=== PATIENT | female | born 1945 | race Caucasian/White ===

== ENCOUNTER 2018-06-18 21:32 | Inpatient (IN) | payer MEDICARE, BC ==
[2018-06-18] MEDS ORDERED: PIPERACILLIN/TAZOBACTAM 4.5 GM VIAL IV ONE (21:51)
[2018-06-18] MEDS ORDERED: ONDANSETRON HCL INJ/PF 4 MG/2 ML SDV IV ONE (21:52)
--- NOTE | 2018-06-18 22:01 | ER Document Report ---
ED General - General Chief Complaint: Fever Stated Complaint: NAUSEA Time Seen by Provider: 06/18/18 21:50 TRAVEL OUTSIDE OF THE [place] IN LAST 30 DAYS: No - HPI Notes: 73-year-old female with a history of atrial fibrillation on Coumadin, stroke, hypertension, congestive heart failure, diabetes, COPD on CPAP presents from home with 1 week of chills and sweats, and multiple episodes of nausea and vomiting with diarrhea. She reports about 3-4 episodes of vomiting today. She has had 2-3 episodes of diarrhea. Denies blood in vomit or stools. She has had wet cough productive of yellow sputum with increasing shortness of breath. She denies any ill contacts or travel. No abdominal pain or rash. - Related Data Allergies/Adverse Reactions: No Known Allergies Allergy (Verified 12/07/14 23:31) Past Medical History - Social History Smoking Status: Unknown if Ever Smoked Family History: Reviewed & Not Pertinent - Past Medical History Cardiac Medical History: Reports: Hx Atrial Fibrillation - pace maker, Hx Hypertension Pulmonary Medical History: Reports: Hx Sleep Apnea Neurological Medical History: Denies: Hx Seizures Endocrine Medical History: Reports: Hx Diabetes Mellitus Type 2 Past Surgical History: Reports: Hx Cardiac Surgery - pace maker. Denies: Hx Hysterectomy - Immunizations Hx Diphtheria, Pertussis, Tetanus Vaccination: Yes Hx Pneumococcal Vaccination: 09/26/14 Review of Systems - Review of Systems Notes: Constitutional: Positive for fever. HENT: Negative for sore throat. Eyes: Negative for visual changes. Cardiovascular: Positive for chest pain and shortness of breath Respiratory: Positive for cough and shortness of breath Gastrointestinal: Positive for vomiting and diarrhea. Negative for abdominal pain Genitourinary: Negative for dysuria. Musculoskeletal: Negative for back pain. Skin: Negative for rash. Neurological: Negative for headaches, weakness or numbness. 10 point ROS negative except as marked above and in HPI. Physical Exam - Notes Notes: PHYSICAL EXAMINATION: GENERAL: Ill-appearing, well-nourished. Morbid obesity HEAD: Atraumatic, normocephalic. EYES: Pupils equal round and reactive to light, extraocular movements intact, conjunctiva are normal. ENT: nares patent, oropharynx clear without exudates. Dry mucous membranes. NECK: Normal range of motion, supple without lymphadenopathy LUNGS: Breath sounds diffusely rhonchorous with rales. No wheezing HEART: Regular rate and rhythm, no chest wall tenderness ABDOMEN: Soft, nontender, normoactive bowel sounds. No guarding, no rebound. No masses appreciated. EXTREMITIES: Normal range of motion, no pitting or edema. No cyanosis. NEUROLOGICAL: Cranial nerves grossly intact. Normal speech, normal gait. Normal sensory and motor exams. PSYCH: Normal mood, normal affect. SKIN: Warm, Dry, normal turgor, no rashes or lesions noted. Course - Re-evaluation Re-evalutation: 06/18/18 21:57 Temp 99.9. Sats 89% upon EMS arrival which increased to 92% on 3 L. She is not on home oxygen. She is tachycardic. Sepsis protocol initiated. Fluids not initiated due to significant rhonchi appreciated on exam and concern for pulmonary edema. 06/18/18 23:28 Large right upper lobe infiltrate with leukocytosis. Lactic is 2. Given gentle fluids with history of congestive heart failure and no sign of severe sepsis or septic shock. Will discuss with hospitalist for admission. - Laboratory Result Diagrams: 06/18/18 22:23 06/18/18 22:23 Laboratory results interpreted by me: 06/18/18 06/18/18 06/18/18 22:23 22:23 22:23 WBC 25.7 H RBC 3.53 L Hgb 10.1 L Hct 30.4 L RDW 15.2 H Seg Neuts % (Manual) 89 H Lymphocytes % (Manual) 8 L Abs Neuts (Manual) 22.9 H PT 18.8 H Sodium 133.2 L Chloride 97 L BUN 55 H Creatinine 1.47 H Est GFR ( Amer) 42 L Est GFR (Non-Af Amer) 35 L Glucose 316 H POC Glucose Direct Bilirubin 0.6 H AST 52 H ALT 68 H NT-Pro-B Natriuret Pep Total Protein 5.9 L Albumin 3.1 L 06/18/18 06/18/18 22:23 22:53 WBC RBC Hgb Hct RDW Seg Neuts % (Manual) Lymphocytes % (Manual) Abs Neuts (Manual) PT Sodium Chloride BUN Creatinine Est GFR ( Amer) Est GFR (Non-Af Amer) Glucose POC Glucose 330 H Direct Bilirubin AST ALT NT-Pro-B Natriuret Pep 32205 H Total Protein Albumin Discharge - Discharge Clinical Impression: Sepsis Qualifiers: Sepsis type: sepsis due to unspecified organism Qualified Code(s): A41.9 - Sepsis, unspecified organism Pneumonia Qualifiers: Pneumonia type: due to unspecified organism Laterality: right Lung location: upper lobe of lung Qualified Code(s): J18.1 - Lobar pneumonia, unspecified organism Condition: Fair Disposition: ADMITTED INPATIENT Admitting Provider: Hospitalist Unit Admitted: IMCU Referrals: BRIDGETT CLARK MD [ACTIVE STAFF] - Follow up as needed
[2018-06-18 22:52] LABS: HEMATOCRIT 30.4 % (36.0-47.0); HEMOGLOBIN 10.1 g/dL (12.0-15.5); MEAN CORPUSCULAR HEMOGLOBIN 28.6 pg (27.0-33.4); MEAN CORPUSCULAR HGB CONC 33.2 g/dL (32.0-36.0); MEAN CORPUSCULAR VOLUME 86 fl (80-97); PLATELET COUNT 303 10^3/uL (150-450); RED BLOOD COUNT 3.53 10^6/uL (3.72-5.28); RED CELL DISTRIBUTION WIDTH 15.2 % (11.5-14.0); WHITE BLOOD COUNT 25.7 10^3/uL (4.0-10.5)
[2018-06-18 22:53] LABS: VENOUS BLOOD BASE EXCESS -1.2 mmol/L; VENOUS BLOOD HCO3 24.4 mmol/L (20-32); VENOUS BLOOD PCO2 43.5 mmHg (35-63); VENOUS BLOOD PH 7.37 (7.30-7.42)
[2018-06-18 22:57] LABS: INTERNATIONAL RATION (INR) 1.49; PROTHROMBIN TIME 18.8 SEC (11.4-15.4)
[2018-06-18 23:04] LABS: ALBUMIN 3.1 g/dL (3.5-5.0); ANION GAP 14 (5-19); CARBON DIOXIDE 22 mmol/L (22-30); CHLORIDE 97 mmol/L (98-107); GLUCOSE 316 mg/dL (75-110); POTASSIUM 4.5 mmol/L (3.6-5.0); SODIUM 133.2 mmol/L (137-145); TOTAL PROTEIN 5.9 g/dL (6.3-8.2)
[2018-06-18 23:05] LABS: ALANINE AMINOTRANSFERASE 68 U/L (9-52); ALKALINE PHOSPHATASE 92 U/L (38-126); ASPARTATE AMINO TRANSFERASE 52 U/L (14-36); BILIRUBIN,DIRECT 0.6 mg/dL (0.0-0.4); BLOOD UREA NITROGEN 55 mg/dL (7-20); CALCIUM 8.8 mg/dL (8.4-10.2); LIPASE 66.8 U/L (23-300)
[2018-06-18 23:12] LABS: ABSOLUTE LYMPHOCYTES# (MANUAL) 2.1 10^3/uL (0.5-4.7); ABSOLUTE MONOCYTES # (MANUAL) 0.8 10^3/uL (0.1-1.4); ABSOLUTE NEUTROPHILS# (MANUAL) 22.9 10^3/uL (1.7-8.2); BASOPHILS % (MANUAL) 0 % (0-2); EOSINOPHILS % (MANUAL) 0 % (0-6); LYMPHOCYTES % (MANUAL) 8 % (13-45); MONOCYTES % (MANUAL) 3 % (3-13); SEGMENTED NEUTROPHILS % (MAN) 89 % (42-78); TOTAL CELLS COUNTED 100
[2018-06-18 23:14] LABS: ANISOCYTOSIS SLIGHT
[2018-06-18 23:15] LABS: OVALOCYTES SLIGHT; PLATELET COMMENT ADEQUATE; PLATELET LARGE PRESENT; POIKILOCYTOSIS SLIGHT
[2018-06-18 23:23] LABS: TROPONIN I 0.157 ng/mL
[2018-06-18] MEDS ORDERED: AZITHROMYCIN INJ 500 MG VIAL IV ONE (23:25)
[2018-06-18] MEDS ORDERED: NORMAL SALINE 1000 ML 1,000 ML IV ONE (23:27)
--- NOTE | 2018-06-18 23:27 | RADIOLOGY REPORT (SQ) ---
EXAM DESCRIPTION: XR CHEST 2 VIEWS COMPLETED DATE/TME: 06/18/2018 21:51 CLINICAL HISTORY: 73 years, Female, cough, sob COMPARISON: 12.8.16 NUMBER OF VIEWS: 2 LIMITATIONS: None. FINDINGS: Large consolidative opacity of the right upper lobe prominent cardiac silhouette, atherosclerosis, and intact bony thorax. IMPRESSION: Large right upper lobar pneumonia. Recommend CR/CT surveillance including at 7-12 weeks following initiation of clinically warranted therapy.
[2018-06-18] MEDS ORDERED: ACETAMINOPHEN 325 MG TABLET PO PRN (23:57)
[2018-06-18] MEDS ORDERED: IPRATROPIUM/ALBUTEROL 0.5-2.5 MG/3 ML AMPUL NEB PRN (23:57)
[2018-06-18] MEDS ORDERED: GUAIFENESIN SYRP 200 MG/10 ML UDC PO PRN (23:57)
[2018-06-19] MEDS ORDERED: DEXTROSE 40% GEL 15 GM TUBE PO PRN ×2 (00:01)
[2018-06-19] MEDS ORDERED: GLUCAGON,HUMAN RECOMB 1 MG INJ IM PRN (00:01)
[2018-06-19] MEDS ORDERED: DEXTROSE 50%-WATER 25 GM/50 ML DISP.SYRIN IV PRN ×2 (00:01)
[2018-06-19] MEDS ORDERED: HYDRALAZINE HCL INJ/PF 20 MG/1 ML SDV IV PRN (00:02)
[2018-06-19] MEDS ORDERED: WARFARIN SODIUM 5 MG TABLET PO SCH (00:15)
[2018-06-19] MEDS ORDERED: IPRATROPIUM/ALBUTEROL 0.5-2.5 MG/3 ML AMPUL NEB ONE (00:15)
[2018-06-19] MEDS ORDERED: WARFARIN SODIUM 2 MG TABLET PO SCH (00:15)
[2018-06-19] MEDS ORDERED: DILTIAZEM HCL 60 MG TABLET PO ONE (00:15)
[2018-06-19] MEDS ORDERED: LEVOFLOXACIN 750 MG/D5W RTU 750 MG/150 ML RTUPB IV SCH (01:00)
[2018-06-19] MEDS ORDERED: CEFEPIME 2 GM/D5W RTU 2 GM/50 ML RTUPB IV SCH (01:00)
[2018-06-19] MEDS ORDERED: WARFARIN SODIUM 5 MG TABLET PO ONE (03:15)
[2018-06-19 04:43] LABS: ALANINE AMINOTRANSFERASE 78 U/L (9-52); ALBUMIN 2.9 g/dL (3.5-5.0); ALKALINE PHOSPHATASE 81 U/L (38-126); ANION GAP 11 (5-19); ASPARTATE AMINO TRANSFERASE 90 U/L (14-36); BILIRUBIN,DIRECT 0.6 mg/dL (0.0-0.4); BILIRUBIN,TOTAL 0.8 mg/dL (0.2-1.3); BLOOD UREA NITROGEN 59 mg/dL (7-20); CALCIUM 8.2 mg/dL (8.4-10.2); CARBON DIOXIDE 23 mmol/L (22-30); CHLORIDE 99 mmol/L (98-107); CREATINE KINASE 84 U/L (30-135); GLUCOSE 316 mg/dL (75-110); POTASSIUM 4.2 mmol/L (3.6-5.0); SODIUM 133.1 mmol/L (137-145)
[2018-06-19 04:46] LABS: HEMATOCRIT 27.5 % (36.0-47.0); HEMOGLOBIN 9.3 g/dL (12.0-15.5); MEAN CORPUSCULAR HEMOGLOBIN 29.1 pg (27.0-33.4); MEAN CORPUSCULAR HGB CONC 33.7 g/dL (32.0-36.0); MEAN CORPUSCULAR VOLUME 86 fl (80-97); PLATELET COUNT 282 10^3/uL (150-450); RED BLOOD COUNT 3.19 10^6/uL (3.72-5.28); RED CELL DISTRIBUTION WIDTH 15.1 % (11.5-14.0); WHITE BLOOD COUNT 21.9 10^3/uL (4.0-10.5)
[2018-06-19 04:55] LABS: CREATINE KINASE MB 0.91 ng/mL (<4.55); TROPONIN I 0.187 ng/mL
[2018-06-19 05:19] LABS: ABSOLUTE LYMPHOCYTES# (MANUAL) 1.5 10^3/uL (0.5-4.7); ABSOLUTE MONOCYTES # (MANUAL) 0.2 10^3/uL (0.1-1.4); ABSOLUTE NEUTROPHILS# (MANUAL) 20.1 10^3/uL (1.7-8.2); BASOPHILS % (MANUAL) 0 % (0-2); EOSINOPHILS % (MANUAL) 0 % (0-6); LYMPHOCYTES % (MANUAL) 7 % (13-45); MONOCYTES % (MANUAL) 1 % (3-13); SEGMENTED NEUTROPHILS % (MAN) 92 % (42-78); TOTAL CELLS COUNTED 100
[2018-06-19 05:20] LABS: TOXIC GRANULATION 1+
[2018-06-19 05:21] LABS: ANISOCYTOSIS SLIGHT; HYPOCHROMASIA 1+; PLATELET COMMENT ADEQUATE; TOXIC VACUOLATION PRESENT
[2018-06-19] MEDS: CEFEPIME 2 GM/D5W RTU 2 GM/50 ML RTUPB IV SCH ×2 (06:00→19:12)
[2018-06-19] MEDS ORDERED: HEPARIN SOD (PORCINE) 5,000 UNIT/ML 1 ML SYRINGE SUBCUT SCH (06:00)
--- NOTE | 2018-06-19 06:23 | PDOC H&P ---
History of Present Illness Admission Date/PCP: 06/18/18 23:54 YANNICK CLARK MD Patient complains of: Shortness of breath and fever History of Present Illness: MIKAEL ARELLANO is a 73 year old female with a history of atrial fibrillation on Coumadin, CVA, hypertension, congestive heart failure, diabetes and oxygen dependent COPD. She presents with 1 week of fever and chills, shortness of breath and a nonproductive cough. Denies chest pain or palpitations, in the emergency room she is found to have right-sided infiltrate, leukocytosis of 25, 000, tachycardia and fever. She started on empiric antibiotics and referred to the hospitalist for admission. Patient denies infectious contacts, rhinorrhea, sore throat or GERD. She denies recent antibiotic use. Past Medical History Cardiac Medical History: Reports: Atrial Fibrillation - pace maker, Congestive Heart Failure, Hypertension Pulmonary Medical History: Reports: Bronchitis, Sleep Apnea Neurological Medical History: Denies: Seizures Endocrine Medical History: Reports: Diabetes Mellitus Type 2 Past Surgical History Past Surgical History: Denies: Hysterectomy Social History Information Source: Patient Smoking Status: Former Smoker Frequency of Alcohol Use: None Hx Recreational Drug Use: No Drugs: None Hx Prescription Drug Abuse: No - Advance Directive Resuscitation Status: Full Code Family History Family History: CAD, Other Parental Family History Reviewed: Yes Children Family History Reviewed: Yes Sibling(s) Family History Reviewed.: Yes Medication/Allergy Home Medications: Atorvastatin Calcium [Lipitor] 40 mg PO DAILY 12/08/14 Cyanocobalamin (Vitamin B-12) [Vitamin B-12] 1,000 mcg PO DAILY 12/08/14 Diltiazem HCl [Cardizem Cd 240 mg Capsule.cr] 1 cap.sr PO DAILY 12/08/14 Ferrous Sulfate [Iron] 325 mg PO DAILY 12/08/14 Glipizide [Glucotrol Xl] 5 mg PO BID 12/08/14 Lansoprazole [Prevacid] 30 mg PO DAILY 12/08/14 Metformin HCl [Glucophage] 1,000 mg PO BID 12/08/14 Metoprolol Tartrate [Lopressor 100 mg Tablet] 100 mg PO Q12 12/08/14 Fluconazole [Diflucan 100 mg Tablet] 100 mg PO DAILY #4 tablet 12/14/14 Furosemide [Lasix 40 mg Tablet] 40 mg PO DAILY #30 tablet 12/14/14 Levofloxacin [Levaquin 750 mg Tablet] 750 mg PO DAILY #4 tablet 12/14/14 Lisinopril [Prinivil 10 mg Tablet] 20 mg PO DAILY #30 tablet 12/14/14 Warfarin Sodium [Coumadin 7.5 mg Tablet] 6.5 mg PO QHS #0 12/14/14 Allergies/Adverse Reactions: No Known Allergies Allergy (Verified 12/07/14 23:31) Review of Systems Constitutional: PRESENT: as per HPI, chills, fatigue, fever(s), night sweats, weakness. ABSENT: headache(s) Eyes: ABSENT: visual disturbances Ears: ABSENT: hearing changes Cardiovascular: ABSENT: chest pain, dyspnea on exertion, edema, orthropnea, palpitations Respiratory: PRESENT: as per HPI, cough, dyspnea. ABSENT: hemoptysis, sputum Gastrointestinal: PRESENT: constipation, diarrhea, nausea. ABSENT: abdominal pain, hematemesis, hematochezia, vomiting Genitourinary: ABSENT: dysuria, hematuria Musculoskeletal: ABSENT: joint swelling Integumentary: ABSENT: rash, wounds Neurological: ABSENT: abnormal gait, abnormal speech, confusion, dizziness, focal weakness, syncope Psychiatric: ABSENT: anxiety, depression, homidical ideation, suicidal ideation Endocrine: ABSENT: cold intolerance, heat intolerance, polydipsia, polyuria Hematologic/Lymphatic: ABSENT: easy bleeding, easy bruising Physical Exam Vital Signs: Temp Pulse Resp BP Pulse Ox 98.6 F 61 22 H 125/80 100 06/18/18 21:51 06/19/18 00:32 06/19/18 04:48 06/18/18 21:51 06/19/18 04:48 Intake & Output 06/17/18 06/18/18 06/19/18 11:59 11:59 11:59 Intake Total 1150 Balance 1150 General appearance: PRESENT: no acute distress, well-developed, well-nourished Head exam: PRESENT: atraumatic, normocephalic Eye exam: PRESENT: conjunctiva pink, EOMI, PERRLA. ABSENT: scleral icterus Ear exam: PRESENT: normal external ear exam Mouth exam: PRESENT: moist, tongue midline Neck exam: ABSENT: carotid bruit, JVD, lymphadenopathy, thyromegaly Respiratory exam: PRESENT: accessory muscle use, clear to auscultation archie, crackles, prolonged expiratory phas, rhonchi, tachypnea. ABSENT: rales, wheezes Cardiovascular exam: PRESENT: RRR. ABSENT: diastolic murmur, rubs, systolic murmur Pulses: PRESENT: normal dorsalis pedis pul Vascular exam: PRESENT: normal capillary refill GI/Abdominal exam: PRESENT: normal bowel sounds, soft. ABSENT: distended, guarding, mass, organolmegaly, rebound, tenderness Rectal exam: PRESENT: deferred Extremities exam: PRESENT: full ROM. ABSENT: calf tenderness, clubbing, pedal edema Neurological exam: PRESENT: alert, awake, oriented to person, oriented to place , oriented to time, oriented to situation, CN II-XII grossly intact. ABSENT: motor sensory deficit Psychiatric exam: PRESENT: appropriate affect, normal mood. ABSENT: homicidal ideation, suicidal ideation Skin exam: PRESENT: dry, intact, warm. ABSENT: cyanosis, rash Results Laboratory Results: 06/19/18 04:28 06/19/18 04:10 06/19/18 06/19/18 04:10 04:28 WBC 21.9 H RBC 3.19 L Hgb 9.3 L Hct 27.5 L MCV 86 MCH 29.1 MCHC 33.7 RDW 15.1 H Plt Count 282 Seg Neutrophils % Not Reportable Lymphocytes % Not Reportable Monocytes % Not Reportable Eosinophils % Not Reportable Basophils % Not Reportable Absolute Neutrophils Not Reportable Absolute Lymphocytes Not Reportable Absolute Monocytes Not Reportable Absolute Eosinophils Not Reportable Absolute Basophils Not Reportable Sodium 133.1 L Potassium 4.2 Chloride 99 Carbon Dioxide 23 Anion Gap 11 BUN 59 H Creatinine 1.94 H Est GFR ( Amer) 31 L Est GFR (Non-Af Amer) 25 L Glucose 316 H Calcium 8.2 L Total Bilirubin 0.8 AST 90 H ALT 78 H Alkaline Phosphatase 81 Total Protein 6.0 L Albumin 2.9 L 06/19/18 06/19/18 04:10 04:10 Creatine Kinase 84 CK-MB (CK-2) 0.91 Troponin I 0.187 Impressions: Chest X-Ray 06/18/18 21:51 IMPRESSION: Large right upper lobar pneumonia. Recommend CR/CT surveillance including at 7-12 weeks following initiation of clinically warranted therapy. Assessment & Plan - Diagnosis (1) ACS (acute coronary syndrome) Is this a current diagnosis for this admission?: Yes Plan: Complicated by pneumonia, IMCU admission, aspirin, heparin, cardiology consult follow-up serial cardiac enzymes optimize respiratory status (2) Pneumonia Qualifiers: Pneumonia type: due to unspecified organism Laterality: right Lung location: upper lobe of lung Qualified Code(s): J18.1 - Lobar pneumonia, unspecified organism Is this a current diagnosis for this admission?: Yes Plan: Pneumonia care set, follow-up blood culture (3) Sepsis Qualifiers: Sepsis type: sepsis due to unspecified organism Qualified Code(s): A41.9 - Sepsis, unspecified organism Is this a current diagnosis for this admission?: Yes Plan: Secondary to pneumonia, follow-up blood culture (4) Afib Qualifiers: Atrial fibrillation type: unspecified Qualified Code(s): I48.91 - Unspecified atrial fibrillation Is this a current diagnosis for this admission?: Yes Plan: Complicated by sepsis and acute coronary syndrome, cardiology consulted, Coumadin held heparin initiated - Time Time Spent: 50 to 70 Minutes - Inpatient Certification Medical Necessity: Need Close Monitoring Due to Risk of Patient Decompensation
[2018-06-19] MEDS ORDERED: HEPARIN SOD (PORCINE) 1,000 UNIT/ML 10 ML VIAL IV ONE (06:30)
[2018-06-19 06:59] LABS: INTERNATIONAL RATION (INR) 1.62; PROTHROMBIN TIME 20.1 SEC (11.4-15.4)
[2018-06-19 07:00] LABS: PARTIAL THROMBOPLASTIN TIME 44.8 SEC (23.5-35.8)
[2018-06-19 07:01] LABS: HEMOGLOBIN 8.9 g/dL (12.0-15.5); MEAN CORPUSCULAR HEMOGLOBIN 28.5 pg (27.0-33.4); MEAN CORPUSCULAR HGB CONC 33.1 g/dL (32.0-36.0); MEAN CORPUSCULAR VOLUME 86 fl (80-97); PLATELET COUNT 260 10^3/uL (150-450); RED BLOOD COUNT 3.13 10^6/uL (3.72-5.28); RED CELL DISTRIBUTION WIDTH 15.3 % (11.5-14.0); WHITE BLOOD COUNT 21.7 10^3/uL (4.0-10.5)
[2018-06-19 07:29] LABS: ABSOLUTE LYMPHOCYTES# (MANUAL) 2.4 10^3/uL (0.5-4.7); ABSOLUTE MONOCYTES # (MANUAL) 0.2 10^3/uL (0.1-1.4); ABSOLUTE NEUTROPHILS# (MANUAL) 19.1 10^3/uL (1.7-8.2); ANISOCYTOSIS SLIGHT; BAND NEUTROPHILS % (MANUAL) 1 % (3-5); BASOPHILS % (MANUAL) 0 % (0-2); EOSINOPHILS % (MANUAL) 0 % (0-6); LYMPHOCYTES % (MANUAL) 11 % (13-45); MONOCYTES % (MANUAL) 1 % (3-13); OVALOCYTES 1+; PLATELET COMMENT ADEQUATE; POIKILOCYTOSIS 1+; POLYCHROMASIA 1+; SEGMENTED NEUTROPHILS % (MAN) 87 % (42-78); TOTAL CELLS COUNTED 100; TOXIC GRANULATION SLIGHT
--- NOTE | 2018-06-19 07:41 | EKG REPORT ---
SEVERITY:- ABNORMAL ECG - AFIB/FLUT AND V-PACED COMPLEXES QRS NON DIAGNOSTIC : Confirmed by: Huan Waddell MD 19-Jun-2018 07:40:25
[2018-06-19] MEDS: IPRATROPIUM/ALBUTEROL 0.5-2.5 MG/3 ML AMPUL NEB SCH ×2 (08:07→15:48)
[2018-06-19] MEDS: HEPARIN SODIUM,PORCINE/D5W 25,000 UNIT/250 ML RTUINJ IV PRN (08:32)
[2018-06-19] MEDS ORDERED: HEPARIN SOD (PORCINE) 1,000 UNIT/ML 10 ML VIAL IV PRN (09:19)
[2018-06-19] MEDS ORDERED: FUROSEMIDE INJ/PF 40 MG/4 ML SDV IV SCH (10:00)
[2018-06-19] MEDS: GUAIFENESIN 600 MG TABLET.SA PO SCH ×2 (11:28→21:50)
[2018-06-19] MEDS: ASPIRIN 325 MG TABLET PO SCH (11:28)
[2018-06-19] MEDS: METOPROLOL TARTRATE 100 MG TABLET PO SCH ×2 (11:29→21:50)
[2018-06-19] MEDS: DILTIAZEM HCL 240 MG CAPSULE.CR PO SCH (11:30)
[2018-06-19 12:02] LABS: CREATINE KINASE MB 1.05 ng/mL (<4.55); TROPONIN I 0.132 ng/mL
[2018-06-19 16:16] LABS: APPEARANCE,URINE CLOUDY; BILIRUBIN,URINE NEGATIVE (NEGATIVE); GLUCOSE, URINE >=500 mg/dL (NEGATIVE); KETONES,URINE NEGATIVE (NEGATIVE); LEUKOCYTE ESTERASE,URINE NEGATIVE (NEGATIVE); NITRITE,URINE NEGATIVE (NEGATIVE); PROTEIN,URINE >=500 mg/dL (NEGATIVE); URINE SPECIFIC GRAVITY 1.018; UROBILINOGEN,URINE NEGATIVE mg/dL (<2.0)
[2018-06-19 16:18] LABS: COLOR,URINE YELLOW
[2018-06-19 16:33] LABS: CREATINE KINASE MB 1.72 ng/mL (<4.55); TROPONIN I 0.12 ng/mL
[2018-06-19] MEDS: VANCOMYCIN HCL 500 MG in NORMAL SALINE 100 ML IV SCH (21:49)
--- NOTE | 2018-06-19 22:33 | PDOC PROGRESS REPORT ---
Subjective Progress Note for:: 06/19/18 Subjective:: 73-year-old female with a history of atrial fibrillation Coumadin, hypertension , congestive heart failure, diabetes mellitus, COPD with chronic hypoxic respiratory failure. Presented with a one-week complaint of shortness of breath , cough and fever and chills. Chest x-ray did show a large right-sided lower lobe pneumonia, patient did have an elevated leukocytosis, tachycardic with fever. She did qualify for sepsis. She was started on empiric antibiotics that include cefepime and Levaquin. She supplied the history and was behaving appropriately during the exam. Reason For Visit: CHF EXACERBATION AFIB PNEUMONIA Physical Exam Vital Signs: Temp Pulse Resp BP Pulse Ox 98.7 F 90 21 H 128/71 H 98 06/19/18 06:00 06/19/18 17:30 06/19/18 17:30 06/19/18 17:30 06/19/18 17:30 Intake & Output 06/18/18 06/19/18 06/20/18 06:59 06:59 06:59 Intake Total 1200 Balance 1200 General appearance: PRESENT: mild distress, morbidly obese Head exam: PRESENT: atraumatic, normocephalic Eye exam: PRESENT: EOMI, PERRLA. ABSENT: conjunctival injection, nystagmus Ear exam: PRESENT: normal external ear exam. ABSENT: bleeding Mouth exam: PRESENT: moist. ABSENT: dry mucosa Throat exam: ABSENT: post pharyngeal erythema, tonsillar exudate Neck exam: ABSENT: carotid bruit, tenderness Respiratory exam: PRESENT: accessory muscle use, decreased breath sounds - decreased breath sounds in lower right base., rales. ABSENT: rhonchi, stridor Cardiovascular exam: PRESENT: RRR, +S1, +S2. ABSENT: bradycardia Pulses: PRESENT: normal radial pulses, normal dorsalis pedis pul Vascular exam: PRESENT: normal capillary refill. ABSENT: pallor GI/Abdominal exam: PRESENT: soft. ABSENT: ascites, hyperactive bowel sounds, hypoactive bowel sounds, Ryder's sign, rigid Extremities exam: PRESENT: pedal edema. ABSENT: calf tenderness, joint swelling Musculoskeletal exam: PRESENT: full ROM. ABSENT: ambulatory Neurological exam: PRESENT: alert, oriented to person, oriented to place, oriented to time, oriented to situation Psychiatric exam: ABSENT: agitated, anxious Focused psych exam: ABSENT: catatonic, paranoid Skin exam: ABSENT: abrasion, erythema, mottled, petechiae Additional comments: normal skin color Results Laboratory Results: 06/19/18 06:46 06/19/18 04:10 06/19/18 06/19/18 06/19/18 04:10 04:28 06:46 WBC 21.9 H 21.7 H RBC 3.19 L 3.13 L Hgb 9.3 L 8.9 L Hct 27.5 L 27.0 L MCV 86 86 MCH 29.1 28.5 MCHC 33.7 33.1 RDW 15.1 H 15.3 H Plt Count 282 260 Seg Neutrophils % Not Reportable Not Reportable Lymphocytes % Not Reportable Not Reportable Monocytes % Not Reportable Not Reportable Eosinophils % Not Reportable Not Reportable Basophils % Not Reportable Not Reportable Absolute Neutrophils Not Reportable Not Reportable Absolute Lymphocytes Not Reportable Not Reportable Absolute Monocytes Not Reportable Not Reportable Absolute Eosinophils Not Reportable Not Reportable Absolute Basophils Not Reportable Not Reportable Sodium 133.1 L Potassium 4.2 Chloride 99 Carbon Dioxide 23 Anion Gap 11 BUN 59 H Creatinine 1.94 H Est GFR ( Amer) 31 L Est GFR (Non-Af Amer) 25 L Glucose 316 H Calcium 8.2 L Total Bilirubin 0.8 AST 90 H ALT 78 H Alkaline Phosphatase 81 Total Protein 6.0 L Albumin 2.9 L Urine Color Urine Appearance Urine pH Ur Specific Olivia Urine Protein Urine Glucose (UA) Urine Ketones Urine Blood Urine Nitrite Ur Leukocyte Esterase Urine WBC (Auto) Urine RBC (Auto) 06/19/18 15:57 WBC RBC Hgb Hct MCV MCH MCHC RDW Plt Count Seg Neutrophils % Lymphocytes % Monocytes % Eosinophils % Basophils % Absolute Neutrophils Absolute Lymphocytes Absolute Monocytes Absolute Eosinophils Absolute Basophils Sodium Potassium Chloride Carbon Dioxide Anion Gap BUN Creatinine Est GFR ( Amer) Est GFR (Non-Af Amer) Glucose Calcium Total Bilirubin AST ALT Alkaline Phosphatase Total Protein Albumin Urine Color YELLOW Urine Appearance CLOUDY Urine pH 5.0 Ur Specific Olivia 1.018 Urine Protein >=500 H Urine Glucose (UA) >=500 H Urine Ketones NEGATIVE Urine Blood SMALL H Urine Nitrite NEGATIVE Ur Leukocyte Esterase NEGATIVE Urine WBC (Auto) 1 Urine RBC (Auto) 1 06/19/18 06/19/18 06/19/18 04:10 04:10 11:11 Creatine Kinase 84 75 CK-MB (CK-2) 0.91 Troponin I 0.187 06/19/18 06/19/18 06/19/18 11:11 15:56 15:56 Creatine Kinase 87 CK-MB (CK-2) 1.05 1.72 Troponin I 0.132 0.120 Impressions: Chest X-Ray 06/18/18 21:51 IMPRESSION: Large right upper lobar pneumonia. Recommend CR/CT surveillance including at 7-12 weeks following initiation of clinically warranted therapy. Assessment & Plan - Diagnosis (1) Sepsis Qualifiers: Sepsis type: sepsis due to unspecified organism Qualified Code(s): A41.9 - Sepsis, unspecified organism Is this a current diagnosis for this admission?: Yes Plan: elevated leukocytosis, with tachypnea and acute respiratory failure with right sided PNA on CXR. check lactic acid STAT. continue empiric Cefepime, Levaquin, Vancomycin. Maintaining BP and non-tachycardic vitals. Agree with IMCU admission and close monitoring. (2) Pneumonia Qualifiers: Pneumonia type: due to unspecified organism Laterality: right Lung location: upper lobe of lung Qualified Code(s): J18.1 - Lobar pneumonia, unspecified organism Is this a current diagnosis for this admission?: Yes Plan: right sided PNA on CXR. continue Cefepime and Levaquin and Vancomycin (3) Afib Qualifiers: Atrial fibrillation type: unspecified Qualified Code(s): I48.91 - Unspecified atrial fibrillation Is this a current diagnosis for this admission?: Yes Plan: holding Coumadin, was started on Heparin, continue at present. has a controled rate, paced rhythm during exam on telemetry. continue Metoprolol and Diltiazem. (4) Diabetes mellitus type 2 in nonobese Is this a current diagnosis for this admission?: Yes Plan: cardiac/diabetic diet continue sliding scale insulin (5) HTN (hypertension) Qualifiers: Hypertension type: essential hypertension Qualified Code(s): I10 - Essential (primary) hypertension Is this a current diagnosis for this admission?: Yes Plan: BP currently controlled continue metoprolol and diltiazem. - Time Time Spent with patient: 15-24 minutes - Inpatient Certification Based on my medical assessment, after consideration of the patient's comorbidities, presenting symptoms, or acuity I expect that the services needed warrant INPATIENT care.: Yes I certify that my determination is in accordance with my understanding of Medicare's requirements for reasonable and necessary INPATIENT services [42 CFR 412.3e].: Yes Medical Necessity: Need Close Monitoring Due to Risk of Patient Decompensation
[2018-06-19] MEDS ORDERED: BUTALB/ACETAMINOPHEN/CAFFEINE 1 TAB EACH PO ONE (23:00)
[2018-06-20] MEDS: IPRATROPIUM/ALBUTEROL 0.5-2.5 MG/3 ML AMPUL NEB SCH ×3 (00:22→16:08)
[2018-06-20 05:20] LABS: HEMATOCRIT 27.1 % (36.0-47.0); HEMOGLOBIN 9.2 g/dL (12.0-15.5); MEAN CORPUSCULAR HEMOGLOBIN 28.9 pg (27.0-33.4); MEAN CORPUSCULAR HGB CONC 33.9 g/dL (32.0-36.0); MEAN CORPUSCULAR VOLUME 85 fl (80-97); PLATELET COUNT 288 10^3/uL (150-450); RED BLOOD COUNT 3.17 10^6/uL (3.72-5.28); RED CELL DISTRIBUTION WIDTH 15.5 % (11.5-14.0)
[2018-06-20 05:48] LABS: ALANINE AMINOTRANSFERASE 144 U/L (9-52); ALBUMIN 3.2 g/dL (3.5-5.0); ALKALINE PHOSPHATASE 97 U/L (38-126); ANION GAP 15 (5-19); ASPARTATE AMINO TRANSFERASE 169 U/L (14-36); BILIRUBIN,DIRECT 0.8 mg/dL (0.0-0.4); BILIRUBIN,TOTAL 0.9 mg/dL (0.2-1.3); BLOOD UREA NITROGEN 79 mg/dL (7-20); CALCIUM 8.6 mg/dL (8.4-10.2); CARBON DIOXIDE 21 mmol/L (22-30); CHLORIDE 98 mmol/L (98-107); GLUCOSE 233 mg/dL (75-110); POTASSIUM 4.4 mmol/L (3.6-5.0); SODIUM 133.6 mmol/L (137-145); TOTAL PROTEIN 6.5 g/dL (6.3-8.2)
[2018-06-20 05:53] LABS: ABSOLUTE LYMPHOCYTES# (MANUAL) 1.2 10^3/uL (0.5-4.7); ABSOLUTE MONOCYTES # (MANUAL) 0.5 10^3/uL (0.1-1.4); ABSOLUTE NEUTROPHILS# (MANUAL) 21.4 10^3/uL (1.7-8.2); BAND NEUTROPHILS % (MANUAL) 3 % (3-5); BASOPHILS % (MANUAL) 0 % (0-2); EOSINOPHILS % (MANUAL) 0 % (0-6); LYMPHOCYTES % (MANUAL) 5 % (13-45); MONOCYTES % (MANUAL) 2 % (3-13); SEGMENTED NEUTROPHILS % (MAN) 90 % (42-78); TOTAL CELLS COUNTED 100
[2018-06-20 05:55] LABS: ANISOCYTOSIS 1+; HYPOCHROMASIA 1+; PLATELET COMMENT ADEQUATE; POLYCHROMASIA 1+; TOXIC GRANULATION 1+; TOXIC VACUOLATION PRESENT
--- NOTE | 2018-06-20 08:30 | CONSULTATION REPORT E ---
Consultation Report NAME: MIKAEL ARELLANO : 1945 AGE: 73Y DATE: 06/19/2018 TIME: 3 p.m. ROOM: 324 A TO: CASTRO ST M.D. FROM: GUILLERMINA BARBA M.D. Requesting Physician REASON FOR CONSULTATION: Patient with a history of atrial fibrillation, permanent pacemaker, hypertension, and past history of congestive heart failure with shortness of breath. HISTORY OF PRESENT ILLNESS: The patient is a 73-year-old female with a history of atrial fibrillation, chronic, on Coumadin; history of permanent pacemaker for bradycardia; history of hypertension; past history of congestive heart failure and history of permanent pacemaker placement; history of COPD, oxygen dependent; and history of sleep apnea who states since the last 4 days she has been having increasing shortness of breath with cough which was initially dry and subsequently brought up scanty yellow sputum. There is no hemoptysis. She has some chest pain on the right side of the chest which increases with deep breathing and is pleuritic in nature. She denies any anginal symptoms. Although there is no documented history of coronary artery disease, she states she also had a stent placed but there is no history of IL, and there are no anginal symptoms. The patient has orthopnea but no PND. There is trace leg edema only. There is no palpitations or rapid atrial fibrillation. The patient initially was hypoxic with an O2 sat of 89% and she was placed on nasal cannula. Subsequently her sats went down to 60% and the patient was placed on BiPAP. PAST MEDICAL HISTORY: Positive for history of hypertension, history of diabetes mellitus type 2, history of COPD/chronic bronchitis O2 dependent, and a history of sleep apnea. She has a prior history of congestive heart failure, atrial fibrillation (on Coumadin), past history of CVA (completely recovered). She also has hyperlipidemia. There is no history of thyroid disease. The patient also has chronic kidney disease stage 3. PAST SURGICAL HISTORY: Positive for permanent pacemaker placement. FAMILY HISTORY: Positive for coronary artery disease and hypertension. ALLERGIES: The patient has no known allergies. SOCIAL HISTORY: The patient is a former smoker. There is no history of ETOH abuse. CODE STATUS: THE PATIENT IS A FULL CODE. Her daughter is her surrogate healthcare decision maker. MEDICATIONS: 1. Heparin continuous with PTT to titrate the patient's heparin drip. 2. She is on Tylenol 650 mg p.o. every 4 hours p.r.n. 3. Aspirin 325 mg p.o. daily. 4. She is on Zithromax 500 mg IV piggyback daily. 5. She is on cefepime 1 gram IV piggyback every night. 6. She is on hypoglycemic precautions with glucose gel 15 grams p.o. and 30 grams p.o. respectively hypoglycemia. 7. She is on dextrose 50% 12.5 grams and 25 grams IV push p.r.n. hypoglycemia. 8. She is on Cardizem 240 mg sustained release p.o. daily. 9. She is on Lasix 40 mg p.o. daily. 10. She is on Glucagon 1 mg IM p.r.n. hypoglycemia. 11. She is on Robitussin 200 mg p.o. every 4 hours p.r.n. 12. Mucinex 600 mg p.o. every 12 hours. 13. She is on Accu-Cheks before meals, t.i.d., and at bedtime with sliding-scale insulin coverage. 14. She is on hydralazine 10 mg IV every 6 hours p.r.n. 15. She is on ipratropium/albuterol via nebulizer treatment every 12 hours and also every 8 hours. 16. She got a normal saline bolus of 1000 mL. 17. She is on Levaquin 500 mg IV every 2 days. 18. She is on metoprolol tartrate 100 mg p.o. every 12 hours. 19. She is on Zofran 4 mg IV x1. 20. She is on piperacillin 4.5 grams IV bag x1. 21. She is on vancomycin 500 mg IV at bedtime. 22. She is on Coumadin (warfarin) 10 mg p.o. x1. PHYSICAL EXAMINATION: GENERAL: The patient is moderately obese, in distress due to respiratory problem. She is well groomed. VITAL SIGNS: She is afebrile with a temperature of 98.4 degrees Fahrenheit. Pulse is 61 beats per minute. There is atrial fibrillation with ventricular-paced rhythm. Blood pressure is 124/51. Respirations are 22 per minute. O2 sats are 98% on BiPAP with FIO2 of 30%. HEENT: Head - Atraumatic and normocephalic. Eyes - Pupils are equal, round, regular, reactive to light and accommodation. Extraocular movements are normal. There is no conjunctival pallor. There is no scleral icterus. Ears - Tympanic membranes are intact. External auditory canals are clear. Nose - There is no deviated nasal septum. There is no inflammation of the nasal mucous membranes. Mouth - Mucous membranes of the mouth are moist. Tongue is moist. There are no ulcers. There is no bleeding from the gums. Throat - There is no redness of the oropharynx. There are no exudates. SKIN: There are no skin rashes. No petechia, ecchymosis, or skin lesions. NECK: Supple. There is no JVD present. Carotids are equal. There is transmitted aortic stenosis murmur over both carotids. There is carotid delay present. There is no lymphadenopathy. There is no goiter. LUNGS: Show bronchial breath sounds in the right upper lobe with a few dry crackles. There is diminished air entry and prolonged expiration. No rales of CHF. On percussion, there is hyperresonance elsewhere except the right upper lobe. There is no chest wall tenderness. HEART: S1, S2 is heard; S1 is of variable intensity. There is no S3 gallop. There is no S4 gallop. There is a systolic murmur at the left sternal border and the apex. There is no rub. There is aortic stenosis murmur with muffled A2 sound. There is mild mitral regurgitation murmur present. There is no rub. ABDOMEN: Soft, nontender. There is no hepatosplenomegaly. Bowel sounds are well heard. There are no tender areas or masses. EXTREMITIES: Femorals are deep. Femorals are diminished. There are no femoral bruits. Leg pulses are diminished. There is trace pedal edema. There is no DVT or cellulitis. There is no calf tenderness. There is no cyanosis or clubbing. CENTRAL NERVOUS SYSTEM: The patient is conscious, awake, alert, and oriented x3 with no focal deficits. PSYCHIATRIC: The patient's judgement and insight are intact and her affect is normal. REVIEW OF SYSTEMS: CONSTITUTIONAL: Complains of fever but does not know how much the temperature went up to. Also complains of chills and rigors and generalized fatigue and weakness. HEAD: Denies headaches or head injury. EYES: No history of amblyopia or diplopia. No history of amaurosis fugax. EARS: No history of hearing loss. No history of tinnitus. No history of recurrent ear infections. NOSE: No history of hay fever. No history of nosebleeds. No history of nasal polyps. MOUTH: No history of altered taste sensation or ulcers in the mouth. THROAT: No odynophagia or dysphagia. No recurrent sore throats. SKIN: No pruritus. No yellowish discoloration of the skin. No psoriasis. LUNGS: History of cough, nonproductive initially of sputum and subsequently with scanty yellowish sputum. Chest x-ray shows right upper lobe consolidation/pneumonia. She also has history of COPD. She also has history of sleep apnea. No history of pulmonary embolism. The patient does have orthopnea. There is no hemoptysis. There is no pleuritic chest pain. CARDIAC: History of hypertension. At present examination is consistent with aortic stenosis, probably severe, but await echo findings. Although there is no documented history of CAD in the records, the patient claims she had a stent put in. There is no history of IL and the patient does not have any anginal symptoms. She has a past history of congestive heart failure. She has a history of permanent pacemaker for bradycardia. She has chronic atrial fibrillation, on Coumadin. There is trace leg edema. There is no PND. There is orthopnea present. There is no syncope. GASTROINTESTINAL: History of GERD at present. No history of peptic ulcer disease. No history of GI bleed. No history of fatty food intolerance or history of jaundice. No history of altered bowel movements. No history of abdominal pain. Appetite is decreased. MUSCULOSKELETAL: Denies arthritis or collagen-vascular disease. RENAL: History of chronic kidney disease stage 3. No symptoms of hematuria, pyuria, or dysuria. No symptoms of UTI. METABOLIC: History of hyperlipidemia. History of obesity present. No history of gout. CENTRAL NERVOUS SYSTEM: No history of TIA. No history of headaches, migraines, or seizures. There is no recurrence of CVA. She has a past history of CVA from which she fully recovered. PSYCHIATRIC: The patient denies any history of anxiety or depression. There is no suicidal ideation. There is no homicidal ideation. VASCULAR: No history of calf or buttock claudication. No history of DVT. HEMATOLOGICAL: No history of bleeding diathesis. No history of clotting disorders. DIAGNOSTICS: The patient's chest x-ray shows no evidence of CHF. There is right upper lobe consolidation consistent with right upper lobe pneumonia. The patient's EKG shows underlying atrial fibrillation with ventricular-paced rhythm. The patient's sodium is 133.1, potassium 4.2, chloride is 99, CO2 is 23, patient's BUN is 59, creatinine is 1.94, GFR is reduced at 25 mL. The patient's glucose is 316. The patient's calcium is 8.2. The patient's liver function tests are abnormal with an elevated direct bilirubin of 0.6, an elevated AST of 90, elevated ALT of 78. The patient's CPK-MB is negative at 0.91. The patient's troponin I is elevated at 0.157 and 0.187. The patient's lactic acid was elevated at 3.0. The patient's glucose was 316. The patient's lipase was 66.8, the patient's albumin was 2.9, total protein was 6. The patient's pro time this morning was 20.1, INR was 1.62 (she is on heparin), and her PTT was 66.5. The patient's white count was 21,700, hemoglobin was 8.9, hematocrit was 27, and platelet count was 260,000. IMPRESSION: 1. Acute respiratory failure with hypoxemia. Continue BiPAP. Continue respiratory treatments. 2. Elevated troponin I, most likely secondary to hypoxemia, atrial fibrillation, and acute pneumonia. No definite evidence of [id number] IL. 3. Right upper lobe pneumonia. 4. Atrial fibrillation, chronic. 5. COPD. 6. Hypertension. 7. Hyperlipidemia. 8. Diabetes mellitus. 9. History of obstructive sleep apnea. 10. Aortic stenosis, ? severity. 11. Permanent pacemaker. 12. History of congestive heart failure. 13. Chronic kidney disease stage 3. RECOMMENDATIONS: Would check the patient's echocardiogram, continue the patient's antibiotics, and continue heparin from now. We will try to get the patient's records from [facility] and from [facility] from [place]. Medications have been reviewed. Medical decision making is of high complexity. I discussed with the other caregiving providers on the case and will follow with you. Note, 60 minutes was spent on this patient with more than 50% of the time spent in direct patient care. DICTATING PHYSICIAN: CASTRO ST M.D. [id number] PHY#: [id number] ID: [id number] JOB#: [id number] ACCT: [id number] cc:CASTRO ST M.D. >
[2018-06-20] MEDS: INSULIN LISPRO 100 UNIT/ML 3 ML VIAL SUBCUT PRN ×2 (09:31→17:54)
[2018-06-20] MEDS: DILTIAZEM HCL 240 MG CAPSULE.CR PO SCH (09:32)
[2018-06-20] MEDS: ASPIRIN 325 MG TABLET PO SCH (09:32)
[2018-06-20] MEDS: GUAIFENESIN 600 MG TABLET.SA PO SCH ×2 (09:32→21:53)
[2018-06-20] MEDS: METOPROLOL TARTRATE 100 MG TABLET PO SCH ×2 (09:32→21:54)
[2018-06-20] MEDS: HEPARIN SODIUM,PORCINE/D5W 25,000 UNIT/250 ML RTUINJ IV PRN (14:48)
[2018-06-20] MEDS: CEFEPIME 1 GM/D5W RTU 1 GM/50 ML RTUPB IV SCH (17:57)
--- NOTE | 2018-06-20 19:33 | PDOC PROGRESS REPORT ---
Subjective Progress Note for:: 06/20/18 - seen on rounds this morning Subjective:: states she has no acute complaints this morning - state she feels the same- states she still has some SOB Reason For Visit: CHF EXACERBATION AFIB PNEUMONIA Physical Exam Vital Signs: Temp Pulse Resp BP Pulse Ox 97.8 F 59 L 19 105/41 L 100 06/20/18 15:01 06/20/18 16:08 06/20/18 16:08 06/20/18 15:01 06/20/18 15:01 Intake & Output 06/19/18 06/20/18 06/21/18 06:59 06:59 06:59 Intake Total 1200 282 918 Output Total 0 200 Balance 1200 282 718 Weight 192 lb 0.362 oz General appearance: PRESENT: no acute distress, obese Head exam: PRESENT: atraumatic, normocephalic Eye exam: PRESENT: EOMI, PERRLA. ABSENT: scleral icterus Ear exam: PRESENT: normal external ear exam Mouth exam: PRESENT: neck supple, tongue midline Neck exam: ABSENT: tracheal deviation Respiratory exam: PRESENT: decreased breath sounds - bilateral bases with fine crackles and decreased sound in the upper lobes, symmetrical Pulses: PRESENT: +2 pedal pulses bilateral GI/Abdominal exam: PRESENT: normal bowel sounds, soft. ABSENT: tenderness Extremities exam: PRESENT: +1 edema - lower extremity Neurological exam: PRESENT: alert, awake, oriented to person, oriented to place , oriented to time, oriented to situation, CN II-XII grossly intact Skin exam: PRESENT: dry, warm Results Laboratory Results: 06/20/18 04:50 06/20/18 04:50 06/19/18 06/20/18 06/20/18 22:50 04:50 04:50 WBC 23.0 H RBC 3.17 L Hgb 9.2 L Hct 27.1 L MCV 85 MCH 28.9 MCHC 33.9 RDW 15.5 H Plt Count 288 Seg Neutrophils % Not Reportable Lymphocytes % Not Reportable Monocytes % Not Reportable Eosinophils % Not Reportable Basophils % Not Reportable Absolute Neutrophils Not Reportable Absolute Lymphocytes Not Reportable Absolute Monocytes Not Reportable Absolute Eosinophils Not Reportable Absolute Basophils Not Reportable Sodium 133.6 L Potassium 4.4 Chloride 98 Carbon Dioxide 21 L Anion Gap 15 BUN 79 H Creatinine 3.29 H Est GFR ( Amer) 17 L Est GFR (Non-Af Amer) 14 L Glucose 233 H Lactic Acid 1.3 Calcium 8.6 Total Bilirubin 0.9 AST 169 H ALT 144 H Alkaline Phosphatase 97 Total Protein 6.5 Albumin 3.2 L 06/19/18 06/19/18 06/19/18 04:10 04:10 11:11 Creatine Kinase 84 75 CK-MB (CK-2) 0.91 Troponin I 0.187 06/19/18 06/19/18 06/19/18 11:11 15:56 15:56 Creatine Kinase 87 CK-MB (CK-2) 1.05 1.72 Troponin I 0.132 0.120 06/20/18 04:50 Creatine Kinase CK-MB (CK-2) Troponin I 0.079 Impressions: Chest X-Ray 06/18/18 21:51 IMPRESSION: Large right upper lobar pneumonia. Recommend CR/CT surveillance including at 7-12 weeks following initiation of clinically warranted therapy. Assessment & Plan - Diagnosis (1) Elevated troponin Is this a current diagnosis for this admission?: Yes (2) Pneumonia Qualifiers: Pneumonia type: due to unspecified organism Laterality: right Lung location: upper lobe of lung Qualified Code(s): J18.1 - Lobar pneumonia, unspecified organism Is this a current diagnosis for this admission?: Yes Plan: currently on cefepime, levaquin and vanco. might have to de-escalate in a few days. so far all cultures are negative (3) Diabetes mellitus type 2 in nonobese Is this a current diagnosis for this admission?: Yes Plan: she was SSI - at home she's on levemir- we will start her on lantus 20u from tonight- her glucose has been >200 all the time (4) Afib Qualifiers: Atrial fibrillation type: unspecified Qualified Code(s): I48.91 - Unspecified atrial fibrillation Is this a current diagnosis for this admission?: Yes Plan: her coumadin was held and started on heparin drip- i think it was due to the elevating Troponin - it is trending down now. i think it might be due to her CKD - might be just demand mismatch. if she does well- d/c heparin gtt and restart coumadin (5) Sepsis Qualifiers: Sepsis type: sepsis due to unspecified organism Qualified Code(s): A41.9 - Sepsis, unspecified organism Is this a current diagnosis for this admission?: Yes Plan: see plan for pneumonia
[2018-06-20] MEDS ORDERED: NORMAL SALINE 1000 ML 1,000 ML IV PRN (19:48)
[2018-06-20] MEDS ORDERED: NORMAL SALINE 1000 ML 500 ML IV ONE (19:49)
[2018-06-20 21:51] LABS: APPEARANCE,URINE CLOUDY; BILIRUBIN,URINE NEGATIVE (NEGATIVE); COLOR,URINE YELLOW; GLUCOSE, URINE 50 mg/dL (NEGATIVE); KETONES,URINE TRACE mg/dL (NEGATIVE); LEUKOCYTE ESTERASE,URINE SMALL (NEGATIVE); NITRITE,URINE NEGATIVE (NEGATIVE); PROTEIN,URINE 30 mg/dL (NEGATIVE); URINE SPECIFIC GRAVITY 1.019; UROBILINOGEN,URINE NEGATIVE mg/dL (<2.0)
[2018-06-20] MEDS: INSULIN GLARGINE,HUM.REC.ANLOG 300 UNIT/3 ML INSULN.PEN SUBCUT SCH (21:54)
[2018-06-20] MEDS: VANCOMYCIN HCL 500 MG in NORMAL SALINE 100 ML IV SCH (21:54)
[2018-06-20] MEDS ORDERED: INSULIN GLARGINE,HUM.REC.ANLOG 1,000 UNIT/10 ML UNIT SUBCUT SCH (22:00)
--- NOTE | 2018-06-21 00:01 | PROGRESS NOTE E ---
Progress Note NAME: MIKAEL ARELLANO : 1945 AGE: 73Y DATE: 06/20/2018 ROOM: 324 SUBJECTIVE: Note that the patient states her shortness of breath has improved, but she still has orthopnea and still some shortness of breath. She is now having good saturation of 98% on 3 liters nasal cannula. The patient denies any leg edema, PND, palpitations, chest pain or discomfort. There is no TIA or CVA symptoms. There is no bleeding on heparin. OBJECTIVE: GENERAL: The patient is moderately obese. At present, sitting up in the chair and seems to be in no acute distress. When she talks, she becomes easily short of breath. VITAL SIGNS: She is afebrile with a temperature of 98.2 degrees Fahrenheit, pulse 60 beats per minute, blood pressure 113/52, respirations are 18 per minute, O2 sats are 98% on 3 liters nasal cannula. HEENT: Head is normocephalic/atraumatic. Eyes: Pupils are equal, round, and regular, reactive to light and accommodation. Extraocular movements normal. There is no conjunctival pallor. There is no scleral icterus. ENT is negative. NECK: Supple. There is no JVD. Carotids are equal. There is transmitted murmur over both carotids. There is carotid delay present. There is no lymphadenopathy. There is no goiter. Trachea is central. LUNGS: Bronchial breath sounds and egophony in the right upper lobe. There is diminished air entry *------*. There are no rales. There are a few scattered rhonchi. There is no wheezing. HEART: S1, S2 heard. There is no S3 gallop. There is no S4 gallop. S1 is of variable intensity. There is a systolic murmur in the left sternal border in the apex. There is no rub. There is murmur of aortic stenosis present with A2 being muffled (2nd heart sound aortic component). There is carotid delay, as mentioned earlier. There is no rub. ABDOMEN: Soft, obese, nontender. There is no hepatosplenomegaly. Bowel sounds are well heard. There are no tender areas or masses. EXTREMITIES: Femorals are diminished. Leg pulses are diminished. There is no pedal edema. There is no DVT or cellulitis. There is no calf tenderness. STRIP CUTTER: The patient is conscious, awake, alert, oriented x3 with no focal deficits. PSYCHIATRIC: The patient's judgment and insight are intact. Affect is normal. The patient's 24-hour intake and output is not accurate. The patient's sodium is 133.6, potassium is 4.4. CO2 is 21. The patient's BUN is 79, creatinine 3.29. GFR is reduced to 14 mL, which is stage IV/V. The patient's glucose is 233. Liver function tests are abnormal with AST of 169, ALT of 144, and direct bilirubin being increased at 0.8. Troponin-I has trended down to 0.07. Hemoglobin is 9.2, hematocrit is 27.1, white count 23,000. Platelet count is 288,000. ASSESSMENT: 1. ACUTE RESPIRATORY FAILURE WITH HYPOXEMIA. Improving. At present, the patient is off BiPAP. O2 saturations are good on 3 liters nasal cannula. 2. ELEVATED TROPONIN-I, WHICH HAS TRENDED DOWN. Secondary to supply/demand mismatch, secondary to hypoxemia, atrial fibrillation, acute pneumonia, and ventricular pacing. There is no definite evidence of non-ST elevation myocardial infarction. 3. RIGHT UPPER LOBE PNEUMONIA. Continue antibiotics. Continue respiratory treatment. 4. ATRIAL FIBRILLATION. Chronic. 5. CHRONIC OBSTRUCTIVE PULMONARY DISEASE. 6. HYPERTENSION. 7. HYPERLIPIDEMIA. 8. DIABETES MELLITUS. 9. HISTORY OF OBSTRUCTIVE SLEEP APNEA. On further questioning, she sometimes wears CPAP. She is not wearing is regularly. 10. AORTIC STENOSIS. The peak gradient is only 32, but there is LV dysfunction and hence, this may be more significant than what the numbers tell us. 11. PERMANENT PACEMAKER. This is a leadless pacemaker. 12. PRIOR HISTORY OF CONGESTIVE HEART FAILURE. 13. CHRONIC KIDNEY DISEASE, STAGE IV/V. This is most likely secondary to pneumonia and sepsis. PLAN: Note that records from *------* [facility] were reviewed. On further questioning, the patient denies any history of coronary artery disease or stent placement, and also the records prove that she is right. She had a leadless pacemaker generator placed secondary to symptomatic bradycardia. It is a single chamber leadless pacemaker. Also, I have discussed again with the patient which local access services representative she wants to follow up with, and in the presence of the nurse she wanted to follow up with me since she knew me from before. She stated that she trusted me. Hence, will follow the patient here in the hospital and also as an outpatient. Medications have been reviewed. Will recheck the patient's chest x-ray in the a.m. Note 40 minutes spent on this patient with more than 50% of time spent in direct patient care. Medical decision making is of high complexity. Will follow with you. DICTATING PHYSICIAN: CASTRO ST M.D. [id number] ANGEL#: [id number] ID: [id number] JOB#: [id number] ACCT: [id number] cc: >
[2018-06-21] MEDS: IPRATROPIUM/ALBUTEROL 0.5-2.5 MG/3 ML AMPUL NEB SCH ×3 (00:13→15:52)
[2018-06-21 06:10] LABS: ABSOLUTE EOSINOPHILS # (AUTO) 0.2 10^3/uL (0.0-0.6); ABSOLUTE LYMPHOCYTES (AUTO) 1.3 10^3/uL (0.5-4.7); ABSOLUTE MONOCYTES (AUTO) 1.1 10^3/uL (0.1-1.4); ABSOLUTE NEUT (AUTO) 16.5 10^3/uL (1.7-8.2); BASOPHILS % (AUTO) 0.1 % (0-2); EOSINOPHILS % (AUTO) 1.2 % (0-6); HEMATOCRIT 25.2 % (36.0-47.0); HEMOGLOBIN 8.5 g/dL (12.0-15.5); MEAN CORPUSCULAR HEMOGLOBIN 28.8 pg (27.0-33.4); MEAN CORPUSCULAR HGB CONC 33.9 g/dL (32.0-36.0); MEAN CORPUSCULAR VOLUME 85 fl (80-97); MONOCYTES % (AUTO) 5.6 % (3-13); PLATELET COUNT 296 10^3/uL (150-450); RED BLOOD COUNT 2.96 10^6/uL (3.72-5.28); RED CELL DISTRIBUTION WIDTH 15.4 % (11.5-14.0); SEGMENTED NEUTROPHILS % (AUTO) 86.1 % (42-78); TOTAL CELLS COUNTED % (AUTO) 100 %; WHITE BLOOD COUNT 19.2 10^3/uL (4.0-10.5)
[2018-06-21 06:22] LABS: ALANINE AMINOTRANSFERASE 209 U/L (9-52); ALKALINE PHOSPHATASE 145 U/L (38-126); ANION GAP 17 (5-19); ASPARTATE AMINO TRANSFERASE 176 U/L (14-36); BILIRUBIN,DIRECT 0.7 mg/dL (0.0-0.4); BILIRUBIN,TOTAL 0.7 mg/dL (0.2-1.3); BLOOD UREA NITROGEN 92 mg/dL (7-20); CALCIUM 8.6 mg/dL (8.4-10.2); CARBON DIOXIDE 19 mmol/L (22-30); CHLORIDE 99 mmol/L (98-107); GLUCOSE 216 mg/dL (75-110); POTASSIUM 4.2 mmol/L (3.6-5.0); SODIUM 135.2 mmol/L (137-145); TOTAL PROTEIN 6.2 g/dL (6.3-8.2)
[2018-06-21] MEDS ORDERED: NORMAL SALINE 1000 ML 1,000 ML IV PRN (08:09)
--- NOTE | 2018-06-21 08:27 | RADIOLOGY REPORT (SQ) ---
EXAM DESCRIPTION: CHEST SINGLE VIEW COMPLETED DATE/TIME: 06/21/2018 7:57 am REASON FOR STUDY: Pneumonia COMPARISON: Multiples, most recent 06/18/2018 EXAM PARAMETERS: NUMBER OF VIEWS: One view. TECHNIQUE: Single frontal radiographic view of the chest acquired. RADIATION DOSE: NA LIMITATIONS: None. FINDINGS: LUNGS AND PLEURA: Minimal interval worsening of the right upper lobe opacity. No new airs pace opacities. No pleural effusion or pneumothorax. MEDIASTINUM AND HILAR STRUCTURES: No masses. Contour normal. HEART AND VASCULAR STRUCTURES: Heart normal in size. Calcifications of the aortic knob. BONES: No acute findings. HARDWARE: None in the chest. OTHER: No other significant finding. IMPRESSION: Minimal interval worsening of the right upper lobe opacity. TECHNICAL DOCUMENTATION: JOB ID: [id number] [employer]- All Rights Reserved Reading location - IP/workstation name: [email or web address]
[2018-06-21] MEDS: INSULIN LISPRO 100 UNIT/ML 3 ML VIAL SUBCUT PRN ×3 (09:09→22:42)
[2018-06-21] MEDS: METOPROLOL TARTRATE 100 MG TABLET PO SCH ×2 (09:12→22:38)
[2018-06-21] MEDS: GUAIFENESIN 600 MG TABLET.SA PO SCH ×2 (09:12→22:39)
[2018-06-21] MEDS: ASPIRIN 325 MG TABLET PO SCH (09:13)
[2018-06-21] MEDS: LEVOFLOXACIN 500 MG/D5W RTU 500 MG/100 ML RTUPB IV SCH (09:13)
[2018-06-21] MEDS: DILTIAZEM HCL 240 MG CAPSULE.CR PO SCH (09:13)
[2018-06-21] MEDS: HEPARIN SODIUM,PORCINE/D5W 25,000 UNIT/250 ML RTUINJ IV PRN (10:22)
--- NOTE | 2018-06-21 12:14 | PDOC PROGRESS REPORT ---
Subjective Progress Note for:: 06/21/18 Subjective:: states she feels a little funny this morning. doesn't feet great for some reason Reason For Visit: CHF EXACERBATION AFIB PNEUMONIA Physical Exam Vital Signs: Temp Pulse Resp BP Pulse Ox 97.6 F 58 L 22 H 101/64 95 06/21/18 11:47 06/21/18 11:47 06/21/18 11:47 06/21/18 11:47 06/21/18 11:47 Intake & Output 06/20/18 06/21/18 06/22/18 06:59 06:59 06:59 Intake Total 282 1868 318 Output Total 0 200 Balance 282 1668 318 Weight 192 lb 0.362 oz 194 lb 0.108 oz Results Laboratory Results: 06/21/18 05:50 06/21/18 05:50 06/20/18 06/21/18 06/21/18 21:20 05:50 05:50 WBC 19.2 H RBC 2.96 L Hgb 8.5 L Hct 25.2 L MCV 85 MCH 28.8 MCHC 33.9 RDW 15.4 H Plt Count 296 Seg Neutrophils % 86.1 H Lymphocytes % 7.0 L Monocytes % 5.6 Eosinophils % 1.2 Basophils % 0.1 Absolute Neutrophils 16.5 H Absolute Lymphocytes 1.3 Absolute Monocytes 1.1 Absolute Eosinophils 0.2 Absolute Basophils 0.0 Sodium 135.2 L Potassium 4.2 Chloride 99 Carbon Dioxide 19 L Anion Gap 17 BUN 92 H Creatinine 3.92 H Est GFR ( Amer) 14 L Est GFR (Non-Af Amer) 11 L Glucose 216 H Calcium 8.6 Total Bilirubin 0.7 AST 176 H ALT 209 H Alkaline Phosphatase 145 H Total Protein 6.2 L Albumin 3.0 L Urine Color YELLOW Urine Appearance CLOUDY Urine pH 5.0 Ur Specific [place] 1.019 Urine Protein 30 H Urine Glucose (UA) 50 H Urine Ketones TRACE H Urine Blood SMALL H Urine Nitrite NEGATIVE Ur Leukocyte Esterase SMALL H Urine WBC (Auto) 8 Urine RBC (Auto) 1 06/19/18 06/19/18 06/19/18 04:10 04:10 11:11 Creatine Kinase 84 75 CK-MB (CK-2) 0.91 Troponin I 0.187 06/19/18 06/19/18 06/19/18 11:11 15:56 15:56 Creatine Kinase 87 CK-MB (CK-2) 1.05 1.72 Troponin I 0.132 0.120 06/20/18 06/21/18 04:50 05:50 Creatine Kinase CK-MB (CK-2) Troponin I 0.079 0.031 Impressions: Chest X-Ray 06/20/18 00:00 IMPRESSION: Minimal interval worsening of the right upper lobe opacity. Assessment & Plan - Diagnosis (1) Sepsis Qualifiers: Sepsis type: Pneumococcus Qualified Code(s): A40.3 - Sepsis due to Streptococcus pneumoniae Is this a current diagnosis for this admission?: Yes Plan: see plan for pneumonia (2) Pneumonia Qualifiers: Pneumonia type: due to unspecified organism Laterality: right Lung location: upper lobe of lung Qualified Code(s): J18.1 - Lobar pneumonia, unspecified organism Is this a current diagnosis for this admission?: Yes Plan: currently on cefepime, levaquin and vanco. unfortunately today her Bcx was POSITIVE 1/2 bottles. I had stopped the Vanco last night since everything was negative and her Renal function is worse now. her culture positive might be from her pneumonia. she was improving clinical and her WBC was trending down but today she was not feeling well- was pulling off her IVs and being a little more restless. ?getting encephalophatic from Uremia. will monitor for now. I have started her on IV fluids to flush her kidneys a little. i will keep her on Cefepime and Levaquin for now. Hold vanco given her renal status. (3) Diabetes mellitus type 2 in nonobese Is this a current diagnosis for this admission?: Yes (4) Afib Qualifiers: Atrial fibrillation type: unspecified Qualified Code(s): I48.91 - Unspecified atrial fibrillation Is this a current diagnosis for this admission?: Yes Plan: her coumadin was held and started on heparin drip- i think it was due to the elevating Troponin - it is trending down now. i think it might be due to her CKD - might be just demand mismatch. cardiology has been consulted - i appreciated Dr Daley's help- i will await his recommendation. (5) Elevated troponin Is this a current diagnosis for this admission?: Yes Plan: see plan above for A. Fib
[2018-06-21] MEDS ORDERED: NORMAL SALINE 1000 ML 1,000 ML IV ONE (12:17)
--- NOTE | 2018-06-21 12:17 | Progress Note ---
Provider Note Provider Note: addendum to progress note PE General- AAOx3 but feels "funny" Heart- S1/S2 Lungs- CTAB ABdo- soft, NT, ND, BS+ ext- no edema, good ROM skin- dry and warm Neuro- alert and oriented for now. CN 2-12 grossly intact
--- NOTE | 2018-06-21 15:07 | RADIOLOGY REPORT (SQ) ---
EXAM DESCRIPTION: U/S ABDOMEN LIMITED W/O DOP COMPLETED DATE/TIME: 06/21/2018 2:07 pm REASON FOR STUDY: elevated LFTs COMPARISON: None. TECHNIQUE: Dynamic and static grayscale images acquired of the abdomen and recorded on PACS. Additio nal selected color Doppler and spectral images recorded. LIMITATIONS: None. FINDINGS: PANCREAS: No masses. Visualized pancreatic duct normal caliber. LIVER: Fatty infiltration. No focal masses. LIVER VASCULATURE: Normal directional flow of the main portal vein and hepatic veins. GALLBLADDER: Gallstones. Gallbladder wall is thickened at 4 mm. ULTRASOUND-DETECTED CAMPBELL'S SIGN: Negative. INTRAHEPATIC DUCTS AND COMMON DUCT: Borderline the dilatation of the common bile duct. INFERIOR VENA CAVA: Normal flow. AORTA: No aneurysm. RIGHT KIDNEY: No hydronephrosis. 2.9 cm cyst. PERITONEAL AND RIGHT PLEURAL SPACE: No ascites or effusions. OTHER: No other significant findings. IMPRESSION: Cholecystitis and cholelithiasis. Fatty liver. Borderline dilatation of the common bile duct. TECHNICAL DOCUMENTATION: JOB ID: [id number] [employer]- All Rights Reserved Reading location - IP/workstation name: [email or web address]
[2018-06-21] MEDS: CEFEPIME 1 GM/D5W RTU 1 GM/50 ML RTUPB IV SCH (17:08)
--- NOTE | 2018-06-21 20:41 | PROGRESS NOTE E ---
Progress Note NAME: MIKAEL ARELLANO : 1945 AGE: 73Y DATE: 06/21/2018 ROOM: 324 SUBJECTIVE: The patient states that she is slowly improving and her shortness of breath is slightly better. She denies any chest pain or discomfort. She does have orthopnea and she is coughing up scanty yellowish sputum. There is no chest pain. There is no hemoptysis. There is no bleeding on IV heparin. There is no leg edema. There is no PND. The patient has no recurrence of palpitations. There is no recurrence of atrial fibrillation. There is no TIA or CVA symptoms. There is no syncope. There is no ventricular arrhythmia seen. PHYSICAL EXAMINATION: GENERAL: The patient is moderately obese, in no acute distress. VITAL SIGNS: She is afebrile with a temperature of 97.6 degrees Fahrenheit. Pulse is 61 beats per minute. Blood pressure is 101/64. Respirations are 20 per minute. O2 sats are 95% on 3 L nasal cannula. HEENT: Head is atraumatic and normocephalic. Eyes - Pupils are equal, round, regular, reactive to light and accommodation. Extraocular movements are normal. There is no conjunctival pallor. There is no scleral icterus. ENT is negative. NECK: Supple. There is no JVD. Carotids are equal. There is no bruit. There is transmitted aortic stenosis murmur heard over the carotids. There is no carotid delay of significance. There is no lymphadenopathy. There is no goiter. Trachea is central. LUNGS: Show bronchial breath sounds in the right upper lobe. There is egophony in the right upper lobe. There is diminished air entry and prolonged expiration throughout. There are no rales of CHF. There are diffuse scattered rhonchi. There is no wheezing. HEART: S1, S2 is heard. There is no S3 gallop. There is no S4 gallop. S1 is of variable intensity. There is a systolic murmur of aortic stenosis, A2 being muffled (second heart sound aortic component). There is no significant carotid delay although there is some delay. There is no rub. ABDOMEN: Soft, obese, nontender. There is no hepatosplenomegaly. Bowel sounds are well heard. There are no tender areas or masses. EXTREMITIES: Femorals are diminished. Leg pulses are diminished. There is no pedal edema. There is no DVT or cellulitis. There is no calf tenderness. CENTRAL NERVOUS SYSTEM: The patient is conscious, awake, alert, oriented x3 with no focal deficits. PSYCHIATRIC: The patient's judgement and insight are intact. Her affect is normal. DIAGNOSTICS: The patient's 24-hour intake is 1868 mL, output is not accurate and *------*. The patient's white count is 19,200, hemoglobin is 8.5, hematocrit is 25.2, and platelet count is 296,000. The patient's sodium is 135.2, potassium 4.2, chloride is 99, CO2 is 19. The patient's BUN is 92, creatinine is 3.92, GFR has worsened to 11; the patient has chronic kidney disease stage 5. Glucose is 216. Her liver function tests are abnormal with an AST of 176, ALT of 209, and an alk phos of 145. Her troponin I is 0.031. Her albumin was 3.0, total protein was 6.2. The patient's PTT is 93.3. Chest x-ray shows worsening of the right upper lobe pneumonia. IMPRESSION: 1. ACUTE RESPIRATORY FAILURE WITH HYPOXEMIA, IMPROVING. At present the patient's O2 saturation is normal on nasal O2. At present there is no hypoxia on oxygen. 2. ELEVATED TROPONIN I WHICH HAS TRENDED DOWN. This is secondary to supply-demand mismatch secondary to hypoxemia, atrial fibrillation with ventricular paced rhythm, and acute pneumonia. There is no definite evidence of [id number] [place]. 3. RIGHT UPPER LOBE PNEUMONIA. Continue antibiotics. Note that this is worsening. Would recommend getting a CT of the chest without contrast. 4. ATRIAL FIBRILLATION, CHRONIC. 5. CHRONIC OBSTRUCTIVE PULMONARY DISEASE. 6. HYPERTENSION. 7. HYPERLIPIDEMIA. 8. DIABETES MELLITUS. 9. HISTORY OF OBSTRUCTIVE SLEEP APNEA, SOMETIMES WEARS CPAP BUT DOES NOT WEAR IT REGULARLY. 10. AORTIC STENOSIS. 11. PERMANENT PACEMAKER. This is a leadless single-chamber VVI pacemaker. 12. PRIOR HISTORY OF CONGESTIVE HEART FAILURE. 13. CHRONIC KIDNEY DISEASE STAGE 5. This is most likely secondary to pneumonia/sepsis. 14. CARDIOMYOPATHY. 15. ABNORMAL LIVER FUNCTION TESTS. RECOMMENDATIONS: 1. Continue the patient on full-dose heparin. 2. Continue the patient on IV antibiotics. 3. Continue other medications. Note, the patient is not on any drugs that are hepatotoxic. 4. I will follow with you. Note, 40 minutes were spent on this patient with more than 50% of the time spent in direct patient care. Her medications have been reviewed. Medical decision making is of high complexity. DICTATING PHYSICIAN: CASTRO ST M.D. [id number] PHY#: [id number] ID: [id number] JOB#: [id number] ACCT: [id number] cc: >
[2018-06-21] MEDS: INSULIN GLARGINE,HUM.REC.ANLOG 300 UNIT/3 ML INSULN.PEN SUBCUT SCH (22:43)
[2018-06-22] MEDS: IPRATROPIUM/ALBUTEROL 0.5-2.5 MG/3 ML AMPUL NEB SCH ×3 (01:02→15:56)
[2018-06-22 08:12] LABS: ANION GAP 17 (5-19); BLOOD UREA NITROGEN 92 mg/dL (7-20); CALCIUM 8.5 mg/dL (8.4-10.2); CARBON DIOXIDE 16 mmol/L (22-30); CHLORIDE 103 mmol/L (98-107); GLUCOSE 207 mg/dL (75-110); POTASSIUM 4.4 mmol/L (3.6-5.0); SODIUM 136.3 mmol/L (137-145)
[2018-06-22 08:15] LABS: ABSOLUTE BASOPHILS # (AUTO) 0.1 10^3/uL (0.0-0.2); ABSOLUTE EOSINOPHILS # (AUTO) 0.2 10^3/uL (0.0-0.6); ABSOLUTE LYMPHOCYTES (AUTO) 0.9 10^3/uL (0.5-4.7); ABSOLUTE MONOCYTES (AUTO) 0.8 10^3/uL (0.1-1.4); ABSOLUTE NEUT (AUTO) 12.9 10^3/uL (1.7-8.2); BASOPHILS % (AUTO) 0.6 % (0-2); EOSINOPHILS % (AUTO) 1.1 % (0-6); HEMATOCRIT 25.8 % (36.0-47.0); HEMOGLOBIN 8.5 g/dL (12.0-15.5); LYMPHOCYTES % (AUTO) 6.2 % (13-45); MEAN CORPUSCULAR VOLUME 85 fl (80-97); MONOCYTES % (AUTO) 5.6 % (3-13); PLATELET COUNT 331 10^3/uL (150-450); RED BLOOD COUNT 3.04 10^6/uL (3.72-5.28); RED CELL DISTRIBUTION WIDTH 15.4 % (11.5-14.0); SEGMENTED NEUTROPHILS % (AUTO) 86.5 % (42-78); TOTAL CELLS COUNTED % (AUTO) 100 %; WHITE BLOOD COUNT 14.9 10^3/uL (4.0-10.5)
[2018-06-22] MEDS: INSULIN LISPRO 100 UNIT/ML 3 ML VIAL SUBCUT PRN ×4 (08:23→22:58)
[2018-06-22] MEDS: METOPROLOL TARTRATE 100 MG TABLET PO SCH ×2 (10:41→23:00)
[2018-06-22] MEDS: ASPIRIN 325 MG TABLET PO SCH (10:41)
[2018-06-22] MEDS: DILTIAZEM HCL 240 MG CAPSULE.CR PO SCH (10:41)
[2018-06-22] MEDS: GUAIFENESIN 600 MG TABLET.SA PO SCH ×2 (10:47→23:00)
[2018-06-22] MEDS: NORMAL SALINE 1000 ML 1,000 ML IV PRN (12:36)
--- NOTE | 2018-06-22 13:17 | XCELERA REPORT ---
[address] [address] Transthoracic Echocardiogram Report Name: MIKAEL ARELLANO Age: 73 yrs Gender: Female : 1945 Patient Status: Inpatient Patient Location: [address] Study Date: 06/19/2018 01:57 PM Procedure: A two-dimensional transthoracic echocardiogram with color flow Doppler was performed. The study was technically difficult with many images being suboptimal in quality. Reason For Study: systiolic murmur History: systiolic murmur. Ordering Physician: GUILLERMINA BARBA Performed By: Aracelis Guerrero Interpretation Summary The left ventricle is normal in size. There is mild concentric left ventricular hypertrophy. Left ventricular systolic function is low normal. LV EF is 55% The left ventricular wall motion is normal. Apical wall motion abnormality may reflect pacemaker activation There is no thrombus. The right ventricle is not well visualized secondary to technical limitations The right atrium is normal. The left atrium is borderline dilated. There is no evidence of mitral valve prolapse. There is no mitral valve stenosis. There is a trace amount of mitral regurgitation There is no aortic valvular vegetation. There is mild to moderate aortic stenosis There is a peak gradient of 33 mm of Hg , and mean gradient of 19 mm of Hg. No aortic regurgitation is present. There is no tricuspid stenosis. There is a mild to moderate amount of tricuspid regurgitation There is mild pulmonary hypertension by echo RSVP is equal to is 44 mm of Hg , with RA mean of 10. There is no pericardial effusion. MMode/2D Measurements & Calculations RVDd: 3.7 cm LVIDd: 4.1 cm FS: 9.3 % Ao root diam: 3.0 cm IVSd: 1.2 cm LVIDs: 3.7 cm EDV(Teich): 75.5 ml Ao root area: 6.9 cm2 LVPWd: 1.2 cm ESV(Teich): 59.8 ml EF(Teich): 20.8 % LVOT diam: 1.4 cm LVOT area: 1.6 cm2 Doppler Measurements & Calculations MV E max juan: MV dec slope: Ao V2 max: LV V1 max P.0 cm/sec 246.7 cm/sec 3.5 mmHg MV A max juan: 665.7 cm/sec2 Ao max PG: LV V1 mean P.72 cm/sec MV dec time: 0.20 sec24.3 mmHg 2.3 mmHg MV E/A: 186.3 Ao V2 mean: LV V1 max: 172.4 cm/sec 93.2 cm/sec Ao mean PG: LV V1 mean: 13.5 mmHg 73.7 cm/sec Ao V2 VTI: 53.5 cm LV V1 VTI: 20.0 cm FRANCHESCA(I,D): 0.61 cm2 FRANCHESCA(V,D): 0.62 cm2 SV(LVOT): 32.5 ml PA V2 max: TR max juan: 95.4 cm/sec 292.9 cm/sec PA max P.6 mmHg TR max P.3 mmHg Left Ventricle The left ventricle is normal in size. There is mild concentric left ventricular hypertrophy. Left ventricular systolic function is low normal. LV EF is 55%. LV diastolic function could not be adequately assessed due to atrial fibrilation. The left ventricular wall motion is normal. Apical wall motion abnormality may reflect pacemaker activation. There is no thrombus. Right Ventricle The right ventricle is not well visualized secondary to technical limitations. Atria The right atrium is normal. The left atrium is borderline dilated. Mitral Valve There is no evidence of mitral valve prolapse. There is no vegetation seen on the mitral valve. There is no mitral valve stenosis. There is a trace amount of mitral regurgitation. Aortic Valve There is no aortic valvular vegetation. There is mild to moderate aortic stenosis. There is a peak gradient of 33 mm of Hg , and mean gradient of 19 mm of Hg. No aortic regurgitation is present. Tricuspid Valve There is no tricuspid stenosis. There is a mild to moderate amount of tricuspid regurgitation. There is mild pulmonary hypertension by echo. RSVP is equal to is 44 mm of Hg , with RA mean of 10. Pulmonic Valve There is no pulmonic valvular stenosis. There is no pulmonic valvular regurgitation. Great Vessels The aortic root is not well visualized but is probably normal size. Effusions There is no pericardial effusion. : GUILLERMINA BARBA > Francesca Ford
--- NOTE | 2018-06-22 13:51 | RADIOLOGY REPORT (SQ) ---
EXAM DESCRIPTION: CT CHEST WITHOUT COMPLETED DATE/TIME: 06/22/2018 1:31 pm REASON FOR STUDY: shortness of breath COMPARISON: Chest x-ray dated 06/21/[address] of the chest dated November 2014 TECHNIQUE: CT scan performed of the chest without intravenous contrast. Images reviewed with lung, soft tissue and bone windows. Reconstructed coronal and sagittal MPR images reviewed. All images st ored on PACS. All CT scanners at this facility use dose modulation, iterative reconstruction, and/or weight based d osing when appropriate to reduce radiation dose to as low as reasonably achievable (ALARA). [facility]: Dose Right [facility]: CareDose [facility]: Dose Right [facility]: Teradose 4D [facility]: Smart Tripwolf RADIATION DOSE: CT Rad equipment meets quality standard of care and radiation dose reduction techniq ues were employed. CTDIvol: 14.2 mGy. DLP: 555 mGy-cm. mGy. LIMITATIONS: No technical limitations. FINDINGS: LUNGS AND PLEURA: Fairly extensive airspace consolidation is identified in the right upper lobe consistent with a pneumonic infiltrate. I would recommend followup films to complete clearing to exclude an underlying process. Small right pleural effusion is identified. There is some ill-def ined right basilar densities which could represent a developing infiltrate or atelectatic changes. T he left lung is clear. HILAR AND MEDIASTINAL STRUCTURES: Evaluation is limited due to the lack of IV contrast. There is med iastinal adenopathy and I cannot exclude right hilar adenopathy. HEART AND VASCULAR STRUCTURES: No aneurysm. No pericardial effusion. Coronary artery calcifications are identified. UPPER ABDOMEN: Multiple rim calcified gallstones are identified. THYROID AND OTHER SOFT TISSUES: No masses. No adenopathy. BONES: No significant finding. HARDWARE: None in the chest. OTHER: No other significant findings. IMPRESSION: Fairly extensive airspace consolidation in the right upper lobe consistent with pneumoni c infiltrate. Small right pleural effusion is identified. There is some ill-defined right basilar d ensities which could represent a developing infiltrate or atelectatic changes. Mediastinal and possi ble right hilar adenopathy as noted above. Follow-up is recommended. Other findings as noted above TECHNICAL DOCUMENTATION: JOB ID: [id number] Quality ID # [id number]: Final reports with documentation of one or more dose reduction techniques (e.g., Au tomated exposure control, adjustment of the mA and/or kV according to patient size, use of iterative reconstruction technique) 2010 [employer] [employer]- All Rights Reserved Reading location - IP/workstation name: [email or web address]
[2018-06-22] MEDS: HEPARIN SODIUM,PORCINE/D5W 25,000 UNIT/250 ML RTUINJ IV PRN (15:40)
[2018-06-22] MEDS ORDERED: NORMAL SALINE 1000 ML 500 ML IV ONE (15:52)
--- NOTE | 2018-06-22 17:19 | PDOC PROGRESS REPORT ---
Subjective Progress Note for:: 06/22/18 - Seen on rounds this afternoon Subjective:: Overnight patient was very agitated and took off her CPAP and did not have it on hence which made her breathing worse. It led to more change in mental status morning. 73-year-old female who was admitted for fevers chills and shortness of breath and found to be septic with pneumonia and started on IV cefepime, Levaquin and vancomycin. Unfortunately her kidney functions worsened with the next few days and hence I have DC'd her vancomycin. She was also found to have elevated troponin and hence her Coumadin was stopped and started on heparin drip for acute coronary syndrome suspected. Cardiology was consulted and is on the case still. She currently remains on heparin drip and cardiology is considering switching her to oral anticoagulation such as Eliquis. I started her on fluids 1-2 days ago for her worsening renal function and DC'd her vancomycin for that reason. Unfortunately 1 of 2 sets of her blood culture is now positive and it is unclear of the source although pneumonia is the most likely. I did get a CT of the chest which did show some abnormal findings that are concerning. Unfortunately her daughter is not there at this time so we will need to discuss these findings in the morning. Reason For Visit: CHF EXACERBATION AFIB PNEUMONIA Physical Exam Vital Signs: Temp Pulse Resp BP Pulse Ox 97.9 F 60 24 H 106/46 L 98 06/22/18 15:49 06/22/18 15:49 06/22/18 15:49 06/22/18 15:49 06/22/18 15:49 Intake & Output 06/21/18 06/22/18 06/23/18 06:59 06:59 06:59 Intake Total 1868 605 350 Output Total 200 200 100 Balance 1668 405 250 Weight 194 lb 0.108 oz 197 lb 8.547 oz General appearance: PRESENT: no acute distress, other - On CPAP Head exam: PRESENT: atraumatic, normocephalic Eye exam: PRESENT: EOMI, PERRLA. ABSENT: scleral icterus Ear exam: PRESENT: normal external ear exam Mouth exam: PRESENT: neck supple Neck exam: ABSENT: tracheal deviation Respiratory exam: PRESENT: decreased breath sounds - Bilaterally mostly at the bases and the right upper lung., symmetrical Cardiovascular exam: PRESENT: +S1, +S2 Pulses: PRESENT: +2 pedal pulses bilateral GI/Abdominal exam: PRESENT: normal bowel sounds, soft. ABSENT: tenderness Extremities exam: ABSENT: pedal edema, +2 edema Neurological exam: PRESENT: alert, oriented to person, oriented to place, oriented to time, oriented to situation, CN II-XII grossly intact Skin exam: PRESENT: dry, warm Results Laboratory Results: 06/22/18 04:35 06/22/18 04:35 06/22/18 06/22/18 04:35 04:35 WBC 14.9 H RBC 3.04 L Hgb 8.5 L Hct 25.8 L MCV 85 MCH 28.0 MCHC 33.0 RDW 15.4 H Plt Count 331 Seg Neutrophils % 86.5 H Lymphocytes % 6.2 L Monocytes % 5.6 Eosinophils % 1.1 Basophils % 0.6 Absolute Neutrophils 12.9 H Absolute Lymphocytes 0.9 Absolute Monocytes 0.8 Absolute Eosinophils 0.2 Absolute Basophils 0.1 Sodium 136.3 L Potassium 4.4 Chloride 103 Carbon Dioxide 16 L Anion Gap 17 BUN 92 H Creatinine 3.82 H Est GFR ( Amer) 14 L Est GFR (Non-Af Amer) 12 L Glucose 207 H Calcium 8.5 Magnesium 2.1 06/19/18 15:57 Catheterized Urine Urine Culture - Final NO GROWTH 2 DAYS 06/19/18 06/19/18 06/19/18 04:10 04:10 11:11 Creatine Kinase 84 75 CK-MB (CK-2) 0.91 Troponin I 0.187 06/19/18 06/19/18 06/19/18 11:11 15:56 15:56 Creatine Kinase 87 CK-MB (CK-2) 1.05 1.72 Troponin I 0.132 0.120 06/20/18 06/21/18 04:50 05:50 Creatine Kinase CK-MB (CK-2) Troponin I 0.079 0.031 Impressions: Chest X-Ray 06/20/18 00:00 IMPRESSION: Minimal interval worsening of the right upper lobe opacity. Abdomen Ultrasound 06/21/18 00:00 IMPRESSION: Cholecystitis and cholelithiasis. Fatty liver. Borderline dilatation of the common bile duct. Chest CT 06/22/18 00:00 IMPRESSION: Fairly extensive airspace consolidation in the right upper lobe consistent with pneumonic infiltrate. Small right pleural effusion is identified. There is some ill-defined right basilar densities which could represent a developing infiltrate or atelectatic changes. Mediastinal and possible right hilar adenopathy as noted above. Follow-up is recommended. Other findings as noted above Assessment & Plan - Diagnosis (1) Sepsis Qualifiers: Sepsis type: Pneumococcus Qualified Code(s): A40.3 - Sepsis due to Streptococcus pneumoniae Is this a current diagnosis for this admission?: Yes Plan: see plan for pneumonia (2) Pneumonia Qualifiers: Pneumonia type: due to unspecified organism Laterality: right Lung location: upper lobe of lung Qualified Code(s): J18.1 - Lobar pneumonia, unspecified organism Is this a current diagnosis for this admission?: Yes Plan: She was on cefepime, levaquin and vanco. her Bcx is POSITIVE 1/2 bottles- sensitivities are pending. I had stopped the Vanco since everything was negative and her Renal function is worsening. her culture positive might be from her pneumonia. She was improving but then overnight she was restless and did not want to put her CPAP on. This morning she was restless but much better this afternoon. ?getting encephalophatic from Uremia. will monitor for now. I have started her on IV fluids to flush her kidneys a little. i will keep her on Cefepime and Levaquin for now. Hold vanco given her renal status. We did get an echocardiogram during this admission which did not show any vegetation or thrombus. I went ahead and did a CT of the chest this afternoon which showed some abnormal findings-please see CT chest report for full details. (3) Diabetes mellitus type 2 in nonobese Is this a current diagnosis for this admission?: Yes Plan: she was SSI - at home she's on levemir- starte her on lantus 20u yesterday and today her glucose was still high so hence increased to 27 units at nighttime (4) Afib Qualifiers: Atrial fibrillation type: unspecified Qualified Code(s): I48.91 - Unspecified atrial fibrillation Is this a current diagnosis for this admission?: Yes Plan: her coumadin was held and started on heparin drip- i think it was due to the elevating Troponin - it is trending down now. i think it might be due to her CKD - might be just demand mismatch. cardiology has been consulted - i appreciated Dr Daley's help- i will await his recommendation. He had mentioned about switching her from heparin to Eliquis 2.5 mg twice daily but I have not discussed this with the patient as I am not sure if he can financially afford this. We may have to consider p.o. alternatives prior to discharge. Worse case scenario she may have to go back on Coumadin. For now Dr. Ford wants her to be continued on heparin drip (5) Elevated troponin Is this a current diagnosis for this admission?: Yes Plan: See plan for A. fib - Plan Summary Plan Summary: Need to discuss with patient and daughter in the morning about her CT chest finding results from today and discussed about starting on Eliquis and whether she is able to financially afford it are not. She does have bacteremia due to positive blood cultures and currently she is on cefepime and Levaquin. Consider ID consult if needed but her echo done during this admission did not show any vegetation of the valves. She will most likely need follow-up imaging of her chest for resolution of her infiltrates. CT did show right upper lobe infiltrate consistent with pneumonia and some developing lower lobe infiltrates.
[2018-06-22] MEDS: CEFEPIME 1 GM/D5W RTU 1 GM/50 ML RTUPB IV SCH (18:51)
[2018-06-22] MEDS: INSULIN GLARGINE,HUM.REC.ANLOG 300 UNIT/3 ML INSULN.PEN SUBCUT SCH (22:53)
[2018-06-23] MEDS: IPRATROPIUM/ALBUTEROL 0.5-2.5 MG/3 ML AMPUL NEB SCH ×3 (00:25→16:36)
--- NOTE | 2018-06-23 04:16 | PROGRESS NOTE E ---
Progress Note NAME: MIKAEL ARELLANO : 1945 AGE: 73Y DATE: 06/22/2018 ROOM: 324 SUBJECTIVE: The patient appears to be more short of breath today and she is on the BiPAP. She is also more lethargic, but she denies any chest pain. She has orthopnea, but no PND. There is no leg edema. She complains of cough, which is productive of very scanty yellow sputum. She has no pleuritic chest pain. There is no anginal chest pain. There are no arrhythmias seen on the monitor. There is no recurrence of atrial fibrillation. The patient has a ventricular-paced rhythm. OBJECTIVE: VITAL SIGNS: The patient is afebrile with a temperature of 97.7 degrees Fahrenheit. Her pulse is 75 beats per minute. Blood pressure of 141/58. Her respirations are 24 per minute. O2 sats are 100% on BiPAP. HEAD: Atraumatic, normocephalic. EYES: Pupils are equal, round, regular, reactive to light and accommodation. Extraocular movements are normal. There is no conjunctival pallor. There is no scleral icterus. EARS, NOSE, AND THROAT: Negative. NECK: Supple. There is no JVD. Carotids are equal. There is no bruit. There is a transmitted aortic stenosis murmur heard over the carotids. There is no carotid delay of significance. There is no lymphadenopathy. There is no goiter. Trachea is central. LUNGS: Show bronchial breath sounds in the right upper lobe with egophony in the right upper lobe. There is diminished air entry and prolonged expiration throughout as well. There are no rales of CHF. There are diffuse scattered rhonchi. There is no wheezing. HEART: S1, S2 are heard. There is no S3 gallop. There is no S4 gallop. There is a systolic murmur of aortic stenosis present. A2 is preserved, but slightly muffled. There is mild carotid delay. S1 is of variable intensity. There is no rub. ABDOMEN: Soft, nontender. There is no hepatosplenomegaly. Bowel sounds are well heard. There are no tender areas or masses. EXTREMITIES: Femorals are diminished. Leg pulses diminished. There is no pedal edema. There is no DVT or cellulitis. There is no calf tenderness. CENTRAL NERVOUS SYSTEM: The patient is conscious, awake, alert, oriented x3 with no focal deficit. PSYCHIATRIC: The patient's judgment and insight are intact. Her affect is normal. DIAGNOSTIC STUDIES: The patient's CT scan of the chest without contrast shows fairly extensive air space consolidation in the right upper lobe consistent with pneumonia, acute infiltrate. A small right pleural effusion on right-hand side. There are some ill-defined right basilar densities which could represent a developing infiltrate or atelectatic changes. There is no heart failure. The patient's 24-hour intake and output is not accurate. The intake is 655 mL. Output is 200 mL. LABORATORY DATA: The patient's white count is 14,900. Hemoglobin is 8.5. Hematocrit is 25.8. Platelet count is 331,000. The patient's sodium is 136.3, potassium 4.4, chloride 102, CO2 is 16. The patient's BUN is 92, creatinine is 3.82. GFR is further reduced, which is chronic kidney disease stage 5. The patient's glucose is 267. The patient's calcium is 8.5. Magnesium is *------*. IMPRESSION: 1. ACUTE RESPIRATORY FAILURE WITH HYPOXEMIA. The patient has taken a turn for the worse and is on BiPAP, although maintaining her O2 sats. 2. ELEVATED TROPONIN I, WHICH HAS TRENDED DOWN. This is secondary to supply-demand mismatch secondary to hypoxemia and atrial fibrillation with a ventricular-paced rhythm and acute pneumonia. There is no definite evidence of non-ST elevation VA. 3. RIGHT UPPER LOBE PNEUMONIA. Continue antibiotics. The CT scan shows that it is very extensive. Also developing right lower lobe infiltrate. 4. CHRONIC ATRIAL FIBRILLATION. 5. CHRONIC OBSTRUCTIVE PULMONARY DISEASE. 6. QUCVI-PA-GAYCXEK RENAL FAILURE. Would recommend a nephrology consult. 7. HYPERTENSION. 8. HYPERLIPIDEMIA. 9. DIABETES MELLITUS. 10. HISTORY OF OBSTRUCTIVE SLEEP APNEA. Sometimes wears CPAP, but does not wear it regularly. 11. AORTIC STENOSIS, MOST LIKELY MILD TO MODERATE. Note that the ventricular function is normal. 12. PERMANENT PACEMAKER. It is a leadless single-chamber VVI pacemaker. 13. PRIOR HISTORY OF CONGESTIVE HEART FAILURE. At present, no heart failure. 14. CARDIOMYOPATHY. 15. ABNORMAL LIVER FUNCTION TESTS. RECOMMENDATIONS: 1. Continue the patient on full-dose heparin. 2. Start the patient on Coumadin. 3. We will get a nephrology consult. 4. Continue antibiotics. 5. Continue antidiabetic medication. 6. Continue insulin. 7. Continue nebulizer treatment. 8. Continue IV fluids. Note: Her medications have been reviewed. I discussed the case with the hospitalist taking care of the patient. Discussed the case with the patient and the patient's daughter. We will get nephrology consult. Medical decision making is of high complexity. Will continue to follow the patient. Note: I have discussed with the patient and the patient's daughter. The patient continues to be a full code. The daughter is the surrogate healthcare power of energy attorney decision-maker. Note: Forty minutes were spent on the patient, with more than 50% of the time spent in direct patient care. Will follow with you. Thanking you. DICTATING PHYSICIAN: CASTRO ST M.D. [id number] ANGEL#: [id number] ID: [id number] JOB#: [id number] ACCT: [id number] cc: >
[2018-06-23 05:17] LABS: HEMATOCRIT 26.4 % (36.0-47.0); HEMOGLOBIN 8.7 g/dL (12.0-15.5); MEAN CORPUSCULAR HEMOGLOBIN 28.2 pg (27.0-33.4); MEAN CORPUSCULAR HGB CONC 32.9 g/dL (32.0-36.0); MEAN CORPUSCULAR VOLUME 86 fl (80-97); PLATELET COUNT 384 10^3/uL (150-450); RED BLOOD COUNT 3.08 10^6/uL (3.72-5.28); RED CELL DISTRIBUTION WIDTH 15.4 % (11.5-14.0); WHITE BLOOD COUNT 15.4 10^3/uL (4.0-10.5)
[2018-06-23 05:35] LABS: ANION GAP 17 (5-19); BLOOD UREA NITROGEN 83 mg/dL (7-20); CALCIUM 8.4 mg/dL (8.4-10.2); CARBON DIOXIDE 12 mmol/L (22-30); CHLORIDE 110 mmol/L (98-107); GLUCOSE 180 mg/dL (75-110); SODIUM 139.4 mmol/L (137-145)
[2018-06-23] MEDS: LEVOFLOXACIN 500 MG/D5W RTU 500 MG/100 ML RTUPB IV SCH (08:57)
[2018-06-23] MEDS: HEPARIN SODIUM,PORCINE/D5W 25,000 UNIT/250 ML RTUINJ IV PRN (08:57)
[2018-06-23] MEDS: DILTIAZEM HCL 240 MG CAPSULE.CR PO SCH (08:59)
[2018-06-23] MEDS: ASPIRIN 325 MG TABLET PO SCH (08:59)
[2018-06-23] MEDS: METOPROLOL TARTRATE 100 MG TABLET PO SCH ×2 (08:59→22:03)
[2018-06-23] MEDS: GUAIFENESIN 600 MG TABLET.SA PO SCH ×2 (08:59→22:03)
[2018-06-23] MEDS: NORMAL SALINE 1000 ML 1,000 ML IV PRN ×3 (09:02→22:12)
--- NOTE | 2018-06-23 16:43 | PDOC PROGRESS REPORT ---
Subjective Progress Note for:: 06/23/18 Subjective:: Patient is seen in appears to be pretty comfortable her room. She had a BiPAP on and was unable to provide much history however she indicated she was feeling better. She denied any chest pain. She is still on heparin drip. CT scan of the chest done on June 22 had revealed fairly extensive airspace consolidation in the right upper lobe consistent with a pneumonic infiltrate. There is some ill-defined right basilar densities which could represent a developing infiltrate or atelectatic changes. Mediastinum and a possible right hilar adenopathy was also noted. Patient will need to follow-up imaging study after completion of hospital stay and treatment Reason For Visit: CHF EXACERBATION AFIB PNEUMONIA Physical Exam Vital Signs: Temp Pulse Resp BP Pulse Ox 97.7 F 60 20 140/44 H 99 06/23/18 11:16 06/23/18 11:16 06/23/18 12:20 06/23/18 11:16 06/23/18 12:20 Intake & Output 06/22/18 06/23/18 06/24/18 06:59 06:59 06:59 Intake Total 655 2267 342 Output Total 200 350 Balance 455 1917 342 Weight 89.6 kg 91.2 kg General appearance: PRESENT: no acute distress, well-developed, well-nourished Head exam: PRESENT: atraumatic, normocephalic Eye exam: PRESENT: conjunctiva pink, PERRLA. ABSENT: scleral icterus Ear exam: PRESENT: normal external ear exam Mouth exam: PRESENT: tongue midline Neck exam: ABSENT: carotid bruit, JVD, lymphadenopathy, thyromegaly Respiratory exam: PRESENT: clear to auscultation archie. ABSENT: rales, rhonchi, wheezes Cardiovascular exam: PRESENT: irregular rhythm, +S1, +S2. ABSENT: diastolic murmur, rubs, systolic murmur Vascular exam: PRESENT: normal capillary refill GI/Abdominal exam: PRESENT: normal bowel sounds, soft. ABSENT: distended, guarding, mass, organolmegaly, rebound, tenderness Rectal exam: PRESENT: deferred Extremities exam: PRESENT: full ROM. ABSENT: calf tenderness, clubbing, pedal edema Neurological exam: PRESENT: alert, awake, oriented to person, oriented to place , oriented to time, oriented to situation Psychiatric exam: PRESENT: appropriate affect, normal mood. ABSENT: homicidal ideation, suicidal ideation Skin exam: PRESENT: dry, intact, warm. ABSENT: cyanosis, rash Results Laboratory Results: 06/23/18 05:06 06/23/18 05:06 06/23/18 06/23/18 05:06 05:06 WBC 15.4 H RBC 3.08 L Hgb 8.7 L Hct 26.4 L MCV 86 MCH 28.2 MCHC 32.9 RDW 15.4 H Plt Count 384 Sodium 139.4 Potassium 4.0 Chloride 110 H Carbon Dioxide 12 L Anion Gap 17 BUN 83 H Creatinine 3.23 H Est GFR ( Amer) 17 L Est GFR (Non-Af Amer) 14 L Glucose 180 H Calcium 8.4 Magnesium 2.1 06/19/18 06/19/18 06/19/18 04:10 04:10 11:11 Creatine Kinase 84 75 CK-MB (CK-2) 0.91 Troponin I 0.187 06/19/18 06/19/18 06/19/18 11:11 15:56 15:56 Creatine Kinase 87 CK-MB (CK-2) 1.05 1.72 Troponin I 0.132 0.120 06/20/18 06/21/18 04:50 05:50 Creatine Kinase CK-MB (CK-2) Troponin I 0.079 0.031 Impressions: Chest X-Ray 06/20/18 00:00 IMPRESSION: Minimal interval worsening of the right upper lobe opacity. Abdomen Ultrasound 06/21/18 00:00 IMPRESSION: Cholecystitis and cholelithiasis. Fatty liver. Borderline dilatation of the common bile duct. Chest CT 06/22/18 00:00 IMPRESSION: Fairly extensive airspace consolidation in the right upper lobe consistent with pneumonic infiltrate. Small right pleural effusion is identified. There is some ill-defined right basilar densities which could represent a developing infiltrate or atelectatic changes. Mediastinal and possible right hilar adenopathy as noted above. Follow-up is recommended. Other findings as noted above Assessment & Plan - Time Time Spent with patient: 15-24 minutes Medications reviewed and adjusted accordingly: Yes Anticipated discharge: Home Within: within 48 hours - Inpatient Certification Based on my medical assessment, after consideration of the patient's comorbidities, presenting symptoms, or acuity I expect that the services needed warrant INPATIENT care.: Yes Medical Necessity: Need For Continuous Telemetry Monitoring, Need for IV Antibiotics - Plan Summary Plan Summary: Sepsis secondary to Streptococcus pneumoniae. Patient is currently on the intravenous antibiotics. Repeat blood cultures are negative. 2. Pneumonia right upper lobe. She had been on cefepime and Levaquin although it is unclear to me why she needs both antibiotics. Levaquin does cover atypical organisms we reevaluate and de-escalate as necessary. Blood culture results noted. Patient had been on vancomycin and this was discontinued. 3. Type 2 diabetes mellitus currently on Lantus as well as sliding scale insulin 4. Atrial fibrillation by history. She had been on Coumadin but currently she is on heparin drip. Will follow up with cardiology regarding home anticoagulant 5. Elevated troponin thought to be secondary to demand ischemia 6. Acute renal failure possibly vancomycin induced. Patient is currently on vancomycin
[2018-06-23] MEDS: INSULIN LISPRO 100 UNIT/ML 3 ML VIAL SUBCUT PRN (17:22)
[2018-06-23] MEDS: CEFEPIME 1 GM/D5W RTU 1 GM/50 ML RTUPB IV SCH (17:22)
--- NOTE | 2018-06-23 19:07 | PDOC CONSULTATION ---
Consultation Consult Date: 06/23/18 Consult reason:: Acute on chronic renal failure. History of Present Illness Admission Date/PCP: 06/18/18 23:54 YANNICK CLARK MD History of Present Illness: MIKAEL ARELLANO is a 73 year old female with a history of atrial fibrillation on Coumadin, CVA, hypertension, congestive heart failure, diabetes and oxygen dependent COPD. She came to the ER with 1 week of fever and chills, shortness of breath and a nonproductive cough. In the emergency room she is found to have right-sided infiltrate, leukocytosis of 25,000, tachycardia and fever. She was admitted, started on vanc and zosyn. Later she was adjusted to cefepime and levofloxacin. Creatinine on initial labs was 1.47 and has elevated up as high as 3.9. At the time urine production had also decreased to a oliguric level until today. UA showed some signs of significant proteinuria. According to the patient the only underling kidney disease she has is an MONALISA a couple of times. She states that every time her creatinine has returned to normal. At the time of examination she denied chest pain, SOB, n/v/d/c, dysuria, but does admit to urinary incontinence. Past Medical History Cardiac Medical History: Reports: Atrial Fibrillation - pace maker Pulmonary Medical History: Reports: Bronchitis, Sleep Apnea Neurological Medical History: Denies: Seizures Endocrine Medical History: Reports: Diabetes Mellitus Type 2 Past Surgical History Past Surgical History: Denies: Hysterectomy Social History Smoking Status: Never Smoker Frequency of Alcohol Use: None Hx Recreational Drug Use: No Drugs: None Hx Prescription Drug Abuse: No - Advance Directive Resuscitation Status: Full Code Family History Parental Family History Reviewed: No Children Family History Reviewed: NA Sibling(s) Family History Reviewed.: NA Medication/Allergy Home Medications: Atorvastatin Calcium [Lipitor 40 mg Tablet] 40 mg PO QHS 06/19/18 Bisacodyl [Dulcolax 5 mg Tablet] 5 mg PO DAILYP PRN 06/19/18 Cholecalciferol (Vitamin D3) [Vitamin D3 400 Unit Tablet] 400 unit PO DAILY Clonidine HCl [Catapres 0.1 mg Tablet] 0.2 mg PO QHS 06/19/18 Cyanocobalamin (Vitamin B-12) [Vitamin B-12 1000 mcg Tablet] 1,000 mcg PO DAILY 06/19/18 Ferrous Sulfate [Iron] 325 mg PO TID 06/19/18 Furosemide [Lasix 20 mg Tablet] 40 mg PO Q48H 06/19/18 Glipizide [Glucotrol 5 mg Tablet] 5 mg PO BID 06/19/18 Insulin Detemir [Levemir Flextouch] 27 units SQ QAM 06/19/18 Lisinopril [Zestril] 10 mg PO DAILY 06/19/18 Omeprazole 40 mg PO DAILYP PRN 06/19/18 Warfarin Sodium [Coumadin 5 mg Tablet] 7.5 mg PO SUTUTHSA 06/19/18 Warfarin Sodium [Coumadin 5 mg Tablet] 10 mg PO MOWEFR 06/19/18 Allergies/Adverse Reactions: No Known Allergies Allergy (Verified 12/07/14 23:31) Review of Systems Constitutional: PRESENT: chills, fever(s). ABSENT: anorexia, weakness Eyes: ABSENT: visual disturbances Nose, Mouth, and Throat: ABSENT: headache(s) Cardiovascular: ABSENT: chest pain, dyspnea on exertion, edema, orthropnea, palpitations Respiratory: PRESENT: cough, dyspnea - -occassional, sputum Gastrointestinal: ABSENT: abdominal pain, constipation, diarrhea, nausea, vomiting Genitourinary: PRESENT: other - -uncontrolled voids. ABSENT: difficulty urinating, dysuria Neurological: ABSENT: dizziness, focal weakness, weakness Physical Exam Vital Signs: Temp Pulse Resp BP Pulse Ox 97.6 F 58 L 18 110/94 H 100 06/23/18 15:50 06/23/18 15:50 06/23/18 15:50 06/23/18 15:50 06/23/18 15:50 Intake & Output 06/22/18 06/23/18 06/24/18 06:59 06:59 06:59 Intake Total 655 2267 1592 Output Total 200 350 Balance 455 1917 1592 Weight 89.6 kg 91.2 kg General appearance: PRESENT: no acute distress, other - -on oxyen via nc Mouth exam: PRESENT: moist, neck supple Neck exam: PRESENT: full ROM. ABSENT: JVD, tracheal deviation Respiratory exam: PRESENT: clear to auscultation archie, rales, rhonchi. ABSENT: accessory muscle use, crackles, wheezes Cardiovascular exam: PRESENT: RRR, +S1, +S2 GI/Abdominal exam: ABSENT: diminished bowel sounds, distended, rebound, soft, tenderness Extremities exam: PRESENT: pedal edema - -trace+. ABSENT: tenderness, +1 edema , +2 edema Musculoskeletal exam: PRESENT: normal inspection. ABSENT: tenderness Neurological exam: PRESENT: alert, awake, oriented to person, oriented to place , oriented to time, oriented to situation Psychiatric exam: PRESENT: appropriate affect, normal mood Skin exam: PRESENT: dry, intact, warm Results Laboratory Results: 06/23/18 05:06 06/23/18 05:06 06/23/18 06/23/18 05:06 05:06 WBC 15.4 H RBC 3.08 L Hgb 8.7 L Hct 26.4 L MCV 86 MCH 28.2 MCHC 32.9 RDW 15.4 H Plt Count 384 Sodium 139.4 Potassium 4.0 Chloride 110 H Carbon Dioxide 12 L Anion Gap 17 BUN 83 H Creatinine 3.23 H Est GFR ( Amer) 17 L Est GFR (Non-Af Amer) 14 L Glucose 180 H Calcium 8.4 Magnesium 2.1 06/19/18 06/19/18 06/19/18 04:10 04:10 11:11 Creatine Kinase 84 75 CK-MB (CK-2) 0.91 Troponin I 0.187 06/19/18 06/19/18 06/19/18 11:11 15:56 15:56 Creatine Kinase 87 CK-MB (CK-2) 1.05 1.72 Troponin I 0.132 0.120 06/20/18 06/21/18 04:50 05:50 Creatine Kinase CK-MB (CK-2) Troponin I 0.079 0.031 Impressions: Chest X-Ray 06/20/18 00:00 IMPRESSION: Minimal interval worsening of the right upper lobe opacity. Abdomen Ultrasound 06/21/18 00:00 IMPRESSION: Cholecystitis and cholelithiasis. Fatty liver. Borderline dilatation of the common bile duct. Chest CT 06/22/18 00:00 IMPRESSION: Fairly extensive airspace consolidation in the right upper lobe consistent with pneumonic infiltrate. Small right pleural effusion is identified. There is some ill-defined right basilar densities which could represent a developing infiltrate or atelectatic changes. Mediastinal and possible right hilar adenopathy as noted above. Follow-up is recommended. Other findings as noted above Assessment & Plan - Diagnosis (1) MONALISA (acute kidney injury) Plan: Previous oliguric, now becoming nonoliguric, looks to be due to ATN from the infection, other factors that could be affecting are possible nephrotoxic drungs like vanc and AIN from the zosyin. Stopping nephrotoxic drugs, getting a renal ultrasound to see the left kidney. Abdominal ultrasound only showed the right kidney. Continuing on normal saline at 75mL/h. Decreased to prevent fluid overload, while urination is down. All drugs should be properly dosed to a GFR of 25 or less. Likely underlining CKD with history of poor diabetic control for a prolonged period of time. (2) Pneumonia Qualifiers: Pneumonia type: due to unspecified organism Laterality: right Lung location: upper lobe of lung Qualified Code(s): J18.1 - Lobar pneumonia, unspecified organism Is this a current diagnosis for this admission?: Yes Plan: per hospitalist (3) Sepsis Qualifiers: Sepsis type: Pneumococcus Qualified Code(s): A40.3 - Sepsis due to Streptococcus pneumoniae Is this a current diagnosis for this admission?: Yes Plan: per hospitalist (4) Anemia Plan: beginning work up (5) Diabetes mellitus type 2 in nonobese Is this a current diagnosis for this admission?: Yes Plan: advised better control to her. (6) HTN (hypertension) Qualifiers: Hypertension type: essential hypertension Qualified Code(s): I10 - Essential (primary) hypertension Is this a current diagnosis for this admission?: Yes
--- NOTE | 2018-06-23 21:45 | RADIOLOGY REPORT (SQ) ---
EXAM DESCRIPTION: U/S RETROPERITON LTD COMPLETED DATE/TIME: 06/23/2018 9:32 pm REASON FOR STUDY: MONALISA COMPARISON: None. TECHNIQUE: Dynamic and static grayscale images acquired of the kidneys and bladder and recorded on P ACS. Additional selected color Doppler and spectral images recorded. LIMITATIONS: None. FINDINGS: RIGHT KIDNEY: Normal size. Normal echogenicity. 3 cm cyst. No hydronephrosis. No calcifications. LEFT KIDNEY: Normal size. Normal echogenicity. 3 cm cyst. No hydronephrosis. No calcificatio ns. BLADDER: No masses. OTHER FINDINGS: No other significant finding. IMPRESSION: No hydronephrosis. TECHNICAL DOCUMENTATION: JOB ID: [id number] [employer]- All Rights Reserved Reading location - IP/workstation name: [email or web address]
[2018-06-23] MEDS: INSULIN GLARGINE,HUM.REC.ANLOG 300 UNIT/3 ML INSULN.PEN SUBCUT SCH (22:03)
[2018-06-24] MEDS: IPRATROPIUM/ALBUTEROL 0.5-2.5 MG/3 ML AMPUL NEB SCH ×3 (00:25→16:18)
[2018-06-24 05:37] LABS: ABSOLUTE RETICS # 0.038 10^6/uL (0.028-0.122); RETICULOCYTE COUNT (AUTO) 1.24 % (0.66-2.85)
[2018-06-24 05:41] LABS: ANION GAP 12 (5-19); BLOOD UREA NITROGEN 78 mg/dL (7-20); CALCIUM 8.4 mg/dL (8.4-10.2); CARBON DIOXIDE 18 mmol/L (22-30); CHLORIDE 112 mmol/L (98-107); GLUCOSE 184 mg/dL (75-110); IRON(TIBC) 38.3 ug/dL (37-170); POTASSIUM 4.3 mmol/L (3.6-5.0); SODIUM 142.4 mmol/L (137-145)
[2018-06-24 06:51] LABS: FOLATE > 20.00 ng/mL (>2.76)
[2018-06-24] MEDS: HEPARIN SODIUM,PORCINE/D5W 25,000 UNIT/250 ML RTUINJ IV PRN (07:33)
--- NOTE | 2018-06-24 08:41 | PROGRESS NOTE E ---
Progress Note NAME: MIKAEL ARELLANO : 1945 AGE: 73Y DATE: 06/23/2018 ROOM: 324 SUBJECTIVE: The patient feels much better now. She is off the BiPAP. She is less short of breath. She still has cough, but is not able to produce any sputum. Today, she states she has no orthopnea and is lying down flat. She has no PND or chest pain or discomfort. There is no recurrence of atrial fibrillation with rapid ventricular response. The underlying rhythm is atrial fibrillation with ventricular-paced rhythm. She denies leg edema. There is no wheezing. There is no bleeding on IV heparin. There are no TIA or CVA symptoms. OBJECTIVE: VITAL SIGNS: On examination, the patient is afebrile with a temperature of 97.6 degrees Fahrenheit, pulse is 60 beats per minute, blood pressure 110/94, respirations are 18 per minute, O2 saturations 100% on 4 L nasal cannula. HEAD: Atraumatic, normocephalic. EYES: Pupils are equal, round, regular, reactive to light and accommodation. Extraocular movements are normal. There is no conjunctival pallor. There is no scleral icterus. ENT: Negative. NECK: Supple. There is no JVD. Carotids are equal. There is no bruit. There is a transmitted aortic stenosis murmur heard over the carotids. There is mild carotid delay. There is no lymphadenopathy. There is no goiter. Trachea is central. LUNGS: Show bronchial breath sounds and egophony in the right upper lobe. There is diminished air entry with prolonged expiration throughout as well. There are a few dry crackles in the right base. There are a few scattered rhonchi. No wheezing. There is no chest wall tenderness. CARDIOVASCULAR: S1 and S2 are heard. S1 is of variable intensity. There is no S3 gallop. There is no S4 gallop. There is a murmur of aortic stenosis present. A2 is preserved, but slightly muffled. There is mild carotid delay. There is no rub. There is no S3 or S4 gallops. ABDOMEN: Soft, nontender. There is no hepatosplenomegaly. Bowel sounds are well heard. There are no tender areas or masses. EXTREMITIES: Femorals are diminished. Leg pulses are diminished. There is no pedal edema. There is no DVT or cellulitis. There is no calf tenderness. CENTRAL NERVOUS SYSTEM: The patient is conscious, awake, alert, oriented x3 with no focal deficits. Note that the commissary officer has seen the patient and they think it is secondary to ATN and they would like to provide nephrotoxic drugs, such as Zosyn and vancomycin. INTAKE/OUTPUT: The patient's 24-hour intake is 2267 mL. Output is slightly better at 350 mL. DIAGNOSTIC STUDIES: The patient's white count is 15,400, hemoglobin is 8.7, hematocrit is 26.4, and platelet count is 384,000. The patient's sodium is 39.4, potassium is 4.0, chloride is 110, CO2 is 12. The patient's BUN is 83, creatinine is 3.123, GFR is 14. Blood sugar is 180. The calcium is 8.4, magnesium is 2.1. The patient's PTT is 97.8. ASSESSMENT: 1. ACUTE RESPIRATORY FAILURE WITH HYPOXIA, WHICH IS SLIGHTLY IMPROVED. Patient off the BiPAP, at present on nasal cannula. 2. ELEVATED TROPONIN I, WHICH HAS TRENDED DOWN. THIS IS SECONDARY TO TYPE 2 PA DUE TO SUPPLY-DEMAND MISMATCH. NO DEFINITE EVIDENCE OF NON-ST ELEVATION PA. 3. RIGHT UPPER LOBE PNEUMONIA. Continue antibiotics. ALSO, THERE IS A DEVELOPING RIGHT LOWER LOBE INFILTRATE. 4. CHRONIC ATRIAL FIBRILLATION. 5. CHRONIC OBSTRUCTIVE PULMONARY DISEASE. 6. ACUTE ON CHRONIC RENAL FAILURE, AT PRESENT STAGE 4. THIS IS DUE TO ATN DUE TO INFECTION/PNEUMONIA AND SEPSIS AND SECONDARY TO NEPHROTOXIC DRUGS. Nephrology on board. Will follow Nephrology's recommendations. 7. HYPERTENSION. Blood pressure well controlled. 8. HYPERLIPIDEMIA. 9. DIABETES MELLITUS. 10. HISTORY OF SLEEP APNEA. Will make sure that the patient wears BiPAP at night. 11. AORTIC STENOSIS, MOST LIKELY MILD TO MODERATE. NOTE: Ventricular function is low normal *------* present. 12. PERMANENT PACEMAKER. IT IS A LEADLESS SINGLE-CHAMBER VVI PACEMAKER. 13. PRIOR HISTORY OF CONGESTIVE HEART FAILURE, AT PRESENT NO HEART FAILURE. 14. CARDIOMYOPATHY, RESOLVED. At present, LV ejection fraction is low normal. RECOMMENDATIONS: Continue the patient's full-dose heparin. Will start the patient on Coumadin and continue recommendations as per Nephrology. Continue antibiotics. Continue antidiabetic medication. Continue insulin. Continue nebulizer treatment. Continue IV fluids. NOTE: Medical decision making is of high complexity. Medications have been reviewed. Forty minutes spent on patient with more 50% of the time spent in direct patient care. Will follow with you. Discussed with the other attending providers on the case. DICTATING PHYSICIAN: CASTRO ST M.D. [id number] CHANTELY#: [id number] ID: [id number] JOB#: [id number] ACCT: [id number] cc: >
[2018-06-24] MEDS: METOPROLOL TARTRATE 100 MG TABLET PO SCH ×2 (09:54→22:31)
[2018-06-24] MEDS: ASPIRIN 325 MG TABLET PO SCH (09:55)
[2018-06-24] MEDS: DILTIAZEM HCL 240 MG CAPSULE.CR PO SCH (09:55)
[2018-06-24] MEDS: GUAIFENESIN 600 MG TABLET.SA PO SCH ×2 (09:56→22:30)
[2018-06-24] MEDS: INSULIN LISPRO 100 UNIT/ML 3 ML VIAL SUBCUT PRN ×3 (10:01→17:58)
--- NOTE | 2018-06-24 12:42 | PDOC PROGRESS REPORT ---
Subjective Progress Note for:: 06/24/18 Reason For Visit: Patient seen today. She is on continuous oxygen. She feels better in the last couple of days. She is on BiPAP at night. Shortness of breath is improving. No history of any fever or chills. Labs and medications were reviewed with the patient and her daughter at the bedside.Good amounts of urine output. Physical Exam Vital Signs: Temp Pulse Resp BP Pulse Ox 97.6 F 60 22 H 141/53 H 100 06/24/18 11:27 06/24/18 11:27 06/24/18 11:27 06/24/18 11:27 06/24/18 11:27 Intake & Output 06/23/18 06/24/18 06/25/18 06:59 06:59 06:59 Intake Total 2267 2043 251 Output Total 350 450 Balance 1917 1593 251 Weight 91.2 kg 94.2 kg General appearance: PRESENT: mild distress Respiratory exam: PRESENT: clear to auscultation archie, crackles - Scattered, wheezes - Scattered Cardiovascular exam: PRESENT: RRR, +S1, +S2 GI/Abdominal exam: ABSENT: diminished bowel sounds, distended, rebound, soft, tenderness Extremities exam: PRESENT: pedal edema - -Trace plus Neurological exam: PRESENT: alert, awake, oriented to person, oriented to place Skin exam: ABSENT: mottled, rash Results Laboratory Results: 06/23/18 05:06 06/24/18 05:06 06/24/18 06/24/18 05:06 05:06 Retic Count (auto) 1.24 Absolute Retic 0.038 Sodium 142.4 Potassium 4.3 Chloride 112 H Carbon Dioxide 18 L Anion Gap 12 BUN 78 H Creatinine 2.96 H Est GFR ( Amer) 19 L Est GFR (Non-Af Amer) 15 L Glucose 184 H Calcium 8.4 Iron 38.3 TIBC 227 L % Saturation 17 Ferritin 782.00 H Vitamin B12 > 1000.0 H Folate > 20.00 06/19/18 06/19/18 06/19/18 04:10 04:10 11:11 Creatine Kinase 84 75 CK-MB (CK-2) 0.91 Troponin I 0.187 06/19/18 06/19/18 06/19/18 11:11 15:56 15:56 Creatine Kinase 87 CK-MB (CK-2) 1.05 1.72 Troponin I 0.132 0.120 06/20/18 06/21/18 04:50 05:50 Creatine Kinase CK-MB (CK-2) Troponin I 0.079 0.031 Impressions: Chest X-Ray 06/20/18 00:00 IMPRESSION: Minimal interval worsening of the right upper lobe opacity. Abdomen Ultrasound 06/21/18 00:00 IMPRESSION: Cholecystitis and cholelithiasis. Fatty liver. Borderline dilatation of the common bile duct. Chest CT 06/22/18 00:00 IMPRESSION: Fairly extensive airspace consolidation in the right upper lobe consistent with pneumonic infiltrate. Small right pleural effusion is identified. There is some ill-defined right basilar densities which could represent a developing infiltrate or atelectatic changes. Mediastinal and possible right hilar adenopathy as noted above. Follow-up is recommended. Other findings as noted above Renal Ultrasound 06/23/18 00:00 IMPRESSION: No hydronephrosis. Assessment & Plan - Diagnosis (1) MONALISA (acute kidney injury) Plan: Likely combination of ATN/bank toxicity.Nonoliguric. Improving renal numbers. Continue present lines of management. (2) Pneumonia Qualifiers: Pneumonia type: due to unspecified organism Laterality: right Lung location: upper lobe of lung Qualified Code(s): J18.1 - Lobar pneumonia, unspecified organism Is this a current diagnosis for this admission?: Yes Plan: On antibiotics appropriately dosed for AK I. Monitor. (3) Sepsis Qualifiers: Sepsis type: Pneumococcus Qualified Code(s): A40.3 - Sepsis due to Streptococcus pneumoniae Is this a current diagnosis for this admission?: Yes Plan: Improving. (4) Afib Qualifiers: Atrial fibrillation type: unspecified Qualified Code(s): I48.91 - Unspecified atrial fibrillation Is this a current diagnosis for this admission?: Yes Plan: Rate controlled. (5) Diabetes mellitus type 2 in nonobese Is this a current diagnosis for this admission?: Yes (6) HTN (hypertension) Qualifiers: Hypertension type: essential hypertension Qualified Code(s): I10 - Essential (primary) hypertension Is this a current diagnosis for this admission?: Yes Plan: Relatively well controlled. (7) COPD (chronic obstructive pulmonary disease) Plan: Apparently she is not known to have COPD as per daughter. She is not on any inhalers. She might need to be monitored as an outpatient.
--- NOTE | 2018-06-24 15:54 | PDOC PROGRESS REPORT ---
Subjective Reason For Visit: CHF EXACERBATION AFIB PNEUMONIA Physical Exam Vital Signs: Temp Pulse Resp BP Pulse Ox 97.6 F 60 22 H 141/53 H 100 06/24/18 11:27 06/24/18 11:27 06/24/18 11:27 06/24/18 11:27 06/24/18 11:27 Intake & Output 06/23/18 06/24/18 06/25/18 06:59 06:59 06:59 Intake Total 2267 2043 251 Output Total 350 450 Balance 1917 1593 251 Weight 91.2 kg 94.2 kg 94.2 kg Results Laboratory Results: 06/23/18 05:06 06/24/18 05:06 06/24/18 06/24/18 05:06 05:06 Retic Count (auto) 1.24 Absolute Retic 0.038 Sodium 142.4 Potassium 4.3 Chloride 112 H Carbon Dioxide 18 L Anion Gap 12 BUN 78 H Creatinine 2.96 H Est GFR ( Amer) 19 L Est GFR (Non-Af Amer) 15 L Glucose 184 H Calcium 8.4 Iron 38.3 TIBC 227 L % Saturation 17 Ferritin 782.00 H Vitamin B12 > 1000.0 H Folate > 20.00 06/19/18 06/19/18 06/19/18 04:10 04:10 11:11 Creatine Kinase 84 75 CK-MB (CK-2) 0.91 Troponin I 0.187 06/19/18 06/19/18 06/19/18 11:11 15:56 15:56 Creatine Kinase 87 CK-MB (CK-2) 1.05 1.72 Troponin I 0.132 0.120 06/20/18 06/21/18 04:50 05:50 Creatine Kinase CK-MB (CK-2) Troponin I 0.079 0.031 Impressions: Chest X-Ray 06/20/18 00:00 IMPRESSION: Minimal interval worsening of the right upper lobe opacity. Abdomen Ultrasound 06/21/18 00:00 IMPRESSION: Cholecystitis and cholelithiasis. Fatty liver. Borderline dilatation of the common bile duct. Chest CT 06/22/18 00:00 IMPRESSION: Fairly extensive airspace consolidation in the right upper lobe consistent with pneumonic infiltrate. Small right pleural effusion is identified. There is some ill-defined right basilar densities which could represent a developing infiltrate or atelectatic changes. Mediastinal and possible right hilar adenopathy as noted above. Follow-up is recommended. Other findings as noted above Renal Ultrasound 06/23/18 00:00 IMPRESSION: No hydronephrosis. Assessment & Plan - Plan Summary Plan Summary: 1.Sepsis secondary to Streptococcus pneumoniae. Patient is currently on intravenous antibiotics. Repeat blood cultures are negative. 2. Pneumonia right upper lobe. She had been on cefepime and Levaquin although it is unclear to me why she needs both antibiotics. Levaquin does cover atypical organisms we reevaluate and de-escalate as necessary. Chest x-ray done in June 22 is noted. Patient still has extensive consolidation and infiltrate. Will continue with both antibiotics for now and de-escalate as well as repeat chest x-ray as appropriate 3. Type 2 diabetes mellitus currently on Lantus as well as sliding scale insulin 4. Atrial fibrillation by history. She had been on Coumadin but currently she is still on heparin drip. 5. Elevated troponin thought to be secondary to demand ischemia 6. Acute renal failure possibly vancomycin induced. Patient is currently off vancomycin. Nephrology consult noted 7. Blood culture results noted. Patient had been on vancomycin and this was discontinued. Sphingomonas is a contaminant
[2018-06-24] MEDS: CEFEPIME 1 GM/D5W RTU 1 GM/50 ML RTUPB IV SCH (17:54)
[2018-06-24] MEDS: TEMAZEPAM 7.5 MG CAPSULE PO PRN (22:31)
[2018-06-24] MEDS: INSULIN GLARGINE,HUM.REC.ANLOG 300 UNIT/3 ML INSULN.PEN SUBCUT SCH (22:35)
[2018-06-25] MEDS: IPRATROPIUM/ALBUTEROL 0.5-2.5 MG/3 ML AMPUL NEB SCH ×3 (00:36→16:40)
[2018-06-25 05:06] LABS: APPEARANCE,URINE CLEAR; BILIRUBIN,URINE NEGATIVE (NEGATIVE); COLOR,URINE YELLOW; GLUCOSE, URINE 50 mg/dL (NEGATIVE); KETONES,URINE NEGATIVE (NEGATIVE); LEUKOCYTE ESTERASE,URINE SMALL (NEGATIVE); NITRITE,URINE NEGATIVE (NEGATIVE); PROTEIN,URINE 30 mg/dL (NEGATIVE); URINE SPECIFIC GRAVITY 1.016; UROBILINOGEN,URINE NEGATIVE mg/dL (<2.0)
--- NOTE | 2018-06-25 07:21 | PROGRESS NOTE E ---
Progress Note NAME: MIKAEL ARELLANO : 1945 AGE: 73Y DATE: 06/24/2018 ROOM: 324 SUBJECTIVE: The patient early this morning was on BiPAP. Presently she is off of BiPAP and using nasal cannula. She states that the shortness of breath has improved. She still has some orthopnea but no PND. There is no chest pain or discomfort. She has atrial fibrillation with a ventricle pacer. There is no atrial ablation or rapid ventricular response. There is no TIA or CVA symptoms. There is no bleeding on IV Heparin. OBJECTIVE: GENERAL: The patient is moderately obese in no acute distress. She is well-groomed. VITAL SIGNS: The patient is afebrile with a temperature of 97.6 degrees Fahrenheit. Her pulse is 60 beats per minute. Blood pressure of 141/53. Her respirations are 22 per minute. O2 sats are 100% at present on 3 liters nasal cannula. HEAD: Atraumatic, normocephalic. EYES: Pupils are equal, round, regular, reactive to light and accommodation. Extraocular movements are normal. There is no conjunctival pallor. There is no scleral icterus. EARS, NOSE, AND THROAT: Negative. NECK: Supple. There is no JVD. Carotids are equal. There is no bruit. There is no lymphadenopathy. There is no goiter. Trachea is central. LUNGS: Shows bronchial breath sounds in the right upper lobe with egophony in the right upper lobe. There are a few right crackles in the right lower lobe. There are no rales or CHF. There is diminished air entry and prolonged expiration. On palpation there is *------*. There is no chest wall tenderness. HEART: S1, S2 are heard. There is no S3 gallop. There is no S4 gallop. S1 is of very low intensity. There is noted aortic stenosis present. It too is muffled but heard. There is mild carotid delay. There is transmission of the *------* carotids. There is no S3 gallop. There is no rub. ABDOMEN: Soft, nontender. There is no hepatosplenomegaly. Bowel sounds are well heard. There are no tender areas or masses. EXTREMITIES: Femorals are diminished. Leg pulses diminished. There is no pedal edema. There is no DVT or cellulitis. There is no calf tenderness. CENTRAL NERVOUS SYSTEM: The patient is conscious, awake, alert, oriented x3 with no focal deficit. PSYCHIATRIC: The patient's judgment and insight are intact. His affect is normal. LABORATORY DATA: The patient's sodium is 142.4, potassium 4.3, chloride is 112, CO2 is 18. The patient's BUN is 78, creatinine is 2.96. GFR is reduced at 15 mL. The patient's *------* was 782, positive saturation of 17, TIBC is 227. Calcium is 8.4, INR is 38.3, glucose is 184. Her 24-hour intake is 2043 mL, output is 450 mL. IMPRESSION: 1. ACUTE RESPIRATORY FAILURE WITH HYPOXIA. Patient is to eventually wean BiPAP but maintaining saturations. So this is improving. present the patient's O2 saturation is normal on nasal O2. At present there is no hypoxia on oxygen. 2. ELEVATED TROPONIN-I WHICH HAS TRENDED DOWN. This is secondary to diet due to supply-demand mismatch. There is no definite evidence of [id number] LA. 3. RIGHT UPPER LOBE PNEUMONIA. Continue antibiotics. There is also a developing right lower lobe infiltrate. 4. CHRONIC ATRIAL FIBRILLATION. Patient on IV Heparin. The patient's heart rate is controlled. This makes me wonder whether the patient had an ablation prior to placement of a leadless [employer] Pacemaker. 5. CHRONIC OBSTRUCTIVE PULMONARY DISEASE. 6. ACUTE ON CHRONIC RENAL FAILURE AT PRESENT STAGE-IV TO -V. This is due to acute tubular necrosis, nephrotoxic drugs, and also the patient's infection. Nephrology is following the patient. 7. HYPERTENSION. Blood pressure well-controlled. 8. HYPERLIPIDEMIA. 9. Diabetes mellitus. 10. History of sleep apnea. 11. Aortic stenosis, most likely mild to moderate. 12. PERMANENT PACEMAKER. It is a leadless single-chamber VVI pacemaker. 13. PRIOR HISTORY OF CONGESTIVE HEART FAILURE. At present, no heart failure. 14. CARDIOMYOPATHY. Resolved and present ejection fraction is all normal. RECOMMENDATIONS: 1. Continue the antibiotics. 2. Continue respiratory treatments. 3. Continue to maintain BiPAP. 4. We will follow nephrology recommendations when the patient is actively being treated. Note: Medical decision making is of high complexity. Note: Forty minutes were spent on the patient, with more than 50% of the time spent on direct patient care. Will follow with you. DICTATING PHYSICIAN: CASTRO ST M.D. [id number] PHY#: [id number] ID: [id number] JOB#: [id number] ACCT: [id number] cc: >
[2018-06-25] MEDS: INSULIN LISPRO 100 UNIT/ML 3 ML VIAL SUBCUT PRN ×2 (08:29→18:05)
[2018-06-25] MEDS: LEVOFLOXACIN 500 MG/D5W RTU 500 MG/100 ML RTUPB IV SCH (08:29)
[2018-06-25 08:49] LABS: HEMOGLOBIN 9.7 g/dL (12.0-15.5); MEAN CORPUSCULAR HEMOGLOBIN 28.2 pg (27.0-33.4); MEAN CORPUSCULAR HGB CONC 32.5 g/dL (32.0-36.0); MEAN CORPUSCULAR VOLUME 87 fl (80-97); PLATELET COUNT 441 10^3/uL (150-450); RED BLOOD COUNT 3.45 10^6/uL (3.72-5.28); WHITE BLOOD COUNT 14.4 10^3/uL (4.0-10.5)
[2018-06-25 09:03] LABS: ANION GAP 14 (5-19); BLOOD UREA NITROGEN 76 mg/dL (7-20); CALCIUM 9.1 mg/dL (8.4-10.2); CARBON DIOXIDE 16 mmol/L (22-30); CHLORIDE 115 mmol/L (98-107); GLUCOSE 182 mg/dL (75-110); POTASSIUM 4.4 mmol/L (3.6-5.0); SODIUM 144.5 mmol/L (137-145)
[2018-06-25] MEDS: GUAIFENESIN 600 MG TABLET.SA PO SCH ×2 (09:58→21:58)
[2018-06-25] MEDS: ASPIRIN 325 MG TABLET PO SCH (09:58)
[2018-06-25] MEDS: METOPROLOL TARTRATE 100 MG TABLET PO SCH ×2 (09:58→21:58)
[2018-06-25] MEDS: DILTIAZEM HCL 240 MG CAPSULE.CR PO SCH (09:58)
[2018-06-25] MEDS ORDERED: 1/2 NORMAL SALINE 1,000 ML IV PRN (13:48)
--- NOTE | 2018-06-25 15:23 | PDOC PROGRESS REPORT ---
Subjective Progress Note for:: 06/25/18 Subjective:: Patient is seen in appears to be pretty comfortable her room. She had a BiPAP on and was unable to provide much history however she indicated she was feeling better. She denied any chest pain. She is still on heparin drip. CT scan of the chest done on June 22 had revealed fairly extensive airspace consolidation in the right upper lobe consistent with a pneumonic infiltrate. There is some ill-defined right basilar densities which could represent a developing infiltrate or atelectatic changes. Mediastinum and a possible right hilar adenopathy was also noted. Patient will need to follow-up imaging study after completion of hospital stay and treatment Reason For Visit: CHF EXACERBATION AFIB PNEUMONIA Physical Exam Vital Signs: Temp Pulse Resp BP Pulse Ox 97.8 F 67 14 136/58 H 100 06/25/18 12:15 06/25/18 12:15 06/25/18 12:15 06/25/18 12:15 06/25/18 12:15 Intake & Output 06/24/18 06/25/18 06/26/18 06:59 06:59 06:59 Intake Total 2043 501 418 Output Total 450 Balance 1593 501 418 Weight 94.2 kg 95.3 kg General appearance: PRESENT: no acute distress, well-developed, well-nourished Head exam: PRESENT: atraumatic, normocephalic Eye exam: PRESENT: conjunctiva pink, EOMI, PERRLA. ABSENT: scleral icterus Ear exam: PRESENT: normal external ear exam Mouth exam: PRESENT: moist, tongue midline Teeth exam: PRESENT: poor dentation Neck exam: ABSENT: carotid bruit, JVD, lymphadenopathy, thyromegaly Respiratory exam: PRESENT: clear to auscultation archie. ABSENT: rales, rhonchi, wheezes Cardiovascular exam: PRESENT: RRR, +S1, +S2. ABSENT: diastolic murmur, rubs, systolic murmur Pulses: PRESENT: normal dorsalis pedis pul Vascular exam: PRESENT: normal capillary refill GI/Abdominal exam: PRESENT: normal bowel sounds, soft. ABSENT: distended, guarding, mass, organolmegaly, rebound, tenderness Rectal exam: PRESENT: deferred Extremities exam: PRESENT: full ROM. ABSENT: calf tenderness, clubbing, pedal edema Neurological exam: PRESENT: alert, awake, oriented to person, oriented to place , oriented to time, oriented to situation, CN II-XII grossly intact. ABSENT: motor sensory deficit Psychiatric exam: PRESENT: appropriate affect, normal mood. ABSENT: homicidal ideation, suicidal ideation Skin exam: PRESENT: dry, intact, warm. ABSENT: cyanosis, rash Results Laboratory Results: 06/25/18 08:22 06/25/18 08:22 06/25/18 06/25/18 06/25/18 04:35 08:22 08:22 WBC 14.4 H RBC 3.45 L Hgb 9.7 L Hct 30.0 L MCV 87 MCH 28.2 MCHC 32.5 RDW 16.0 H Plt Count 441 Sodium 144.5 Potassium 4.4 Chloride 115 H Carbon Dioxide 16 L Anion Gap 14 BUN 76 H Creatinine 3.09 H Est GFR ( Amer) 18 L Est GFR (Non-Af Amer) 15 L Glucose 182 H Calcium 9.1 Urine Color YELLOW Urine Appearance CLEAR Urine pH 5.0 Ur Specific [place] 1.016 Urine Protein 30 H Urine Glucose (UA) 50 H Urine Ketones NEGATIVE Urine Blood MODERATE H Urine Nitrite NEGATIVE Ur Leukocyte Esterase SMALL H Urine WBC (Auto) 10 Urine RBC (Auto) 2 06/19/18 06/19/18 06/19/18 04:10 04:10 11:11 Creatine Kinase 84 75 CK-MB (CK-2) 0.91 Troponin I 0.187 06/19/18 06/19/18 06/19/18 11:11 15:56 15:56 Creatine Kinase 87 CK-MB (CK-2) 1.05 1.72 Troponin I 0.132 0.120 06/20/18 06/21/18 04:50 05:50 Creatine Kinase CK-MB (CK-2) Troponin I 0.079 0.031 Impressions: Chest X-Ray 06/20/18 00:00 IMPRESSION: Minimal interval worsening of the right upper lobe opacity. Abdomen Ultrasound 06/21/18 00:00 IMPRESSION: Cholecystitis and cholelithiasis. Fatty liver. Borderline dilatation of the common bile duct. Chest CT 06/22/18 00:00 IMPRESSION: Fairly extensive airspace consolidation in the right upper lobe consistent with pneumonic infiltrate. Small right pleural effusion is identified. There is some ill-defined right basilar densities which could represent a developing infiltrate or atelectatic changes. Mediastinal and possible right hilar adenopathy as noted above. Follow-up is recommended. Other findings as noted above Renal Ultrasound 06/23/18 00:00 IMPRESSION: No hydronephrosis. Assessment & Plan - Time Time Spent with patient: 15-24 minutes Medications reviewed and adjusted accordingly: Yes Anticipated discharge: Home with Homehealth Within: within 72 hours - Inpatient Certification Based on my medical assessment, after consideration of the patient's comorbidities, presenting symptoms, or acuity I expect that the services needed warrant INPATIENT care.: Yes Medical Necessity: Need for IV Antibiotics, Risk of Complication if Not Cared For in Hospital - Plan Summary Plan Summary: 1.Sepsis secondary to Streptococcus pneumoniae. Continue intravenous antibiotics. Repeat blood cultures are negative. 2. Pneumonia right upper lobe. She had been on cefepime and Levaquin Day 6 Chest x-ray done in June 22 is noted. Patient still has extensive consolidation and infiltrate. Will continue with both antibiotics for now and de-escalate as well as repeat chest x-ray as appropriate 3. Type 2 diabetes mellitus currently on Lantus as well as sliding scale insulin 4. Atrial fibrillation by history. She had been on Coumadin but currently she is still on heparin drip. Unfortunately with her kidney function continued to worsen and with a GFR less than 30 the direct oral anticoagulants contraindicated and so she will have to go back to Coumadin until hopefully her kidney function recovers. Restarted her Coumadin and will continue on heparin until she is therapeutic 5. Elevated troponin thought to be secondary to demand ischemia. No evidence of acute coronary syndrome 6. Acute renal failure possibly vancomycin induced. Patient is currently off vancomycin. Function continues to worsen and hopefully we will plan to start to improve. Meanwhile will adjust her medications and avoid nephrotoxic agents Nephrology consult noted 7. Blood culture results noted. Patient had been on vancomycin and this was discontinued. Sphingomonas is a contaminant and no further treatment needed
[2018-06-25] MEDS: FUROSEMIDE INJ/PF 20 MG/2 ML SDV IV SCH (16:27)
[2018-06-25] MEDS: CEFEPIME 1 GM/D5W RTU 1 GM/50 ML RTUPB IV SCH (17:54)
[2018-06-25] MEDS: WARFARIN SODIUM 7.5 MG TABLET PO SCH (17:54)
[2018-06-25] MEDS ORDERED: (PENDING PHARMACY ID) (Warfarin Sodium 7.5 MG) PO SCH (18:00)
[2018-06-25] MEDS: MAG HYDROX/AL HYDROX/SIMETH SUSP 30 ML UDCUP PO PRN (21:58)
[2018-06-25] MEDS: TEMAZEPAM 7.5 MG CAPSULE PO PRN (21:58)
[2018-06-25] MEDS: INSULIN GLARGINE,HUM.REC.ANLOG 300 UNIT/3 ML INSULN.PEN SUBCUT SCH (22:02)
[2018-06-25] MEDS: HEPARIN SODIUM,PORCINE/D5W 25,000 UNIT/250 ML RTUINJ IV PRN (22:08)
[2018-06-26] MEDS: IPRATROPIUM/ALBUTEROL 0.5-2.5 MG/3 ML AMPUL NEB SCH ×3 (00:45→16:47)
[2018-06-26 05:54] LABS: INTERNATIONAL RATION (INR) 1.45; PROTHROMBIN TIME 18.4 SEC (11.4-15.4)
[2018-06-26 06:34] LABS: ANION GAP 13 (5-19); BLOOD UREA NITROGEN 75 mg/dL (7-20); CALCIUM 8.7 mg/dL (8.4-10.2); CARBON DIOXIDE 15 mmol/L (22-30); CHLORIDE 114 mmol/L (98-107); GLUCOSE 226 mg/dL (75-110); POTASSIUM 4.8 mmol/L (3.6-5.0); SODIUM 142.3 mmol/L (137-145)
--- NOTE | 2018-06-26 09:59 | PDOC PROGRESS REPORT ---
Subjective Progress Note for:: 06/25/18 Subjective:: Patient was seen sitting up in her bed. She remains on oxygen via nc. According to her she feels great. Currently right now she denies chest pain, SOB, n/v/d/c. Reason For Visit: CHF EXACERBATION AFIB PNEUMONIA Physical Exam Vital Signs: Temp Pulse Resp BP Pulse Ox 97.8 F 67 14 136/58 H 100 06/25/18 12:15 06/25/18 12:15 06/25/18 12:15 06/25/18 12:15 06/25/18 12:15 Intake & Output 06/24/18 06/25/18 06/26/18 06:59 06:59 06:59 Intake Total 2043 501 210 Output Total 450 Balance 1593 501 210 Weight 94.2 kg 95.3 kg General appearance: PRESENT: no acute distress, well-developed, well-nourished Mouth exam: PRESENT: moist, neck supple Neck exam: PRESENT: full ROM. ABSENT: JVD Respiratory exam: PRESENT: crackles. ABSENT: accessory muscle use, clear to auscultation archie, rales, rhonchi, wheezes Cardiovascular exam: PRESENT: RRR, +S1, +S2 GI/Abdominal exam: ABSENT: diminished bowel sounds, distended, rebound, soft, tenderness Extremities exam: PRESENT: pedal edema, +1 edema. ABSENT: tenderness, +2 edema Neurological exam: PRESENT: alert, awake, oriented to person, oriented to place , oriented to time, oriented to situation Skin exam: PRESENT: dry, intact, warm. ABSENT: cyanosis Results Laboratory Results: 06/25/18 08:22 06/25/18 08:22 06/25/18 06/25/18 06/25/18 04:35 08:22 08:22 WBC 14.4 H RBC 3.45 L Hgb 9.7 L Hct 30.0 L MCV 87 MCH 28.2 MCHC 32.5 RDW 16.0 H Plt Count 441 Sodium 144.5 Potassium 4.4 Chloride 115 H Carbon Dioxide 16 L Anion Gap 14 BUN 76 H Creatinine 3.09 H Est GFR ( Amer) 18 L Est GFR (Non-Af Amer) 15 L Glucose 182 H Calcium 9.1 Urine Color YELLOW Urine Appearance CLEAR Urine pH 5.0 Ur Specific [place] 1.016 Urine Protein 30 H Urine Glucose (UA) 50 H Urine Ketones NEGATIVE Urine Blood MODERATE H Urine Nitrite NEGATIVE Ur Leukocyte Esterase SMALL H Urine WBC (Auto) 10 Urine RBC (Auto) 2 06/19/18 06/19/18 06/19/18 04:10 04:10 11:11 Creatine Kinase 84 75 CK-MB (CK-2) 0.91 Troponin I 0.187 06/19/18 06/19/18 06/19/18 11:11 15:56 15:56 Creatine Kinase 87 CK-MB (CK-2) 1.05 1.72 Troponin I 0.132 0.120 06/20/18 06/21/18 04:50 05:50 Creatine Kinase CK-MB (CK-2) Troponin I 0.079 0.031 Impressions: Chest X-Ray 06/20/18 00:00 IMPRESSION: Minimal interval worsening of the right upper lobe opacity. Abdomen Ultrasound 06/21/18 00:00 IMPRESSION: Cholecystitis and cholelithiasis. Fatty liver. Borderline dilatation of the common bile duct. Chest CT 06/22/18 00:00 IMPRESSION: Fairly extensive airspace consolidation in the right upper lobe consistent with pneumonic infiltrate. Small right pleural effusion is identified. There is some ill-defined right basilar densities which could represent a developing infiltrate or atelectatic changes. Mediastinal and possible right hilar adenopathy as noted above. Follow-up is recommended. Other findings as noted above Renal Ultrasound 06/23/18 00:00 IMPRESSION: No hydronephrosis. Assessment & Plan - Diagnosis (1) MONALISA (acute kidney injury) Plan: will look to switch to 1/2NS at 50mL/hour and look to start IV lasix at 20mg qd. (2) Pneumonia Qualifiers: Pneumonia type: due to unspecified organism Laterality: right Lung location: upper lobe of lung Qualified Code(s): J18.1 - Lobar pneumonia, unspecified organism Is this a current diagnosis for this admission?: Yes Plan: on cefepime and levofloxacin. (3) Sepsis Qualifiers: Sepsis type: Pneumococcus Qualified Code(s): A40.3 - Sepsis due to Streptococcus pneumoniae Is this a current diagnosis for this admission?: Yes Plan: improving (4) Anemia Plan: improving (5) Diabetes mellitus type 2 in nonobese Is this a current diagnosis for this admission?: Yes (6) HTN (hypertension) Qualifiers: Hypertension type: essential hypertension Qualified Code(s): I10 - Essential (primary) hypertension Is this a current diagnosis for this admission?: Yes Plan: controlled
[2018-06-26] MEDS: ASPIRIN 325 MG TABLET PO SCH (10:26)
[2018-06-26] MEDS: DILTIAZEM HCL 240 MG CAPSULE.CR PO SCH (10:26)
[2018-06-26] MEDS: METOPROLOL TARTRATE 100 MG TABLET PO SCH ×2 (10:26→22:18)
[2018-06-26] MEDS: INSULIN LISPRO 100 UNIT/ML 3 ML VIAL SUBCUT PRN ×3 (10:27→17:00)
[2018-06-26] MEDS: GUAIFENESIN 600 MG TABLET.SA PO SCH ×2 (10:30→22:18)
[2018-06-26] MEDS: FUROSEMIDE INJ/PF 20 MG/2 ML SDV IV SCH ×2 (10:36→22:18)
--- NOTE | 2018-06-26 12:21 | PDOC PROGRESS REPORT ---
Subjective Progress Note for:: 06/26/18 Subjective:: Patient was sitting up in bed during examination. According to her she was able to get up and walk with PTs assistance. She keeps feeling better and better everyday. She denies chest pain, increased SOB, s/c/n/v, fevers or chills. Reason For Visit: CHF EXACERBATION AFIB PNEUMONIA Physical Exam Vital Signs: Temp Pulse Resp BP Pulse Ox 98.5 F 97 16 151/83 H 99 06/26/18 08:00 06/26/18 08:00 06/26/18 08:00 06/26/18 08:00 06/26/18 08:00 Intake & Output 06/25/18 06/26/18 06/27/18 06:59 06:59 06:59 Intake Total 501 1111 Output Total 550 Balance 501 561 Weight 95.3 kg 99 kg General appearance: PRESENT: no acute distress, other - -on oxygen Mouth exam: PRESENT: moist, neck supple Neck exam: PRESENT: full ROM. ABSENT: JVD Respiratory exam: PRESENT: clear to auscultation archie. ABSENT: accessory muscle use, crackles, rales, rhonchi, wheezes Cardiovascular exam: PRESENT: RRR, +S1, +S2 Extremities exam: PRESENT: +1 edema. ABSENT: pedal edema, tenderness Musculoskeletal exam: PRESENT: normal inspection. ABSENT: tenderness Neurological exam: PRESENT: alert, awake, oriented to person, oriented to place , oriented to time, oriented to situation Psychiatric exam: PRESENT: appropriate affect, normal mood Skin exam: PRESENT: dry, intact, warm. ABSENT: cyanosis Results Laboratory Results: 06/25/18 08:22 06/26/18 04:19 06/26/18 04:19 Sodium 142.3 Potassium 4.8 Chloride 114 H Carbon Dioxide 15 L Anion Gap 13 BUN 75 H Creatinine 2.94 H Est GFR ( Amer) 19 L Est GFR (Non-Af Amer) 16 L Glucose 226 H Calcium 8.7 06/19/18 06/19/18 06/19/18 04:10 04:10 11:11 Creatine Kinase 84 75 CK-MB (CK-2) 0.91 Troponin I 0.187 06/19/18 06/19/18 06/19/18 11:11 15:56 15:56 Creatine Kinase 87 CK-MB (CK-2) 1.05 1.72 Troponin I 0.132 0.120 06/20/18 06/21/18 04:50 05:50 Creatine Kinase CK-MB (CK-2) Troponin I 0.079 0.031 Impressions: Chest X-Ray 06/20/18 00:00 IMPRESSION: Minimal interval worsening of the right upper lobe opacity. Abdomen Ultrasound 06/21/18 00:00 IMPRESSION: Cholecystitis and cholelithiasis. Fatty liver. Borderline dilatation of the common bile duct. Chest CT 06/22/18 00:00 IMPRESSION: Fairly extensive airspace consolidation in the right upper lobe consistent with pneumonic infiltrate. Small right pleural effusion is identified. There is some ill-defined right basilar densities which could represent a developing infiltrate or atelectatic changes. Mediastinal and possible right hilar adenopathy as noted above. Follow-up is recommended. Other findings as noted above Renal Ultrasound 06/23/18 00:00 IMPRESSION: No hydronephrosis. Assessment & Plan - Diagnosis (1) MONALISA (acute kidney injury) Plan: continue on 1/2NS at 65mL an hour, increasing furosemide to 20mg bid (2) Pneumonia Qualifiers: Pneumonia type: due to unspecified organism Laterality: right Lung location: upper lobe of lung Qualified Code(s): J18.1 - Lobar pneumonia, unspecified organism Is this a current diagnosis for this admission?: Yes Plan: on cefepime and levofloxacin. (3) Sepsis Qualifiers: Sepsis type: Pneumococcus Qualified Code(s): A40.3 - Sepsis due to Streptococcus pneumoniae Is this a current diagnosis for this admission?: Yes Plan: improving (4) Anemia Plan: improving (5) Diabetes mellitus type 2 in nonobese Is this a current diagnosis for this admission?: Yes (6) HTN (hypertension) Qualifiers: Hypertension type: essential hypertension Qualified Code(s): I10 - Essential (primary) hypertension Is this a current diagnosis for this admission?: Yes Plan: varying, mostly controlled
[2018-06-26] MEDS: WARFARIN SODIUM 7.5 MG TABLET PO SCH (17:00)
[2018-06-26] MEDS: CEFEPIME 1 GM/D5W RTU 1 GM/50 ML RTUPB IV SCH (17:00)
[2018-06-26] MEDS: HEPARIN SODIUM,PORCINE/D5W 25,000 UNIT/250 ML RTUINJ IV PRN (17:02)
--- NOTE | 2018-06-26 18:09 | PDOC PROGRESS REPORT ---
Subjective Progress Note for:: 06/26/18 Subjective:: Patient is seen in appears to be pretty comfortable her room. She had a BiPAP on and was unable to provide much history however she indicated she was feeling better. She denied any chest pain. She is still on heparin drip. CT scan of the chest done on June 22 had revealed fairly extensive airspace consolidation in the right upper lobe consistent with a pneumonic infiltrate. There is some ill-defined right basilar densities which could represent a developing infiltrate or atelectatic changes. Mediastinum and a possible right hilar adenopathy was also noted. Patient will need to follow-up imaging study after completion of hospital stay and treatment She continues to feel better Reason For Visit: CHF EXACERBATION AFIB PNEUMONIA Physical Exam Vital Signs: Temp Pulse Resp BP Pulse Ox 97.8 F 75 18 142/59 H 100 06/26/18 16:00 06/26/18 16:47 06/26/18 16:47 06/26/18 16:00 06/26/18 16:47 Intake & Output 06/25/18 06/26/18 06/27/18 06:59 06:59 06:59 Intake Total 501 1161 1406 Output Total 550 300 Balance 138 390 2907 Weight 95.3 kg 99 kg General appearance: PRESENT: no acute distress, well-developed, well-nourished Head exam: PRESENT: atraumatic, normocephalic Eye exam: PRESENT: conjunctiva pink, EOMI, PERRLA. ABSENT: scleral icterus Ear exam: PRESENT: normal external ear exam Mouth exam: PRESENT: moist, tongue midline Neck exam: ABSENT: carotid bruit, JVD, lymphadenopathy, thyromegaly Respiratory exam: PRESENT: decreased breath sounds, rhonchi. ABSENT: rales, wheezes Cardiovascular exam: PRESENT: RRR, +S1, +S2, systolic murmur. ABSENT: diastolic murmur, rubs Pulses: PRESENT: normal dorsalis pedis pul Vascular exam: PRESENT: normal capillary refill GI/Abdominal exam: PRESENT: normal bowel sounds, soft. ABSENT: distended, guarding, mass, organolmegaly, rebound, tenderness Rectal exam: PRESENT: deferred Extremities exam: PRESENT: full ROM. ABSENT: calf tenderness, clubbing, pedal edema Neurological exam: PRESENT: alert, awake, oriented to person, oriented to place , oriented to time, oriented to situation, CN II-XII grossly intact. ABSENT: motor sensory deficit Psychiatric exam: PRESENT: appropriate affect, normal mood. ABSENT: homicidal ideation, suicidal ideation Skin exam: PRESENT: dry, intact, warm. ABSENT: cyanosis, rash Results Laboratory Results: 06/25/18 08:22 06/26/18 04:19 06/26/18 04:19 Sodium 142.3 Potassium 4.8 Chloride 114 H Carbon Dioxide 15 L Anion Gap 13 BUN 75 H Creatinine 2.94 H Est GFR ( Amer) 19 L Est GFR (Non-Af Amer) 16 L Glucose 226 H Calcium 8.7 06/21/18 17:06 Blood Blood Culture - Final NO GROWTH IN 5 DAYS 06/21/18 12:42 Blood Blood Culture - Final NO GROWTH IN 5 DAYS 06/19/18 06/19/18 06/19/18 04:10 04:10 11:11 Creatine Kinase 84 75 CK-MB (CK-2) 0.91 Troponin I 0.187 06/19/18 06/19/18 06/19/18 11:11 15:56 15:56 Creatine Kinase 87 CK-MB (CK-2) 1.05 1.72 Troponin I 0.132 0.120 06/20/18 06/21/18 04:50 05:50 Creatine Kinase CK-MB (CK-2) Troponin I 0.079 0.031 Impressions: Chest X-Ray 06/20/18 00:00 IMPRESSION: Minimal interval worsening of the right upper lobe opacity. Abdomen Ultrasound 06/21/18 00:00 IMPRESSION: Cholecystitis and cholelithiasis. Fatty liver. Borderline dilatation of the common bile duct. Chest CT 06/22/18 00:00 IMPRESSION: Fairly extensive airspace consolidation in the right upper lobe consistent with pneumonic infiltrate. Small right pleural effusion is identified. There is some ill-defined right basilar densities which could represent a developing infiltrate or atelectatic changes. Mediastinal and possible right hilar adenopathy as noted above. Follow-up is recommended. Other findings as noted above Renal Ultrasound 06/23/18 00:00 IMPRESSION: No hydronephrosis. Assessment & Plan - Time Time Spent with patient: 15-24 minutes Medications reviewed and adjusted accordingly: Yes Anticipated discharge: Home Within: within 72 hours - Inpatient Certification Based on my medical assessment, after consideration of the patient's comorbidities, presenting symptoms, or acuity I expect that the services needed warrant INPATIENT care.: Yes Medical Necessity: Need for IV Antibiotics, Risk of Complication if Not Cared For in Hospital - Plan Summary Plan Summary: 1.Sepsis secondary to Streptococcus pneumoniae. Continue intravenous antibiotics through 06/27 Repeat blood cultures are negative. 2. Pneumonia right upper lobe. She had been on cefepime and Levaquin Chest x-ray done in June 22 is noted. Patient still has extensive consolidation and infiltrate. 3. Type 2 diabetes mellitus currently on Lantus as well as sliding scale insulin 4. Atrial fibrillation by history. Continue heparin bridge and Coumadin, monitor INR 5. Elevated troponin thought to be secondary to demand ischemia. No evidence of acute coronary syndrome 6. Acute renal failure possibly vancomycin induced. Patient is currently off vancomycin. Improving 7. Blood culture results noted. Patient had been on vancomycin and this was discontinued. Sphingomonas is a contaminant and no further treatment needed 8. Anemia- no evidence of acute blood loss. Will continue
[2018-06-26] MEDS: SODIUM BICARBONATE 650 MG TABLET PO SCH (22:17)
[2018-06-26] MEDS: INSULIN GLARGINE,HUM.REC.ANLOG 300 UNIT/3 ML INSULN.PEN SUBCUT SCH (22:19)
[2018-06-26] MEDS: MAG HYDROX/AL HYDROX/SIMETH SUSP 30 ML UDCUP PO PRN (22:25)
[2018-06-26] MEDS: TEMAZEPAM 7.5 MG CAPSULE PO PRN (22:25)
[2018-06-27] MEDS: IPRATROPIUM/ALBUTEROL 0.5-2.5 MG/3 ML AMPUL NEB SCH ×3 (00:18→16:16)
[2018-06-27 06:17] LABS: HEMOGLOBIN 8.6 g/dL (12.0-15.5); MEAN CORPUSCULAR HEMOGLOBIN 28.7 pg (27.0-33.4); MEAN CORPUSCULAR HGB CONC 33.2 g/dL (32.0-36.0); MEAN CORPUSCULAR VOLUME 86 fl (80-97); PLATELET COUNT 424 10^3/uL (150-450); RED BLOOD COUNT 3.02 10^6/uL (3.72-5.28); RED CELL DISTRIBUTION WIDTH 15.6 % (11.5-14.0); WHITE BLOOD COUNT 16.9 10^3/uL (4.0-10.5)
[2018-06-27 06:27] LABS: INTERNATIONAL RATION (INR) 1.51
[2018-06-27 06:29] LABS: PARTIAL THROMBOPLASTIN TIME 117.9 SEC (23.5-35.8)
[2018-06-27 07:06] LABS: ANION GAP 11 (5-19); BLOOD UREA NITROGEN 71 mg/dL (7-20); CALCIUM 9.1 mg/dL (8.4-10.2); CARBON DIOXIDE 16 mmol/L (22-30); CHLORIDE 118 mmol/L (98-107); GLUCOSE 106 mg/dL (75-110); POTASSIUM 4.9 mmol/L (3.6-5.0); SODIUM 145.3 mmol/L (137-145)
[2018-06-27] MEDS: LEVOFLOXACIN 500 MG/D5W RTU 500 MG/100 ML RTUPB IV SCH (08:11)
[2018-06-27] MEDS: ASPIRIN 325 MG TABLET PO SCH (10:43)
[2018-06-27] MEDS: SODIUM BICARBONATE 650 MG TABLET PO SCH ×2 (10:43→22:13)
[2018-06-27] MEDS: METOPROLOL TARTRATE 100 MG TABLET PO SCH ×2 (10:43→22:13)
[2018-06-27] MEDS: GUAIFENESIN 600 MG TABLET.SA PO SCH ×2 (10:43→22:13)
[2018-06-27] MEDS: FUROSEMIDE INJ/PF 20 MG/2 ML SDV IV SCH ×2 (10:44→22:12)
[2018-06-27] MEDS: DILTIAZEM HCL 240 MG CAPSULE.CR PO SCH (10:44)
[2018-06-27] MEDS: MAG HYDROX/AL HYDROX/SIMETH SUSP 30 ML UDCUP PO PRN (11:50)
--- NOTE | 2018-06-27 13:40 | PDOC PROGRESS REPORT ---
Subjective Progress Note for:: 06/27/18 Subjective:: Patient was seen today. She says that she was able to get out of her bed and transfer to the chair. She is eager to get up and do some more walking with physical therapy. Urination has increased. Reason For Visit: CHF EXACERBATION AFIB PNEUMONIA Physical Exam Vital Signs: Temp Pulse Resp BP Pulse Ox 97.8 F 62 14 140/59 H 98 06/27/18 07:11 06/27/18 09:09 06/27/18 09:09 06/27/18 07:11 06/27/18 09:09 Intake & Output 06/26/18 06/27/18 06/28/18 06:59 06:59 06:59 Intake Total 1261 1643 297 Output Total 550 1100 Balance 711 543 297 Weight 99 kg 97.6 kg General appearance: PRESENT: no acute distress, other - -on oxygen Mouth exam: PRESENT: moist, neck supple Neck exam: PRESENT: full ROM. ABSENT: JVD Respiratory exam: PRESENT: rhonchi. ABSENT: accessory muscle use, clear to auscultation archie, crackles, rales, wheezes Cardiovascular exam: PRESENT: RRR, +S1, +S2 Extremities exam: PRESENT: +1 edema. ABSENT: pedal edema, tenderness, +2 edema Musculoskeletal exam: ABSENT: normal inspection, tenderness Neurological exam: PRESENT: alert, awake, oriented to person, oriented to place , oriented to time, oriented to situation Psychiatric exam: PRESENT: appropriate affect, normal mood Skin exam: PRESENT: dry, intact, warm. ABSENT: cyanosis Results Laboratory Results: 06/27/18 05:33 06/27/18 05:33 06/27/18 06/27/18 06/27/18 05:33 05:33 08:49 WBC 16.9 H RBC 3.02 L Hgb 8.6 L Hct 26.0 L MCV 86 MCH 28.7 MCHC 33.2 RDW 15.6 H Plt Count 424 Sodium 145.3 H Potassium 4.9 Chloride 118 H Carbon Dioxide 16 L Anion Gap 11 BUN 71 H Creatinine 2.85 H Est GFR ( Amer) 20 L Est GFR (Non-Af Amer) 16 L Glucose 106 Calcium 9.1 Stool Occult Blood POSITIVE 06/21/18 17:06 Blood Blood Culture - Final NO GROWTH IN 5 DAYS 06/21/18 12:42 Blood Blood Culture - Final NO GROWTH IN 5 DAYS 06/19/18 06/19/18 06/19/18 04:10 04:10 11:11 Creatine Kinase 84 75 CK-MB (CK-2) 0.91 Troponin I 0.187 06/19/18 06/19/18 06/19/18 11:11 15:56 15:56 Creatine Kinase 87 CK-MB (CK-2) 1.05 1.72 Troponin I 0.132 0.120 06/20/18 06/21/18 04:50 05:50 Creatine Kinase CK-MB (CK-2) Troponin I 0.079 0.031 Impressions: Chest X-Ray 06/20/18 00:00 IMPRESSION: Minimal interval worsening of the right upper lobe opacity. Abdomen Ultrasound 06/21/18 00:00 IMPRESSION: Cholecystitis and cholelithiasis. Fatty liver. Borderline dilatation of the common bile duct. Chest CT 06/22/18 00:00 IMPRESSION: Fairly extensive airspace consolidation in the right upper lobe consistent with pneumonic infiltrate. Small right pleural effusion is identified. There is some ill-defined right basilar densities which could represent a developing infiltrate or atelectatic changes. Mediastinal and possible right hilar adenopathy as noted above. Follow-up is recommended. Other findings as noted above Renal Ultrasound 06/23/18 00:00 IMPRESSION: No hydronephrosis. Assessment & Plan - Diagnosis (1) MONALISA (acute kidney injury) Plan: Slightly improved, discontinuing fluids due excess fluid on her legs. Continuing lasix 20mg bid (2) Pneumonia Qualifiers: Pneumonia type: due to unspecified organism Laterality: right Lung location: upper lobe of lung Qualified Code(s): J18.1 - Lobar pneumonia, unspecified organism Is this a current diagnosis for this admission?: Yes Plan: on cefepime and levofloxacin. (3) Sepsis Qualifiers: Sepsis type: Pneumococcus Qualified Code(s): A40.3 - Sepsis due to Streptococcus pneumoniae Is this a current diagnosis for this admission?: Yes Plan: improving (4) Anemia Plan: Patient could benefit from a small dose of IV ferraheme, currently ferritin is most likely elevated due to acute phase reactants. Iron saturation was low. (5) Diabetes mellitus type 2 in nonobese Is this a current diagnosis for this admission?: Yes (6) HTN (hypertension) Qualifiers: Hypertension type: essential hypertension Qualified Code(s): I10 - Essential (primary) hypertension Is this a current diagnosis for this admission?: Yes
--- NOTE | 2018-06-27 15:36 | PDOC PROGRESS REPORT ---
Subjective Progress Note for:: 06/27/18 Subjective:: Patient is seen in appears to be pretty comfortable her room. She had a BiPAP on and was unable to provide much history however she indicated she was feeling better. She denied any chest pain. She is still on heparin drip. CT scan of the chest done on June 22 had revealed fairly extensive airspace consolidation in the right upper lobe consistent with a pneumonic infiltrate. There is some ill-defined right basilar densities which could represent a developing infiltrate or atelectatic changes. Mediastinum and a possible right hilar adenopathy was also noted. Patient will need to follow-up imaging study after completion of hospital stay and treatment She continues to feel better, breathing improved, Reason For Visit: CHF EXACERBATION AFIB PNEUMONIA Physical Exam Vital Signs: Temp Pulse Resp BP Pulse Ox 97.8 F 63 14 140/59 H 98 06/27/18 07:11 06/27/18 14:00 06/27/18 09:09 06/27/18 07:11 06/27/18 09:09 Intake & Output 06/26/18 06/27/18 06/28/18 06:59 06:59 06:59 Intake Total 1261 1643 297 Output Total 550 1100 Balance 711 543 297 Weight 99 kg 97.6 kg General appearance: PRESENT: no acute distress, well-developed, well-nourished Head exam: PRESENT: atraumatic, normocephalic Eye exam: PRESENT: conjunctiva pink, EOMI, PERRLA. ABSENT: scleral icterus Ear exam: PRESENT: normal external ear exam Mouth exam: PRESENT: moist, tongue midline Teeth exam: PRESENT: poor dentation Neck exam: ABSENT: carotid bruit, JVD, lymphadenopathy, thyromegaly Respiratory exam: PRESENT: crackles, decreased breath sounds. ABSENT: rales, rhonchi, wheezes Cardiovascular exam: PRESENT: RRR, +S1, +S2, systolic murmur - 3/6. ABSENT: diastolic murmur, rubs Pulses: PRESENT: normal dorsalis pedis pul Vascular exam: PRESENT: normal capillary refill GI/Abdominal exam: PRESENT: normal bowel sounds, soft. ABSENT: distended, guarding, mass, organolmegaly, rebound, tenderness Rectal exam: PRESENT: deferred Extremities exam: PRESENT: full ROM. ABSENT: calf tenderness, clubbing, pedal edema Musculoskeletal exam: PRESENT: ambulatory Neurological exam: PRESENT: alert, awake, oriented to person, oriented to place , oriented to time, oriented to situation, CN II-XII grossly intact. ABSENT: motor sensory deficit Psychiatric exam: PRESENT: appropriate affect, normal mood. ABSENT: homicidal ideation, suicidal ideation Skin exam: PRESENT: dry, intact, warm. ABSENT: cyanosis, rash Results Laboratory Results: 06/27/18 05:33 06/27/18 05:33 06/27/18 06/27/18 06/27/18 05:33 05:33 08:49 WBC 16.9 H RBC 3.02 L Hgb 8.6 L Hct 26.0 L MCV 86 MCH 28.7 MCHC 33.2 RDW 15.6 H Plt Count 424 Sodium 145.3 H Potassium 4.9 Chloride 118 H Carbon Dioxide 16 L Anion Gap 11 BUN 71 H Creatinine 2.85 H Est GFR ( Amer) 20 L Est GFR (Non-Af Amer) 16 L Glucose 106 Calcium 9.1 Stool Occult Blood POSITIVE 06/21/18 17:06 Blood Blood Culture - Final NO GROWTH IN 5 DAYS 06/21/18 12:42 Blood Blood Culture - Final NO GROWTH IN 5 DAYS 06/19/18 06/19/18 06/19/18 04:10 04:10 11:11 Creatine Kinase 84 75 CK-MB (CK-2) 0.91 Troponin I 0.187 06/19/18 06/19/18 06/19/18 11:11 15:56 15:56 Creatine Kinase 87 CK-MB (CK-2) 1.05 1.72 Troponin I 0.132 0.120 06/20/18 06/21/18 04:50 05:50 Creatine Kinase CK-MB (CK-2) Troponin I 0.079 0.031 Impressions: Chest X-Ray 06/20/18 00:00 IMPRESSION: Minimal interval worsening of the right upper lobe opacity. Abdomen Ultrasound 06/21/18 00:00 IMPRESSION: Cholecystitis and cholelithiasis. Fatty liver. Borderline dilatation of the common bile duct. Chest CT 06/22/18 00:00 IMPRESSION: Fairly extensive airspace consolidation in the right upper lobe consistent with pneumonic infiltrate. Small right pleural effusion is identified. There is some ill-defined right basilar densities which could represent a developing infiltrate or atelectatic changes. Mediastinal and possible right hilar adenopathy as noted above. Follow-up is recommended. Other findings as noted above Renal Ultrasound 06/23/18 00:00 IMPRESSION: No hydronephrosis. Assessment & Plan - Time Time Spent with patient: 15-24 minutes Medications reviewed and adjusted accordingly: Yes Anticipated discharge: Home Within: within 48 hours - Inpatient Certification Based on my medical assessment, after consideration of the patient's comorbidities, presenting symptoms, or acuity I expect that the services needed warrant INPATIENT care.: Yes Medical Necessity: Need For Continuous Telemetry Monitoring, Other - On IV heparin - Plan Summary Plan Summary: 1.Sepsis secondary to Streptococcus pneumoniae. Continue intravenous antibiotics through today Repeat blood cultures are negative. 2. Pneumonia right upper lobe. She had been on cefepime and Levaquin Chest x-ray done in June 22 is noted. Patient still has extensive consolidation and infiltrate. Repeat CXR pending today 3. Type 2 diabetes mellitus currently on Lantus as well as sliding scale insulin 4. Atrial fibrillation by history. Continue heparin bridge and Coumadin, monitor INR which is still subtherapeutic however patient can be dc home with a slight subtherapeutic INR to be followed as outpatient 5. Elevated troponin thought to be secondary to demand ischemia. No evidence of acute coronary syndrome. Cardiology has signed off 6. Acute renal failure possibly vancomycin induced. Patient is currently off vancomycin. Slowly Improving 7. Blood culture results noted. Patient had been on vancomycin and this was discontinued. Sphingomonas is a contaminant and no further treatment needed 8. Anemia- no evidence of acute blood loss. Will continue to monitor 9. Patient will be staying at her daughter's Over the next few weeks while she recuperates. The family will be helping to move her belongings to her daughter' s this and hopefully patient will be stable enough to go home by Saturday.
--- NOTE | 2018-06-27 16:26 | RADIOLOGY REPORT (SQ) ---
EXAM DESCRIPTION: CHEST SINGLE VIEW COMPLETED DATE/TIME: 06/27/2018 1:53 pm REASON FOR STUDY: f/u pna COMPARISON: 06/21/2018. EXAM PARAMETERS: NUMBER OF VIEWS: One view. TECHNIQUE: Single frontal radiographic view of the chest acquired. RADIATION DOSE: NA LIMITATIONS: None. FINDINGS: LUNGS AND PLEURA: Extensive infiltrate in the right upper lobe which has improved since th e prior study. Faint density in the right lung base. Left lung clear. MEDIASTINUM AND HILAR STRUCTURES: No masses. Contour normal. HEART AND VASCULAR STRUCTURES: Heart normal in size. Normal vasculature. BONES: No acute findings. HARDWARE: Cardiac recorder. OTHER: No other significant finding. IMPRESSION: IMPROVED APPEARANCE OF THE EXTENSIVE RIGHT UPPER LOBE INFILTRATE. TECHNICAL DOCUMENTATION: JOB ID: [id number] [employer]- All Rights Reserved Reading location - IP/workstation name: [email or web address]
[2018-06-27] MEDS: INSULIN LISPRO 100 UNIT/ML 3 ML VIAL SUBCUT PRN ×2 (17:01→22:18)
[2018-06-27] MEDS: HEPARIN SODIUM,PORCINE/D5W 25,000 UNIT/250 ML RTUINJ IV PRN (17:39)
[2018-06-27] MEDS: WARFARIN SODIUM 7.5 MG TABLET PO SCH (17:39)
[2018-06-27 17:43] LABS: INTERNATIONAL RATION (INR) 1.62
[2018-06-27 17:44] LABS: PARTIAL THROMBOPLASTIN TIME 64.4 SEC (23.5-35.8)
[2018-06-27] MEDS: INSULIN GLARGINE,HUM.REC.ANLOG 300 UNIT/3 ML INSULN.PEN SUBCUT SCH (22:12)
[2018-06-27] MEDS: TEMAZEPAM 7.5 MG CAPSULE PO PRN (22:17)
[2018-06-28] MEDS: IPRATROPIUM/ALBUTEROL 0.5-2.5 MG/3 ML AMPUL NEB SCH ×3 (00:05→15:48)
[2018-06-28 07:42] LABS: INTERNATIONAL RATION (INR) 1.71; PROTHROMBIN TIME 20.9 SEC (11.4-15.4)
[2018-06-28 07:57] LABS: HEMATOCRIT 26.3 % (36.0-47.0); HEMOGLOBIN 8.9 g/dL (12.0-15.5); MEAN CORPUSCULAR HEMOGLOBIN 29.3 pg (27.0-33.4); MEAN CORPUSCULAR HGB CONC 33.8 g/dL (32.0-36.0); MEAN CORPUSCULAR VOLUME 86 fl (80-97); PLATELET COUNT 417 10^3/uL (150-450); RED BLOOD COUNT 3.04 10^6/uL (3.72-5.28); RED CELL DISTRIBUTION WIDTH 16.4 % (11.5-14.0); WHITE BLOOD COUNT 18.7 10^3/uL (4.0-10.5)
[2018-06-28 08:07] LABS: ANION GAP 11 (5-19); BLOOD UREA NITROGEN 68 mg/dL (7-20); CALCIUM 8.8 mg/dL (8.4-10.2); CARBON DIOXIDE 18 mmol/L (22-30); CHLORIDE 114 mmol/L (98-107); GLUCOSE 153 mg/dL (75-110); POTASSIUM 5.3 mmol/L (3.6-5.0); SODIUM 143.1 mmol/L (137-145)
[2018-06-28] MEDS: MAG HYDROX/AL HYDROX/SIMETH SUSP 30 ML UDCUP PO PRN ×2 (08:11→22:10)
[2018-06-28 08:47] LABS: ABSOLUTE LYMPHOCYTES# (MANUAL) 3.2 10^3/uL (0.5-4.7); ABSOLUTE MONOCYTES # (MANUAL) 0.6 10^3/uL (0.1-1.4); ABSOLUTE NEUTROPHILS# (MANUAL) 14.4 10^3/uL (1.7-8.2); BASOPHILS % (MANUAL) 1 % (0-2); EOSINOPHILS % (MANUAL) 2 % (0-6); LYMPHOCYTES % (MANUAL) 17 % (13-45); MONOCYTES % (MANUAL) 3 % (3-13); SEGMENTED NEUTROPHILS % (MAN) 77 % (42-78); TOTAL CELLS COUNTED 100
[2018-06-28 08:49] LABS: ANISOCYTOSIS 1+; OVALOCYTES SLIGHT; PLATELET COMMENT ADEQUATE; POIKILOCYTOSIS SLIGHT; POLYCHROMASIA SLIGHT
[2018-06-28] MEDS: ASPIRIN 325 MG TABLET PO SCH (09:24)
[2018-06-28] MEDS: SODIUM BICARBONATE 650 MG TABLET PO SCH ×2 (09:24→21:12)
[2018-06-28] MEDS: GUAIFENESIN 600 MG TABLET.SA PO SCH ×2 (09:24→21:12)
[2018-06-28] MEDS: METOPROLOL TARTRATE 100 MG TABLET PO SCH ×2 (09:24→21:11)
[2018-06-28] MEDS: DILTIAZEM HCL 240 MG CAPSULE.CR PO SCH (09:24)
[2018-06-28] MEDS: FUROSEMIDE INJ/PF 20 MG/2 ML SDV IV SCH ×2 (09:24→21:12)
[2018-06-28] MEDS: INSULIN LISPRO 100 UNIT/ML 3 ML VIAL SUBCUT PRN ×2 (09:36→11:44)
--- NOTE | 2018-06-28 15:21 | PROGRESS NOTE E ---
Progress Note NAME: MIKAEL ARELLANO : 1945 AGE: 73Y DATE: 06/28/2018 ROOM: 324 SUBJECTIVE: The patient is out of bed in the bedside chair. She states that she feels better today in comparison to yesterday. The patient denies any nausea, vomiting, diarrhea. Still has shortness of breath, but overall feels it has improved. No dizziness, chest pain, fevers, or chills. The patient does not voice any other concerns at this time. REVIEW OF SYSTEMS: The rest of the review of systems is negative. MEDICATIONS: Reviewed. OBJECTIVE: GENERAL: The patient is a 73-year-old female who is awake, alert, and oriented to person, place, time and situation. She is verbal and conversational. Does not appear to be distressed. VITAL SIGNS: Temperature 98.2, pulse 69, respirations 18, blood pressure 132/47, oxygen saturation 97% on 2 liters nasal cannula. SKIN: Warm and dry, no rashes, not diaphoretic. HEENT: Pupils are reactive. Conjunctivae pink. There is no evidence of JVP. CVS: Heart is regular. There is no rub. CHEST: Diminished, symmetrical, unlabored. ABDOMEN: Soft, nontender, nondistended. BACK: No CVA tenderness or sacral edema. EXTREMITIES: No clubbing, cyanosis, or edema. PSYCHIATRIC: Appropriate affect, pleasant mood. DIAGNOSTICS: Lab values are as follows. Hematology obtained on 06/28/2018: WBC 8.2, hemoglobin 7.4, hematocrit 26.3, platelet count 417,000. Chemistry obtained on 06/28/2018: Sodium 143, potassium 5.3, chloride 114, carbon dioxide 18, BUN 16, creatinine 2.77, glucose 155, calcium 8.8. ASSESSMENT AND PLAN: 1. RIGHT UPPER LOBE PNEUMONIA. Will continue antibiotic coverage with cefepime and Levaquin. The patient appears to have extensive consolidation on repeat chest x-ray as well. The patient is improving symptomatically. Will encourage flutter valve and I will follow. 2. SEPSIS SECONDARY TO STREPTOCOCCUS PNEUMONIA SECONDARY TO #1. The patient's symptoms overall continuing to improve. 3. PAROXYSMAL ATRIAL FIBRILLATION. The patient is currently on heparin bridge to Coumadin. Follow. 4. DIABETES MELLITUS TYPE 2. The patient is currently on Lantus as well as sliding scale coverage. Will follow. 5. ACUTE RENAL FAILURE. Slowly improving. Uncertain of underlying etiology of this. [place] it was possibly vancomycin-induced. 6. ANEMIA. Most likely of underlying chronic disease. Will follow. 7. TROPONIN LEAK. This is secondary to demand ischemia. No evidence of acute coronary syndrome. DISPOSITION: The patient is a full code. Pending the patient's symptomatology and diagnostic findings, will reevaluate in the a.m. Time spent on this followup, including assessment, plan, physical examination, patient, and review of records, is 25 minutes. DICTATING PHYSICIAN: THUY RODRIGUES [id number] PHY#: [id number] ID: [id number] JOB#: [id number] ACCT: [id number] cc: > MTDD
[2018-06-28] MEDS: WARFARIN SODIUM 7.5 MG TABLET PO SCH (17:15)
[2018-06-28] MEDS: TEMAZEPAM 7.5 MG CAPSULE PO PRN (21:12)
[2018-06-28] MEDS: INSULIN GLARGINE,HUM.REC.ANLOG 300 UNIT/3 ML INSULN.PEN SUBCUT SCH (22:10)
[2018-06-28] MEDS: HEPARIN SODIUM,PORCINE/D5W 25,000 UNIT/250 ML RTUINJ IV PRN (22:11)
[2018-06-29] MEDS: IPRATROPIUM/ALBUTEROL 0.5-2.5 MG/3 ML AMPUL NEB SCH ×2 (00:22→08:55)
[2018-06-29 07:17] LABS: INTERNATIONAL RATION (INR) 1.97; PROTHROMBIN TIME 23.4 SEC (11.4-15.4)
[2018-06-29 07:19] LABS: PARTIAL THROMBOPLASTIN TIME 81.7 SEC (23.5-35.8)
[2018-06-29 07:54] LABS: ANION GAP 13 (5-19); BLOOD UREA NITROGEN 69 mg/dL (7-20); CARBON DIOXIDE 20 mmol/L (22-30); CHLORIDE 111 mmol/L (98-107); GLUCOSE 219 mg/dL (75-110); POTASSIUM 5.5 mmol/L (3.6-5.0); SODIUM 143.9 mmol/L (137-145)
[2018-06-29 08:36] LABS: INTERNATIONAL RATION (INR) 1.98; PROTHROMBIN TIME 23.4 SEC (11.4-15.4)
[2018-06-29] MEDS: INSULIN LISPRO 100 UNIT/ML 3 ML VIAL SUBCUT PRN ×3 (08:37→16:45)
[2018-06-29] MEDS: ASPIRIN 325 MG TABLET PO SCH (10:23)
[2018-06-29] MEDS: DILTIAZEM HCL 240 MG CAPSULE.CR PO SCH (10:23)
[2018-06-29] MEDS: FUROSEMIDE INJ/PF 20 MG/2 ML SDV IV SCH ×2 (10:23→22:43)
[2018-06-29] MEDS: GUAIFENESIN 600 MG TABLET.SA PO SCH ×2 (10:27→22:44)
[2018-06-29] MEDS: METOPROLOL TARTRATE 100 MG TABLET PO SCH ×2 (10:32→22:44)
[2018-06-29] MEDS: SODIUM BICARBONATE 650 MG TABLET PO SCH ×2 (10:32→22:44)
[2018-06-29 14:32] LABS: INTERNATIONAL RATION (INR) 2.01; PROTHROMBIN TIME 23.7 SEC (11.4-15.4)
[2018-06-29] MEDS: WARFARIN SODIUM 7.5 MG TABLET PO SCH (18:53)
--- NOTE | 2018-06-29 18:56 | PROGRESS NOTE E ---
Progress Note NAME: MIKAEL ARELLANO : 1945 AGE: 73Y DATE: 06/29/2018 ROOM: 324 SUBJECTIVE: The patient is currently out of bed to the bedside chair. She states that she does feel better today in comparison to previous days. She says her shortness of breath is improved. She has been tolerating room air. The patient feels her edema is improved, although does not appear so on examination. Patient denies any chest pain or heart palpitations, and patient has not voiced any other concerns at this time. BRIEF HISTORY: The patient is a 73-year-old female that is admitted to the hospitalist service due to her atrial fibrillation, right upper lobe infiltrate, as well as CHF exacerbation. The patient is on Coumadin chronically for underlying rhythm of Afib. She does have a pacer. The patient's stay was complicated by pretty significant renal failure. The patient's presenting creatinine was found to be 1.47; however, it peaked at 3.92 and is now down to 2.59, but interestingly, the patient's urine protein was greater than 500. There were no casts reported on the initial UA; however, the repeat UA did reveal 10 casts. The patient's diuresis has been somewhat difficult, due to what has appeared to be an acute kidney injury that was also thought maybe sustained due to vancomycin and simultaneous aggressive diuresis and NATTY inhibitor use. The patient has been seen by Nephrology and is on a conservative dose of IV Lasix. The patient's hemodynamics have improved. Her respiratory status has improved; however, she still has significant lower extremity edema, also significantly hypoalbuminemic at 2.9. The patient's INR has become therapeutic and heparin drip will be discontinued. The patient has been seen and evaluated by both Cardiology service as well as Nephrology. At this time, the patient's discharge is contingent upon her renal function. REVIEW OF SYSTEMS: Negative. MEDICATIONS: Reviewed. OBJECTIVE: GENERAL: The patient is a 73-year-old female, who is awake, alert and oriented to person, place, time and situation. She is verbal and conversational. Does not appear in acute distress. VITAL SIGNS: Temperature is 98.0, pulse 58, respirations 18, blood pressure 151/50, oxygen saturation is 98% on room air. SKIN: Warm and dry. No rash. She is not diaphoretic. HEENT: Pupils are reactive. The patient does have JVP to the right clavicle. Poor dentition. CVS: Paced rhythm. CHEST: The patient does have rhonchorous lung sounds in the right upper lung field, with fine bilateral basal crackles. ABDOMEN: Soft, nontender, nondistended. EXTREMITIES: The patient does have 2+ bilateral lower extremity pitting edema. PSYCHIATRIC: Appropriate affect. Pleasant mood. DIAGNOSTICS: Lab values are as follows: Hematology obtained on 06/28/2018: WBCs are 18.7, hemoglobin is 9.9, hematocrit is 26.3, platelet count is 417,000. Chemistry obtained on 06/29/2018: Sodium is 143, potassium 5.5, chloride is 111, carbon dioxide 20, BUN 69, creatinine is 2.59, glucose 219, calcium is 9.0. IMPRESSION AND PLAN: 1. RIGHT UPPER LOBE PNEUMONIA. The patient has completed antibiotic coverage of 10 days. Will monitor the patient's symptoms. She continues to improve clinically. She has been using her flutter valve and has made some sputum. Follow. 2. SEPSIS, SECONDARY TO #1. Symptoms continue to improve. 3. PAROXYSMAL ATRIAL FIBRILLATION. The patient is paced. Her Coumadin is near-therapeutic. Will repeat INR and discontinue heparin drip. 4. DIABETES MELLITUS TYPE 2. Patient is currently on Lantus as well as sliding scale coverage. Will follow. 5. ACUTE RENAL FAILURE. This is very slowly improving. The patient has profound proteinuria. Uncertain of the underlying etiology of this. It was possibly thought to be vancomycin-induced. Do appreciate Nephrology input on this. 6. ANEMIA OF UNDERLYING CHRONIC DISEASE. Will follow. 7. TROPONIN LEAK, THOUGHT TO BE SECONDARY TO DEMAND ISCHEMIA. No evidence of acute coronary syndrome. 8. HYPERKALEMIA. The patient does not appear to be on any offending agents. This has trended up slightly, as the patient's creatinine has trended down. The patient has had some hyperglycemia. Although it was not that profound, will gain tighter glycemic control with increasing basal dose of insulin. Additionally, the patient did have a positive guaiac, but has not had any overt evidence of GI losses that could be contributing to this hyperkalemia. Will not treat it at this moment. Repeat chemistry in the a.m. and see if this trends down on its own, and follow. 9. ACUTE ON CHRONIC DIASTOLIC CONGESTIVE HEART FAILURE. The patient has pretty significant valvular disease. Does have lower extremity edema. The patient, unfortunately, cannot be diuresed aggressively, due to her kidney function at this moment. I am sure underlying nephrotic kidneys are not helping this. We will continue the dose of Lasix as per Nephrology. I have recommended to patient to keep her legs elevated when not in use and follow. It appears the patient is a half liter positive at this point. DISPOSITION: The patient is a FULL CODE. Due to patient's symptomatology and diagnostic findings, will reevaluate in the a.m. Time spent on this followup, including assessment, plan, physical examination, patient education and review of records is 35 minutes. DICTATING PHYSICIAN: THUY RODRIGUES NP [id number] PHY#: [id number] ID: [id number] JOB#: [id number] ACCT: [id number] cc: >
[2018-06-29] MEDS: TEMAZEPAM 7.5 MG CAPSULE PO PRN (22:44)
[2018-06-29] MEDS: MAG HYDROX/AL HYDROX/SIMETH SUSP 30 ML UDCUP PO PRN (22:44)
[2018-06-29] MEDS: ATORVASTATIN CALCIUM 40 MG TABLET PO SCH (22:44)
[2018-06-29] MEDS: INSULIN GLARGINE,HUM.REC.ANLOG 300 UNIT/3 ML INSULN.PEN SUBCUT SCH (22:45)
[2018-06-30] MEDS: LEVALBUTEROL HCL NEB 1.25 MG/3 ML AMPUL NEB PRN ×2 (00:48→09:35)
[2018-06-30 07:15] LABS: HEMATOCRIT 26.6 % (36.0-47.0); HEMOGLOBIN 8.9 g/dL (12.0-15.5); MEAN CORPUSCULAR HGB CONC 33.4 g/dL (32.0-36.0); MEAN CORPUSCULAR VOLUME 87 fl (80-97); PLATELET COUNT 407 10^3/uL (150-450); RED BLOOD COUNT 3.07 10^6/uL (3.72-5.28); RED CELL DISTRIBUTION WIDTH 16.6 % (11.5-14.0); WHITE BLOOD COUNT 19.5 10^3/uL (4.0-10.5)
[2018-06-30 07:28] LABS: INTERNATIONAL RATION (INR) 2.27; PROTHROMBIN TIME 26.1 SEC (11.4-15.4)
[2018-06-30 07:48] LABS: ANION GAP 13 (5-19); BLOOD UREA NITROGEN 70 mg/dL (7-20); CALCIUM 9.1 mg/dL (8.4-10.2); CARBON DIOXIDE 21 mmol/L (22-30); CHLORIDE 109 mmol/L (98-107); GLUCOSE 167 mg/dL (75-110); POTASSIUM 5.4 mmol/L (3.6-5.0); SODIUM 142.5 mmol/L (137-145)
[2018-06-30] MEDS: INSULIN LISPRO 100 UNIT/ML 3 ML VIAL SUBCUT PRN ×2 (08:50→17:10)
[2018-06-30] MEDS: DILTIAZEM HCL 240 MG CAPSULE.CR PO SCH (10:32)
[2018-06-30] MEDS: ASPIRIN 325 MG TABLET PO SCH (10:32)
[2018-06-30] MEDS: SODIUM BICARBONATE 650 MG TABLET PO SCH ×2 (10:32→22:19)
[2018-06-30] MEDS: METOPROLOL TARTRATE 100 MG TABLET PO SCH ×2 (10:32→22:19)
[2018-06-30] MEDS: FUROSEMIDE INJ/PF 20 MG/2 ML SDV IV SCH ×3 (10:32→22:19)
[2018-06-30] MEDS: GUAIFENESIN 600 MG TABLET.SA PO SCH ×2 (10:32→22:19)
--- NOTE | 2018-06-30 15:14 | PDOC PROGRESS REPORT ---
Subjective Progress Note for:: 06/30/18 Subjective:: Patient is sitting in chair comfortably. He says she is doing better. Her creatinine levels slowly decreasing and renal function slowly improving. She is ambulating using a walker which does not use normally. Her legs are still swollen was significantly pitting edema. Reason For Visit: CHF EXACERBATION AFIB PNEUMONIA Physical Exam Vital Signs: Temp Pulse Resp BP Pulse Ox 97.6 F 75 16 132/46 H 96 06/30/18 11:12 06/30/18 14:00 06/30/18 11:12 06/30/18 11:12 06/30/18 11:12 Intake & Output 06/29/18 06/30/18 07/01/18 06:59 06:59 06:59 Intake Total 1350 1307 237 Output Total 700 875 Balance 650 432 237 Weight 214 lb 15.211 oz 214 lb 4.629 oz General appearance: PRESENT: no acute distress, cooperative Head exam: PRESENT: atraumatic, normocephalic Eye exam: PRESENT: EOMI. ABSENT: conjunctival injection Mouth exam: PRESENT: moist, neck supple Teeth exam: PRESENT: dental caries Throat exam: ABSENT: post pharyngeal erythema Neck exam: ABSENT: meningismus, tenderness, thyromegaly Respiratory exam: PRESENT: rhonchi - Scattered. ABSENT: accessory muscle use Cardiovascular exam: PRESENT: RRR, systolic murmur Pulses: PRESENT: normal radial pulses GI/Abdominal exam: PRESENT: normal bowel sounds, soft. ABSENT: ascites, mass, tenderness Extremities exam: PRESENT: pedal edema, +2 edema Neurological exam: PRESENT: alert, altered, awake, oriented to person, oriented to place, oriented to time, oriented to situation Psychiatric exam: ABSENT: agitated, anxious, depressed Results Laboratory Results: 06/30/18 06:56 06/30/18 06:56 06/30/18 06/30/18 06:56 06:56 WBC 19.5 H RBC 3.07 L Hgb 8.9 L Hct 26.6 L MCV 87 MCH 29.0 MCHC 33.4 RDW 16.6 H Plt Count 407 Sodium 142.5 Potassium 5.4 H Chloride 109 H Carbon Dioxide 21 L Anion Gap 13 BUN 70 H Creatinine 2.45 H Est GFR ( Amer) 23 L Est GFR (Non-Af Amer) 19 L Glucose 167 H Calcium 9.1 Magnesium 1.8 06/19/18 06/19/18 06/19/18 04:10 04:10 11:11 Creatine Kinase 84 75 CK-MB (CK-2) 0.91 Troponin I 0.187 06/19/18 06/19/18 06/19/18 11:11 15:56 15:56 Creatine Kinase 87 CK-MB (CK-2) 1.05 1.72 Troponin I 0.132 0.120 06/20/18 06/21/18 04:50 05:50 Creatine Kinase CK-MB (CK-2) Troponin I 0.079 0.031 Impressions: Abdomen Ultrasound 06/21/18 00:00 IMPRESSION: Cholecystitis and cholelithiasis. Fatty liver. Borderline dilatation of the common bile duct. Chest CT 06/22/18 00:00 IMPRESSION: Fairly extensive airspace consolidation in the right upper lobe consistent with pneumonic infiltrate. Small right pleural effusion is identified. There is some ill-defined right basilar densities which could represent a developing infiltrate or atelectatic changes. Mediastinal and possible right hilar adenopathy as noted above. Follow-up is recommended. Other findings as noted above Renal Ultrasound 06/23/18 00:00 IMPRESSION: No hydronephrosis. Chest X-Ray 06/27/18 13:36 IMPRESSION: IMPROVED APPEARANCE OF THE EXTENSIVE RIGHT UPPER LOBE INFILTRATE. Assessment & Plan - Diagnosis (2) Pneumonia Qualifiers: Pneumonia type: due to unspecified organism Laterality: right Lung location: upper lobe of lung Qualified Code(s): J18.1 - Lobar pneumonia, unspecified organism Is this a current diagnosis for this admission?: Yes (3) Afib Qualifiers: Atrial fibrillation type: unspecified Qualified Code(s): I48.91 - Unspecified atrial fibrillation Is this a current diagnosis for this admission?: Yes (4) Sepsis Qualifiers: Sepsis type: Pneumococcus Qualified Code(s): A40.3 - Sepsis due to Streptococcus pneumoniae Is this a current diagnosis for this admission?: Yes (5) Diabetes mellitus type 2 in nonobese Is this a current diagnosis for this admission?: Yes (6) HTN (hypertension) Qualifiers: Hypertension type: essential hypertension Qualified Code(s): I10 - Essential (primary) hypertension Is this a current diagnosis for this admission?: Yes - Plan Summary Plan Summary: Patient is clinically stable off antibiotics Renal function is slowly improving There are signs of volume overload and she is receiving diuretics Continue to monitor renal function and electrolytes Continue to monitor blood count Continue current management Ambulate
--- NOTE | 2018-06-30 16:08 | PDOC PROGRESS REPORT ---
Subjective Progress Note for:: 06/30/18 Subjective:: Patient is doing well today, she was sitting up in her chair at the time of examination. She denied chest pain, SOB, n/v/d/c. She says that she was able to walk 150 feet with PT. Reason For Visit: CHF EXACERBATION AFIB PNEUMONIA Physical Exam Vital Signs: Temp Pulse Resp BP Pulse Ox 97.7 F 59 L 20 131/50 H 98 06/30/18 15:15 06/30/18 15:15 06/30/18 15:15 06/30/18 15:15 06/30/18 15:15 Intake & Output 06/29/18 06/30/18 07/01/18 06:59 06:59 06:59 Intake Total 1350 1307 474 Output Total 700 875 Balance 650 432 474 Weight 97.5 kg 97.2 kg General appearance: PRESENT: no acute distress, obese, well-developed, well- nourished Mouth exam: PRESENT: moist, neck supple Neck exam: PRESENT: full ROM. ABSENT: JVD Respiratory exam: PRESENT: clear to auscultation archie. ABSENT: accessory muscle use, crackles, rales, rhonchi, wheezes Cardiovascular exam: PRESENT: RRR, +S1, +S2 GI/Abdominal exam: ABSENT: diminished bowel sounds, distended, rebound, soft, tenderness Extremities exam: PRESENT: pedal edema, +2 edema. ABSENT: tenderness, +1 edema Musculoskeletal exam: PRESENT: normal inspection. ABSENT: tenderness Neurological exam: PRESENT: alert, awake, oriented to person, oriented to place , oriented to time, oriented to situation Skin exam: PRESENT: dry, intact, warm. ABSENT: cyanosis Results Laboratory Results: 06/30/18 06:56 06/30/18 06:56 06/30/18 06/30/18 06:56 06:56 WBC 19.5 H RBC 3.07 L Hgb 8.9 L Hct 26.6 L MCV 87 MCH 29.0 MCHC 33.4 RDW 16.6 H Plt Count 407 Sodium 142.5 Potassium 5.4 H Chloride 109 H Carbon Dioxide 21 L Anion Gap 13 BUN 70 H Creatinine 2.45 H Est GFR ( Amer) 23 L Est GFR (Non-Af Amer) 19 L Glucose 167 H Calcium 9.1 Magnesium 1.8 06/19/18 06/19/1806/19/18 04:10 04:10 11:11 Creatine Kinase 84 75 CK-MB (CK-2) 0.91 Troponin I 0.187 06/19/18 06/19/18 06/19/18 11:11 15:56 15:56 Creatine Kinase 87 CK-MB (CK-2) 1.05 1.72 Troponin I 0.132 0.120 06/20/18 06/21/18 04:50 05:50 Creatine Kinase CK-MB (CK-2) Troponin I 0.079 0.031 Impressions: Abdomen Ultrasound 06/21/18 00:00 IMPRESSION: Cholecystitis and cholelithiasis. Fatty liver. Borderline dilatation of the common bile duct. Chest CT 06/22/18 00:00 IMPRESSION: Fairly extensive airspace consolidation in the right upper lobe consistent with pneumonic infiltrate. Small right pleural effusion is identified. There is some ill-defined right basilar densities which could represent a developing infiltrate or atelectatic changes. Mediastinal and possible right hilar adenopathy as noted above. Follow-up is recommended. Other findings as noted above Renal Ultrasound 06/23/18 00:00 IMPRESSION: No hydronephrosis. Chest X-Ray 06/27/18 13:36 IMPRESSION: IMPROVED APPEARANCE OF THE EXTENSIVE RIGHT UPPER LOBE INFILTRATE. Assessment & Plan - Diagnosis (1) MONALISA (acute kidney injury) Plan: improving (2) Edema Plan: increasing furosemide to 20mg IV TID. (3) Anemia Plan: could benefit from one dose of IV injectafer. will discuss with patient (4) Diabetes mellitus type 2 in nonobese Is this a current diagnosis for this admission?: Yes (5) HTN (hypertension) Qualifiers: Hypertension type: essential hypertension Qualified Code(s): I10 - Essential (primary) hypertension Is this a current diagnosis for this admission?: Yes
[2018-06-30] MEDS: WARFARIN SODIUM 7.5 MG TABLET PO SCH (17:11)
[2018-06-30] MEDS: ATORVASTATIN CALCIUM 40 MG TABLET PO SCH (22:19)
[2018-06-30] MEDS: TEMAZEPAM 7.5 MG CAPSULE PO PRN (22:19)
[2018-06-30] MEDS: MAG HYDROX/AL HYDROX/SIMETH SUSP 30 ML UDCUP PO PRN (22:19)
[2018-06-30] MEDS ORDERED: INSULIN GLARGINE,HUM.REC.ANLOG 300 UNIT/3 ML INSULN.PEN SUBCUT ONE (22:45)
[2018-06-30] MEDS: INSULIN GLARGINE,HUM.REC.ANLOG 300 UNIT/3 ML INSULN.PEN SUBCUT SCH (23:06)
[2018-07-01] MEDS: FUROSEMIDE INJ/PF 20 MG/2 ML SDV IV SCH (05:56)
[2018-07-01 06:32] LABS: HEMATOCRIT 26.7 % (36.0-47.0); HEMOGLOBIN 8.9 g/dL (12.0-15.5); MEAN CORPUSCULAR HEMOGLOBIN 29.1 pg (27.0-33.4); MEAN CORPUSCULAR HGB CONC 33.3 g/dL (32.0-36.0); MEAN CORPUSCULAR VOLUME 87 fl (80-97); PLATELET COUNT 407 10^3/uL (150-450); RED BLOOD COUNT 3.07 10^6/uL (3.72-5.28); RED CELL DISTRIBUTION WIDTH 16.8 % (11.5-14.0); WHITE BLOOD COUNT 20.9 10^3/uL (4.0-10.5)
[2018-07-01 07:02] LABS: ANION GAP 13 (5-19); BLOOD UREA NITROGEN 74 mg/dL (7-20); CARBON DIOXIDE 21 mmol/L (22-30); CHLORIDE 109 mmol/L (98-107); GLUCOSE 190 mg/dL (75-110); POTASSIUM 5.7 mmol/L (3.6-5.0); SODIUM 142.6 mmol/L (137-145)
[2018-07-01] MEDS: INSULIN LISPRO 100 UNIT/ML 3 ML VIAL SUBCUT PRN ×2 (08:39→22:20)
[2018-07-01] MEDS: LEVALBUTEROL HCL NEB 1.25 MG/3 ML AMPUL NEB PRN (08:52)
[2018-07-01] MEDS ORDERED: FUROSEMIDE INJ/PF 20 MG/2 ML SDV IV SCH (10:18)
[2018-07-01] MEDS: GUAIFENESIN 600 MG TABLET.SA PO SCH ×2 (10:45→22:22)
[2018-07-01] MEDS: METOPROLOL TARTRATE 100 MG TABLET PO SCH ×2 (10:45→22:21)
[2018-07-01] MEDS: ASPIRIN 325 MG TABLET PO SCH (10:45)
[2018-07-01] MEDS: DILTIAZEM HCL 240 MG CAPSULE.CR PO SCH (10:45)
--- NOTE | 2018-07-01 11:39 | PDOC PROGRESS REPORT ---
Subjective Progress Note for:: 07/01/18 Subjective:: The patient is clinically stable. She is actually off oxygen now. And she has been off antibiotics. Lower extremity swelling slightly better today after increasing Lasix dose yesterday. Her creatinine is stable and has not changed. Her white count is slightly increased but she is afebrile and asymptomatic. She is chronically anemic and she apparently was following with his oncology for her anemia and tells me that they do not have a reason for the anemia. Reason For Visit: CHF EXACERBATION AFIB PNEUMONIA Physical Exam Vital Signs: Temp Pulse Resp BP Pulse Ox 98.9 F 61 16 144/62 H 96 07/01/18 07:55 07/01/18 08:52 07/01/18 08:52 07/01/18 07:55 07/01/18 08:52 Intake & Output 06/30/18 07/01/18 07/02/18 06:59 06:59 06:59 Intake Total 1307 831 Output Total 875 800 Balance 432 31 Weight 214 lb 4.629 oz 211 lb 13.828 oz General appearance: PRESENT: no acute distress Head exam: PRESENT: atraumatic, normocephalic Eye exam: PRESENT: conjunctiva pink, EOMI, PERRLA. ABSENT: scleral icterus Ear exam: PRESENT: normal external ear exam Mouth exam: PRESENT: moist, tongue midline Neck exam: ABSENT: carotid bruit, JVD, lymphadenopathy, thyromegaly Respiratory exam: PRESENT: rhonchi - Scattered. ABSENT: accessory muscle use, rales, wheezes Cardiovascular exam: PRESENT: RRR, systolic murmur Pulses: PRESENT: normal radial pulses GI/Abdominal exam: PRESENT: normal bowel sounds, soft. ABSENT: distended, guarding, mass, organolmegaly, rebound, tenderness Rectal exam: PRESENT: deferred Extremities exam: PRESENT: pedal edema, +2 edema Musculoskeletal exam: ABSENT: deformity, dislocation Neurological exam: PRESENT: alert, awake, oriented to person, oriented to place , oriented to time, oriented to situation, CN II-XII grossly intact. ABSENT: motor sensory deficit Psychiatric exam: PRESENT: appropriate affect, normal mood. ABSENT: homicidal ideation, suicidal ideation Results Laboratory Results: 07/01/18 05:25 07/01/18 05:25 07/01/18 07/01/18 05:25 05:25 WBC 20.9 H RBC 3.07 L Hgb 8.9 L Hct 26.7 L MCV 87 MCH 29.1 MCHC 33.3 RDW 16.8 H Plt Count 407 Sodium 142.6 Potassium 5.7 H Chloride 109 H Carbon Dioxide 21 L Anion Gap 13 BUN 74 H Creatinine 2.46 H Est GFR ( Amer) 23 L Est GFR (Non-Af Amer) 19 L Glucose 190 H Calcium 9.0 06/19/18 06/19/18 06/19/18 04:10 04:10 11:11 Creatine Kinase 84 75 CK-MB (CK-2) 0.91 Troponin I 0.187 06/19/18 06/19/18 06/19/18 11:11 15:56 15:56 Creatine Kinase 87 CK-MB (CK-2) 1.05 1.72 Troponin I 0.132 0.120 06/20/18 06/21/18 04:50 05:50 Creatine Kinase CK-MB (CK-2) Troponin I 0.079 0.031 Impressions: Abdomen Ultrasound 06/21/18 00:00 IMPRESSION: Cholecystitis and cholelithiasis. Fatty liver. Borderline dilatation of the common bile duct. Chest CT 06/22/18 00:00 IMPRESSION: Fairly extensive airspace consolidation in the right upper lobe consistent with pneumonic infiltrate. Small right pleural effusion is identified. There is some ill-defined right basilar densities which could represent a developing infiltrate or atelectatic changes. Mediastinal and possible right hilar adenopathy as noted above. Follow-up is recommended. Other findings as noted above Renal Ultrasound 06/23/18 00:00 IMPRESSION: No hydronephrosis. Chest X-Ray 06/27/18 13:36 IMPRESSION: IMPROVED APPEARANCE OF THE EXTENSIVE RIGHT UPPER LOBE INFILTRATE. Assessment & Plan - Diagnosis (2) Pneumonia Qualifiers: Pneumonia type: due to unspecified organism Laterality: right Lung location: upper lobe of lung Qualified Code(s): J18.1 - Lobar pneumonia, unspecified organism Is this a current diagnosis for this admission?: Yes (3) Afib Qualifiers: Atrial fibrillation type: unspecified Qualified Code(s): I48.91 - Unspecified atrial fibrillation Is this a current diagnosis for this admission?: Yes (4) Sepsis Qualifiers: Sepsis type: Pneumococcus Qualified Code(s): A40.3 - Sepsis due to Streptococcus pneumoniae Is this a current diagnosis for this admission?: Yes (5) Diabetes mellitus type 2 in nonobese Is this a current diagnosis for this admission?: Yes (6) HTN (hypertension) Qualifiers: Hypertension type: essential hypertension Qualified Code(s): I10 - Essential (primary) hypertension Is this a current diagnosis for this admission?: Yes - Plan Summary Plan Summary: Patient is clinically stable off antibiotics Renal function is stable and not worsening Edema is improving with increasing IV Lasix dose Continue to monitor renal function and electrolytes Infection is clearly resolved with improved clinical picture and improved x-ray She is still with significant leukocytosis she has chronic anemia 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
[2018-07-01 12:47] LABS: ABSOLUTE LYMPHOCYTES# (MANUAL) 0.6 10^3/uL (0.5-4.7); ABSOLUTE MONOCYTES # (MANUAL) 0.6 10^3/uL (0.1-1.4); ABSOLUTE NEUTROPHILS# (MANUAL) 19.2 10^3/uL (1.7-8.2); BASOPHILS % (MANUAL) 0 % (0-2); EOSINOPHILS % (MANUAL) 2 % (0-6); LYMPHOCYTES % (MANUAL) 3 % (13-45); METAMYELOCYTES % (MANUAL) 2 % (0); MONOCYTES % (MANUAL) 3 % (3-13); SEGMENTED NEUTROPHILS % (MAN) 90 % (42-78); TOTAL CELLS COUNTED 100
[2018-07-01 12:50] LABS: ANISOCYTOSIS 1+; OVALOCYTES 1+; PLATELET COMMENT ADEQUATE; POIKILOCYTOSIS 1+; POLYCHROMASIA SLIGHT; TEAR DROP CELLS SLIGHT
--- NOTE | 2018-07-01 14:18 | PDOC PROGRESS REPORT ---
Subjective Progress Note for:: 07/01/18 Reason For Visit: Patient seen today. She feels comfortable. She denies any history of chest pain or shortness of breath. She is currently off oxygen and says she has been ambulating some. However her only concern has been persistent large pedal edema of both extremities. She says it looks similar to the times before she has been admitted in the past. No history of any pains. No history of an abdominal pains.She denies any history of fever or chills. She is on low dose of IV Lasix. She denies any history of previous DVT or pulmonary embolism. Labs and medications were reviewed with the patient. Renal numbers are stable but not yet back to her baseline.She has a therapeutic INR from anticoagulation for A. fib. Physical Exam Vital Signs: Temp Pulse Resp BP Pulse Ox 98.0 F 60 16 132/58 H 94 07/01/18 12:39 07/01/18 12:39 07/01/18 12:39 07/01/18 12:39 07/01/18 12:39 Intake & Output 06/30/18 07/01/18 07/02/18 06:59 06:59 06:59 Intake Total 1307 831 237 Output Total 875 800 Balance 432 31 237 Weight 97.2 kg 96.1 kg General appearance: PRESENT: no acute distress Respiratory exam: PRESENT: clear to auscultation archie. ABSENT: crackles Cardiovascular exam: PRESENT: RRR, +S1, +S2 GI/Abdominal exam: ABSENT: diminished bowel sounds, distended, rebound, soft, tenderness Extremities exam: PRESENT: +2 edema - To her mid thighs. Neurological exam: PRESENT: alert, awake, oriented to person, oriented to place Skin exam: ABSENT: erythema, mottled, rash Results Laboratory Results: 07/01/18 05:25 07/01/18 05:25 07/01/18 07/01/18 05:25 05:25 WBC 20.9 H RBC 3.07 L Hgb 8.9 L Hct 26.7 L MCV 87 MCH 29.1 MCHC 33.3 RDW 16.8 H Plt Count 407 Seg Neutrophils % Not Reportable Lymphocytes % Not Reportable Monocytes % Not Reportable Eosinophils % Not Reportable Basophils % Not Reportable Absolute Neutrophils Not Reportable Absolute Lymphocytes Not Reportable Absolute Monocytes Not Reportable Absolute Eosinophils Not Reportable Absolute Basophils Not Reportable Sodium 142.6 Potassium 5.7 H Chloride 109 H Carbon Dioxide 21 L Anion Gap 13 BUN 74 H Creatinine 2.46 H Est GFR ( Amer) 23 L Est GFR (Non-Af Amer) 19 L Glucose 190 H Calcium 9.0 06/19/18 06/19/18 06/19/18 04:10 04:10 11:11 Creatine Kinase 84 75 CK-MB (CK-2) 0.91 Troponin I 0.187 06/19/18 06/19/18 06/19/18 11:11 15:56 15:56 Creatine Kinase 87 CK-MB (CK-2) 1.05 1.72 Troponin I 0.132 0.120 06/20/18 06/21/18 04:50 05:50 Creatine Kinase CK-MB (CK-2) Troponin I 0.079 0.031 Impressions: Abdomen Ultrasound 06/21/18 00:00 IMPRESSION: Cholecystitis and cholelithiasis. Fatty liver. Borderline dilatation of the common bile duct. Chest CT 06/22/18 00:00 IMPRESSION: Fairly extensive airspace consolidation in the right upper lobe consistent with pneumonic infiltrate. Small right pleural effusion is identified. There is some ill-defined right basilar densities which could represent a developing infiltrate or atelectatic changes. Mediastinal and possible right hilar adenopathy as noted above. Follow-up is recommended. Other findings as noted above Renal Ultrasound 06/23/18 00:00 IMPRESSION: No hydronephrosis. Chest X-Ray 06/27/18 13:36 IMPRESSION: IMPROVED APPEARANCE OF THE EXTENSIVE RIGHT UPPER LOBE INFILTRATE. Assessment & Plan - Diagnosis (1) MONALISA (acute kidney injury) Plan: Likely combination of ATN/bank toxicity.Nonoliguric.Stable renal numbers, but not yet back to baseline. She has large amount of pedal edema. Will increase IV Lasix to 40 mg every 8 hours monitor. Low albumin contributing. (2) Pneumonia Qualifiers: Pneumonia type: due to unspecified organism Laterality: right Lung location: upper lobe of lung Qualified Code(s): J18.1 - Lobar pneumonia, unspecified organism Is this a current diagnosis for this admission?: Yes Plan: Has resolved.Currently off all antibiotics. However persistent leukocytosis which is unexplained. Discussed with hospitalist to get input from heme oncologist. (3) Sepsis Qualifiers: Sepsis type: Pneumococcus Qualified Code(s): A40.3 - Sepsis due to Streptococcus pneumoniae Is this a current diagnosis for this admission?: Yes Plan: Currently resolved. Off all antibiotics. However persistent leukocytosis is concerning. (4) Afib Qualifiers: Atrial fibrillation type: unspecified Qualified Code(s): I48.91 - Unspecified atrial fibrillation Is this a current diagnosis for this admission?: Yes Plan: Rate controlled. On anticoagulation with appropriate INR. (5) Diabetes mellitus type 2 in nonobese Is this a current diagnosis for this admission?: Yes Plan: Advised tight control. (6) HTN (hypertension) Qualifiers: Hypertension type: essential hypertension Qualified Code(s): I10 - Essential (primary) hypertension Is this a current diagnosis for this admission?: Yes Plan: Controlled. (8) Anemia Plan: Adequate iron indicis. I would like to get heme solar consultant on this case especially given her leukocytosis before I deem this could be part of CKD.Discussed with hospitalist.
[2018-07-01] MEDS: FUROSEMIDE INJ/PF 40 MG/4 ML SDV IV SCH ×2 (14:47→22:22)
[2018-07-01] MEDS ORDERED: SODIUM POLYSTYRENE SULFONATE 15 GM/60 ML PO ONE (15:00)
[2018-07-01] MEDS: WARFARIN SODIUM 7.5 MG TABLET PO SCH (18:13)
[2018-07-01 19:44] LABS: IRON(TIBC) 21.5 ug/dL (37-170)
--- NOTE | 2018-07-01 20:51 | CONSULTATION REPORT E ---
Consultation Report NAME: MIKAEL ARELLANO : 1945 AGE: 73Y DATE: 07/01/2018 324 A TO: BRIDGETT CLARK M.D. FROM: GUILLERMINA BARBA M.D. Requesting Physician REASON FOR CONSULTATION: Leukocytosis, anemia. CONSULTATION REPORT: The patient is a 73-year-old woman who was admitted 06/18/2018. Since admission, she was noted to have leukocytosis and also anemia. She has been on treatment for possible lung infection, acute pulmonary syndrome, AFIB. She tells me that she feels a lot better today. Her blood work today shows a white count of 20.9, hemoglobin is 8.9, platelet count is 407. Chest x-ray on admission had shown infiltrates in the right upper lobe. PAST MEDICAL HISTORY: Includes: 1. History of anemia, most probably multifactorial. 2. Anemia of chronic disease. 3. Iron deficiency. 4. B12 deficiency which she has had for many years, prior blood transfusion. 5. Sleep apnea. 6. Type 2 diabetes. PAST SURGICAL HISTORY: Hysterectomy. SOCIAL HISTORY: She is a former smoker. MEDICATIONS: Home medications included: 1. B12. 2. Atorvastatin. 3. Diltiazem. 4. Ferrous sulfate. 5. Glipizide. 6. Metformin. 7. Metoprolol. 8. Fluconazole. 9. Lisinopril. 10. Coumadin. PHYSICAL EXAMINATION: GENERAL: On exam, she is an elderly woman. She is not acutely ill looking. She was able to answer all questions appropriately. She was seated in a chair. EXTREMITIES: She has bilateral mild pitting edema. DIAGNOSTIC DATA: White count 20.9, hemoglobin 8.9, platelet count 407. INR 06/30/2018 was 2.2. Sodium 142, potassium 5.7, BUN 74, creatinine 2.46. Chest x-ray done 06/21 showed minimal worsening of right upper lobe infiltrates. IMPRESSION AND PLAN: The patient is a 73-year-old who has had chronic anemia, now presents with leukocytosis, most probably secondary to the ongoing other medical issues since this admission. I will request peripheral blood for flow cytometry. I will request an anemia workup as well. I expect her leukocytosis to be improved as she continues to get better. The right upper lobe infiltrates noted on the chest x-ray could be underlying infection. However, following discharge, if it persists, a CT scan and a PET scan can be obtained. I will be glad to follow up in outpatient following discharge from the hospital. She otherwise remains stable. I thank you for this consultation and allowing me to be part of her care. DICTATING PHYSICIAN: BRIDGETT CLARK M.D. [id number] PHY#: [id number] ID: [id number] JOB#: [id number] ACCT: [id number] cc:BRIDGETT CLARK M.D. >
[2018-07-01] MEDS: INSULIN GLARGINE,HUM.REC.ANLOG 300 UNIT/3 ML INSULN.PEN SUBCUT SCH (22:17)
[2018-07-01] MEDS: ATORVASTATIN CALCIUM 40 MG TABLET PO SCH (22:22)
[2018-07-02] MEDS: SODIUM BICARBONATE 650 MG TABLET PO SCH (02:20)
[2018-07-02 05:02] LABS: HEMATOCRIT 27.4 % (36.0-47.0); MEAN CORPUSCULAR HEMOGLOBIN 28.7 pg (27.0-33.4); MEAN CORPUSCULAR HGB CONC 32.7 g/dL (32.0-36.0); MEAN CORPUSCULAR VOLUME 88 fl (80-97); PLATELET COUNT 381 10^3/uL (150-450); RED BLOOD COUNT 3.13 10^6/uL (3.72-5.28); RED CELL DISTRIBUTION WIDTH 17.3 % (11.5-14.0); WHITE BLOOD COUNT 23.7 10^3/uL (4.0-10.5)
[2018-07-02 05:23] LABS: ABSOLUTE LYMPHOCYTES# (MANUAL) 2.1 10^3/uL (0.5-4.7); ABSOLUTE MONOCYTES # (MANUAL) 0.2 10^3/uL (0.1-1.4); ABSOLUTE NEUTROPHILS# (MANUAL) 21.1 10^3/uL (1.7-8.2); ANION GAP 13 (5-19); BAND NEUTROPHILS % (MANUAL) 3 % (3-5); BASOPHILS % (MANUAL) 0 % (0-2); BLOOD UREA NITROGEN 77 mg/dL (7-20); CALCIUM 8.8 mg/dL (8.4-10.2); CARBON DIOXIDE 25 mmol/L (22-30); CHLORIDE 107 mmol/L (98-107); EOSINOPHILS % (MANUAL) 1 % (0-6); GLUCOSE 102 mg/dL (75-110); LYMPHOCYTES % (MANUAL) 9 % (13-45); MONOCYTES % (MANUAL) 1 % (3-13); SEGMENTED NEUTROPHILS % (MAN) 86 % (42-78); SODIUM 144.5 mmol/L (137-145); TOTAL CELLS COUNTED 100
[2018-07-02 05:24] LABS: ANISOCYTOSIS 1+; PLATELET COMMENT ADEQUATE; TOXIC GRANULATION 1+
[2018-07-02 06:01] LABS: POTASSIUM 4.6 mmol/L (3.6-5.0)
[2018-07-02] MEDS: FUROSEMIDE INJ/PF 40 MG/4 ML SDV IV SCH ×3 (06:16→21:54)
[2018-07-02] MEDS: DILTIAZEM HCL 240 MG CAPSULE.CR PO SCH (10:22)
[2018-07-02] MEDS: METOPROLOL TARTRATE 100 MG TABLET PO SCH ×2 (10:22→21:52)
[2018-07-02] MEDS: GUAIFENESIN 600 MG TABLET.SA PO SCH ×2 (10:22→21:52)
[2018-07-02] MEDS: ASPIRIN 325 MG TABLET PO SCH (10:22)
--- NOTE | 2018-07-02 10:50 | PDOC PROGRESS REPORT ---
Subjective Progress Note for:: 07/02/18 Subjective:: Patient is actually feeling pretty good today. That is despite her increased white count today and also increased creatinine. Her diuretics were increased to 40 mg IV every 8 hours yesterday. He developed macular slightly erythematous slightly pruritic rash in the trunk area. Reason For Visit: CHF EXACERBATION AFIB PNEUMONIA Physical Exam Vital Signs: Temp Pulse Resp BP Pulse Ox 97.7 F 69 16 118/46 L 96 07/02/18 07:10 07/02/18 09:00 07/02/18 09:00 07/02/18 07:10 07/02/18 09:00 Intake & Output 07/01/18 07/02/18 07/03/18 06:59 06:59 06:59 Intake Total 831 287 Output Total 800 Balance 31 287 Weight 211 lb 13.828 oz 212 lb 4.882 oz General appearance: PRESENT: no acute distress, well-developed, well-nourished Head exam: PRESENT: atraumatic, normocephalic Eye exam: PRESENT: conjunctiva pink, EOMI, PERRLA. ABSENT: scleral icterus Ear exam: PRESENT: normal external ear exam Mouth exam: PRESENT: moist, tongue midline Neck exam: ABSENT: carotid bruit, JVD, lymphadenopathy, thyromegaly Respiratory exam: PRESENT: rhonchi - Scattered. ABSENT: accessory muscle use, rales, wheezes Cardiovascular exam: PRESENT: RRR, systolic murmur. ABSENT: rubs Pulses: PRESENT: normal dorsalis pedis pul Vascular exam: PRESENT: normal capillary refill GI/Abdominal exam: PRESENT: normal bowel sounds, soft. ABSENT: distended, guarding, mass, organolmegaly, rebound, tenderness Rectal exam: PRESENT: deferred Extremities exam: PRESENT: full ROM, +2 edema. ABSENT: calf tenderness, clubbing Neurological exam: PRESENT: alert, awake, oriented to person, oriented to place , oriented to time, oriented to situation, CN II-XII grossly intact. ABSENT: motor sensory deficit Psychiatric exam: PRESENT: appropriate affect, normal mood. ABSENT: homicidal ideation, suicidal ideation Skin exam: PRESENT: erythema Results Laboratory Results: 07/02/18 04:47 07/02/18 04:47 07/01/18 07/01/18 07/02/18 05:25 08:25 04:47 WBC 20.9 H 23.7 H RBC 3.07 L 3.13 L Hgb 8.9 L 9.0 L Hct 26.7 L 27.4 L MCV 87 88 MCH 29.1 28.7 MCHC 33.3 32.7 RDW 16.8 H 17.3 H Plt Count 407 381 Seg Neutrophils % Not Reportable Not Reportable Lymphocytes % Not Reportable Not Reportable Monocytes % Not Reportable Not Reportable Eosinophils % Not Reportable Not Reportable Basophils % Not Reportable Not Reportable Absolute Neutrophils Not Reportable Not Reportable Absolute Lymphocytes Not Reportable Not Reportable Absolute Monocytes Not Reportable Not Reportable Absolute Eosinophils Not Reportable Not Reportable Absolute Basophils Not Reportable Not Reportable Sodium Potassium Chloride Carbon Dioxide Anion Gap BUN Creatinine Est GFR ( Amer) Est GFR (Non-Af Amer) Glucose Calcium Iron 21.5 L TIBC 279 % Saturation 8 Ferritin 315.00 H 07/02/18 04:47 WBC RBC Hgb Hct MCV MCH MCHC RDW Plt Count Seg Neutrophils % Lymphocytes % Monocytes % Eosinophils % Basophils % Absolute Neutrophils Absolute Lymphocytes Absolute Monocytes Absolute Eosinophils Absolute Basophils Sodium 144.5 Potassium 4.6 D Chloride 107 Carbon Dioxide 25 Anion Gap 13 BUN 77 H Creatinine 2.83 H Est GFR ( Amer) 20 L Est GFR (Non-Af Amer) 16 L Glucose 102 Calcium 8.8 Iron TIBC % Saturation Ferritin 06/19/18 06/19/18 06/19/18 04:10 04:10 11:11 Creatine Kinase 84 75 CK-MB (CK-2) 0.91 Troponin I 0.187 06/19/18 06/19/18 06/19/18 11:11 15:56 15:56 Creatine Kinase 87 CK-MB (CK-2) 1.05 1.72 Troponin I 0.132 0.120 06/20/18 06/21/18 04:50 05:50 Creatine Kinase CK-MB (CK-2) Troponin I 0.079 0.031 Impressions: Abdomen Ultrasound 06/21/18 00:00 IMPRESSION: Cholecystitis and cholelithiasis. Fatty liver. Borderline dilatation of the common bile duct. Chest CT 06/22/18 00:00 IMPRESSION: Fairly extensive airspace consolidation in the right upper lobe consistent with pneumonic infiltrate. Small right pleural effusion is identified. There is some ill-defined right basilar densities which could represent a developing infiltrate or atelectatic changes. Mediastinal and possible right hilar adenopathy as noted above. Follow-up is recommended. Other findings as noted above Renal Ultrasound 06/23/18 00:00 IMPRESSION: No hydronephrosis. Chest X-Ray 06/27/18 13:36 IMPRESSION: IMPROVED APPEARANCE OF THE EXTENSIVE RIGHT UPPER LOBE INFILTRATE. Assessment & Plan - Diagnosis (2) Pneumonia Qualifiers: Pneumonia type: due to unspecified organism Laterality: right Lung location: upper lobe of lung Qualified Code(s): J18.1 - Lobar pneumonia, unspecified organism Is this a current diagnosis for this admission?: Yes (3) Afib Qualifiers: Atrial fibrillation type: unspecified Qualified Code(s): I48.91 - Unspecified atrial fibrillation Is this a current diagnosis for this admission?: Yes (4) Sepsis Qualifiers: Sepsis type: Pneumococcus Qualified Code(s): A40.3 - Sepsis due to Streptococcus pneumoniae Is this a current diagnosis for this admission?: Yes (5) Diabetes mellitus type 2 in nonobese Is this a current diagnosis for this admission?: Yes (6) HTN (hypertension) Qualifiers: Hypertension type: essential hypertension Qualified Code(s): I10 - Essential (primary) hypertension Is this a current diagnosis for this admission?: Yes - Plan Summary Plan Summary: Patient is clinically stable off antibiotics Renal function is stable. Creatinine slightly increased today and his diuretic dose increased Continue to monitor renal function and electrolytes Infection is clearly resolved with improved clinical picture and improved x-ray She is still with significant leukocytosis she has chronic anemia White count actually decreased further today but she is afebrile and feels better Rash is probably drug reaction will treat with antihistamine topically Nephrology and hematology are following Flow cytometry and peripheral smear were ordered Continue to monitor blood count Continue current management Ambulate
[2018-07-02] MEDS ORDERED: HYDROXYZINE HCL 2 MG/ML SYRUP 60 ML PO PRN (10:52)
[2018-07-02] MEDS ORDERED: HYDROXYZINE HCL 10 MG TABLET PO PRN (10:59)
[2018-07-02] MEDS: DIPHENHYDRAMINE HCL 2% CREAM 30 GM TP PRN (13:11)
[2018-07-02] MEDS: NYSTATIN TOPICAL POWDER 15 GM TP SCH ×3 (13:11→17:56)
--- NOTE | 2018-07-02 14:50 | PDOC PROGRESS REPORT ---
Subjective Progress Note for:: 07/02/18 Reason For Visit: She is doing well. She denies any history of chest pain or shortness of breath or fever or chills. She has noticed some decrease in her bilateral severely swollen legs. No complaints of any pain of her lower extremities. No complaints of an abdominal pains or constitutional symptoms. Labs and medications are reviewed with the patient. Physical Exam Vital Signs: Temp Pulse Resp BP Pulse Ox 97.9 F 59 L 18 115/33 L 93 07/02/18 11:16 07/02/18 11:16 07/02/18 11:16 07/02/18 11:16 07/02/18 11:16 Intake & Output 07/01/18 07/02/18 07/03/18 06:59 06:59 06:59 Intake Total 831 287 237 Output Total 800 700 Balance 31 287 -463 Weight 96.1 kg 96.3 kg General appearance: PRESENT: no acute distress Respiratory exam: PRESENT: clear to auscultation archie. ABSENT: crackles Cardiovascular exam: PRESENT: RRR, +S1, +S2 GI/Abdominal exam: ABSENT: diminished bowel sounds, distended, rebound, soft, tenderness Extremities exam: PRESENT: +2 edema Neurological exam: PRESENT: alert, awake, oriented to person, oriented to place Skin exam: ABSENT: erythema, mottled, rash Results Laboratory Results: 07/02/18 04:47 07/02/18 04:47 07/01/18 07/02/18 07/02/18 08:25 04:47 04:47 WBC 23.7 H RBC 3.13 L Hgb 9.0 L Hct 27.4 L MCV 88 MCH 28.7 MCHC 32.7 RDW 17.3 H Plt Count 381 Seg Neutrophils % Not Reportable Lymphocytes % Not Reportable Monocytes % Not Reportable Eosinophils % Not Reportable Basophils % Not Reportable Absolute Neutrophils Not Reportable Absolute Lymphocytes Not Reportable Absolute Monocytes Not Reportable Absolute Eosinophils Not Reportable Absolute Basophils Not Reportable Sodium 144.5 Potassium 4.6 D Chloride 107 Carbon Dioxide 25 Anion Gap 13 BUN 77 H Creatinine 2.83 H Est GFR ( Amer) 20 L Est GFR (Non-Af Amer) 16 L Glucose 102 Calcium 8.8 Iron 21.5 L TIBC 279 % Saturation 8 Ferritin 315.00 H 06/19/18 06/19/18 06/19/18 04:10 04:10 11:11 Creatine Kinase 84 75 CK-MB (CK-2) 0.91 Troponin I 0.187 06/19/18 06/19/18 06/19/18 11:11 15:56 15:56 Creatine Kinase 87 CK-MB (CK-2) 1.05 1.72 Troponin I 0.132 0.120 06/20/18 06/21/18 04:50 05:50 Creatine Kinase CK-MB (CK-2) Troponin I 0.079 0.031 Impressions: Abdomen Ultrasound 06/21/18 00:00 IMPRESSION: Cholecystitis and cholelithiasis. Fatty liver. Borderline dilatation of the common bile duct. Chest CT 06/22/18 00:00 IMPRESSION: Fairly extensive airspace consolidation in the right upper lobe consistent with pneumonic infiltrate. Small right pleural effusion is identified. There is some ill-defined right basilar densities which could represent a developing infiltrate or atelectatic changes. Mediastinal and possible right hilar adenopathy as noted above. Follow-up is recommended. Other findings as noted above Renal Ultrasound 06/23/18 00:00 IMPRESSION: No hydronephrosis. Chest X-Ray 06/27/18 13:36 IMPRESSION: IMPROVED APPEARANCE OF THE EXTENSIVE RIGHT UPPER LOBE INFILTRATE. Assessment & Plan - Diagnosis (1) MONALISA (acute kidney injury) Plan: Likely combination of ATN/bank toxicity.Nonoliguric.Mild worsening of renal numbers. She has large amount of pedal edema. I am going to order an MRV of her IVC to exclude the possibility of possible extraluminal compression of IVC given her mediastinal lymphadenopathy. Meanwhile continue current medications including IV Lasix.Discussed with the patient about doing the MRV without contrast. She understands the risks/benefits and willing to proceed. (2) Pneumonia Qualifiers: Pneumonia type: due to unspecified organism Laterality: right Lung location: upper lobe of lung Qualified Code(s): J18.1 - Lobar pneumonia, unspecified organism Is this a current diagnosis for this admission?: Yes Plan: Has resolved.Currently off all antibiotics. However persistent leukocytosis which is unexplained. Dr. Choudhary has seen the patient. (3) Sepsis Qualifiers: Sepsis type: Pneumococcus Qualified Code(s): A40.3 - Sepsis due to Streptococcus pneumoniae Is this a current diagnosis for this admission?: Yes Plan: No clinical features and and clinically she looks like she has resolved her pneumonia with sepsis. However unexplained leukocytosis that is being evaluated by the heme oncologist. (4) Afib Qualifiers: Atrial fibrillation type: unspecified Qualified Code(s): I48.91 - Unspecified atrial fibrillation Is this a current diagnosis for this admission?: Yes Plan: Rate controlled. On anticoagulation with appropriate INR. (5) Diabetes mellitus type 2 in nonobese Is this a current diagnosis for this admission?: Yes Plan: Advised tight control. (6) HTN (hypertension) Qualifiers: Hypertension type: essential hypertension Qualified Code(s): I10 - Essential (primary) hypertension Is this a current diagnosis for this admission?: Yes Plan: Controlled. (8) Anemia Plan: Being evaluated by heme oncologist..
[2018-07-02 15:54] LABS: PATH REVIEW PATHOLOGIST REVIEWED
[2018-07-02] MEDS: WARFARIN SODIUM 7.5 MG TABLET PO SCH (17:57)
[2018-07-02] MEDS: ATORVASTATIN CALCIUM 40 MG TABLET PO SCH (21:52)
[2018-07-02] MEDS: INSULIN GLARGINE,HUM.REC.ANLOG 300 UNIT/3 ML INSULN.PEN SUBCUT SCH (21:53)
[2018-07-02] MEDS: TEMAZEPAM 7.5 MG CAPSULE PO PRN (21:56)
[2018-07-03] MEDS: FUROSEMIDE INJ/PF 40 MG/4 ML SDV IV SCH ×3 (06:05→21:38)
[2018-07-03 06:20] LABS: HEMATOCRIT 26.3 % (36.0-47.0); HEMOGLOBIN 8.6 g/dL (12.0-15.5); MEAN CORPUSCULAR HEMOGLOBIN 28.3 pg (27.0-33.4); MEAN CORPUSCULAR HGB CONC 32.6 g/dL (32.0-36.0); MEAN CORPUSCULAR VOLUME 87 fl (80-97); PLATELET COUNT 340 10^3/uL (150-450); RED BLOOD COUNT 3.03 10^6/uL (3.72-5.28); WHITE BLOOD COUNT 22.8 10^3/uL (4.0-10.5)
[2018-07-03 06:43] LABS: ANION GAP 14 (5-19); BLOOD UREA NITROGEN 83 mg/dL (7-20); CALCIUM 8.6 mg/dL (8.4-10.2); CARBON DIOXIDE 24 mmol/L (22-30); CHLORIDE 105 mmol/L (98-107); GLUCOSE 159 mg/dL (75-110); POTASSIUM 4.6 mmol/L (3.6-5.0); SODIUM 142.9 mmol/L (137-145)
[2018-07-03] MEDS: DILTIAZEM HCL 240 MG CAPSULE.CR PO SCH (09:23)
[2018-07-03] MEDS: GUAIFENESIN 600 MG TABLET.SA PO SCH ×2 (09:23→21:38)
[2018-07-03] MEDS: ASPIRIN 325 MG TABLET PO SCH (09:24)
[2018-07-03] MEDS: NYSTATIN TOPICAL POWDER 15 GM TP SCH ×3 (09:24→17:19)
[2018-07-03] MEDS: METOPROLOL TARTRATE 100 MG TABLET PO SCH ×2 (09:24→21:38)
--- NOTE | 2018-07-03 10:58 | PDOC PROGRESS REPORT ---
Subjective Progress Note for:: 07/03/18 Subjective:: Patient was sitting up her chair. She was really happy about the fluid that had come off her legs. Produced 1200mL of urine plus a few unmeasured voids. Currently not short of breath and denies chest pain. Reason For Visit: CHF EXACERBATION AFIB PNEUMONIA Physical Exam Vital Signs: Temp Pulse Resp BP Pulse Ox 98.0 F 62 20 132/63 H 98 07/03/18 07:02 07/03/18 07:02 07/03/18 07:02 07/03/18 07:02 07/03/18 07:02 Intake & Output 07/02/18 07/03/18 07/04/18 06:59 06:59 06:59 Intake Total 287 710 Output Total 1200 Balance 287 -490 Weight 96.3 kg 95.1 kg General appearance: PRESENT: no acute distress, well-developed, well-nourished Mouth exam: PRESENT: moist, neck supple Neck exam: PRESENT: full ROM. ABSENT: JVD Respiratory exam: PRESENT: crackles, rales. ABSENT: accessory muscle use, clear to auscultation archie, rhonchi, wheezes Cardiovascular exam: PRESENT: RRR, +S1, +S2 GI/Abdominal exam: ABSENT: diminished bowel sounds, distended, rebound, soft, tenderness Extremities exam: PRESENT: pedal edema - -2/3+, +2 edema Neurological exam: PRESENT: alert, awake, oriented to person, oriented to place , oriented to time, oriented to situation Psychiatric exam: PRESENT: appropriate affect, normal mood Skin exam: PRESENT: dry, erythema, intact, warm Results Laboratory Results: 07/03/18 05:25 07/03/18 05:25 07/03/18 07/03/18 05:25 05:25 WBC 22.8 H RBC 3.03 L Hgb 8.6 L Hct 26.3 L MCV 87 MCH 28.3 MCHC 32.6 RDW 17.0 H Plt Count 340 Sodium 142.9 Potassium 4.6 Chloride 105 Carbon Dioxide 24 Anion Gap 14 BUN 83 H Creatinine 2.63 H Est GFR ( Amer) 21 L Est GFR (Non-Af Amer) 18 L Glucose 159 H Calcium 8.6 06/19/18 06/19/18 06/19/18 04:10 04:10 11:11 Creatine Kinase 84 75 CK-MB (CK-2) 0.91 Troponin I 0.187 06/19/18 06/19/18 06/19/18 11:11 15:56 15:56 Creatine Kinase 87 CK-MB (CK-2) 1.05 1.72 Troponin I 0.132 0.120 06/20/18 06/21/18 04:50 05:50 Creatine Kinase CK-MB (CK-2) Troponin I 0.079 0.031 Impressions: Abdomen Ultrasound 06/21/18 00:00 IMPRESSION: Cholecystitis and cholelithiasis. Fatty liver. Borderline dilatation of the common bile duct. Chest CT 06/22/18 00:00 IMPRESSION: Fairly extensive airspace consolidation in the right upper lobe consistent with pneumonic infiltrate. Small right pleural effusion is identified. There is some ill-defined right basilar densities which could represent a developing infiltrate or atelectatic changes. Mediastinal and possible right hilar adenopathy as noted above. Follow-up is recommended. Other findings as noted above Renal Ultrasound 06/23/18 00:00 IMPRESSION: No hydronephrosis. Chest X-Ray 06/27/18 13:36 IMPRESSION: IMPROVED APPEARANCE OF THE EXTENSIVE RIGHT UPPER LOBE INFILTRATE. Assessment & Plan - Diagnosis (1) MONALISA (acute kidney injury) Plan: currently improving, at this point he MONALISA is stable will improve as more fluid is removed (2) Edema Plan: improving needs a couple of more days of IV furosemide (3) Anemia Plan: per heme/onc (4) Diabetes mellitus type 2 in nonobese Is this a current diagnosis for this admission?: Yes (5) HTN (hypertension) Qualifiers: Hypertension type: essential hypertension Qualified Code(s): I10 - Essential (primary) hypertension Is this a current diagnosis for this admission?: Yes Plan: controlled (6) Leukocytosis Plan: per heme/onc
[2018-07-03] MEDS: INSULIN LISPRO 100 UNIT/ML 3 ML VIAL SUBCUT PRN ×3 (11:45→21:39)
--- NOTE | 2018-07-03 14:08 | PDOC PROGRESS REPORT ---
Subjective Progress Note for:: 07/03/18 Subjective:: Patient is doing very good. She is on room air with no distress at all. Her edema actually improved but still significant. Her white count slightly decreased but still highly elevated. creatinine is stable. rash is persistent but non pruritic. Reason For Visit: CHF EXACERBATION AFIB PNEUMONIA Physical Exam Vital Signs: Temp Pulse Resp BP Pulse Ox 97.8 F 65 18 123/56 L 99 07/03/18 11:23 07/03/18 11:23 07/03/18 11:23 07/03/18 11:23 07/03/18 11:23 Intake & Output 07/02/18 07/03/18 07/04/18 06:59 06:59 06:59 Intake Total 287 710 474 Output Total 1200 Balance 287 -490 474 Weight 212 lb 4.882 oz 209 lb 10.554 oz General appearance: PRESENT: no acute distress, well-developed, well-nourished Head exam: PRESENT: atraumatic, normocephalic Eye exam: PRESENT: conjunctiva pink, EOMI, PERRLA. ABSENT: scleral icterus Ear exam: PRESENT: normal external ear exam Mouth exam: PRESENT: moist, tongue midline Neck exam: ABSENT: meningismus, tenderness, thyromegaly Respiratory exam: PRESENT: clear to auscultation archie. ABSENT: rales, rhonchi, wheezes Cardiovascular exam: PRESENT: RRR. ABSENT: diastolic murmur, rubs, systolic murmur Pulses: PRESENT: normal dorsalis pedis pul GI/Abdominal exam: PRESENT: normal bowel sounds, soft. ABSENT: distended, guarding, mass, organolmegaly, rebound, tenderness Rectal exam: PRESENT: deferred Extremities exam: PRESENT: +2 edema. ABSENT: joint swelling Neurological exam: PRESENT: alert, awake, oriented to person, oriented to place , oriented to time, oriented to situation, CN II-XII grossly intact. ABSENT: motor sensory deficit Psychiatric exam: PRESENT: appropriate affect, normal mood. ABSENT: homicidal ideation, suicidal ideation Skin exam: PRESENT: rash Results Laboratory Results: 07/03/18 05:25 07/03/18 05:25 07/03/18 07/03/18 05:25 05:25 WBC 22.8 H RBC 3.03 L Hgb 8.6 L Hct 26.3 L MCV 87 MCH 28.3 MCHC 32.6 RDW 17.0 H Plt Count 340 Sodium 142.9 Potassium 4.6 Chloride 105 Carbon Dioxide 24 Anion Gap 14 BUN 83 H Creatinine 2.63 H Est GFR ( Amer) 21 L Est GFR (Non-Af Amer) 18 L Glucose 159 H Calcium 8.6 06/19/18 06/19/18 06/19/18 04:10 04:10 11:11 Creatine Kinase 84 75 CK-MB (CK-2) 0.91 Troponin I 0.187 06/19/18 06/19/18 06/19/18 11:11 15:56 15:56 Creatine Kinase 87 CK-MB (CK-2) 1.05 1.72 Troponin I 0.132 0.120 06/20/18 06/21/18 04:50 05:50 Creatine Kinase CK-MB (CK-2) Troponin I 0.079 0.031 Impressions: Abdomen Ultrasound 06/21/18 00:00 IMPRESSION: Cholecystitis and cholelithiasis. Fatty liver. Borderline dilatation of the common bile duct. Chest CT 06/22/18 00:00 IMPRESSION: Fairly extensive airspace consolidation in the right upper lobe consistent with pneumonic infiltrate. Small right pleural effusion is identified. There is some ill-defined right basilar densities which could represent a developing infiltrate or atelectatic changes. Mediastinal and possible right hilar adenopathy as noted above. Follow-up is recommended. Other findings as noted above Renal Ultrasound 06/23/18 00:00 IMPRESSION: No hydronephrosis. Chest X-Ray 06/27/18 13:36 IMPRESSION: IMPROVED APPEARANCE OF THE EXTENSIVE RIGHT UPPER LOBE INFILTRATE. Assessment & Plan - Diagnosis (2) Pneumonia Qualifiers: Pneumonia type: due to unspecified organism Laterality: right Lung location: upper lobe of lung Qualified Code(s): J18.1 - Lobar pneumonia, unspecified organism Is this a current diagnosis for this admission?: Yes (3) Afib Qualifiers: Atrial fibrillation type: unspecified Qualified Code(s): I48.91 - Unspecified atrial fibrillation Is this a current diagnosis for this admission?: Yes (4) Sepsis Qualifiers: Sepsis type: Pneumococcus Qualified Code(s): A40.3 - Sepsis due to Streptococcus pneumoniae Is this a current diagnosis for this admission?: Yes (5) Diabetes mellitus type 2 in nonobese Is this a current diagnosis for this admission?: Yes (6) HTN (hypertension) Qualifiers: Hypertension type: essential hypertension Qualified Code(s): I10 - Essential (primary) hypertension Is this a current diagnosis for this admission?: Yes - Plan Summary Plan Summary: Patient is clinically stable off antibiotics Renal function is stable. Edema is improved on IV Lasix. Will need a couple more days of IV Lasix. Continue to monitor renal function and electrolytes Infection is clearly resolved with improved clinical picture and improved x-ray She is still with significant leukocytosis she has chronic anemia she is afebrile and feels better Rash is probably drug reaction and she also has Kaley intertrigo. Continue antihistamine and nystatin topically Nephrology and hematology are following Flow cytometry and peripheral smear were ordered Continue to monitor blood count Continue current management Ambulate
[2018-07-03] MEDS: WARFARIN SODIUM 7.5 MG TABLET PO SCH (17:19)
[2018-07-03] MEDS: TEMAZEPAM 7.5 MG CAPSULE PO PRN (21:38)
[2018-07-03] MEDS: ATORVASTATIN CALCIUM 40 MG TABLET PO SCH (21:38)
[2018-07-03] MEDS: INSULIN GLARGINE,HUM.REC.ANLOG 300 UNIT/3 ML INSULN.PEN SUBCUT SCH (21:41)
[2018-07-04] MEDS: FUROSEMIDE INJ/PF 40 MG/4 ML SDV IV SCH ×3 (05:32→21:20)
[2018-07-04 06:57] LABS: HEMATOCRIT 25.2 % (36.0-47.0); HEMOGLOBIN 8.2 g/dL (12.0-15.5); MEAN CORPUSCULAR HEMOGLOBIN 28.4 pg (27.0-33.4); MEAN CORPUSCULAR HGB CONC 32.4 g/dL (32.0-36.0); MEAN CORPUSCULAR VOLUME 88 fl (80-97); PLATELET COUNT 326 10^3/uL (150-450); RED BLOOD COUNT 2.88 10^6/uL (3.72-5.28); RED CELL DISTRIBUTION WIDTH 16.9 % (11.5-14.0)
[2018-07-04 07:13] LABS: ANION GAP 13 (5-19); BLOOD UREA NITROGEN 84 mg/dL (7-20); CALCIUM 8.6 mg/dL (8.4-10.2); CARBON DIOXIDE 24 mmol/L (22-30); CHLORIDE 106 mmol/L (98-107); GLUCOSE 111 mg/dL (75-110); POTASSIUM 4.5 mmol/L (3.6-5.0); SODIUM 143.2 mmol/L (137-145)
[2018-07-04] MEDS: METOPROLOL TARTRATE 100 MG TABLET PO SCH ×2 (10:31→21:20)
[2018-07-04] MEDS: GUAIFENESIN 600 MG TABLET.SA PO SCH ×2 (10:31→21:20)
[2018-07-04] MEDS: DILTIAZEM HCL 240 MG CAPSULE.CR PO SCH (10:31)
[2018-07-04] MEDS: NYSTATIN TOPICAL POWDER 15 GM TP SCH ×3 (10:32→17:43)
[2018-07-04] MEDS: ASPIRIN 325 MG TABLET PO SCH (10:32)
[2018-07-04] MEDS: DIPHENHYDRAMINE HCL 2% CREAM 30 GM TP PRN (10:45)
--- NOTE | 2018-07-04 11:49 | PDOC PROGRESS REPORT ---
Subjective Progress Note for:: 07/04/18 Subjective:: Patient continues to be stable She responding very well to diuresis Her edema is improving and her renal function is stable White count decreased but still elevated Rash is improved on her back but still persistent on her abdomen Reason For Visit: CHF EXACERBATION AFIB PNEUMONIA Physical Exam Vital Signs: Temp Pulse Resp BP Pulse Ox 98.3 F 62 16 123/52 L 97 07/04/18 08:11 07/04/18 08:11 07/04/18 08:11 07/04/18 08:11 07/04/18 08:11 Intake & Output 07/03/18 07/04/18 07/05/18 06:59 06:59 06:59 Intake Total 710 814 Output Total 1200 Balance -490 814 Weight 209 lb 10.554 oz 208 lb 15.971 oz General appearance: PRESENT: no acute distress, well-developed, well-nourished Head exam: PRESENT: atraumatic, normocephalic Eye exam: PRESENT: conjunctiva pink, EOMI, PERRLA. ABSENT: scleral icterus Ear exam: PRESENT: normal external ear exam Mouth exam: PRESENT: moist, tongue midline Teeth exam: PRESENT: poor dentation Neck exam: ABSENT: carotid bruit, JVD, lymphadenopathy, thyromegaly Respiratory exam: PRESENT: clear to auscultation archie. ABSENT: rales, rhonchi, wheezes Cardiovascular exam: PRESENT: RRR, systolic murmur. ABSENT: diastolic murmur, rubs Pulses: PRESENT: normal dorsalis pedis pul Vascular exam: PRESENT: normal capillary refill GI/Abdominal exam: PRESENT: normal bowel sounds, soft. ABSENT: distended, guarding, mass, organolmegaly, rebound, tenderness Rectal exam: PRESENT: deferred Extremities exam: PRESENT: full ROM, pedal edema, +1 edema. ABSENT: calf tenderness, clubbing Neurological exam: PRESENT: alert, awake, oriented to person, oriented to place , oriented to time, oriented to situation, CN II-XII grossly intact. ABSENT: motor sensory deficit Psychiatric exam: PRESENT: appropriate affect, normal mood. ABSENT: homicidal ideation, suicidal ideation Skin exam: PRESENT: rash Results Laboratory Results: 07/04/18 06:25 07/04/18 06:25 07/04/18 07/04/18 06:25 06:25 WBC 20.0 H RBC 2.88 L Hgb 8.2 L Hct 25.2 L MCV 88 MCH 28.4 MCHC 32.4 RDW 16.9 H Plt Count 326 Sodium 143.2 Potassium 4.5 Chloride 106 Carbon Dioxide 24 Anion Gap 13 BUN 84 H Creatinine 2.70 H Est GFR ( Amer) 21 L Est GFR (Non-Af Amer) 17 L Glucose 111 H Calcium 8.6 06/19/18 06/19/18 06/19/18 04:10 04:10 11:11 Creatine Kinase 84 75 CK-MB (CK-2) 0.91 Troponin I 0.187 06/19/18 06/19/18 06/19/18 11:11 15:56 15:56 Creatine Kinase 87 CK-MB (CK-2) 1.05 1.72 Troponin I 0.132 0.120 06/20/18 06/21/18 04:50 05:50 Creatine Kinase CK-MB (CK-2) Troponin I 0.079 0.031 Impressions: Abdomen Ultrasound 06/21/18 00:00 IMPRESSION: Cholecystitis and cholelithiasis. Fatty liver. Borderline dilatation of the common bile duct. Chest CT 06/22/18 00:00 IMPRESSION: Fairly extensive airspace consolidation in the right upper lobe consistent with pneumonic infiltrate. Small right pleural effusion is identified. There is some ill-defined right basilar densities which could represent a developing infiltrate or atelectatic changes. Mediastinal and possible right hilar adenopathy as noted above. Follow-up is recommended. Other findings as noted above Renal Ultrasound 06/23/18 00:00 IMPRESSION: No hydronephrosis. Chest X-Ray 06/27/18 13:36 IMPRESSION: IMPROVED APPEARANCE OF THE EXTENSIVE RIGHT UPPER LOBE INFILTRATE. Assessment & Plan - Diagnosis (2) Pneumonia Qualifiers: Pneumonia type: due to unspecified organism Laterality: right Lung location: upper lobe of lung Qualified Code(s): J18.1 - Lobar pneumonia, unspecified organism Is this a current diagnosis for this admission?: Yes (3) Afib Qualifiers: Atrial fibrillation type: unspecified Qualified Code(s): I48.91 - Unspecified atrial fibrillation Is this a current diagnosis for this admission?: Yes (4) Sepsis Qualifiers: Sepsis type: Pneumococcus Qualified Code(s): A40.3 - Sepsis due to Streptococcus pneumoniae Is this a current diagnosis for this admission?: Yes (5) Diabetes mellitus type 2 in nonobese Is this a current diagnosis for this admission?: Yes (6) HTN (hypertension) Qualifiers: Hypertension type: essential hypertension Qualified Code(s): I10 - Essential (primary) hypertension Is this a current diagnosis for this admission?: Yes - Plan Summary Plan Summary: Patient is clinically stable off antibiotics Renal function is stable. Edema is improving on IV Lasix. Will need a day or 2 of IV Lasix. Continue to monitor renal function and electrolytes Infection is clearly resolved with improved clinical picture and improved x-ray She is still with significant leukocytosis she has chronic anemia she is afebrile and feels better Rash is probably drug reaction and she also has Kaley intertrigo. Continue antihistamine and nystatin topically Nephrology and hematology are following Continue to monitor blood count Continue current management Ambulate as tolerated
[2018-07-04] MEDS: INSULIN LISPRO 100 UNIT/ML 3 ML VIAL SUBCUT PRN ×2 (12:29→21:30)
--- NOTE | 2018-07-04 14:41 | PDOC PROGRESS REPORT ---
Subjective Progress Note for:: 07/04/18 Subjective:: Patient continues to improve, each time she says she feels better and better. She remains off O2 during the day. She denies chest pain, SOB, n/v/d/c. Reason For Visit: CHF EXACERBATION AFIB PNEUMONIA Physical Exam Vital Signs: Temp Pulse Resp BP Pulse Ox 98.2 F 59 L 16 123/43 L 97 07/04/18 11:58 07/04/18 11:58 07/04/18 11:58 07/04/18 11:58 07/04/18 11:58 Intake & Output 07/03/18 07/04/18 07/05/18 06:59 06:59 06:59 Intake Total 710 814 Output Total 1200 Balance -490 814 Weight 95.1 kg 94.8 kg General appearance: PRESENT: no acute distress, well-developed, well-nourished Mouth exam: PRESENT: moist, neck supple Neck exam: PRESENT: full ROM. ABSENT: JVD Respiratory exam: PRESENT: clear to auscultation archie. ABSENT: accessory muscle use, crackles, rales, rhonchi, wheezes Cardiovascular exam: PRESENT: RRR, +S1, +S2 GI/Abdominal exam: ABSENT: diminished bowel sounds, distended, rebound, soft, tenderness Extremities exam: PRESENT: pedal edema, +2 edema. ABSENT: tenderness Musculoskeletal exam: PRESENT: normal inspection. ABSENT: tenderness Neurological exam: PRESENT: alert, awake, oriented to person, oriented to place , oriented to time, oriented to situation Skin exam: PRESENT: dry, erythema, intact, warm Results Laboratory Results: 07/04/18 06:25 07/04/18 06:25 07/04/18 07/04/18 06:25 06:25 WBC 20.0 H RBC 2.88 L Hgb 8.2 L Hct 25.2 L MCV 88 MCH 28.4 MCHC 32.4 RDW 16.9 H Plt Count 326 Sodium 143.2 Potassium 4.5 Chloride 106 Carbon Dioxide 24 Anion Gap 13 BUN 84 H Creatinine 2.70 H Est GFR ( Amer) 21 L Est GFR (Non-Af Amer) 17 L Glucose 111 H Calcium 8.6 06/19/18 06/19/18 06/19/18 04:10 04:10 11:11 Creatine Kinase 84 75 CK-MB (CK-2) 0.91 Troponin I 0.187 06/19/18 06/19/18 06/19/18 11:11 15:56 15:56 Creatine Kinase 87 CK-MB (CK-2) 1.05 1.72 Troponin I 0.132 0.120 06/20/18 06/21/18 04:50 05:50 Creatine Kinase CK-MB (CK-2) Troponin I 0.079 0.031 Impressions: Abdomen Ultrasound 06/21/18 00:00 IMPRESSION: Cholecystitis and cholelithiasis. Fatty liver. Borderline dilatation of the common bile duct. Chest CT 06/22/18 00:00 IMPRESSION: Fairly extensive airspace consolidation in the right upper lobe consistent with pneumonic infiltrate. Small right pleural effusion is identified. There is some ill-defined right basilar densities which could represent a developing infiltrate or atelectatic changes. Mediastinal and possible right hilar adenopathy as noted above. Follow-up is recommended. Other findings as noted above Renal Ultrasound 06/23/18 00:00 IMPRESSION: No hydronephrosis. Chest X-Ray 06/27/18 13:36 IMPRESSION: IMPROVED APPEARANCE OF THE EXTENSIVE RIGHT UPPER LOBE INFILTRATE. Assessment & Plan - Diagnosis (1) MONALISA (acute kidney injury) Plan: currently stable, needs more fluid to be removed. Continue with current medications (2) Edema Plan: continue on current medications, after the weekend she may be ready for discharge if a significant amount of fluid keeps coming off (3) Anemia Plan: per heme/onc (4) Diabetes mellitus type 2 in nonobese Is this a current diagnosis for this admission?: Yes (5) HTN (hypertension) Qualifiers: Hypertension type: essential hypertension Qualified Code(s): I10 - Essential (primary) hypertension Is this a current diagnosis for this admission?: Yes Plan: controlled (6) Leukocytosis Plan: per heme/onc - Notes Notes: case was discussed with Dr. Rao
[2018-07-04] MEDS: WARFARIN SODIUM 7.5 MG TABLET PO SCH (17:43)
[2018-07-04] MEDS: TEMAZEPAM 7.5 MG CAPSULE PO PRN (21:20)
[2018-07-04] MEDS: ATORVASTATIN CALCIUM 40 MG TABLET PO SCH (21:20)
[2018-07-04] MEDS: INSULIN GLARGINE,HUM.REC.ANLOG 300 UNIT/3 ML INSULN.PEN SUBCUT SCH (21:20)
[2018-07-05 04:55] LABS: HEMATOCRIT 25.1 % (36.0-47.0); HEMOGLOBIN 8.2 g/dL (12.0-15.5); MEAN CORPUSCULAR HEMOGLOBIN 28.3 pg (27.0-33.4); MEAN CORPUSCULAR HGB CONC 32.8 g/dL (32.0-36.0); MEAN CORPUSCULAR VOLUME 87 fl (80-97); PLATELET COUNT 303 10^3/uL (150-450); WHITE BLOOD COUNT 15.5 10^3/uL (4.0-10.5)
[2018-07-05 05:19] LABS: ANION GAP 15 (5-19); BLOOD UREA NITROGEN 88 mg/dL (7-20); CALCIUM 8.1 mg/dL (8.4-10.2); CARBON DIOXIDE 24 mmol/L (22-30); CHLORIDE 105 mmol/L (98-107); POTASSIUM 4.1 mmol/L (3.6-5.0); SODIUM 143.8 mmol/L (137-145)
[2018-07-05 05:20] LABS: GLUCOSE 90 mg/dL (75-110)
[2018-07-05] MEDS: FUROSEMIDE INJ/PF 40 MG/4 ML SDV IV SCH ×3 (06:06→22:04)
[2018-07-05] MEDS: GUAIFENESIN 600 MG TABLET.SA PO SCH ×2 (09:00→22:04)
[2018-07-05] MEDS: DILTIAZEM HCL 240 MG CAPSULE.CR PO SCH (09:00)
[2018-07-05] MEDS: METOPROLOL TARTRATE 100 MG TABLET PO SCH ×2 (09:01→21:59)
[2018-07-05] MEDS: ASPIRIN 325 MG TABLET PO SCH (09:01)
[2018-07-05] MEDS: NYSTATIN TOPICAL POWDER 15 GM TP SCH ×3 (09:02→17:34)
--- NOTE | 2018-07-05 09:56 | PDOC PROGRESS REPORT ---
Subjective Progress Note for:: 07/05/18 Subjective:: Patient continues to be stable She responding very well to diuresis Her edema is improving and her renal function is stable White count improving Rash is also improving Reason For Visit: CHF EXACERBATION AFIB PNEUMONIA Physical Exam Vital Signs: Temp Pulse Resp BP Pulse Ox 98.1 F 60 16 116/41 L 94 07/05/18 07:50 07/05/18 07:50 07/05/18 07:50 07/05/18 07:50 07/05/18 09:02 Intake & Output 07/04/18 07/05/18 07/06/18 06:59 06:59 06:59 Intake Total 814 474 Output Total 1450 Balance 814 -976 Weight 208 lb 15.971 oz 205 lb 14.588 oz General appearance: PRESENT: no acute distress, well-developed, well-nourished Head exam: PRESENT: atraumatic, normocephalic Eye exam: PRESENT: conjunctiva pink, EOMI, PERRLA. ABSENT: scleral icterus Ear exam: PRESENT: normal external ear exam Mouth exam: PRESENT: moist, tongue midline Teeth exam: PRESENT: poor dentation Neck exam: ABSENT: carotid bruit, JVD, lymphadenopathy, thyromegaly Respiratory exam: PRESENT: clear to auscultation archie. ABSENT: rales, rhonchi, wheezes Cardiovascular exam: PRESENT: RRR, systolic murmur. ABSENT: diastolic murmur, rubs Pulses: PRESENT: normal dorsalis pedis pul Vascular exam: PRESENT: normal capillary refill GI/Abdominal exam: PRESENT: normal bowel sounds, soft. ABSENT: distended, guarding, mass, organolmegaly, rebound, tenderness Rectal exam: PRESENT: deferred Extremities exam: PRESENT: pedal edema, +2 edema Neurological exam: PRESENT: alert, awake, oriented to person, oriented to place , oriented to time, oriented to situation, CN II-XII grossly intact. ABSENT: motor sensory deficit Psychiatric exam: PRESENT: appropriate affect, normal mood. ABSENT: homicidal ideation, suicidal ideation Skin exam: PRESENT: rash Results Laboratory Results: 07/05/18 04:42 07/05/18 04:42 07/05/18 07/05/18 04:42 04:42 WBC 15.5 H RBC 2.90 L Hgb 8.2 L Hct 25.1 L MCV 87 MCH 28.3 MCHC 32.8 RDW 17.0 H Plt Count 303 Sodium 143.8 Potassium 4.1 Chloride 105 Carbon Dioxide 24 Anion Gap 15 BUN 88 H Creatinine 2.51 H Est GFR ( Amer) 23 L Est GFR (Non-Af Amer) 19 L Glucose 90 Calcium 8.1 L 06/19/18 06/19/18 06/19/18 04:10 04:10 11:11 Creatine Kinase 84 75 CK-MB (CK-2) 0.91 Troponin I 0.187 06/19/18 06/19/18 06/19/18 11:11 15:56 15:56 Creatine Kinase 87 CK-MB (CK-2) 1.05 1.72 Troponin I 0.132 0.120 06/20/18 06/21/18 04:50 05:50 Creatine Kinase CK-MB (CK-2) Troponin I 0.079 0.031 Impressions: Abdomen Ultrasound 06/21/18 00:00 IMPRESSION: Cholecystitis and cholelithiasis. Fatty liver. Borderline dilatation of the common bile duct. Chest CT 06/22/18 00:00 IMPRESSION: Fairly extensive airspace consolidation in the right upper lobe consistent with pneumonic infiltrate. Small right pleural effusion is identified. There is some ill-defined right basilar densities which could represent a developing infiltrate or atelectatic changes. Mediastinal and possible right hilar adenopathy as noted above. Follow-up is recommended. Other findings as noted above Renal Ultrasound 06/23/18 00:00 IMPRESSION: No hydronephrosis. Chest X-Ray 06/27/18 13:36 IMPRESSION: IMPROVED APPEARANCE OF THE EXTENSIVE RIGHT UPPER LOBE INFILTRATE. Assessment & Plan - Diagnosis (2) Pneumonia Qualifiers: Pneumonia type: due to unspecified organism Laterality: right Lung location: upper lobe of lung Qualified Code(s): J18.1 - Lobar pneumonia, unspecified organism Is this a current diagnosis for this admission?: Yes (3) Afib Qualifiers: Atrial fibrillation type: unspecified Qualified Code(s): I48.91 - Unspecified atrial fibrillation Is this a current diagnosis for this admission?: Yes (4) Sepsis Qualifiers: Sepsis type: Pneumococcus Qualified Code(s): A40.3 - Sepsis due to Streptococcus pneumoniae Is this a current diagnosis for this admission?: Yes (5) Diabetes mellitus type 2 in nonobese Is this a current diagnosis for this admission?: Yes (6) HTN (hypertension) Qualifiers: Hypertension type: essential hypertension Qualified Code(s): I10 - Essential (primary) hypertension Is this a current diagnosis for this admission?: Yes - Plan Summary Plan Summary: Patient is clinically stable off antibiotics Renal function is stable. Edema is improving on IV Lasix. Still requiring IV Lasix. Continue to monitor renal function and electrolytes Infection is clearly resolved with improved clinical picture and improved x-ray leukocytosis has been steadily improving for the past few days she is afebrile and feels better Rash is probably drug reaction and she also has Kaley intertrigo. Continue antihistamine and nystatin topically Nephrology and hematology are following Continue to monitor blood count Continue current management Ambulate as tolerated Okay for discharge once she is off IV Lasix
[2018-07-05] MEDS: INSULIN LISPRO 100 UNIT/ML 3 ML VIAL SUBCUT PRN ×3 (12:43→22:06)
[2018-07-05] MEDS: WARFARIN SODIUM 7.5 MG TABLET PO SCH (17:34)
[2018-07-05] MEDS: ATORVASTATIN CALCIUM 40 MG TABLET PO SCH (21:59)
[2018-07-05] MEDS: INSULIN GLARGINE,HUM.REC.ANLOG 300 UNIT/3 ML INSULN.PEN SUBCUT SCH (22:05)
[2018-07-05] MEDS: DIPHENHYDRAMINE HCL 2% CREAM 30 GM TP PRN (22:17)
[2018-07-05] MEDS: TEMAZEPAM 7.5 MG CAPSULE PO PRN (22:22)
[2018-07-06 04:57] LABS: HEMATOCRIT 23.3 % (36.0-47.0); MEAN CORPUSCULAR HEMOGLOBIN 29.1 pg (27.0-33.4); MEAN CORPUSCULAR HGB CONC 33.9 g/dL (32.0-36.0); MEAN CORPUSCULAR VOLUME 86 fl (80-97); PLATELET COUNT 303 10^3/uL (150-450); RED BLOOD COUNT 2.71 10^6/uL (3.72-5.28); RED CELL DISTRIBUTION WIDTH 17.2 % (11.5-14.0); WHITE BLOOD COUNT 14.4 10^3/uL (4.0-10.5)
[2018-07-06 05:33] LABS: ANION GAP 13 (5-19); BLOOD UREA NITROGEN 90 mg/dL (7-20); CALCIUM 8.3 mg/dL (8.4-10.2); CARBON DIOXIDE 25 mmol/L (22-30); CHLORIDE 105 mmol/L (98-107); GLUCOSE 64 mg/dL (75-110); POTASSIUM 4.2 mmol/L (3.6-5.0); SODIUM 142.6 mmol/L (137-145)
[2018-07-06 06:02] LABS: HEMOGLOBIN 7.9 g/dL (12.0-15.5)
[2018-07-06] MEDS: FUROSEMIDE INJ/PF 40 MG/4 ML SDV IV SCH ×3 (08:05→22:44)
--- NOTE | 2018-07-06 09:56 | PDOC PROGRESS REPORT ---
Subjective Progress Note for:: 07/06/18 Subjective:: Patient continues to be stable She responding very well to diuresis, edema significantly improved Renal function is stable White count continues to improve Rash is also also improving Reason For Visit: CHF EXACERBATION AFIB PNEUMONIA Physical Exam Vital Signs: Temp Pulse Resp BP Pulse Ox 98.5 F 61 15 147/51 H 99 07/06/18 03:47 07/06/18 07:00 07/06/18 08:40 07/06/18 03:47 07/06/18 08:40 Intake & Output 07/05/18 07/06/18 07/07/18 06:59 06:59 06:59 Intake Total 474 1402 Output Total 1450 852 Balance -976 550 Weight 205 lb 14.588 oz 208 lb 5.389 oz General appearance: PRESENT: no acute distress, well-developed, well-nourished Head exam: PRESENT: atraumatic, normocephalic Eye exam: PRESENT: conjunctiva pink, EOMI, PERRLA. ABSENT: scleral icterus Ear exam: PRESENT: normal external ear exam Mouth exam: PRESENT: moist, tongue midline Neck exam: ABSENT: carotid bruit, JVD, lymphadenopathy, thyromegaly Respiratory exam: PRESENT: clear to auscultation archie. ABSENT: rales, rhonchi, wheezes Cardiovascular exam: PRESENT: RRR. ABSENT: diastolic murmur, rubs, systolic murmur Pulses: PRESENT: normal dorsalis pedis pul GI/Abdominal exam: PRESENT: normal bowel sounds, soft. ABSENT: distended, guarding, mass, organolmegaly, rebound, tenderness Rectal exam: PRESENT: deferred Extremities exam: PRESENT: +1 edema. ABSENT: calf tenderness, clubbing Neurological exam: PRESENT: alert, awake, oriented to person, oriented to place , oriented to time, oriented to situation, CN II-XII grossly intact. ABSENT: motor sensory deficit Psychiatric exam: PRESENT: appropriate affect, normal mood. ABSENT: homicidal ideation, suicidal ideation Skin exam: PRESENT: rash Results Laboratory Results: 07/06/18 04:31 07/06/18 04:31 07/06/18 07/06/18 04:31 04:31 WBC 14.4 H RBC 2.71 L Hgb 7.9 L Hct 23.3 L MCV 86 MCH 29.1 MCHC 33.9 RDW 17.2 H Plt Count 303 Sodium 142.6 Potassium 4.2 Chloride 105 Carbon Dioxide 25 Anion Gap 13 BUN 90 H Creatinine 2.70 H Est GFR ( Amer) 21 L Est GFR (Non-Af Amer) 17 L Glucose 64 L Calcium 8.3 L 06/19/18 06/19/18 06/19/18 04:10 04:10 11:11 Creatine Kinase 84 75 CK-MB (CK-2) 0.91 Troponin I 0.187 06/19/18 06/19/18 06/19/18 11:11 15:56 15:56 Creatine Kinase 87 CK-MB (CK-2) 1.05 1.72 Troponin I 0.132 0.120 06/20/18 06/21/18 04:50 05:50 Creatine Kinase CK-MB (CK-2) Troponin I 0.079 0.031 Impressions: Abdomen Ultrasound 06/21/18 00:00 IMPRESSION: Cholecystitis and cholelithiasis. Fatty liver. Borderline dilatation of the common bile duct. Chest CT 06/22/18 00:00 IMPRESSION: Fairly extensive airspace consolidation in the right upper lobe consistent with pneumonic infiltrate. Small right pleural effusion is identified. There is some ill-defined right basilar densities which could represent a developing infiltrate or atelectatic changes. Mediastinal and possible right hilar adenopathy as noted above. Follow-up is recommended. Other findings as noted above Renal Ultrasound 06/23/18 00:00 IMPRESSION: No hydronephrosis. Chest X-Ray 06/27/18 13:36 IMPRESSION: IMPROVED APPEARANCE OF THE EXTENSIVE RIGHT UPPER LOBE INFILTRATE. Assessment & Plan - Diagnosis (2) Pneumonia Qualifiers: Pneumonia type: due to unspecified organism Laterality: right Lung location: upper lobe of lung Qualified Code(s): J18.1 - Lobar pneumonia, unspecified organism Is this a current diagnosis for this admission?: Yes (3) Afib Qualifiers: Atrial fibrillation type: unspecified Qualified Code(s): I48.91 - Unspecified atrial fibrillation Is this a current diagnosis for this admission?: Yes (4) Sepsis Qualifiers: Sepsis type: Pneumococcus Qualified Code(s): A40.3 - Sepsis due to Streptococcus pneumoniae Is this a current diagnosis for this admission?: Yes (5) Diabetes mellitus type 2 in nonobese Is this a current diagnosis for this admission?: Yes (6) HTN (hypertension) Qualifiers: Hypertension type: essential hypertension Qualified Code(s): I10 - Essential (primary) hypertension Is this a current diagnosis for this admission?: Yes - Plan Summary Plan Summary: Patient has been clinically stable off antibiotics Renal function is stable. Edema significantly improved on IV Lasix. Continue to monitor renal function and electrolytes Infection is clearly resolved with improved clinical picture and improved x-ray leukocytosis has been steadily improving for the past few days she is afebrile and feels better Rash significantly improved and is probably drug reaction and she also has Kaley intertrigo. Continue antihistamine and nystatin topically Nephrology and hematology are following Continue to monitor blood count Continue current management Ambulate as tolerated Okay for discharge once she is off IV Lasix
[2018-07-06] MEDS: ASPIRIN 325 MG TABLET PO SCH (10:08)
[2018-07-06] MEDS: DILTIAZEM HCL 240 MG CAPSULE.CR PO SCH (10:08)
[2018-07-06] MEDS: GUAIFENESIN 600 MG TABLET.SA PO SCH ×2 (10:08→22:41)
[2018-07-06] MEDS: METOPROLOL TARTRATE 100 MG TABLET PO SCH ×2 (10:08→22:46)
[2018-07-06] MEDS: NYSTATIN TOPICAL POWDER 15 GM TP SCH ×3 (10:09→18:05)
[2018-07-06] MEDS: INSULIN LISPRO 100 UNIT/ML 3 ML VIAL SUBCUT PRN ×3 (12:15→22:42)
[2018-07-06] MEDS: WARFARIN SODIUM 7.5 MG TABLET PO SCH (18:03)
[2018-07-06] MEDS: ATORVASTATIN CALCIUM 40 MG TABLET PO SCH (22:41)
[2018-07-06] MEDS: INSULIN GLARGINE,HUM.REC.ANLOG 300 UNIT/3 ML INSULN.PEN SUBCUT SCH (22:42)
[2018-07-06] MEDS: TEMAZEPAM 7.5 MG CAPSULE PO PRN (22:57)
[2018-07-07 04:59] LABS: HEMATOCRIT 22.8 % (36.0-47.0); MEAN CORPUSCULAR HEMOGLOBIN 29.4 pg (27.0-33.4); MEAN CORPUSCULAR HGB CONC 33.5 g/dL (32.0-36.0); MEAN CORPUSCULAR VOLUME 88 fl (80-97); PLATELET COUNT 259 10^3/uL (150-450); RED CELL DISTRIBUTION WIDTH 17.2 % (11.5-14.0); WHITE BLOOD COUNT 10.8 10^3/uL (4.0-10.5)
[2018-07-07 05:04] LABS: HEMOGLOBIN 7.6 g/dL (12.0-15.5)
[2018-07-07 05:21] LABS: ANION GAP 13 (5-19); BLOOD UREA NITROGEN 93 mg/dL (7-20); CARBON DIOXIDE 26 mmol/L (22-30); CHLORIDE 105 mmol/L (98-107); GLUCOSE 114 mg/dL (75-110); POTASSIUM 4.4 mmol/L (3.6-5.0); SODIUM 144.1 mmol/L (137-145)
[2018-07-07] MEDS: FUROSEMIDE INJ/PF 40 MG/4 ML SDV IV SCH ×2 (07:39→21:37)
[2018-07-07] MEDS: DILTIAZEM HCL 240 MG CAPSULE.CR PO SCH (09:57)
[2018-07-07] MEDS: METOPROLOL TARTRATE 100 MG TABLET PO SCH ×2 (09:58→21:37)
[2018-07-07] MEDS: NYSTATIN TOPICAL POWDER 15 GM TP SCH ×3 (09:58→18:03)
[2018-07-07] MEDS: GUAIFENESIN 600 MG TABLET.SA PO SCH ×2 (09:58→21:37)
[2018-07-07] MEDS: ASPIRIN 325 MG TABLET PO SCH (09:58)
[2018-07-07] MEDS ORDERED: FUROSEMIDE INJ/PF 40 MG/4 ML SDV IV SCH (14:00)
[2018-07-07] MEDS ORDERED: FERUMOXYTOL 510 MG in NORMAL SALINE 100 ML IV ONE (14:00)
--- NOTE | 2018-07-07 14:24 | PDOC PROGRESS REPORT ---
Subjective Progress Note for:: 07/07/18 - seen on rounds this morning Subjective:: states she feels great- states her legs are looking better. wants to know when she can go home Reason For Visit: CHF EXACERBATION AFIB PNEUMONIA Physical Exam Vital Signs: Temp Pulse Resp BP Pulse Ox 98.0 F 65 20 108/44 L 97 07/07/18 12:01 07/07/18 12:01 07/07/18 12:01 07/07/18 12:01 07/07/18 12:01 Intake & Output 07/06/18 07/07/18 07/08/18 06:59 06:59 06:59 Intake Total 1402 1814 0 Output Total 852 250 200 Balance 550 1564 -200 Weight 208 lb 5.389 oz 211 lb 3.245 oz General appearance: PRESENT: no acute distress, obese Head exam: PRESENT: atraumatic, normocephalic Eye exam: PRESENT: EOMI, PERRLA. ABSENT: scleral icterus Ear exam: PRESENT: normal external ear exam Mouth exam: PRESENT: tongue midline Neck exam: ABSENT: tracheal deviation Respiratory exam: PRESENT: decreased breath sounds - slightly decreased at the bases bilaterally, symmetrical Cardiovascular exam: PRESENT: +S1, +S2 Pulses: PRESENT: +1 pedal pulses bilateral GI/Abdominal exam: PRESENT: normal bowel sounds, soft. ABSENT: tenderness Extremities exam: PRESENT: +2 edema - bilateral LE with erythma of the shins Musculoskeletal exam: ABSENT: tenderness Neurological exam: PRESENT: alert, awake, oriented to person, oriented to place , oriented to time, oriented to situation, CN II-XII grossly intact Skin exam: PRESENT: dry, warm Results Laboratory Results: 07/07/18 04:12 07/07/18 04:12 07/07/18 07/07/18 04:12 04:12 WBC 10.8 H RBC 2.60 L Hgb 7.6 L Hct 22.8 L MCV 88 MCH 29.4 MCHC 33.5 RDW 17.2 H Plt Count 259 Sodium 144.1 Potassium 4.4 Chloride 105 Carbon Dioxide 26 Anion Gap 13 BUN 93 H Creatinine 2.59 H Est GFR ( Amer) 22 L Est GFR (Non-Af Amer) 18 L Glucose 114 H Calcium 8.0 L 06/19/18 06/19/18 06/19/18 04:10 04:10 11:11 Creatine Kinase 84 75 CK-MB (CK-2) 0.91 Troponin I 0.187 06/19/18 06/19/18 06/19/18 11:11 15:56 15:56 Creatine Kinase 87 CK-MB (CK-2) 1.05 1.72 Troponin I 0.132 0.120 06/20/18 06/21/18 04:50 05:50 Creatine Kinase CK-MB (CK-2) Troponin I 0.079 0.031 Impressions: Abdomen Ultrasound 06/21/18 00:00 IMPRESSION: Cholecystitis and cholelithiasis. Fatty liver. Borderline dilatation of the common bile duct. Chest CT 06/22/18 00:00 IMPRESSION: Fairly extensive airspace consolidation in the right upper lobe consistent with pneumonic infiltrate. Small right pleural effusion is identified. There is some ill-defined right basilar densities which could represent a developing infiltrate or atelectatic changes. Mediastinal and possible right hilar adenopathy as noted above. Follow-up is recommended. Other findings as noted above Renal Ultrasound 06/23/18 00:00 IMPRESSION: No hydronephrosis. Chest X-Ray 06/27/18 13:36 IMPRESSION: IMPROVED APPEARANCE OF THE EXTENSIVE RIGHT UPPER LOBE INFILTRATE. Assessment & Plan - Diagnosis (1) MONALISA (acute kidney injury) Is this a current diagnosis for this admission?: Yes Plan: Creatinine trended down to 2.59 today. I looked at her eyes and nose and not sure if they are accurate or not. She did have some good urine output the last 1-2 days. Nephrology is consulted. They have noted to back off on the Lasix after the weekend and hence today have cut back on the Lasix. At home she was on 40 mg of Lasix daily for her diastolic heart failure. Repeat BMP in the morning. I am not sure what her baseline creatinine is at this time. Her creatinine was 1.47 on arrival and had increased at that time. (2) Edema Is this a current diagnosis for this admission?: Yes Plan: She has a history of lower extremity swelling and was taking 40 mg of Lasix at home. Currently she is on IV Lasix 40 mg every 8 hours. I have decreased her to IV Lasix 40 mg daily. I am hoping she will continue to diurese. Patient has very anxious to go home since she has been here almost 3 weeks now. Her EF was preserved from echo done during this admission. She continues to have 2+ edema of the lower extremities but I am not sure if this is her baseline. Asked nursing to provide compression stockings and elevate lower extremities at nighttime. (3) Sepsis Qualifiers: Sepsis type: Pneumococcus Qualified Code(s): A40.3 - Sepsis due to Streptococcus pneumoniae Is this a current diagnosis for this admission?: Yes Plan: He was treated with IV antibiotics and finished a course of cefepime and Levaquin for infiltrate/pneumonia. Currently doing well and WBC has trended down. (4) Pneumonia Qualifiers: Pneumonia type: due to unspecified organism Laterality: right Lung location: upper lobe of lung Qualified Code(s): J18.1 - Lobar pneumonia, unspecified organism Is this a current diagnosis for this admission?: Yes Plan: See plan for sepsis (5) Diabetes mellitus type 2 in nonobese Is this a current diagnosis for this admission?: Yes (6) Afib Qualifiers: Atrial fibrillation type: unspecified Qualified Code(s): I48.91 - Unspecified atrial fibrillation Is this a current diagnosis for this admission?: Yes Plan: Currently on Coumadin and Lopressor-we will check INR tomorrow a.m. (7) Elevated troponin Is this a current diagnosis for this admission?: Yes Plan: Already evaluated by cardiology. Remains chest pain-free at this time. Continue with Coumadin, Cardizem and beta-blockers. She is also on aspirin at this time and I am not sure if this is absolutely required or not as her bleeding which will be increased with both Coumadin and aspirin. I will try to speak with cardiology if available regarding this matter. - Plan Summary Plan Summary: We will wait for nephrology to see her and give their recommendations about her creatinine and possible discharge in a few days.
--- NOTE | 2018-07-07 15:53 | PDOC PROGRESS REPORT ---
Subjective Progress Note for:: 07/07/18 Reason For Visit: Mrs. Chandra was seen today. She is generally feeling better even though pedal edema still persisting. She is able to walk around in the room without any severe shortness of breath or chest pains. No complaints of any fever or chills. She is states she is making good amount of urine but no quantification as no Ann catheter. Labs and medications were reviewed with the patient. Discussions were done with the treating nurse. Physical Exam Vital Signs: Temp Pulse Resp BP Pulse Ox 98.0 F 82 20 108/44 L 97 07/07/18 12:01 07/07/18 14:00 07/07/18 12:01 07/07/18 12:01 07/07/18 12:01 Intake & Output 07/06/18 07/07/18 07/08/18 06:59 06:59 06:59 Intake Total 1402 1814 100 Output Total 852 250 200 Balance 550 1564 -100 Weight 94.5 kg 95.8 kg General appearance: PRESENT: no acute distress Respiratory exam: PRESENT: clear to auscultation archie. ABSENT: crackles Cardiovascular exam: PRESENT: RRR, +S1, +S2 GI/Abdominal exam: ABSENT: diminished bowel sounds, distended, rebound, soft, tenderness Extremities exam: PRESENT: +2 edema Neurological exam: PRESENT: alert, awake, oriented to person, oriented to place Skin exam: ABSENT: erythema, mottled Results Laboratory Results: 07/07/18 04:12 07/07/18 04:12 07/07/18 07/07/18 04:12 04:12 WBC 10.8 H RBC 2.60 L Hgb 7.6 L Hct 22.8 L MCV 88 MCH 29.4 MCHC 33.5 RDW 17.2 H Plt Count 259 Sodium 144.1 Potassium 4.4 Chloride 105 Carbon Dioxide 26 Anion Gap 13 BUN 93 H Creatinine 2.59 H Est GFR ( Amer) 22 L Est GFR (Non-Af Amer) 18 L Glucose 114 H Calcium 8.0 L 06/19/18 06/19/18 06/19/18 04:10 04:10 11:11 Creatine Kinase 84 75 CK-MB (CK-2) 0.91 Troponin I 0.187 06/19/18 06/19/18 06/19/18 11:11 15:56 15:56 Creatine Kinase 87 CK-MB (CK-2) 1.05 1.72 Troponin I 0.132 0.120 06/20/18 06/21/18 04:50 05:50 Creatine Kinase CK-MB (CK-2) Troponin I 0.079 0.031 Impressions: Abdomen Ultrasound 06/21/18 00:00 IMPRESSION: Cholecystitis and cholelithiasis. Fatty liver. Borderline dilatation of the common bile duct. Chest CT 06/22/18 00:00 IMPRESSION: Fairly extensive airspace consolidation in the right upper lobe consistent with pneumonic infiltrate. Small right pleural effusion is identified. There is some ill-defined right basilar densities which could represent a developing infiltrate or atelectatic changes. Mediastinal and possible right hilar adenopathy as noted above. Follow-up is recommended. Other findings as noted above Renal Ultrasound 06/23/18 00:00 IMPRESSION: No hydronephrosis. Chest X-Ray 06/27/18 13:36 IMPRESSION: IMPROVED APPEARANCE OF THE EXTENSIVE RIGHT UPPER LOBE INFILTRATE. Assessment & Plan - Diagnosis (1) MONALISA (acute kidney injury) Is this a current diagnosis for this admission?: Yes Plan: Likely combination of ATN/bank toxicity.Nonoliguric.Mild worsening of renal numbers. She still has large amount of pedal edema.Could not do the MRV because patient is severely claustrophobic. Note that the IV Lasix has been cut down in frequency. I will change it back to 40 every 8 hours and increase metolazone. Meanwhile advised physical measures. Discussed with patient and treating nurse. (2) Pneumonia Qualifiers: Pneumonia type: due to unspecified organism Laterality: right Lung location: upper lobe of lung Qualified Code(s): J18.1 - Lobar pneumonia, unspecified organism Is this a current diagnosis for this admission?: Yes Plan: Resolved. (3) Sepsis Qualifiers: Sepsis type: Pneumococcus Qualified Code(s): A40.3 - Sepsis due to Streptococcus pneumoniae Is this a current diagnosis for this admission?: Yes Plan: Resolving as seen by the decreasing leukocytosis. (4) Afib Qualifiers: Atrial fibrillation type: unspecified Qualified Code(s): I48.91 - Unspecified atrial fibrillation Is this a current diagnosis for this admission?: Yes Plan: Rate controlled. On anticoagulation with appropriate INR. (5) Diabetes mellitus type 2 in nonobese Is this a current diagnosis for this admission?: Yes Plan: Advised tight control. (6) HTN (hypertension) Qualifiers: Hypertension type: essential hypertension Qualified Code(s): I10 - Essential (primary) hypertension Is this a current diagnosis for this admission?: Yes Plan: Controlled. (7) COPD (chronic obstructive pulmonary disease) Plan: Stable. (8) Anemia Plan: She has been seen by heme oncologist and further evaluations apparently as an outpatient. Meanwhile patient is slowly dropping her hemoglobin. She is Hemoccult positive. Note that she is on aspirin and warfarin without any anti- secretory medications in the form of PPIs. She says she has had an EGD/ colonoscopy approximately 2 years ago and was negative. Possibilities include aspirin/warfarin induced gastritis/stress ulcers. Start Prevacid 30 twice daily monitor. Meanwhile she is iron deficient. Will order IV iron. Discussed adverse effects including anaphylaxis with patient and patient willing to proceed. Discussed with the treating nurse. Orders have been placed.
[2018-07-07] MEDS: METOLAZONE 5 MG TABLET PO SCH (18:02)
[2018-07-07] MEDS: LANSOPRAZOLE 30 MG TAB.RAP.DR PO SCH (18:02)
[2018-07-07] MEDS: INSULIN LISPRO 100 UNIT/ML 3 ML VIAL SUBCUT PRN (18:02)
[2018-07-07] MEDS: WARFARIN SODIUM 7.5 MG TABLET PO SCH (18:02)
[2018-07-07] MEDS: INSULIN GLARGINE,HUM.REC.ANLOG 300 UNIT/3 ML INSULN.PEN SUBCUT SCH (21:36)
[2018-07-07] MEDS: ATORVASTATIN CALCIUM 40 MG TABLET PO SCH (21:37)
[2018-07-07] MEDS: TEMAZEPAM 7.5 MG CAPSULE PO PRN (21:39)
[2018-07-08 05:04] LABS: MEAN CORPUSCULAR HEMOGLOBIN 28.7 pg (27.0-33.4); MEAN CORPUSCULAR HGB CONC 33.7 g/dL (32.0-36.0); MEAN CORPUSCULAR VOLUME 85 fl (80-97); PLATELET COUNT 266 10^3/uL (150-450); RED BLOOD COUNT 2.58 10^6/uL (3.72-5.28); RED CELL DISTRIBUTION WIDTH 16.7 % (11.5-14.0); WHITE BLOOD COUNT 10.4 10^3/uL (4.0-10.5)
[2018-07-08 05:11] LABS: HEMOGLOBIN 7.4 g/dL (12.0-15.5)
[2018-07-08 05:31] LABS: ANION GAP 13 (5-19); BLOOD UREA NITROGEN 85 mg/dL (7-20); CALCIUM 8.1 mg/dL (8.4-10.2); CARBON DIOXIDE 26 mmol/L (22-30); CHLORIDE 104 mmol/L (98-107); GLUCOSE 79 mg/dL (75-110); POTASSIUM 4.3 mmol/L (3.6-5.0); SODIUM 142.5 mmol/L (137-145)
[2018-07-08] MEDS: LANSOPRAZOLE 30 MG TAB.RAP.DR PO SCH ×2 (05:36→17:30)
[2018-07-08] MEDS: FUROSEMIDE INJ/PF 40 MG/4 ML SDV IV SCH (05:37)
[2018-07-08 06:39] LABS: INTERNATIONAL RATION (INR) 10.35; PROTHROMBIN TIME 86.2 SEC (11.4-15.4)
[2018-07-08] MEDS ORDERED: SODIUM POLYSTYRENE SULFONATE 15 GM/60 ML PO ONE (09:00)
[2018-07-08] MEDS ORDERED: MELATONIN 1 MG TABLET PO PRN (09:58)
[2018-07-08] MEDS ORDERED: PHYTONADIONE INJ 10 MG/1 ML AMPULE SUBCUT ONE ×2 (10:00→17:15)
[2018-07-08] MEDS ORDERED: FUROSEMIDE INJ/PF 40 MG/4 ML SDV IV SCH ×2 (10:00)
[2018-07-08] MEDS: GUAIFENESIN 600 MG TABLET.SA PO SCH ×2 (10:22→21:14)
[2018-07-08] MEDS: METOPROLOL TARTRATE 100 MG TABLET PO SCH ×2 (10:23→22:35)
[2018-07-08] MEDS: METOLAZONE 5 MG TABLET PO SCH ×2 (10:23→17:30)
[2018-07-08] MEDS: DILTIAZEM HCL 240 MG CAPSULE.CR PO SCH (10:23)
[2018-07-08] MEDS: NYSTATIN TOPICAL POWDER 15 GM TP SCH ×3 (10:24→17:25)
[2018-07-08] MEDS: BUMETANIDE INJ/PF 1 MG/4 ML SDV IV SCH ×2 (10:26→22:35)
[2018-07-08] MEDS ORDERED: ONDANSETRON HCL INJ/PF 4 MG/2 ML SDV IV PRN (10:35)
[2018-07-08] MEDS: ASPIRIN 325 MG TABLET PO SCH (10:48)
[2018-07-08] MEDS ORDERED: FUROSEMIDE INJ/PF 20 MG/2 ML SDV IV PRN (12:07)
[2018-07-08] MEDS ORDERED: ACETAMINOPHEN 325 MG TABLET PO PRN (12:07)
[2018-07-08] MEDS ORDERED: NORMAL SALINE 250 ML IV PRN ×2 (12:07)
[2018-07-08 15:20] LABS: MEAN CORPUSCULAR HEMOGLOBIN 28.8 pg (27.0-33.4); MEAN CORPUSCULAR HGB CONC 33.1 g/dL (32.0-36.0); MEAN CORPUSCULAR VOLUME 87 fl (80-97); PLATELET COUNT 258 10^3/uL (150-450); RED BLOOD COUNT 2.53 10^6/uL (3.72-5.28); RED CELL DISTRIBUTION WIDTH 17.3 % (11.5-14.0); WHITE BLOOD COUNT 11.7 10^3/uL (4.0-10.5)
[2018-07-08 15:25] LABS: HEMOGLOBIN 7.3 g/dL (12.0-15.5)
--- NOTE | 2018-07-08 15:55 | PDOC PROGRESS REPORT ---
Subjective Progress Note for:: 07/08/18 Reason For Visit: Patient seen today. She feels weak. She is telling me that her blood count has dropped and she is being arranged for blood transfusions. No complaints of an abdominal pains. She has had a poor response to the IV Lasix that I titrated yesterday. Labs and medications were reviewed. Hemoglobin is down to 7.3 and her INR is up to 10.2.Her Hemoccult is positive. She denies any history of chest pain or shortness of breath. Physical Exam Vital Signs: Temp Pulse Resp BP Pulse Ox 98.7 F 61 20 117/62 91 L 07/08/18 15:16 07/08/18 15:16 07/08/18 15:16 07/08/18 15:16 07/08/18 15:16 Intake & Output 07/07/18 07/08/18 07/09/18 06:59 06:59 06:59 Intake Total 1814 218 0 Output Total 250 400 Balance 1564 -182 0 Weight 95.8 kg 95 kg General appearance: PRESENT: no acute distress - However she looks very pale. Respiratory exam: PRESENT: clear to auscultation archie. ABSENT: crackles Cardiovascular exam: PRESENT: RRR, +S1, +S2 GI/Abdominal exam: ABSENT: diminished bowel sounds, distended, rebound, soft, tenderness Extremities exam: PRESENT: +2 edema Neurological exam: PRESENT: alert, awake, oriented to person, oriented to place Results Laboratory Results: 07/08/18 14:50 07/08/18 04:33 07/08/18 07/08/18 07/08/18 04:33 04:33 05:45 WBC 10.4 RBC 2.58 L Hgb 7.4 L Hct 22.0 L MCV 85 MCH 28.7 MCHC 33.7 RDW 16.7 H Plt Count 266 Sodium 142.5 Potassium 4.3 Chloride 104 Carbon Dioxide 26 Anion Gap 13 BUN 85 H Creatinine 2.48 H Est GFR ( Amer) 23 L Est GFR (Non-Af Amer) 19 L Glucose 79 Calcium 8.1 L Blood Type O POSITIVE Antibody Screen NEGATIVE 07/08/18 14:50 WBC 11.7 H RBC 2.53 L Hgb 7.3 L Hct 22.0 L MCV 87 MCH 28.8 MCHC 33.1 RDW 17.3 H Plt Count 258 Sodium Potassium Chloride Carbon Dioxide Anion Gap BUN Creatinine Est GFR ( Amer) Est GFR (Non-Af Amer) Glucose Calcium Blood Type Antibody Screen 06/19/18 06/19/18 06/19/18 04:10 04:10 11:11 Creatine Kinase 84 75 CK-MB (CK-2) 0.91 Troponin I 0.187 06/19/18 06/19/18 06/19/18 11:11 15:56 15:56 Creatine Kinase 87 CK-MB (CK-2) 1.05 1.72 Troponin I 0.132 0.120 06/20/18 06/21/18 04:50 05:50 Creatine Kinase CK-MB (CK-2) Troponin I 0.079 0.031 Impressions: Abdomen Ultrasound 06/21/18 00:00 IMPRESSION: Cholecystitis and cholelithiasis. Fatty liver. Borderline dilatation of the common bile duct. Chest CT 06/22/18 00:00 IMPRESSION: Fairly extensive airspace consolidation in the right upper lobe consistent with pneumonic infiltrate. Small right pleural effusion is identified. There is some ill-defined right basilar densities which could represent a developing infiltrate or atelectatic changes. Mediastinal and possible right hilar adenopathy as noted above. Follow-up is recommended. Other findings as noted above Renal Ultrasound 06/23/18 00:00 IMPRESSION: No hydronephrosis. Chest X-Ray 06/27/18 13:36 IMPRESSION: IMPROVED APPEARANCE OF THE EXTENSIVE RIGHT UPPER LOBE INFILTRATE. Assessment & Plan - Diagnosis (1) MONALISA (acute kidney injury) Is this a current diagnosis for this admission?: Yes Plan: Likely combination of ATN/bank toxicity.Nonoliguric.I am changing her Lasix to Bumex and will see how she responds to that. (2) Anemia Plan: Blood loss anemia in the face of toxic INR. Being managed by hospitalist. (3) Pneumonia Qualifiers: Pneumonia type: due to unspecified organism Laterality: right Lung location: upper lobe of lung Qualified Code(s): J18.1 - Lobar pneumonia, unspecified organism Is this a current diagnosis for this admission?: Yes Plan: Resolved. (4) Sepsis Qualifiers: Sepsis type: Pneumococcus Qualified Code(s): A40.3 - Sepsis due to Streptococcus pneumoniae Is this a current diagnosis for this admission?: Yes Plan: Resolving as seen by the decreasing leukocytosis. (5) Afib Qualifiers: Atrial fibrillation type: unspecified Qualified Code(s): I48.91 - Unspecified atrial fibrillation Is this a current diagnosis for this admission?: Yes Plan: Rate controlled. On anticoagulation with appropriate INR. (6) Diabetes mellitus type 2 in nonobese Is this a current diagnosis for this admission?: Yes (7) HTN (hypertension) Qualifiers: Hypertension type: essential hypertension Qualified Code(s): I10 - Essential (primary) hypertension Is this a current diagnosis for this admission?: Yes
[2018-07-08 16:48] LABS: INTERNATIONAL RATION (INR) 12.29; PROTHROMBIN TIME 98.8 SEC (11.4-15.4)
--- NOTE | 2018-07-08 18:27 | PDOC PROGRESS REPORT ---
Subjective Progress Note for:: 07/08/18 - seen on rounds this morning Subjective:: Patient states she feels tired. Told me she feels a little short of breath but she was sleeping. I told her to use her CPAP if he is to take a nap in the afternoon or sleep at night. She was not using her CPAP when she was taking a nap this morning. Interim history: 73-year-old female who was initially admitted for pneumonia and treated with IV antibiotics later found to have acute renal failure with lower extremity edema. Was started on Lasix drip and later transitioned to Bumex and currently being followed by nephrology. Initially cardiology was consulted for acute coronary syndrome and started on heparin drip and later transitioned to warfarin. After I assumed care of her yesterday noted that her PT/INR was not checked in the last 1 week. I ordered one for this morning and INR was greater than 10. Hematology/oncology is consulted. I have given her vitamin K subcu and oral and spoke with blanching machine operator regarding her care. I have also reconsulted cardiology due to her supratherapeutic INR. I have held her dose of Coumadin. I have also transfused her 2 units of packed red's today. Reason For Visit: CHF EXACERBATION AFIB PNEUMONIA Physical Exam Vital Signs: Temp Pulse Resp BP Pulse Ox 98.4 F 61 20 120/48 L 94 07/08/18 17:15 07/08/18 17:18 07/08/18 17:15 07/08/18 17:18 07/08/18 17:15 Intake & Output 07/07/18 07/08/18 07/09/18 06:59 06:59 06:59 Intake Total 1814 218 0 Output Total 250 400 Balance 1564 -182 0 Weight 211 lb 3.245 oz 209 lb 7.026 oz General appearance: PRESENT: no acute distress Head exam: PRESENT: atraumatic, normocephalic Eye exam: PRESENT: EOMI, PERRLA. ABSENT: scleral icterus Ear exam: PRESENT: normal external ear exam Mouth exam: PRESENT: tongue midline Neck exam: ABSENT: tracheal deviation Respiratory exam: PRESENT: clear to auscultation archie, symmetrical Cardiovascular exam: PRESENT: +S1, +S2 Pulses: PRESENT: +1 pedal pulses bilateral GI/Abdominal exam: PRESENT: normal bowel sounds, soft. ABSENT: tenderness Extremities exam: PRESENT: other - Edema of the lower extremity a 1-2+ up to bailon-improved from yesterday Neurological exam: PRESENT: awake, oriented to person, oriented to place, oriented to time, oriented to situation, CN II-XII grossly intact Results Laboratory Results: 07/08/18 14:50 07/08/18 04:33 07/08/18 07/08/18 07/08/18 04:33 04:33 05:45 WBC 10.4 RBC 2.58 L Hgb 7.4 L Hct 22.0 L MCV 85 MCH 28.7 MCHC 33.7 RDW 16.7 H Plt Count 266 Sodium 142.5 Potassium 4.3 Chloride 104 Carbon Dioxide 26 Anion Gap 13 BUN 85 H Creatinine 2.48 H Est GFR ( Amer) 23 L Est GFR (Non-Af Amer) 19 L Glucose 79 Calcium 8.1 L Stool Occult Blood Blood Type O POSITIVE Antibody Screen NEGATIVE 07/08/18 07/08/18 14:50 16:50 WBC 11.7 H RBC 2.53 L Hgb 7.3 L Hct 22.0 L MCV 87 MCH 28.8 MCHC 33.1 RDW 17.3 H Plt Count 258 Sodium Potassium Chloride Carbon Dioxide Anion Gap BUN Creatinine Est GFR ( Amer) Est GFR (Non-Af Amer) Glucose Calcium Stool Occult Blood NEGATIVE Blood Type Antibody Screen 06/19/18 06/19/18 06/19/18 04:10 04:10 11:11 Creatine Kinase 84 75 CK-MB (CK-2) 0.91 Troponin I 0.187 06/19/18 06/19/18 06/19/18 11:11 15:56 15:56 Creatine Kinase 87 CK-MB (CK-2) 1.05 1.72 Troponin I 0.132 0.120 06/20/18 06/21/18 04:50 05:50 Creatine Kinase CK-MB (CK-2) Troponin I 0.079 0.031 Impressions: Abdomen Ultrasound 06/21/18 00:00 IMPRESSION: Cholecystitis and cholelithiasis. Fatty liver. Borderline dilatation of the common bile duct. Chest CT 06/22/18 00:00 IMPRESSION: Fairly extensive airspace consolidation in the right upper lobe consistent with pneumonic infiltrate. Small right pleural effusion is identified. There is some ill-defined right basilar densities which could represent a developing infiltrate or atelectatic changes. Mediastinal and possible right hilar adenopathy as noted above. Follow-up is recommended. Other findings as noted above Renal Ultrasound 06/23/18 00:00 IMPRESSION: No hydronephrosis. Chest X-Ray 06/27/18 13:36 IMPRESSION: IMPROVED APPEARANCE OF THE EXTENSIVE RIGHT UPPER LOBE INFILTRATE. Assessment & Plan - Diagnosis (1) MONALISA (acute kidney injury) Is this a current diagnosis for this admission?: Yes Plan: Creatinine is holding steady today. she did have some good urine output the last 1-2 days. Nephrology is consulted. I tried to back off on the Lasix but nephrology feels that she needs further diuresing and hence her Lasix was increased yesterday again back to where it was. Appreciate consult from nephrology (2) Edema Is this a current diagnosis for this admission?: Yes Plan: She has a history of lower extremity swelling and was taking 40 mg of Lasix at home. Currently she is on Bumex 2 mg IV twice daily. Nephrology is managing the use of diuretics at this time. I am hoping she will continue to diurese. Patient has very anxious to go home since she has been here almost 3 weeks now. Her EF was preserved from echo done during this admission. She continues to have 2+ edema of the lower extremities but I am not sure if this is her baseline. Asked nursing to provide compression stockings and elevate lower extremities at nighttime. (3) Sepsis Qualifiers: Sepsis type: Pneumococcus Qualified Code(s): A40.3 - Sepsis due to Streptococcus pneumoniae Is this a current diagnosis for this admission?: Yes Plan: He was treated with IV antibiotics and finished a course of cefepime and Levaquin for infiltrate/pneumonia. Currently doing well and WBC has trended down. (4) Pneumonia Qualifiers: Pneumonia type: due to unspecified organism Laterality: right Lung location: upper lobe of lung Qualified Code(s): J18.1 - Lobar pneumonia, unspecified organism Is this a current diagnosis for this admission?: Yes Plan: See plan for sepsis (5) Diabetes mellitus type 2 in nonobese Is this a current diagnosis for this admission?: Yes Plan: Currently she is on Lantus and sliding scale insulin. She did have some hypoglycemia this morning so I will lower her dose of Lantus a little bit tonight. (6) Afib Qualifiers: Atrial fibrillation type: unspecified Qualified Code(s): I48.91 - Unspecified atrial fibrillation Is this a current diagnosis for this admission?: Yes Plan: She was on Coumadin 7.5 mg daily, Lopressor and Cardizem. Due to her supratherapeutic INR I have stopped her Coumadin. She was also on a high-dose of Cardizem which interacts with Coumadin. I have reconsulted cardiology, Dr. Hernandez, is aware of patient and will be seeing her regarding her care. I appreciate his assistance in this matter (7) Elevated troponin Is this a current diagnosis for this admission?: Yes (8) Supratherapeutic INR Is this a current diagnosis for this admission?: Yes Plan: She was transitioned from heparin drip warfarin and today her INR was found to be greater than 10. I gave her 1 dose of vitamin K subcu 5 mg and was still elevated greater than 12. I gave her another dose of vitamin K oral 5 mg. Her last dose of warfarin was on the night of 07/07. I think this will take a few days before her INR level comes down. Will monitor for bleed. (9) Anemia Qualifiers: Other causes of anemia: chronic disease, other Is this a current diagnosis for this admission?: Yes Plan: I spoke with her blanching machine operator today who has seen her in the past. Her hemoglobin is usually around 10-11. But slowly over the last few weeks it has trended down. Given her history of cardiac issues and a hemoglobin less than 8- I have went ahead and transfuse her 2 units today. Hematology/oncology is consulted and will see the patient tomorrow. - Time Time Spent with patient: 35 or more minutes
--- NOTE | 2018-07-08 19:41 | PDOC PROGRESS REPORT ---
Subjective Progress Note for:: 07/08/18 Subjective:: Patient claims that Cardizem pill is too big to swallow. Subsequently it seems patient had vomited and either coughed up or vomited up a blood clot. Patient however denying any chest pain. She has some baseline shortness of breath and denies any worsening. Patient has multiple other ongoing issues which does include COPD. Reason For Visit: CHF EXACERBATION AFIB PNEUMONIA Physical Exam Vital Signs: Temp Pulse Resp BP Pulse Ox 97.8 F 64 20 120/95 H 93 07/08/18 18:53 07/08/18 18:53 07/08/18 18:53 07/08/18 18:53 07/08/18 18:53 Intake & Output 07/07/18 07/08/18 07/09/18 06:59 06:59 06:59 Intake Total 1814 218 400 Output Total 250 400 150 Balance 1564 -182 250 Weight 95.8 kg 95 kg Exam: GENERAL: well-nourished and in no acute distress. Alert and oriented x3 HEAD: Atraumatic, normocephalic. EYES: Pupils equal round and reactive to light, extraocular movements intact, sclera anicteric, conjunctiva are normal. ENT: TMs normal, nares patent, oropharynx clear without exudates. Moist mucous membranes. No oral ulcerations or bleeding gums noted NECK: supple without lymphadenopathy. Trachea is central. No cervical or axillary lymphadenopathy noted. Carotids are 2+, JVD WNL LUNGS: Respiration seems nonlabored, no significant accessory muscle action noted. Breath sounds clear to auscultation bilaterally and equal noted. Scattered wheezes rales or rhonchi noted. No significant dullness noted on percussion. CHEST: Palpation of the chest wall shows no significant chest wall tenderness. HEART: [place] BURR PICKER, No PSH, 1/6 CHUCKIE aortic area, 1/6 knott systolic murmur mitral area, no rubs, no gallops. ABDOMEN: Soft, no significant tenderness appreciated, normoactive bowel sounds. No guarding, no rebound. No rigidity noted . No masses appreciated. EXTREMITIES: Pedal pulses are 1-2+, no calf tenderness noted. No clubbing or cyanosis. 1+ pedal edema noted NEUROLOGICAL: Focused neurological exam showed no significant neurologic deficit. Normal speech, no focal weakness appreciated. PSYCH: Normal mood, normal affect. Judgment and insight within normal limits. SKIN: No significant ecchymosis, skin is noted to be warm. MUSCULOSKELETAL EXAM: No significant acute joint swelling noted. Results Laboratory Results: 07/08/18 14:50 07/08/18 04:33 07/08/18 07/08/18 07/08/18 04:33 04:33 05:45 WBC 10.4 RBC 2.58 L Hgb 7.4 L Hct 22.0 L MCV 85 MCH 28.7 MCHC 33.7 RDW 16.7 H Plt Count 266 Sodium 142.5 Potassium 4.3 Chloride 104 Carbon Dioxide 26 Anion Gap 13 BUN 85 H Creatinine 2.48 H Est GFR ( Amer) 23 L Est GFR (Non-Af Amer) 19 L Glucose 79 Calcium 8.1 L Stool Occult Blood Blood Type O POSITIVE Antibody Screen NEGATIVE 07/08/18 07/08/18 14:50 16:50 WBC 11.7 H RBC 2.53 L Hgb 7.3 L Hct 22.0 L MCV 87 MCH 28.8 MCHC 33.1 RDW 17.3 H Plt Count 258 Sodium Potassium Chloride Carbon Dioxide Anion Gap BUN Creatinine Est GFR ( Amer) Est GFR (Non-Af Amer) Glucose Calcium Stool Occult Blood NEGATIVE Blood Type Antibody Screen 06/19/18 06/19/18 06/19/18 04:10 04:10 11:11 Creatine Kinase 84 75 CK-MB (CK-2) 0.91 Troponin I 0.187 06/19/18 06/19/18 06/19/18 11:11 15:56 15:56 Creatine Kinase 87 CK-MB (CK-2) 1.05 1.72 Troponin I 0.132 0.120 06/20/18 06/21/18 04:50 05:50 Creatine Kinase CK-MB (CK-2) Troponin I 0.079 0.031 Impressions: Abdomen Ultrasound 06/21/18 00:00 IMPRESSION: Cholecystitis and cholelithiasis. Fatty liver. Borderline dilatation of the common bile duct. Chest CT 06/22/18 00:00 IMPRESSION: Fairly extensive airspace consolidation in the right upper lobe consistent with pneumonic infiltrate. Small right pleural effusion is identified. There is some ill-defined right basilar densities which could represent a developing infiltrate or atelectatic changes. Mediastinal and possible right hilar adenopathy as noted above. Follow-up is recommended. Other findings as noted above Renal Ultrasound 06/23/18 00:00 IMPRESSION: No hydronephrosis. Chest X-Ray 06/27/18 13:36 IMPRESSION: IMPROVED APPEARANCE OF THE EXTENSIVE RIGHT UPPER LOBE INFILTRATE. Assessment & Plan - Diagnosis (1) Supratherapeutic INR Is this a current diagnosis for this admission?: Yes (2) COPD (chronic obstructive pulmonary disease) Qualifiers: COPD type: unspecified COPD Qualified Code(s): J44.9 - Chronic obstructive pulmonary disease, unspecified Is this a current diagnosis for this admission?: Yes (3) Elevated troponin Is this a current diagnosis for this admission?: Yes (4) Pulmonary hypertension Is this a current diagnosis for this admission?: Yes (5) Diabetes mellitus type 2 in nonobese Is this a current diagnosis for this admission?: Yes (6) HTN (hypertension) Qualifiers: Hypertension type: essential hypertension Qualified Code(s): I10 - Essential (primary) hypertension Is this a current diagnosis for this admission?: Yes (7) Anemia Qualifiers: Anemia type: unspecified type Qualified Code(s): D64.9 - Anemia, unspecified Is this a current diagnosis for this admission?: Yes - Notes Notes: Supratherapeutic INR: Patient is suspected to have GI bleed. Agree with blood transfusion to try to maintain hemoglobin above 8 g% in cardiac patients. Agree with vitamin K. Once patient INR is less than 2.0, will recommend transition to Eliquis. COPD: Continue current therapeutic management with bronchodilators tests, steroid inhalers as needed. Elevated troponin I: This was addressed previously by Dr. Ford. No ischemia workup planned. Pulmonary hypertension: Possibly secondary to chronic cardiac issues. Recommend chronic oxygen therapy and CPAP therapy. Diabetes: Agree with management plans with the hospitalist. Hypertension: Blood pressure goal is 135/85 or less but more liberal goal is okay in this elderly patient. Anemia: Most likely multifactorial with GI bleed being considered. Agree with blood transfusion. - Time Time with patient: Greater than 35 minutes - CODE STATUS was discussed, patient remains full code. Surrogate decision-maker unchanged. Multiple medical problems were addressed. More than 50% of the time spent coordinating care, discussing management plans with involved caregivers. Management plans discussed with involved personnels. Medical decision making was of moderate to high complexity, patient's has multiple comorbidities. Medications reviewed and adjusted accordingly: Yes
[2018-07-08] MEDS: ATORVASTATIN CALCIUM 40 MG TABLET PO SCH (21:14)
[2018-07-08] MEDS: PHYTONADIONE 5 MG TABLET PO ONE ×2 (21:15→22:35)
[2018-07-08] MEDS: INSULIN GLARGINE,HUM.REC.ANLOG 300 UNIT/3 ML INSULN.PEN SUBCUT SCH ×2 (21:22→21:26)
[2018-07-09 00:32] LABS: HEMATOCRIT 30.5 % (36.0-47.0); MEAN CORPUSCULAR HGB CONC 33.5 g/dL (32.0-36.0); MEAN CORPUSCULAR VOLUME 86 fl (80-97); PLATELET COUNT 280 10^3/uL (150-450); RED BLOOD COUNT 3.53 10^6/uL (3.72-5.28); RED CELL DISTRIBUTION WIDTH 16.2 % (11.5-14.0); WHITE BLOOD COUNT 15.7 10^3/uL (4.0-10.5)
[2018-07-09 00:33] LABS: HEMOGLOBIN 10.2 g/dL (12.0-15.5)
[2018-07-09] MEDS: DILTIAZEM HCL 60 MG TABLET PO SCH ×3 (05:06→21:13)
[2018-07-09] MEDS: LANSOPRAZOLE 30 MG TAB.RAP.DR PO SCH ×2 (05:07→21:16)
[2018-07-09 06:32] LABS: ABSOLUTE LYMPHOCYTES (AUTO) 0.8 10^3/uL (0.5-4.7); ABSOLUTE MONOCYTES (AUTO) 0.7 10^3/uL (0.1-1.4); ABSOLUTE NEUT (AUTO) 12.4 10^3/uL (1.7-8.2); BASOPHILS % (AUTO) 0.3 % (0-2); EOSINOPHILS % (AUTO) 0.2 % (0-6); LYMPHOCYTES % (AUTO) 5.9 % (13-45); MEAN CORPUSCULAR HEMOGLOBIN 29.6 pg (27.0-33.4); MEAN CORPUSCULAR HGB CONC 34.4 g/dL (32.0-36.0); MEAN CORPUSCULAR VOLUME 86 fl (80-97); MONOCYTES % (AUTO) 4.9 % (3-13); PLATELET COUNT 230 10^3/uL (150-450); RED BLOOD COUNT 3.03 10^6/uL (3.72-5.28); RED CELL DISTRIBUTION WIDTH 16.1 % (11.5-14.0); SEGMENTED NEUTROPHILS % (AUTO) 88.7 % (42-78); TOTAL CELLS COUNTED % (AUTO) 100 %; WHITE BLOOD COUNT 13.9 10^3/uL (4.0-10.5)
[2018-07-09 06:46] LABS: ANION GAP 12 (5-19); BLOOD UREA NITROGEN 81 mg/dL (7-20); CALCIUM 8.1 mg/dL (8.4-10.2); CARBON DIOXIDE 26 mmol/L (22-30); CHLORIDE 98 mmol/L (98-107); GLUCOSE 129 mg/dL (75-110); POTASSIUM 3.7 mmol/L (3.6-5.0); SODIUM 136.3 mmol/L (137-145)
[2018-07-09 06:56] LABS: PROTHROMBIN TIME 51.6 SEC (11.4-15.4)
[2018-07-09 06:57] LABS: INTERNATIONAL RATION (INR) 5.39
[2018-07-09] MEDS: METOLAZONE 5 MG TABLET PO SCH ×2 (10:22→17:18)
[2018-07-09] MEDS: GUAIFENESIN 600 MG TABLET.SA PO SCH ×2 (10:22→21:14)
[2018-07-09] MEDS: ASPIRIN 325 MG TABLET PO SCH (10:22)
[2018-07-09] MEDS: METOPROLOL TARTRATE 100 MG TABLET PO SCH ×2 (10:23→21:13)
[2018-07-09] MEDS: BUMETANIDE INJ/PF 1 MG/4 ML SDV IV SCH ×2 (10:24→21:14)
[2018-07-09] MEDS: NYSTATIN TOPICAL POWDER 15 GM TP SCH (10:36)
--- NOTE | 2018-07-09 15:53 | PDOC PROGRESS REPORT ---
Subjective Progress Note for:: 07/09/18 Reason For Visit: patient seen today. She is definitely feeling a whole lot better especially after she received the transfusions. She denies any history of chest pain, shortness of breath or abdominal pains. Pedal edema is also improving with his current change in the diuretic regimen. Labs and medications were reviewed with the patient. Physical Exam Vital Signs: Temp Pulse Resp BP Pulse Ox 99.0 F 60 20 113/52 L 97 07/09/18 04:40 07/09/18 14:00 07/09/18 03:56 07/09/18 03:56 07/09/18 14:24 Intake & Output 07/08/18 07/09/18 07/10/18 06:59 06:59 06:59 Intake Total 218 940 0 Output Total 400 1100 200 Balance -182 -160 -200 Weight 95 kg 94.6 kg General appearance: PRESENT: no acute distress Respiratory exam: PRESENT: clear to auscultation archie. ABSENT: crackles Cardiovascular exam: PRESENT: RRR, +S1, +S2 GI/Abdominal exam: ABSENT: diminished bowel sounds, distended, rebound, soft, tenderness Neurological exam: PRESENT: alert, awake, oriented to person, oriented to place Results Laboratory Results: 07/09/18 05:29 07/09/18 05:29 07/08/18 07/08/18 07/09/18 05:45 16:50 00:15 WBC 15.7 H RBC 3.53 L Hgb 10.2 L D Hct 30.5 L MCV 86 MCH 29.0 MCHC 33.5 RDW 16.2 H Plt Count 280 Seg Neutrophils % Lymphocytes % Monocytes % Eosinophils % Basophils % Absolute Neutrophils Absolute Lymphocytes Absolute Monocytes Absolute Eosinophils Absolute Basophils Sodium Potassium Chloride Carbon Dioxide Anion Gap BUN Creatinine Est GFR ( Amer) Est GFR (Non-Af Amer) Glucose Calcium Stool Occult Blood NEGATIVE Blood Type O POSITIVE Antibody Screen NEGATIVE 07/09/18 07/09/18 05:29 05:29 WBC 13.9 H RBC 3.03 L Hgb 9.0 L Hct 26.0 L MCV 86 MCH 29.6 MCHC 34.4 RDW 16.1 H Plt Count 230 Seg Neutrophils % 88.7 H Lymphocytes % 5.9 L Monocytes % 4.9 Eosinophils % 0.2 Basophils % 0.3 Absolute Neutrophils 12.4 H Absolute Lymphocytes 0.8 Absolute Monocytes 0.7 Absolute Eosinophils 0.0 Absolute Basophils 0.0 Sodium 136.3 L Potassium 3.7 Chloride 98 Carbon Dioxide 26 Anion Gap 12 BUN 81 H Creatinine 2.49 H Est GFR ( Amer) 23 L Est GFR (Non-Af Amer) 19 L Glucose 129 H Calcium 8.1 L Stool Occult Blood Blood Type Antibody Screen 06/19/18 06/19/18 06/19/18 04:10 04:10 11:11 Creatine Kinase 84 75 CK-MB (CK-2) 0.91 Troponin I 0.187 06/19/18 06/19/18 06/19/18 11:11 15:56 15:56 Creatine Kinase 87 CK-MB (CK-2) 1.05 1.72 Troponin I 0.132 0.120 06/20/18 06/21/18 04:50 05:50 Creatine Kinase CK-MB (CK-2) Troponin I 0.079 0.031 Impressions: Abdomen Ultrasound 06/21/18 00:00 IMPRESSION: Cholecystitis and cholelithiasis. Fatty liver. Borderline dilatation of the common bile duct. Chest CT 06/22/18 00:00 IMPRESSION: Fairly extensive airspace consolidation in the right upper lobe consistent with pneumonic infiltrate. Small right pleural effusion is identified. There is some ill-defined right basilar densities which could represent a developing infiltrate or atelectatic changes. Mediastinal and possible right hilar adenopathy as noted above. Follow-up is recommended. Other findings as noted above Renal Ultrasound 06/23/18 00:00 IMPRESSION: No hydronephrosis. Chest X-Ray 06/27/18 13:36 IMPRESSION: IMPROVED APPEARANCE OF THE EXTENSIVE RIGHT UPPER LOBE INFILTRATE. Assessment & Plan - Diagnosis (1) MONALISA (acute kidney injury) Is this a current diagnosis for this admission?: Yes Plan: Likely combination of ATN/bank toxicity.Nonoliguric.Had a good diuretic response to change in diuretic regimen. Will continue on the same. Renal numbers are stable. She could probably go home from a renal standpoint in the next couple of days. (2) Anemia Qualifiers: Other causes of anemia: chronic disease, other Is this a current diagnosis for this admission?: Yes Plan: As per hospitalist. (3) Pneumonia Qualifiers: Pneumonia type: due to unspecified organism Laterality: right Lung location: upper lobe of lung Qualified Code(s): J18.1 - Lobar pneumonia, unspecified organism Is this a current diagnosis for this admission?: Yes Plan: Resolved. (4) Afib Qualifiers: Atrial fibrillation type: unspecified Qualified Code(s): I48.91 - Unspecified atrial fibrillation Is this a current diagnosis for this admission?: Yes (5) Diabetes mellitus type 2 in nonobese Is this a current diagnosis for this admission?: Yes Plan: Advised tight control. (6) HTN (hypertension) Qualifiers: Hypertension type: essential hypertension Qualified Code(s): I10 - Essential (primary) hypertension Is this a current diagnosis for this admission?: Yes Plan: Controlled. (7) COPD (chronic obstructive pulmonary disease) Qualifiers: COPD type: unspecified COPD Qualified Code(s): J44.9 - Chronic obstructive pulmonary disease, unspecified Is this a current diagnosis for this admission?: Yes
--- NOTE | 2018-07-09 16:27 | PDOC PROGRESS REPORT ---
Subjective Progress Note for:: 07/09/18 Subjective:: Jennifer states she feels very well today she has been up walking and this went quite well. She is looking forward to going home soon as early as Saturday. She complains that she has been unable to sleep well as melatonin does not seem to be working at all for her. She acknowledges that she has been unable to sleep well for the last several nights but has neglected to notify her hospitalist about this until today. She feels like her respiratory status is continuing to improve with her increased level of activity and she has not noted any problems with peripheral edema. She denies palpitations, chest pain, nausea, vomiting, diaphoresis and syncope. Reason For Visit: CHF EXACERBATION AFIB PNEUMONIA Physical Exam Vital Signs: Temp Pulse Resp BP Pulse Ox 99.0 F 60 20 113/52 L 97 07/09/18 04:40 07/09/18 14:00 07/09/18 03:56 07/09/18 03:56 07/09/18 14:24 Intake & Output 07/08/18 07/09/18 07/10/18 06:59 06:59 06:59 Intake Total 218 940 0 Output Total 400 1100 200 Balance -182 -160 -200 Weight 95 kg 94.6 kg General appearance: PRESENT: no acute distress, cooperative, well-developed, well-nourished Head exam: PRESENT: atraumatic, normocephalic Eye exam: PRESENT: conjunctiva pink. ABSENT: nystagmus, scleral icterus Ear exam: PRESENT: normal external ear exam. ABSENT: bleeding, drainage Mouth exam: PRESENT: moist, neck supple, tongue midline Neck exam: PRESENT: full ROM. ABSENT: JVD, tracheal deviation Respiratory exam: PRESENT: clear to auscultation archie, prolonged expiratory phas - minimally, symmetrical, unlabored Cardiovascular exam: PRESENT: irregular rhythm. ABSENT: bradycardia, diastolic murmur, gallop, rubs, systolic murmur, tachycardia Pulses: PRESENT: normal carotid pulses, normal radial pulses Vascular exam: PRESENT: normal capillary refill. ABSENT: pallor GI/Abdominal exam: PRESENT: normal bowel sounds, soft. ABSENT: tenderness Extremities exam: ABSENT: clubbing, joint swelling, pedal edema Musculoskeletal exam: ABSENT: deformity, dislocation, tenderness Neurological exam: PRESENT: alert, oriented to person, oriented to place, oriented to time, oriented to situation, CN II-XII grossly intact. ABSENT: motor sensory deficit Psychiatric exam: PRESENT: appropriate affect, normal mood Skin exam: ABSENT: jaundice, rash, urticaria Results Laboratory Results: 07/09/18 05:29 07/09/18 05:29 07/08/18 07/08/18 07/09/18 05:45 16:50 00:15 WBC 15.7 H RBC 3.53 L Hgb 10.2 L D Hct 30.5 L MCV 86 MCH 29.0 MCHC 33.5 RDW 16.2 H Plt Count 280 Seg Neutrophils % Lymphocytes % Monocytes % Eosinophils % Basophils % Absolute Neutrophils Absolute Lymphocytes Absolute Monocytes Absolute Eosinophils Absolute Basophils Sodium Potassium Chloride Carbon Dioxide Anion Gap BUN Creatinine Est GFR ( Amer) Est GFR (Non-Af Amer) Glucose Calcium Stool Occult Blood NEGATIVE Blood Type O POSITIVE Antibody Screen NEGATIVE 07/09/18 07/09/18 05:29 05:29 WBC 13.9 H RBC 3.03 L Hgb 9.0 L Hct 26.0 L MCV 86 MCH 29.6 MCHC 34.4 RDW 16.1 H Plt Count 230 Seg Neutrophils % 88.7 H Lymphocytes % 5.9 L Monocytes % 4.9 Eosinophils % 0.2 Basophils % 0.3 Absolute Neutrophils 12.4 H Absolute Lymphocytes 0.8 Absolute Monocytes 0.7 Absolute Eosinophils 0.0 Absolute Basophils 0.0 Sodium 136.3 L Potassium 3.7 Chloride 98 Carbon Dioxide 26 Anion Gap 12 BUN 81 H Creatinine 2.49 H Est GFR ( Amer) 23 L Est GFR (Non-Af Amer) 19 L Glucose 129 H Calcium 8.1 L Stool Occult Blood Blood Type Antibody Screen 06/19/18 06/19/18 06/19/18 04:10 04:10 11:11 Creatine Kinase 84 75 CK-MB (CK-2) 0.91 Troponin I 0.187 06/19/18 06/19/18 06/19/18 11:11 15:56 15:56 Creatine Kinase 87 CK-MB (CK-2) 1.05 1.72 Troponin I 0.132 0.120 06/20/18 06/21/18 04:50 05:50 Creatine Kinase CK-MB (CK-2) Troponin I 0.079 0.031 Impressions: Abdomen Ultrasound 06/21/18 00:00 IMPRESSION: Cholecystitis and cholelithiasis. Fatty liver. Borderline dilatation of the common bile duct. Chest CT 06/22/18 00:00 IMPRESSION: Fairly extensive airspace consolidation in the right upper lobe consistent with pneumonic infiltrate. Small right pleural effusion is identified. There is some ill-defined right basilar densities which could represent a developing infiltrate or atelectatic changes. Mediastinal and possible right hilar adenopathy as noted above. Follow-up is recommended. Other findings as noted above Renal Ultrasound 06/23/18 00:00 IMPRESSION: No hydronephrosis. Chest X-Ray 06/27/18 13:36 IMPRESSION: IMPROVED APPEARANCE OF THE EXTENSIVE RIGHT UPPER LOBE INFILTRATE. Assessment & Plan - Diagnosis (1) Insomnia Qualifiers: Insomnia type: unspecified Qualified Code(s): G47.00 - Insomnia, unspecified Is this a current diagnosis for this admission?: Yes Plan: Discontinue melatonin. Trazodone 100 mg p.o. nightly. (2) COPD (chronic obstructive pulmonary disease) Qualifiers: COPD type: unspecified COPD Qualified Code(s): J44.9 - Chronic obstructive pulmonary disease, unspecified Is this a current diagnosis for this admission?: Yes Plan: Continue current medical therapy and pulmonary regimen. Encourage activity and increased walking with physical therapy. (3) Afib Qualifiers: Atrial fibrillation type: chronic Qualified Code(s): I48.2 - Chronic atrial fibrillation Is this a current diagnosis for this admission?: Yes Plan: Continue current anticoagulant therapy. Continue current medical therapy for rate control. (4) Diabetes mellitus type 2 in nonobese Is this a current diagnosis for this admission?: Yes Plan: Continue current diet medications for treatment of her diabetes. Blood sugars been reasonably well-controlled. (5) HTN (hypertension) Qualifiers: Hypertension type: essential hypertension Qualified Code(s): I10 - Essential (primary) hypertension Is this a current diagnosis for this admission?: Yes Plan: Continue current medications as her blood pressures been well controlled. - Time Time Spent with patient: 35 or more minutes Anticipated discharge: Home, Home with Homehealth Within: within 48 hours
--- NOTE | 2018-07-09 20:19 | PDOC PROGRESS REPORT ---
Subjective Progress Note for:: 07/09/18 Subjective:: . Patient is feeling better. She received blood transfusion yesterday and also received vitamin K. INR however is still elevated. Patient however denying any chest pain. She has some baseline shortness of breath and denies any worsening. Patient has multiple other ongoing issues which does include COPD. Reason For Visit: CHF EXACERBATION AFIB PNEUMONIA Physical Exam Vital Signs: Temp Pulse Resp BP Pulse Ox 98.5 F 80 20 123/63 98 07/09/18 19:00 07/09/18 19:00 07/09/18 19:00 07/09/18 19:00 07/09/18 19:00 Intake & Output 07/08/18 07/09/18 07/10/18 06:59 06:59 06:59 Intake Total 218 940 120 Output Total 400 1100 200 Balance -182 -160 -80 Weight 95 kg 94.6 kg Exam: GENERAL: well-nourished and in no acute distress. Alert and oriented x3 HEAD: Atraumatic, normocephalic. EYES: Pupils equal round and reactive to light, extraocular movements intact, sclera anicteric, conjunctiva are normal. ENT: TMs normal, nares patent, oropharynx clear without exudates. Moist mucous membranes. No oral ulcerations or bleeding gums noted NECK: supple without lymphadenopathy. Trachea is central. No cervical or axillary lymphadenopathy noted. Carotids are 2+, JVD WNL LUNGS: Respiration seems nonlabored, no significant accessory muscle action noted. Breath sounds clear to auscultation bilaterally and equal noted. Few a scattered wheezes rales or rhonchi noted. No significant dullness noted on percussion. CHEST: Palpation of the chest wall shows no significant chest wall tenderness. HEART: [place] [employer], No PSH, 1/6 CHUCKIE aortic area, 1/6 knott systolic murmur mitral area, no rubs, no gallops. ABDOMEN: Soft, no significant tenderness appreciated, normoactive bowel sounds. No guarding, no rebound. No rigidity noted . No masses appreciated. EXTREMITIES: Pedal pulses are 1-2+, no calf tenderness noted. No clubbing or cyanosis. negative pedal edema noted NEUROLOGICAL: Focused neurological exam showed no significant neurologic deficit. Normal speech, no focal weakness appreciated. PSYCH: Normal mood, normal affect. Judgment and insight within normal limits. SKIN: Superficial ecchymosis noted, skin is noted to be warm. MUSCULOSKELETAL EXAM: No significant acute joint swelling noted. Results Laboratory Results: 07/09/18 05:29 07/09/18 05:29 07/09/18 07/09/18 07/09/18 00:15 05:29 05:29 WBC 15.7 H 13.9 H RBC 3.53 L 3.03 L Hgb 10.2 L D 9.0 L Hct 30.5 L 26.0 L MCV 86 86 MCH 29.0 29.6 MCHC 33.5 34.4 RDW 16.2 H 16.1 H Plt Count 280 230 Seg Neutrophils % 88.7 H Lymphocytes % 5.9 L Monocytes % 4.9 Eosinophils % 0.2 Basophils % 0.3 Absolute Neutrophils 12.4 H Absolute Lymphocytes 0.8 Absolute Monocytes 0.7 Absolute Eosinophils 0.0 Absolute Basophils 0.0 Sodium 136.3 L Potassium 3.7 Chloride 98 Carbon Dioxide 26 Anion Gap 12 BUN 81 H Creatinine 2.49 H Est GFR ( Amer) 23 L Est GFR (Non-Af Amer) 19 L Glucose 129 H Calcium 8.1 L 06/19/18 06/19/18 06/19/18 04:10 04:10 11:11 Creatine Kinase 84 75 CK-MB (CK-2) 0.91 Troponin I 0.187 06/19/18 06/19/18 06/19/18 11:11 15:56 15:56 Creatine Kinase 87 CK-MB (CK-2) 1.05 1.72 Troponin I 0.132 0.120 06/20/18 06/21/18 04:50 05:50 Creatine Kinase CK-MB (CK-2) Troponin I 0.079 0.031 Impressions: Abdomen Ultrasound 06/21/18 00:00 IMPRESSION: Cholecystitis and cholelithiasis. Fatty liver. Borderline dilatation of the common bile duct. Chest CT 06/22/18 00:00 IMPRESSION: Fairly extensive airspace consolidation in the right upper lobe consistent with pneumonic infiltrate. Small right pleural effusion is identified. There is some ill-defined right basilar densities which could represent a developing infiltrate or atelectatic changes. Mediastinal and possible right hilar adenopathy as noted above. Follow-up is recommended. Other findings as noted above Renal Ultrasound 06/23/18 00:00 IMPRESSION: No hydronephrosis. Chest X-Ray 06/27/18 13:36 IMPRESSION: IMPROVED APPEARANCE OF THE EXTENSIVE RIGHT UPPER LOBE INFILTRATE. Assessment & Plan - Diagnosis (1) Supratherapeutic INR Is this a current diagnosis for this admission?: Yes (2) COPD (chronic obstructive pulmonary disease) Qualifiers: COPD type: unspecified COPD Qualified Code(s): J44.9 - Chronic obstructive pulmonary disease, unspecified Is this a current diagnosis for this admission?: Yes (3) Elevated troponin Is this a current diagnosis for this admission?: Yes (4) Pulmonary hypertension Is this a current diagnosis for this admission?: Yes (5) Diabetes mellitus type 2 in nonobese Is this a current diagnosis for this admission?: Yes (6) HTN (hypertension) Qualifiers: Hypertension type: essential hypertension Qualified Code(s): I10 - Essential (primary) hypertension Is this a current diagnosis for this admission?: Yes (7) Anemia Qualifiers: Anemia type: unspecified type Qualified Code(s): D64.9 - Anemia, unspecified Is this a current diagnosis for this admission?: Yes - Notes Notes: Patient received 2 units of blood transfusion yesterday and claims to be feeling much better. Consider switch to Eliquis once PT with INR less than 2.0 Continue other therapy as before. Will continue to follow patient. Supratherapeutic INR: Patient is suspected to have GI bleed. Agree with blood transfusion to try to maintain hemoglobin above 8 g% in cardiac patients. Agree with vitamin K. Once patient INR is less than 2.0, will recommend transition to Eliquis. COPD: Continue current therapeutic management with bronchodilators tests, steroid inhalers as needed. Elevated troponin I: This was addressed previously by Dr. Ford. No ischemia workup planned. Pulmonary hypertension: Possibly secondary to chronic cardiac issues. Recommend chronic oxygen therapy and CPAP therapy. Diabetes: Agree with management plans with the hospitalist. Hypertension: Blood pressure goal is 135/85 or less but more liberal goal is okay in this elderly patient. Anemia: Most likely multifactorial with GI bleed being considered. Agree with blood transfusion, which patient received yesterday. - Time Time with patient: Greater than 35 minutes - More than 50% of the time spent coordinating care, discussing management plans with involved caregivers. Management plans discussed with involved personnels. Medical decision making was of moderate to high complexity, patient's has multiple comorbidities. Medications reviewed and adjusted accordingly: Yes
[2018-07-09] MEDS: ATORVASTATIN CALCIUM 40 MG TABLET PO SCH (21:13)
[2018-07-09] MEDS: TRAZODONE HCL 50 MG TABLET PO SCH (21:14)
[2018-07-09] MEDS: INSULIN GLARGINE,HUM.REC.ANLOG 300 UNIT/3 ML INSULN.PEN SUBCUT SCH (22:49)
[2018-07-09] MEDS: INSULIN LISPRO 100 UNIT/ML 3 ML VIAL SUBCUT PRN (22:50)
[2018-07-10 09:30] LABS: ANION GAP 13 (5-19); BLOOD UREA NITROGEN 92 mg/dL (7-20); CALCIUM 7.9 mg/dL (8.4-10.2); CARBON DIOXIDE 27 mmol/L (22-30); CHLORIDE 96 mmol/L (98-107); GLUCOSE 157 mg/dL (75-110); POTASSIUM 3.4 mmol/L (3.6-5.0); SODIUM 135.8 mmol/L (137-145)
[2018-07-10 10:26] LABS: INTERNATIONAL RATION (INR) 2.52; PROTHROMBIN TIME 28.4 SEC (11.4-15.4)
[2018-07-10 10:51] LABS: HEMOGLOBIN 8.3 g/dL (12.0-15.5); MEAN CORPUSCULAR HEMOGLOBIN 29.9 pg (27.0-33.4); MEAN CORPUSCULAR HGB CONC 34.8 g/dL (32.0-36.0); MEAN CORPUSCULAR VOLUME 86 fl (80-97); PLATELET COUNT 223 10^3/uL (150-450); RED CELL DISTRIBUTION WIDTH 16.2 % (11.5-14.0); WHITE BLOOD COUNT 9.8 10^3/uL (4.0-10.5)
[2018-07-10] MEDS: METOPROLOL TARTRATE 100 MG TABLET PO SCH ×2 (11:23→21:24)
[2018-07-10] MEDS: BUMETANIDE INJ/PF 1 MG/4 ML SDV IV SCH ×2 (11:23→21:21)
[2018-07-10] MEDS: ASPIRIN 325 MG TABLET PO SCH (11:23)
[2018-07-10] MEDS: GUAIFENESIN 600 MG TABLET.SA PO SCH ×2 (11:24→21:24)
[2018-07-10] MEDS ORDERED: POTASSIUM CHLORIDE 10 MEQ CAPSULE.ER PO ONE ×2 (14:15→18:00)
--- NOTE | 2018-07-10 15:12 | PDOC PROGRESS REPORT ---
Subjective Progress Note for:: 07/10/18 Subjective:: Patient was sitting up in her chair at the time of examination. She is feeling better since the transfusions. She denies chest pain, SOB, N/V/D/C. She denies seeing blood in her stool or dark tarry stools. Reason For Visit: CHF EXACERBATION AFIB PNEUMONIA Physical Exam Vital Signs: Temp Pulse Resp BP Pulse Ox 98.4 F 58 L 20 107/70 98 07/10/18 12:00 07/10/18 12:00 07/10/18 12:00 07/10/18 12:00 07/10/18 12:00 Intake & Output 07/09/18 07/10/18 07/11/18 06:59 06:59 06:59 Intake Total 940 120 Output Total 1100 800 Balance -160 -680 Weight 94.6 kg General appearance: PRESENT: no acute distress, well-developed, well-nourished Mouth exam: PRESENT: moist, neck supple Neck exam: PRESENT: full ROM. ABSENT: JVD Respiratory exam: PRESENT: crackles, rhonchi. ABSENT: clear to auscultation archie , rales, wheezes Cardiovascular exam: PRESENT: RRR, +S1, +S2 Extremities exam: PRESENT: +1 edema. ABSENT: pedal edema, tenderness, +2 edema Musculoskeletal exam: PRESENT: normal inspection. ABSENT: tenderness Neurological exam: PRESENT: alert, awake, oriented to person, oriented to place , oriented to time, oriented to situation Skin exam: PRESENT: dry, intact, warm. ABSENT: cyanosis Results Laboratory Results: 07/10/18 05:36 07/10/18 05:36 07/10/18 07/10/18 05:36 05:36 WBC 9.8 RBC 2.80 L Hgb 8.3 L Hct 24.0 L MCV 86 MCH 29.9 MCHC 34.8 RDW 16.2 H Plt Count 223 Sodium 135.8 L Potassium 3.4 L Chloride 96 L Carbon Dioxide 27 Anion Gap 13 BUN 92 H Creatinine 2.56 H Est GFR ( Amer) 22 L Est GFR (Non-Af Amer) 18 L Glucose 157 H Calcium 7.9 L 06/19/18 06/19/18 06/19/18 04:10 04:10 11:11 Creatine Kinase 84 75 CK-MB (CK-2) 0.91 Troponin I 0.187 08/16/18 08/16/18 08/16/18 11:11 15:56 15:56 Creatine Kinase 87 CK-MB (CK-2) 1.05 1.72 Troponin I 0.132 0.120 06/20/18 06/21/18 04:50 05:50 Creatine Kinase CK-MB (CK-2) Troponin I 0.079 0.031 Impressions: Abdomen Ultrasound 06/21/18 00:00 IMPRESSION: Cholecystitis and cholelithiasis. Fatty liver. Borderline dilatation of the common bile duct. Chest CT 06/22/18 00:00 IMPRESSION: Fairly extensive airspace consolidation in the right upper lobe consistent with pneumonic infiltrate. Small right pleural effusion is identified. There is some ill-defined right basilar densities which could represent a developing infiltrate or atelectatic changes. Mediastinal and possible right hilar adenopathy as noted above. Follow-up is recommended. Other findings as noted above Renal Ultrasound 06/23/18 00:00 IMPRESSION: No hydronephrosis. Chest X-Ray 06/27/18 13:36 IMPRESSION: IMPROVED APPEARANCE OF THE EXTENSIVE RIGHT UPPER LOBE INFILTRATE. Assessment & Plan - Diagnosis (1) MONALISA (acute kidney injury) Is this a current diagnosis for this admission?: Yes Plan: currently stable, continue medications at the current doses. (2) Edema Is this a current diagnosis for this admission?: Yes Plan: continue at current medications (3) Anemia Qualifiers: Other causes of anemia: chronic disease, other Is this a current diagnosis for this admission?: Yes Plan: less likely to be from CKD since the hemoglobin is so rapidly dropping. Likely she has a upper GI bleed. Recommend consulting GI for further evaluation. (4) Diabetes mellitus type 2 in nonobese Is this a current diagnosis for this admission?: Yes (5) HTN (hypertension) Qualifiers: Hypertension type: essential hypertension Qualified Code(s): I10 - Essential (primary) hypertension Is this a current diagnosis for this admission?: Yes Plan: controlled (6) Leukocytosis Plan: resolving (7) Hypokalemia Plan: placing on potassium replacement. - Notes Notes: Case was discussed with Dr. Rao
[2018-07-10] MEDS: DILTIAZEM HCL 60 MG TABLET PO SCH ×4 (15:32→21:24)
[2018-07-10] MEDS: METOLAZONE 5 MG TABLET PO SCH (17:22)
[2018-07-10] MEDS: INSULIN LISPRO 100 UNIT/ML 3 ML VIAL SUBCUT PRN ×2 (17:25→21:29)
[2018-07-10] MEDS: LANSOPRAZOLE 30 MG TAB.RAP.DR PO SCH (19:56)
--- NOTE | 2018-07-10 20:20 | PDOC PROGRESS REPORT ---
Subjective Progress Note for:: 07/10/18 Subjective:: Jennifer again states she feels very well today she has been up walking and this went quite well. She is looking forward to going home soon as early as Saturday. She slept well last night after using trazodone. She feels like her respiratory status is continuing to improve with her increased level of activity and she has not noted any problems with peripheral edema. She would like to walk further in the [place] but the nurses so far have been reluctant to let her. I have instructed the nursing staff that this would be most appropriate to do approximately 5 times daily. She denies palpitations, chest pain, nausea, vomiting, diaphoresis and syncope. Nursing staff was concerned about her hemoglobin being in the 8 - 9 region. After review of her longer- term record appears this is her normal level. Reason For Visit: CHF EXACERBATION AFIB PNEUMONIA Physical Exam Vital Signs: Temp Pulse Resp BP Pulse Ox 97.6 F 61 20 104/57 L 97 07/10/18 15:24 07/10/18 19:00 07/10/18 15:24 07/10/18 15:24 07/10/18 15:24 Intake & Output 07/09/18 07/10/18 07/11/18 06:59 06:59 06:59 Intake Total 940 120 716 Output Total 1100 800 500 Balance -160 -680 216 Weight 94.6 kg General appearance: PRESENT: no acute distress, cooperative Head exam: PRESENT: atraumatic, normocephalic Eye exam: PRESENT: conjunctiva pink. ABSENT: nystagmus, scleral icterus Ear exam: PRESENT: normal external ear exam. ABSENT: bleeding, drainage Mouth exam: PRESENT: moist, neck supple, tongue midline Neck exam: ABSENT: JVD, thyromegaly, tracheal deviation Respiratory exam: PRESENT: clear to auscultation archie, symmetrical, unlabored Cardiovascular exam: PRESENT: irregular rhythm. ABSENT: bradycardia, clicks, diastolic murmur, gallop, rubs, systolic murmur, tachycardia Pulses: PRESENT: normal carotid pulses, normal radial pulses Vascular exam: PRESENT: normal capillary refill. ABSENT: pallor GI/Abdominal exam: PRESENT: normal bowel sounds, soft. ABSENT: distended, tenderness Extremities exam: ABSENT: clubbing, joint swelling Musculoskeletal exam: PRESENT: full ROM, normal inspection Neurological exam: PRESENT: alert, awake, oriented to person, oriented to place , oriented to time, oriented to situation, CN II-XII grossly intact. ABSENT: motor sensory deficit Psychiatric exam: PRESENT: appropriate affect, normal mood Skin exam: PRESENT: intact. ABSENT: jaundice, rash, urticaria Results Laboratory Results: 07/10/18 05:36 07/10/18 05:36 07/10/18 07/10/18 05:36 05:36 WBC 9.8 RBC 2.80 L Hgb 8.3 L Hct 24.0 L MCV 86 MCH 29.9 MCHC 34.8 RDW 16.2 H Plt Count 223 Sodium 135.8 L Potassium 3.4 L Chloride 96 L Carbon Dioxide 27 Anion Gap 13 BUN 92 H Creatinine 2.56 H Est GFR ( Amer) 22 L Est GFR (Non-Af Amer) 18 L Glucose 157 H Calcium 7.9 L 06/19/18 06/19/18 06/19/18 04:10 04:10 11:11 Creatine Kinase 84 75 CK-MB (CK-2) 0.91 Troponin I 0.187 06/19/18 06/19/18 06/19/18 11:11 15:56 15:56 Creatine Kinase 87 CK-MB (CK-2) 1.05 1.72 Troponin I 0.132 0.120 06/20/18 06/21/18 04:50 05:50 Creatine Kinase CK-MB (CK-2) Troponin I 0.079 0.031 Impressions: Abdomen Ultrasound 06/21/18 00:00 IMPRESSION: Cholecystitis and cholelithiasis. Fatty liver. Borderline dilatation of the common bile duct. Chest CT 06/22/18 00:00 IMPRESSION: Fairly extensive airspace consolidation in the right upper lobe consistent with pneumonic infiltrate. Small right pleural effusion is identified. There is some ill-defined right basilar densities which could represent a developing infiltrate or atelectatic changes. Mediastinal and possible right hilar adenopathy as noted above. Follow-up is recommended. Other findings as noted above Renal Ultrasound 06/23/18 00:00 IMPRESSION: No hydronephrosis. Chest X-Ray 06/27/18 13:36 IMPRESSION: IMPROVED APPEARANCE OF THE EXTENSIVE RIGHT UPPER LOBE INFILTRATE. Assessment & Plan - Diagnosis (1) Insomnia Qualifiers: Insomnia type: unspecified Qualified Code(s): G47.00 - Insomnia, unspecified Is this a current diagnosis for this admission?: Yes Plan: Trazodone 100 mg p.o. nightly. (2) COPD (chronic obstructive pulmonary disease) Qualifiers: COPD type: unspecified COPD Qualified Code(s): J44.9 - Chronic obstructive pulmonary disease, unspecified Is this a current diagnosis for this admission?: Yes Plan: Continue current medical therapy and pulmonary regimen. Encourage activity and increased walking with physical therapy. (3) Afib Qualifiers: Atrial fibrillation type: chronic Qualified Code(s): I48.2 - Chronic atrial fibrillation Is this a current diagnosis for this admission?: Yes Plan: Continue current anticoagulant therapy. Continue current medical therapy for rate control. (4) Diabetes mellitus type 2 in nonobese Is this a current diagnosis for this admission?: Yes Plan: Continue current diet medications for treatment of her diabetes. Blood sugars been reasonably well-controlled. (5) HTN (hypertension) Qualifiers: Hypertension type: essential hypertension Qualified Code(s): I10 - Essential (primary) hypertension Is this a current diagnosis for this admission?: Yes Plan: Continue current medications as her blood pressures been well controlled. - Time Time Spent with patient: 25-34 minutes Medications reviewed and adjusted accordingly: Yes Within: within 24 hours
[2018-07-10] MEDS: INSULIN GLARGINE,HUM.REC.ANLOG 300 UNIT/3 ML INSULN.PEN SUBCUT SCH (21:19)
[2018-07-10] MEDS: ATORVASTATIN CALCIUM 40 MG TABLET PO SCH (21:24)
[2018-07-10] MEDS: TRAZODONE HCL 50 MG TABLET PO SCH (21:25)
--- NOTE | 2018-07-10 23:17 | PDOC PROGRESS REPORT ---
Subjective Progress Note for:: 07/10/18 Subjective:: Patient is feeling better today. She had received blood transfusion. PT with INR is still somewhat on the high side. Patient however denying any chest pain. She has some baseline shortness of breath and denies any worsening. Patient has multiple other ongoing issues which does include COPD. Reason For Visit: CHF EXACERBATION AFIB PNEUMONIA Physical Exam Vital Signs: Temp Pulse Resp BP Pulse Ox 97.9 F 63 20 123/53 L 94 07/10/18 19:17 07/10/18 19:17 07/10/18 19:17 07/10/18 19:17 07/10/18 19:17 Intake & Output 07/09/18 07/10/18 07/11/18 06:59 06:59 06:59 Intake Total 940 120 716 Output Total 1100 800 500 Balance -160 -680 216 Weight 94.6 kg Exam: GENERAL: well-nourished and in no acute distress. Alert and oriented x3 HEAD: Atraumatic, normocephalic. EYES: Pupils equal round and reactive to light, extraocular movements intact, sclera anicteric, conjunctiva are normal. ENT: TMs normal, nares patent, oropharynx clear without exudates. Moist mucous membranes. No oral ulcerations or bleeding gums noted NECK: supple without lymphadenopathy. Trachea is central. No cervical or axillary lymphadenopathy noted. Carotids are 2+, JVD WNL LUNGS: Respiration seems nonlabored, no significant accessory muscle action noted. Breath sounds clear to auscultation bilaterally and equal noted. Few a scattered wheezes rales or rhonchi noted. No significant dullness noted on percussion. CHEST: Palpation of the chest wall shows no significant chest wall tenderness. 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 ABDOMEN: Soft, no significant tenderness appreciated, normoactive bowel sounds. No guarding, no rebound. No rigidity noted . No masses appreciated. EXTREMITIES: Pedal pulses are 1-2+, no calf tenderness noted. No clubbing or cyanosis. negative pedal edema noted NEUROLOGICAL: Focused neurological exam showed no significant neurologic deficit. Normal speech, no focal weakness appreciated. PSYCH: Normal mood, normal affect. Judgment and insight within normal limits. SKIN: No significant ecchymosis, skin is noted to be warm. MUSCULOSKELETAL EXAM: No significant acute joint swelling noted. Results Laboratory Results: 07/10/18 05:36 07/10/18 05:36 07/10/18 07/10/18 05:36 05:36 WBC 9.8 RBC 2.80 L Hgb 8.3 L Hct 24.0 L MCV 86 MCH 29.9 MCHC 34.8 RDW 16.2 H Plt Count 223 Sodium 135.8 L Potassium 3.4 L Chloride 96 L Carbon Dioxide 27 Anion Gap 13 BUN 92 H Creatinine 2.56 H Est GFR ( Amer) 22 L Est GFR (Non-Af Amer) 18 L Glucose 157 H Calcium 7.9 L 06/19/18 06/19/18 06/19/18 04:10 04:10 11:11 Creatine Kinase 84 75 CK-MB (CK-2) 0.91 Troponin I 0.187 06/19/18 06/19/18 06/19/18 11:11 15:56 15:56 Creatine Kinase 87 CK-MB (CK-2) 1.05 1.72 Troponin I 0.132 0.120 06/20/18 06/21/18 04:50 05:50 Creatine Kinase CK-MB (CK-2) Troponin I 0.079 0.031 Impressions: Abdomen Ultrasound 06/21/18 00:00 IMPRESSION: Cholecystitis and cholelithiasis. Fatty liver. Borderline dilatation of the common bile duct. Chest CT 06/22/18 00:00 IMPRESSION: Fairly extensive airspace consolidation in the right upper lobe consistent with pneumonic infiltrate. Small right pleural effusion is identified. There is some ill-defined right basilar densities which could represent a developing infiltrate or atelectatic changes. Mediastinal and possible right hilar adenopathy as noted above. Follow-up is recommended. Other findings as noted above Renal Ultrasound 06/23/18 00:00 IMPRESSION: No hydronephrosis. Chest X-Ray 06/27/18 13:36 IMPRESSION: IMPROVED APPEARANCE OF THE EXTENSIVE RIGHT UPPER LOBE INFILTRATE. Assessment & Plan - Diagnosis (1) Supratherapeutic INR Is this a current diagnosis for this admission?: Yes (2) COPD (chronic obstructive pulmonary disease) Qualifiers: COPD type: unspecified COPD Qualified Code(s): J44.9 - Chronic obstructive pulmonary disease, unspecified Is this a current diagnosis for this admission?: Yes (3) Elevated troponin Is this a current diagnosis for this admission?: Yes (4) Pulmonary hypertension Is this a current diagnosis for this admission?: Yes (5) Diabetes mellitus type 2 in nonobese Is this a current diagnosis for this admission?: Yes (6) HTN (hypertension) Qualifiers: Hypertension type: essential hypertension Qualified Code(s): I10 - Essential (primary) hypertension Is this a current diagnosis for this admission?: Yes (7) Anemia Qualifiers: Anemia type: unspecified type Qualified Code(s): D64.9 - Anemia, unspecified Is this a current diagnosis for this admission?: Yes - Notes Notes: Cardiac dorsey patient stable. Consider rechecking hemoglobin. Check PT with INR. Option would be to switch patient to Eliquis or Xarelto once PT with INR is less than 2.0. It may also be worthwhile to consider GI evaluation. Supratherapeutic INR: Patient is suspected to have GI bleed. Agree with blood transfusion to try to maintain hemoglobin above 8 g% in cardiac patients. Follow hemoglobin closely. Once patient INR is less than 2.0, will recommend transition to Eliquis. COPD: Continue current therapeutic management with bronchodilators tests, steroid inhalers as needed. Elevated troponin I: This was addressed previously by Dr. Ford. No ischemia workup planned. Pulmonary hypertension: Possibly secondary to chronic cardiac issues. Recommend chronic oxygen therapy and CPAP therapy. Diabetes: Agree with management plans with the hospitalist. Hypertension: Blood pressure goal is 135/85 or less but more liberal goal is okay in this elderly patient. Anemia: Most likely multifactorial with GI bleed being considered. Try to maintain hemoglobin in cardiac patients over 8 g percent. Recommend appropriate subspecialty consultation. - Time Time with patient: 15-25 minutes - More than 50% of the time spent coordinating care, discussing management plans with involved caregivers. Management plans discussed with involved personnels. Medical decision making was of moderate to high complexity, patient's has multiple comorbidities. Medications reviewed and adjusted accordingly: Yes
[2018-07-11 05:14] LABS: HEMATOCRIT 25.5 % (36.0-47.0); HEMOGLOBIN 8.9 g/dL (12.0-15.5); MEAN CORPUSCULAR HEMOGLOBIN 29.9 pg (27.0-33.4); MEAN CORPUSCULAR HGB CONC 34.7 g/dL (32.0-36.0); MEAN CORPUSCULAR VOLUME 86 fl (80-97); PLATELET COUNT 234 10^3/uL (150-450); RED BLOOD COUNT 2.97 10^6/uL (3.72-5.28); RED CELL DISTRIBUTION WIDTH 16.1 % (11.5-14.0); WHITE BLOOD COUNT 7.4 10^3/uL (4.0-10.5)
[2018-07-11 05:19] LABS: INTERNATIONAL RATION (INR) 2.32; PROTHROMBIN TIME 26.6 SEC (11.4-15.4)
[2018-07-11 05:33] LABS: ANION GAP 13 (5-19); BLOOD UREA NITROGEN 104 mg/dL (7-20); CALCIUM 7.8 mg/dL (8.4-10.2); CARBON DIOXIDE 31 mmol/L (22-30); CHLORIDE 96 mmol/L (98-107); GLUCOSE 105 mg/dL (75-110); POTASSIUM 3.3 mmol/L (3.6-5.0); SODIUM 139.7 mmol/L (137-145)
[2018-07-11] MEDS: LANSOPRAZOLE 30 MG TAB.RAP.DR PO SCH (05:33)
[2018-07-11] MEDS: DILTIAZEM HCL 60 MG TABLET PO SCH ×3 (05:33→13:33)
[2018-07-11] MEDS ORDERED: POTASSIUM CHLORIDE 10 MEQ CAPSULE.ER PO SCH (10:00)
[2018-07-11] MEDS: ASPIRIN 325 MG TABLET PO SCH (10:13)
[2018-07-11] MEDS: METOLAZONE 5 MG TABLET PO SCH ×2 (10:13→13:34)
[2018-07-11] MEDS: BUMETANIDE INJ/PF 1 MG/4 ML SDV IV SCH (10:14)
[2018-07-11] MEDS: GUAIFENESIN 600 MG TABLET.SA PO SCH (10:14)
[2018-07-11] MEDS: METOPROLOL TARTRATE 100 MG TABLET PO SCH (10:14)
[2018-07-11] MEDS: INSULIN LISPRO 100 UNIT/ML 3 ML VIAL SUBCUT PRN (13:21)
[2018-07-11 14:02] VITALS: BP 107/70
--- NOTE | 2018-07-11 15:46 | PDOC PROGRESS REPORT ---
Subjective Progress Note for:: 07/11/18 Reason For Visit: Patient seen today in the hospital. She is feeling much better. She is expecting to be discharged today. She denies any history of chest pain or shortness of breath. She has been ambulatory. Labs and medications were reviewed with the patient. The pedal edema is also gotten better. Physical Exam Vital Signs: Temp Pulse Resp BP Pulse Ox 97.8 F 60 20 107/70 100 07/11/18 15:27 07/11/18 15:27 07/11/18 15:27 07/11/18 15:27 07/11/18 15:27 Intake & Output 07/10/18 07/11/18 07/12/18 06:59 06:59 06:59 Intake Total 120 716 Output Total 800 825 Balance -680 -109 Weight 92.7 kg 92.7 kg General appearance: PRESENT: no acute distress Respiratory exam: PRESENT: clear to auscultation archie. ABSENT: crackles Cardiovascular exam: PRESENT: RRR, +S1, +S2 GI/Abdominal exam: ABSENT: diminished bowel sounds, distended, rebound, soft, tenderness Extremities exam: PRESENT: pedal edema Neurological exam: PRESENT: alert, awake, oriented to person, oriented to place Results Laboratory Results: 07/11/18 04:47 07/11/18 04:47 07/11/18 07/11/18 04:47 04:47 WBC 7.4 RBC 2.97 L Hgb 8.9 L Hct 25.5 L MCV 86 MCH 29.9 MCHC 34.7 RDW 16.1 H Plt Count 234 Sodium 139.7 Potassium 3.3 L Chloride 96 L Carbon Dioxide 31 H Anion Gap 13 BUN 104 H Creatinine 2.79 H Est GFR ( Amer) 20 L Est GFR (Non-Af Amer) 17 L Glucose 105 Calcium 7.8 L 06/19/18 06/19/18 06/19/18 04:10 04:10 11:11 Creatine Kinase 84 75 CK-MB (CK-2) 0.91 Troponin I 0.187 06/19/18 06/19/18 06/19/18 11:11 15:56 15:56 Creatine Kinase 87 CK-MB (CK-2) 1.05 1.72 Troponin I 0.132 0.120 06/20/18 06/21/18 04:50 05:50 Creatine Kinase CK-MB (CK-2) Troponin I 0.079 0.031 Impressions: Abdomen Ultrasound 06/21/18 00:00 IMPRESSION: Cholecystitis and cholelithiasis. Fatty liver. Borderline dilatation of the common bile duct. Chest CT 06/22/18 00:00 IMPRESSION: Fairly extensive airspace consolidation in the right upper lobe consistent with pneumonic infiltrate. Small right pleural effusion is identified. There is some ill-defined right basilar densities which could represent a developing infiltrate or atelectatic changes. Mediastinal and possible right hilar adenopathy as noted above. Follow-up is recommended. Other findings as noted above Renal Ultrasound 06/23/18 00:00 IMPRESSION: No hydronephrosis. Chest X-Ray 06/27/18 13:36 IMPRESSION: IMPROVED APPEARANCE OF THE EXTENSIVE RIGHT UPPER LOBE INFILTRATE. Assessment & Plan - Diagnosis (1) MONALISA (acute kidney injury) Is this a current diagnosis for this admission?: Yes Plan: Likely combination of ATN/bank toxicity.Nonoliguric. Renal numbers are stable. She could probably go home from a renal standpoint and follow-up as an outpatient. (2) Anemia Qualifiers: Other causes of anemia: chronic disease, other Is this a current diagnosis for this admission?: Yes Plan: As per hospitalist. (3) Pneumonia Qualifiers: Pneumonia type: due to unspecified organism Laterality: right Lung location: upper lobe of lung Qualified Code(s): J18.1 - Lobar pneumonia, unspecified organism Is this a current diagnosis for this admission?: Yes Plan: Resolved. (4) Afib Qualifiers: Atrial fibrillation type: chronic Qualified Code(s): I48.2 - Chronic atrial fibrillation Is this a current diagnosis for this admission?: Yes Plan: Rate controlled. (5) Diabetes mellitus type 2 in nonobese Is this a current diagnosis for this admission?: Yes Plan: Advised tight control. (6) HTN (hypertension) Qualifiers: Hypertension type: essential hypertension Qualified Code(s): I10 - Essential (primary) hypertension Is this a current diagnosis for this admission?: Yes Plan: Controlled. (7) COPD (chronic obstructive pulmonary disease) Qualifiers: COPD type: unspecified COPD Qualified Code(s): J44.9 - Chronic obstructive pulmonary disease, unspecified Is this a current diagnosis for this admission?: Yes
--- NOTE | 2018-07-11 21:52 | PDOC DISCHARGE SUMMARY ---
General - Admit/Disc Date/PCP Admission Date/Primary Care Provider: 06/18/18 23:54 YANNICK CLARK MD Discharge Date: 07/11/18 - Discharge Diagnosis (1) Insomnia Is this a current diagnosis for this admission?: Yes Summary: Treated effectively with Trazodone 100 mg qhs (2) COPD (chronic obstructive pulmonary disease) Is this a current diagnosis for this admission?: Yes Summary: O2 dependent COPD prior to admission. This certainly contributed to her slow recovery from her PNA and facilitated her developement of respiratory failure. (3) Afib Is this a current diagnosis for this admission?: Yes Summary: Chronic and requiring warfarin adjustments throughout the hospital course, as well as control of sporadic occurrences of RVR. (4) Diabetes mellitus type 2 in nonobese Is this a current diagnosis for this admission?: Yes Summary: Chronic problem required insulin adjustments and generally complicated the infectious processes and delayed the recovery from same. (5) HTN (hypertension) Is this a current diagnosis for this admission?: Yes Summary: Chronic problem and currently well controlled. Developement of hypotension during the hospital course may have been masked in it's earliest stages due to her underlying HTN. (6) MONALISA (acute kidney injury) Is this a current diagnosis for this admission?: Yes Summary: Developed due to sepsis and slowly resolving. This is currently being monitored and treated by nephrology, whose treatment will be continued on an outpatient basis after discharge. (7) Sepsis Is this a current diagnosis for this admission?: Yes Summary: Gram negative sepsis treated with IV antibiotics. Hypotension with MONALISA and acute respiratory failure were due to sepsis. Good resolution with antibiotic therapy. (8) Pneumonia Is this a current diagnosis for this admission?: Yes Summary: The large Right lung PNA responded slowly to treatment but has clinically improved to near her baseline of pulmonary function. - Additional Information Resuscitation Status: Full Code Discharge Diet: Cardiac, Diabetic Discharge Activity: Activity As Tolerated, Balance Activity w/Rest, Weigh Daily Prescriptions: Aspirin [Adult Low Dose Aspirin EC] 81 mg PO WBRKFST 30 Days #30 tablet.dr Rosenmetanide 2 mg PO BIDBL 30 Days #60 tablet Diltiazem HCl [Diltiazem 24Hr ER] 180 mg PO QHS 30 Days #30 cap.sa.24h Ferrous Sulfate [Iron] 325 mg PO WBRKFST 30 Days #30 tablet Insulin Detemir [Levemir Flextouch] 35 unit SQ QHS 30 Days #4 insuln.pen Metolazone [Zaroxolyn 5 Mg Tablet] 5 mg PO BIDBS 30 Days #60 tablet Metoprolol Succinate 200 mg PO WBRKFST 30 Days #30 tab.er.24h Potassium Chloride 20 meq PO BIDBL 30 Days #60 tablet.er Trazodone HCl 100 mg PO QHS 30 Days #30 tablet Warfarin Sodium 7.5 mg PO WSUPPER 30 Days #30 tablet Home Medications: Atorvastatin Calcium [Lipitor 40 mg Tablet] 40 mg PO QHS 06/19/18 Bisacodyl [Dulcolax 5 mg Tablet] 5 mg PO DAILYP PRN 06/19/18 Cholecalciferol (Vitamin D3) [Vitamin D3 400 Unit Tablet] 400 unit PO DAILY Cyanocobalamin (Vitamin B-12) [Vitamin B-12 1000 mcg Tablet] 1,000 mcg PO DAILY 06/19/18 Glipizide [Glucotrol 5 mg Tablet] 5 mg PO BID 06/19/18 Omeprazole 40 mg PO DAILYP PRN 06/19/18 Aspirin [Adult Low Dose Aspirin EC] 81 mg PO WBRKFST 30 Days #30 tablet.dr 07/11 Bumetanide 2 mg PO BIDBL 30 Days #60 tablet 07/11/18 Diltiazem HCl [Diltiazem 24Hr ER] 180 mg PO QHS 30 Days #30 cap.sa.24h 07/11/18 Ferrous Sulfate [Iron] 325 mg PO WBRKFST 30 Days #30 tablet 07/11/18 Insulin Detemir [Levemir Flextouch] 35 unit SQ QHS 30 Days #4 insuln.pen Metolazone [Zaroxolyn 5 Mg Tablet] 5 mg PO BIDBS 30 Days #60 tablet 07/11/18 Metoprolol Succinate 200 mg PO WBRKFST 30 Days #30 tab.er.24h 07/11/18 Potassium Chloride 20 meq PO BIDBL 30 Days #60 tablet.er 07/11/18 Trazodone HCl 100 mg PO QHS 30 Days #30 tablet 07/11/18 Warfarin Sodium 7.5 mg PO WSUPPER 30 Days #30 tablet 07/11/18 History of Present Illness History of Present Illness: JENNIFER ARELLANO is a 73 year old female with a history of atrial fibrillation on Coumadin, CVA, hypertension, congestive heart failure, diabetes and oxygen dependent COPD. She presented with a 1 week of fever and chills, shortness of breath and a nonproductive cough. Denied chest pain or palpitations, in the emergency room she was found to have a right-sided infiltrate, a leukocytosis of 25,000, tachycardia and fever. She was started on empiric antibiotics and admitted to the hospitalist service. Hospital Course Hospital Course: Jennifer had a very protracted hospital course due to her pneumonia and sepsis requiring extended duration IV antibiotic therapy and developing acute on chronic renal insufficiency, due to the sepsis with hypotension, which has been resolving very slowly. Her underlying chronic problems also contributed to the protraction of her hospitalization (atrial fibrillation on Coumadin, CVA, hypertension, congestive heart failure, diabetes and oxygen dependent COPD). The overall course is summarized thusly. After admission for PNA and Sepsis ( respiratory failure, hypotension, acute on chronic renal insufficiency) she was treated with IV antibiotics and supportive therapy including pressors. When her blood culture was found to be positive for Sphingomonas paucimobilis her antibiotic therapy was adjusted to optimize treatment. She gradually improved with several minor setbacks along the way but she persevered working with physical therapy to regain her strength and her level of function returned to near her baseline by the time of her discharge. Physical Exam Vital Signs: Temp Pulse Resp BP Pulse Ox 97.8 F 60 20 107/70 100 07/11/18 15:27 07/11/18 15:27 07/11/18 15:27 07/11/18 15:27 07/11/18 15:27 Intake & Output 07/10/18 07/11/18 07/12/18 06:59 06:59 06:59 Intake Total 120 716 Output Total 800 825 Balance -680 -109 Weight 92.7 kg 92.7 kg General appearance: PRESENT: no acute distress, cooperative Head exam: PRESENT: atraumatic, normocephalic Eye exam: PRESENT: conjunctiva pink. ABSENT: scleral icterus Ear exam: PRESENT: normal external ear exam. ABSENT: drainage Mouth exam: PRESENT: moist - mucosal surfaces, neck supple Neck exam: ABSENT: JVD, tracheal deviation Respiratory exam: PRESENT: clear to auscultation archie, symmetrical, unlabored Cardiovascular exam: PRESENT: irregular rhythm. ABSENT: bradycardia, clicks, diastolic murmur, gallop, rubs, systolic murmur, tachycardia Pulses: PRESENT: normal carotid pulses, normal radial pulses, normal dorsalis pedis pul Vascular exam: PRESENT: normal capillary refill. ABSENT: pallor GI/Abdominal exam: PRESENT: normal bowel sounds, soft. ABSENT: distended, tenderness Extremities exam: PRESENT: pedal edema - mild bilateral. ABSENT: joint swelling Musculoskeletal exam: PRESENT: full ROM. ABSENT: tenderness Neurological exam: PRESENT: alert, awake, oriented to person, oriented to place , oriented to time, oriented to situation, CN II-XII grossly intact. ABSENT: motor sensory deficit Psychiatric exam: PRESENT: appropriate affect, normal mood Skin exam: ABSENT: jaundice, rash, urticaria Results Laboratory Results: 07/11/18 04:47 07/11/18 04:47 07/11/18 07/11/18 04:47 04:47 WBC 7.4 RBC 2.97 L Hgb 8.9 L Hct 25.5 L MCV 86 MCH 29.9 MCHC 34.7 RDW 16.1 H Plt Count 234 Sodium 139.7 Potassium 3.3 L Chloride 96 L Carbon Dioxide 31 H Anion Gap 13 BUN 104 H Creatinine 2.79 H Est GFR ( Amer) 20 L Est GFR (Non-Af Amer) 17 L Glucose 105 Calcium 7.8 L 06/19/18 06/19/18 06/19/18 04:10 04:10 11:11 Creatine Kinase 84 75 CK-MB (CK-2) 0.91 Troponin I 0.187 06/19/18 06/19/18 06/19/18 11:11 15:56 15:56 Creatine Kinase 87 CK-MB (CK-2) 1.05 1.72 Troponin I 0.132 0.120 06/20/18 06/21/18 04:50 05:50 Creatine Kinase CK-MB (CK-2) Troponin I 0.079 0.031 Impressions: Abdomen Ultrasound 06/21/18 00:00 IMPRESSION: Cholecystitis and cholelithiasis. Fatty liver. Borderline dilatation of the common bile duct. Chest CT 06/22/18 00:00 IMPRESSION: Fairly extensive airspace consolidation in the right upper lobe consistent with pneumonic infiltrate. Small right pleural effusion is identified. There is some ill-defined right basilar densities which could represent a developing infiltrate or atelectatic changes. Mediastinal and possible right hilar adenopathy as noted above. Follow-up is recommended. Other findings as noted above Renal Ultrasound 06/23/18 00:00 IMPRESSION: No hydronephrosis. Chest X-Ray 06/27/18 13:36 IMPRESSION: IMPROVED APPEARANCE OF THE EXTENSIVE RIGHT UPPER LOBE INFILTRATE. Qualifiers - * PATIENT BEING DISCHARGED WITH ANY OF THE FOLLOWING DIAGNOSIS: No Plan Time Spent: Greater than 30 Minutes
--- NOTE | 2018-07-11 22:42 | PDOC PROGRESS REPORT ---
Subjective Progress Note for:: 07/11/18 Subjective:: Patient is feeling better. Patient is denying any chest pain. Patient has noted no further bleeding episodes. INR has become baseline therapeutic.. She has some baseline shortness of breath and denies any worsening. Patient has multiple other ongoing issues which does include COPD. Reason For Visit: CHF EXACERBATION AFIB PNEUMONIA Physical Exam Vital Signs: Temp Pulse Resp BP Pulse Ox 97.8 F 60 20 107/70 100 07/11/18 15:27 07/11/18 15:27 07/11/18 15:27 07/11/18 15:27 07/11/18 15:27 Intake & Output 07/10/18 07/11/18 07/12/18 06:59 06:59 06:59 Intake Total 120 716 Output Total 800 825 Balance -680 -109 Weight 92.7 kg 92.7 kg Exam: GENERAL: well-nourished and in no acute distress. Alert and oriented x3 HEAD: Atraumatic, normocephalic. EYES: Pupils equal round and reactive to light, extraocular movements intact, sclera anicteric, conjunctiva are normal. ENT: TMs normal, nares patent, oropharynx clear without exudates. Moist mucous membranes. No oral ulcerations or bleeding gums noted NECK: supple without lymphadenopathy. Trachea is central. No cervical or axillary lymphadenopathy noted. Carotids are 2+, JVD WNL LUNGS: Respiration seems nonlabored, no significant accessory muscle action noted. Breath sounds clear to auscultation bilaterally and equal noted. Few a scattered wheezes rales or rhonchi noted. No significant dullness noted on percussion. CHEST: Palpation of the chest wall shows no significant chest wall tenderness. HEART: Henrietta NETWORK SUPPORT SPECIALIST, No PSH, 1/6 CHUCKIE aortic area, 1/6 knott systolic murmur mitral area, no rubs, no gallops. ABDOMEN: Soft, no significant tenderness appreciated, normoactive bowel sounds. No guarding, no rebound. No rigidity noted . No masses appreciated. EXTREMITIES: Pedal pulses are 1-2+, no calf tenderness noted. No clubbing or cyanosis. negative pedal edema noted NEUROLOGICAL: Focused neurological exam showed no significant neurologic deficit. Normal speech, no focal weakness appreciated. PSYCH: Normal mood, normal affect. Judgment and insight within normal limits. SKIN: No significant ecchymosis, skin is noted to be warm. MUSCULOSKELETAL EXAM: No significant acute joint swelling noted. Results Laboratory Results: 07/11/18 04:47 07/11/18 04:47 07/11/18 07/11/18 04:47 04:47 WBC 7.4 RBC 2.97 L Hgb 8.9 L Hct 25.5 L MCV 86 MCH 29.9 MCHC 34.7 RDW 16.1 H Plt Count 234 Sodium 139.7 Potassium 3.3 L Chloride 96 L Carbon Dioxide 31 H Anion Gap 13 BUN 104 H Creatinine 2.79 H Est GFR ( Amer) 20 L Est GFR (Non-Af Amer) 17 L Glucose 105 Calcium 7.8 L 06/19/18 06/19/18 06/19/18 04:10 04:10 11:11 Creatine Kinase 84 75 CK-MB (CK-2) 0.91 Troponin I 0.187 06/19/18 06/19/18 06/19/18 11:11 15:56 15:56 Creatine Kinase 87 CK-MB (CK-2) 1.05 1.72 Troponin I 0.132 0.120 06/20/18 06/21/18 04:50 05:50 Creatine Kinase CK-MB (CK-2) Troponin I 0.079 0.031 Impressions: Abdomen Ultrasound 06/21/18 00:00 IMPRESSION: Cholecystitis and cholelithiasis. Fatty liver. Borderline dilatation of the common bile duct. Chest CT 06/22/18 00:00 IMPRESSION: Fairly extensive airspace consolidation in the right upper lobe consistent with pneumonic infiltrate. Small right pleural effusion is identified. There is some ill-defined right basilar densities which could represent a developing infiltrate or atelectatic changes. Mediastinal and possible right hilar adenopathy as noted above. Follow-up is recommended. Other findings as noted above Renal Ultrasound 06/23/18 00:00 IMPRESSION: No hydronephrosis. Chest X-Ray 06/27/18 13:36 IMPRESSION: IMPROVED APPEARANCE OF THE EXTENSIVE RIGHT UPPER LOBE INFILTRATE. Assessment & Plan - Diagnosis (1) Supratherapeutic INR Is this a current diagnosis for this admission?: Yes (2) COPD (chronic obstructive pulmonary disease) Qualifiers: COPD type: unspecified COPD Qualified Code(s): J44.9 - Chronic obstructive pulmonary disease, unspecified Is this a current diagnosis for this admission?: Yes (3) Elevated troponin Is this a current diagnosis for this admission?: Yes (4) Pulmonary hypertension Is this a current diagnosis for this admission?: Yes (5) Diabetes mellitus type 2 in nonobese Is this a current diagnosis for this admission?: Yes (6) HTN (hypertension) Qualifiers: Hypertension type: essential hypertension Qualified Code(s): I10 - Essential (primary) hypertension Is this a current diagnosis for this admission?: Yes (7) Anemia Qualifiers: Anemia type: unspecified type Qualified Code(s): D64.9 - Anemia, unspecified Is this a current diagnosis for this admission?: Yes - Notes Notes: Supratherapeutic INR: This has now resolved. INR range should be between 2-3. Initially I wanted patient to be on Eliquis therapy, patient however wishes to stay on chronic Coumadin therapy but will need close monitoring. COPD: Continue current therapeutic management with bronchodilators tests, steroid inhalers as needed. Elevated troponin I: This was addressed previously by Dr. Ford. No ischemia workup planned. Pulmonary hypertension: Possibly secondary to chronic cardiac issues. Recommend chronic oxygen therapy and CPAP therapy. Diabetes: Agree with management plans with the hospitalist. Hypertension: Blood pressure goal is 135/85 or less but more liberal goal is okay in this elderly patient. Anemia: Hemoglobin has been stable. Follow closely. - Time Time with patient: 15-25 minutes - More than 50% of the time spent coordinating care, discussing management plans with involved caregivers. Management plans discussed with involved personnels. Medical decision making was of moderate to high complexity, patient's has multiple comorbidities. Medications reviewed and adjusted accordingly: Yes
== END 2018-07-11 15:54 | disposition home or self-care (01) | DRG 871 ==
LOC: ER 21:32 → EH 23:54 → 3W 06-19 17:57
PROVIDERS: ADMIT Internal Medicine; ATTEND Internal Medicine
PROC: 5A09557 Assistance with Respiratory Ventilation, Greater than 96 Consecutive Hours, Continuous Positive Airway Pressure (ICD-10-PCS; principal; 2018-06-19)
PROC: 30233N1 Transfusion of Nonautologous Red Blood Cells into Peripheral Vein, Percutaneous Approach (ICD-10-PCS; 2018-07-08)
DX: A40.3 Sepsis due to Streptococcus pneumoniae (principal); J18.1 Lobar pneumonia, unspecified organism; J96.21 Acute and chronic respiratory failure with hypoxia; N17.9 Acute kidney failure, unspecified; J44.0 Chronic obstructive pulmonary disease with (acute) lower respiratory infection; I13.0 Hypertensive heart and chronic kidney disease with heart failure and stage 1 through stage 4 chronic kidney disease, or unspecified chronic kidney disease; I42.9 Cardiomyopathy, unspecified; E11.22 Type 2 diabetes mellitus with diabetic chronic kidney disease; N18.3 Chronic kidney disease, stage 3 (moderate); I50.9 Heart failure, unspecified; I48.2 Chronic atrial fibrillation; E11.9 Type 2 diabetes mellitus without complications; D64.9 Anemia, unspecified; E53.8 Deficiency of other specified B group vitamins; G47.30 Sleep apnea, unspecified; I35.0 Nonrheumatic aortic (valve) stenosis; E78.5 Hyperlipidemia, unspecified; K21.9 Gastro-esophageal reflux disease without esophagitis; G47.00 Insomnia, unspecified; Z79.82 Long term (current) use of aspirin; Z79.01 Long term (current) use of anticoagulants; Z79.899 Other long term (current) drug therapy; Z99.81 Dependence on supplemental oxygen; Z90.710 Acquired absence of both cervix and uterus; Z87.891 Personal history of nicotine dependence; Z95.0 Presence of cardiac pacemaker; Z86.73 Personal history of transient ischemic attack (TIA), and cerebral infarction without residual deficits
CPT/HCPCS: 36415; 36430; 71045; 71046; 71250; 76705; 76775; 80048; 80053; 81001; 82272; 82550; 82553; 82607; 82728; 82746; 82803; 82962; 83540; 83550; 83605; 83690; 83735; 83880; 84484; 85025; 85027; 85045; 85610; 85730; 86850; 86900; 86901; 86920; 87040; 87077; 87086; 87186; 93005; 93010; 93306; 94640; 94660; 94667; 94799; 96365; 96375; 99285; J0456; J0692; J1644; J1815; J1940; J1956; J2405; J2543; J3370; J3430; J3490; J7030; J7620; P9016; Q0138

== ENCOUNTER → 2018-08-04 | Outpatient (CLI) | payer MEDICARE, BC ==
[2018-08-04 15:44] LABS: BILIRUBIN,URINE NEGATIVE (NEGATIVE); COLOR,URINE YELLOW; GLUCOSE, URINE 50 mg/dL (NEGATIVE); KETONES,URINE NEGATIVE (NEGATIVE); LEUKOCYTE ESTERASE,URINE NEGATIVE (NEGATIVE); NITRITE,URINE NEGATIVE (NEGATIVE); PROTEIN,URINE 30 mg/dL (NEGATIVE); URINE SPECIFIC GRAVITY 1.014
[2018-08-04 15:45] LABS: APPEARANCE,URINE CLEAR
[2018-08-04 15:47] LABS: ABSOLUTE BASOPHILS # (AUTO) 0.1 10^3/uL (0.0-0.2); ABSOLUTE EOSINOPHILS # (AUTO) 0.5 10^3/uL (0.0-0.6); ABSOLUTE LYMPHOCYTES (AUTO) 1.6 10^3/uL (0.5-4.7); ABSOLUTE MONOCYTES (AUTO) 0.4 10^3/uL (0.1-1.4); BASOPHILS % (AUTO) 0.6 % (0-2); EOSINOPHILS % (AUTO) 5.9 % (0-6); HEMATOCRIT 27.8 % (36.0-47.0); HEMOGLOBIN 9.3 g/dL (12.0-15.5); LYMPHOCYTES % (AUTO) 18.5 % (13-45); MEAN CORPUSCULAR HEMOGLOBIN 29.4 pg (27.0-33.4); MEAN CORPUSCULAR HGB CONC 33.5 g/dL (32.0-36.0); MEAN CORPUSCULAR VOLUME 88 fl (80-97); MONOCYTES % (AUTO) 4.8 % (3-13); PLATELET COUNT 246 10^3/uL (150-450); RED BLOOD COUNT 3.16 10^6/uL (3.72-5.28); RED CELL DISTRIBUTION WIDTH 16.4 % (11.5-14.0); SEGMENTED NEUTROPHILS % (AUTO) 70.2 % (42-78); TOTAL CELLS COUNTED % (AUTO) 100 %; WHITE BLOOD COUNT 8.6 10^3/uL (4.0-10.5)
[2018-08-04 16:11] LABS: ALANINE AMINOTRANSFERASE 20 U/L (9-52); ALBUMIN 3.8 g/dL (3.5-5.0); ALKALINE PHOSPHATASE 80 U/L (38-126); ANION GAP 8 (5-19); ASPARTATE AMINO TRANSFERASE 15 U/L (14-36); BILIRUBIN,DIRECT 0.6 mg/dL (0.0-0.4); BILIRUBIN,TOTAL 0.8 mg/dL (0.2-1.3); BLOOD UREA NITROGEN 51 mg/dL (7-20); CALCIUM 9.4 mg/dL (8.4-10.2); CARBON DIOXIDE 28 mmol/L (22-30); CHLORIDE 104 mmol/L (98-107); GLUCOSE 192 mg/dL (75-110); POTASSIUM 5.4 mmol/L (3.6-5.0); SODIUM 140.4 mmol/L (137-145); TOTAL PROTEIN 7.3 g/dL (6.3-8.2)
== END ==
LOC: OD 14:26
PROVIDERS: ATTEND Internal Medicine Nephrology
DX: I13.0 Hypertensive heart and chronic kidney disease with heart failure and stage 1 through stage 4 chronic kidney disease, or unspecified chronic kidney disease (principal); N18.3 Chronic kidney disease, stage 3 (moderate); I50.9 Heart failure, unspecified
CPT/HCPCS: 36415; 80053; 81001; 83735; 85025

== ENCOUNTER → 2018-08-15 | Outpatient (CLI) | payer MEDICARE, BC ==
[2018-08-15 10:03] LABS: HEMATOCRIT 31.5 % (36.0-47.0); HEMOGLOBIN 10.6 g/dL (12.0-15.5); MEAN CORPUSCULAR HEMOGLOBIN 29.2 pg (27.0-33.4); MEAN CORPUSCULAR HGB CONC 33.7 g/dL (32.0-36.0); MEAN CORPUSCULAR VOLUME 87 fl (80-97); PLATELET COUNT 269 10^3/uL (150-450); RED BLOOD COUNT 3.63 10^6/uL (3.72-5.28); RED CELL DISTRIBUTION WIDTH 16.3 % (11.5-14.0); WHITE BLOOD COUNT 10.1 10^3/uL (4.0-10.5)
[2018-08-15 10:29] LABS: ANION GAP 15 (5-19); BLOOD UREA NITROGEN 69 mg/dL (7-20); CALCIUM 9.4 mg/dL (8.4-10.2); CARBON DIOXIDE 29 mmol/L (22-30); CHLORIDE 98 mmol/L (98-107); GLUCOSE 208 mg/dL (75-110); POTASSIUM 4.2 mmol/L (3.6-5.0); SODIUM 142.4 mmol/L (137-145)
== END ==
LOC: OD 09:16
PROVIDERS: ATTEND Internal Medicine Nephrology
DX: I12.9 Hypertensive chronic kidney disease with stage 1 through stage 4 chronic kidney disease, or unspecified chronic kidney disease (principal); I50.9 Heart failure, unspecified; I13.0 Hypertensive heart and chronic kidney disease with heart failure and stage 1 through stage 4 chronic kidney disease, or unspecified chronic kidney disease; N18.3 Chronic kidney disease, stage 3 (moderate)
CPT/HCPCS: 36415; 80048; 85027

== ENCOUNTER → 2018-09-16 | Outpatient (CLI) | payer MEDICARE, BC ==
[2018-09-16 10:04] LABS: HEMATOCRIT 26.5 % (36.0-47.0); HEMOGLOBIN 8.9 g/dL (12.0-15.5); MEAN CORPUSCULAR HEMOGLOBIN 29.4 pg (27.0-33.4); MEAN CORPUSCULAR HGB CONC 33.8 g/dL (32.0-36.0); MEAN CORPUSCULAR VOLUME 87 fl (80-97); PLATELET COUNT 222 10^3/uL (150-450); RED BLOOD COUNT 3.04 10^6/uL (3.72-5.28); RED CELL DISTRIBUTION WIDTH 15.9 % (11.5-14.0); WHITE BLOOD COUNT 7.7 10^3/uL (4.0-10.5)
[2018-09-16 10:07] LABS: APPEARANCE,URINE CLEAR; BILIRUBIN,URINE NEGATIVE (NEGATIVE); COLOR,URINE STRAW; GLUCOSE, URINE NEGATIVE (NEGATIVE); KETONES,URINE NEGATIVE (NEGATIVE); LEUKOCYTE ESTERASE,URINE TRACE (NEGATIVE); NITRITE,URINE NEGATIVE (NEGATIVE); PROTEIN,URINE NEGATIVE (NEGATIVE); URINE SPECIFIC GRAVITY 1.008; UROBILINOGEN,URINE NEGATIVE mg/dL (<2.0)
[2018-09-16 10:24] LABS: ANION GAP 14 (5-19); BLOOD UREA NITROGEN 59 mg/dL (7-20); CALCIUM 8.9 mg/dL (8.4-10.2); CARBON DIOXIDE 25 mmol/L (22-30); CHLORIDE 105 mmol/L (98-107); GLUCOSE 56 mg/dL (75-110); POTASSIUM 4.3 mmol/L (3.6-5.0); SODIUM 144.4 mmol/L (137-145)
[2018-09-17 10:09] LABS: IRON(TIBC) 47.7 ug/dL (37-170)
== END ==
LOC: OD 09:10
PROVIDERS: ATTEND Internal Medicine Nephrology
DX: I12.9 Hypertensive chronic kidney disease with stage 1 through stage 4 chronic kidney disease, or unspecified chronic kidney disease (principal); N18.3 Chronic kidney disease, stage 3 (moderate); I50.9 Heart failure, unspecified; D64.9 Anemia, unspecified; E11.22 Type 2 diabetes mellitus with diabetic chronic kidney disease
CPT/HCPCS: 36415; 80048; 81001; 82728; 83540; 83550; 85027

== ENCOUNTER 2018-10-30 08:47 | Day surgery (SDC) | payer MEDICARE, BC ==
[2018-10-30 09:54] LABS: HEMATOCRIT 29.9 % (36.0-47.0); MEAN CORPUSCULAR HEMOGLOBIN 29.5 pg (27.0-33.4); MEAN CORPUSCULAR HGB CONC 33.4 g/dL (32.0-36.0); MEAN CORPUSCULAR VOLUME 88 fl (80-97); PLATELET COUNT 226 10^3/uL (150-450); RED BLOOD COUNT 3.39 10^6/uL (3.72-5.28); RED CELL DISTRIBUTION WIDTH 16.5 % (11.5-14.0); WHITE BLOOD COUNT 7.5 10^3/uL (4.0-10.5)
[2018-10-30 10:02] LABS: INTERNATIONAL RATION (INR) 1.21; PROTHROMBIN TIME 15.9 SEC (11.4-15.4)
[2018-10-30 10:16] LABS: BLOOD UREA NITROGEN 62 mg/dL (7-20); GLUCOSE 96 mg/dL (75-110)
[2018-10-30] MEDS ORDERED: LIDOCAINE 1% INJ-PF (10 MG/ML) 30 ML SDV ONE (10:47)
[2018-10-30] MEDS ORDERED: MIDAZOLAM 2 MG/2 ML INJ ONE (10:47)
[2018-10-30] MEDS ORDERED: FENTANYL CITRATE INJ/PF 100 MCG/2 ML AMPUL ONE (10:47)
--- NOTE | 2018-10-30 11:46 | RADIOLOGY REPORT (SQ) ---
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 TECHNIQUE: CT guided biopsy of the right iliac crest bone marrow performed with conscious sedation. CT Fluoroscopy Time: [address] scanners at this facility use dose modulation, iterative reconstruction, and/or weight based d osing when appropriate to reduce radiation dose to as low as reasonably achievable (ALARA). [facility]: Dose Right [facility]: CareDose [facility]: Dose Right [facility]: Teradose 4D [facility]: [employer] RADIATION DOSE: CT Rad equipment meets quality standard of care and radiation dose reduction techniq ues were employed. CTDIvol: 4.0 - 20.3 mGy. DLP: 473 mGy-cm.mGy. FINDINGS: After obtaining informed consent and explaining the risks and benefits of conscious sedati on,the patient agreed to the procedure. Prior to the procedure, a time out was performed to verify th e patient's identity and planned procedure. IV conscious sedation was administered and physician direction by the registered nurse using 1 millig liyah of Versed and 50 micrograms of fentanyl. Physiologic monitoring was provided before, during, and after sedation. The total sedation time was 30 minutes. Documentation face to face time, the performing proceduralist, spent monitoring the patient: [address] scanning was performed to localize the percutaneous site for the biopsy approach. After sterile skin prep and local lidocaine for skin and deep tissue anesthesia, a coaxial biopsy nee dle was used to obtain a bone marrow aspirate, and a bone marrow core of tissue. The biopsy tissue wa s received by [facility] lab to be sent out for evaluation. There were no immediate complications. Pathology is pending at the time of dictation. IMPRESSION: CT GUIDED ASPIRATE AND CORE BIOPSY OF THE RIGHT POSTERIOR ILIAC CREST BONE MARROW PERFOR MED WITHOUT IMMEDIATE COMPLICATION. PATHOLOGY PENDING. IV CONSCIOUS SEDATION WITHOUT COMPLICATION. COMMENT: Quality ID 145: Final reports for procedures using fluoroscopy that document radiation exp osure indices, or exposure time and number of fluorographic images (if radiation exposure indices are not available) Patient medication list reviewed: Yes- Quality ID# [id number]:Eligible professional attests to documenting i n the medical record they obtained, updated, or reviewed the patient's current medications.. TECHNICAL DOCUMENTATION: JOB ID: [id number] Quality ID# [id number]: Final reports with documentation of one or more dose reduction techniques (e.g., Aut omated exposure control, adjustment of the mA and/or kV according to patient size, use of iterative r econstruction technique) 2010 [employer]- All Rights Reserved Reading location - IP/workstation name: [email or web address]
--- NOTE | 2018-10-30 11:46 | RADIOLOGY REPORT (SQ) ---
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 TECHNIQUE: CT guided biopsy of the right iliac crest bone marrow performed with conscious sedation. CT Fluoroscopy Time: [address] scanners at this facility use dose modulation, iterative reconstruction, and/or weight based d osing when appropriate to reduce radiation dose to as low as reasonably achievable (ALARA). [facility]: Dose Right [facility]: CareDose [facility]: Dose Right [facility]: Teradose 4D [facility]: [employer] RADIATION DOSE: CT Rad equipment meets quality standard of care and radiation dose reduction techniq ues were employed. CTDIvol: 4.0 - 20.3 mGy. DLP: 473 mGy-cm.mGy. FINDINGS: After obtaining informed consent and explaining the risks and benefits of conscious sedati on,the patient agreed to the procedure. Prior to the procedure, a time out was performed to verify th e patient's identity and planned procedure. IV conscious sedation was administered and physician direction by the registered nurse using 1 millig liyah of Versed and 50 micrograms of fentanyl. Physiologic monitoring was provided before, during, and after sedation. The total sedation time was 30 minutes. Documentation face to face time, the performing proceduralist, spent monitoring the patient: [address] scanning was performed to localize the percutaneous site for the biopsy approach. After sterile skin prep and local lidocaine for skin and deep tissue anesthesia, a coaxial biopsy nee dle was used to obtain a bone marrow aspirate, and a bone marrow core of tissue. The biopsy tissue wa s received by [facility] lab to be sent out for evaluation. There were no immediate complications. Pathology is pending at the time of dictation. IMPRESSION: CT GUIDED ASPIRATE AND CORE BIOPSY OF THE RIGHT POSTERIOR ILIAC CREST BONE MARROW PERFOR MED WITHOUT IMMEDIATE COMPLICATION. PATHOLOGY PENDING. IV CONSCIOUS SEDATION WITHOUT COMPLICATION. COMMENT: Quality ID 145: Final reports for procedures using fluoroscopy that document radiation exp osure indices, or exposure time and number of fluorographic images (if radiation exposure indices are not available) Patient medication list reviewed: Yes- Quality ID# [id number]:Eligible professional attests to documenting i n the medical record they obtained, updated, or reviewed the patient's current medications.. TECHNICAL DOCUMENTATION: JOB ID: [id number] Quality ID# [id number]: Final reports with documentation of one or more dose reduction techniques (e.g., Aut omated exposure control, adjustment of the mA and/or kV according to patient size, use of iterative r econstruction technique) 2010 [employer]- All Rights Reserved Reading location - IP/workstation name: [facility]
[2018-10-30 14:03] VITALS: BP 146/61
== END 2018-10-30 14:00 | disposition home or self-care (01) ==
LOC: RAD 08:47
PROVIDERS: ATTEND Internal Medicine Medical Oncology
DX: D63.8 Anemia in other chronic diseases classified elsewhere (principal); I10 Essential (primary) hypertension; E11.9 Type 2 diabetes mellitus without complications; Z79.01 Long term (current) use of anticoagulants; Z87.891 Personal history of nicotine dependence; I48.91 Unspecified atrial fibrillation; Z79.899 Other long term (current) drug therapy
CPT/HCPCS: 36415; 84520; 82565; 82947; 85027; 85610; 85730; 38221; 77012; J2250; J3010; J3490

== ENCOUNTER 2018-12-08 07:55 | Emergency (ER) | payer MEDICARE, BC ==
[2018-12-08] MEDS ORDERED: ASPIRIN 81 MG TABLET, CHEWABLE PO ONE (08:11)
--- NOTE | 2018-12-08 08:15 | ER Document Report ---
ED General - General Stated Complaint: DIZZINESS Time Seen by Provider: 12/08/18 08:01 Primary Care Provider: YANNICK CLARK MD [Primary Care Provider] - Follow up as needed Mode of Arrival: Medic Information source: Patient Cannot obtain history due to: Unstable vital signs Notes: 73-year-old female with a history of of atrial fibrillation on coumadin, CVA, hy pertension, DM, CHF brought to the emergency department by EMS for dizziness. Patient states that she got up this morning and took her Levemir without eating. She states that she was in a [place] to get her to her doctor's appointment today and forgot to eat. She states that she then began feeling lightheaded and had some shortness of breath. Patient is on CPAP at night. Not on home O2. Patient states that she was following up with her primary care physician Dr. Clark today. She states that she had some blood work done last week. She states that she was diagnosed with shingles on Saturday and her dose of furosemide was adjusted. Patient denies any chest pain, lower extremity swelling, fever, rhinorrhea, sore throat, cough. TRAVEL OUTSIDE OF THE [place] IN LAST 30 DAYS: No - HPI Onset: Just prior to arrival Onset/Duration: Sudden Quality of pain: No pain Severity: None Pain Level: Denies Associated symptoms: Shortness of breath, Sweating Exacerbated by: Denies Relieved by: Denies Similar symptoms previously: No Recently seen / treated by doctor: Yes - Related Data Allergies/Adverse Reactions: fluconazole Allergy (Verified 12/08/18 09:18) Past Medical History - General Information source: Patient - Social History Smoking Status: Former Smoker Family History: CAD, Other - Past Medical History Cardiac Medical History: Reports: Hx Atrial Fibrillation - pace maker, Hx Congestive Heart Failure, Hx Coronary Artery Disease, Hx Hypertension Denies: Hx Heart Attack Pulmonary Medical History: Reports: Hx Pneumonia, Hx Sleep Apnea Denies: Hx Asthma, Hx Bronchitis, Hx COPD Neurological Medical History: Denies: Hx Cerebrovascular Accident, Hx Seizures Endocrine Medical History: Reports: Hx Diabetes Mellitus Type 2 Renal/ Medical History: Denies: Hx Peritoneal Dialysis Musculoskeletal Medical History: Reports Hx Arthritis Past Surgical History: Reports: Hx Cardiac Surgery - pace maker. Denies: Hx Hysterectomy - Immunizations Hx Diphtheria, Pertussis, Tetanus Vaccination: Yes Hx Pneumococcal Vaccination: 09/26/14 Review of Systems - Review of Systems Constitutional: Chills EENT: No symptoms reported Cardiovascular: Lightheaded Respiratory: Short of breath Gastrointestinal: No symptoms reported Genitourinary: No symptoms reported Musculoskeletal: No symptoms reported Skin: No symptoms reported Hematologic/Lymphatic: No symptoms reported Neurological/Psychological: No symptoms reported -: Yes All other systems reviewed and negative Physical Exam - Vital signs Vitals: Resp BP Pulse Ox 14 156/91 H 98 12/08/18 07:43 12/08/18 07:43 12/08/18 07:43 - Notes Notes: PHYSICAL EXAMINATION: GENERAL: Well-appearing, well-nourished and in no acute distress. HEAD: Atraumatic, normocephalic. EYES: Pupils equal round and reactive to light, extraocular movements intact, conjunctiva are normal. ENT: Nares patent, oropharynx clear without exudates. Moist mucous membranes. NECK: Normal range of motion, supple without lymphadenopathy LUNGS: Breath sounds clear to auscultation bilaterally and equal. No wheezes rales or rhonchi. HEART: Regular rate and rhythm without murmurs ABDOMEN: Soft, nontender, nondistended abdomen. No guarding, no rebound. No masses appreciated. Female : deferred Musculoskeletal: Normal range of motion, no pitting or edema. No cyanosis. NEUROLOGICAL: Cranial nerves grossly intact. Normal speech, normal gait. Normal sensory, motor exams PSYCH: Normal mood, normal affect. SKIN: Warm, Dry, normal turgor, Shingles to juan Left forehead. Course - Re-evaluation Re-evalutation: 12/08/18 08:39 EKG: Ventricular rate 60, QRS duration 150, QTc 528, left bundle branch block. Accelerated junctional escape rhythm. EKG is similar to that done on 06/18/18. 12/08/18 11:08 Labs and imaging obtained. Patient's hemoglobin is stable. It is 9.9 today. Previous it was 10. INR 2.68. Patinet is on coumadin for atrial fibrillation. Troponin is within normal limits. Patient's creatinine is 1.47. Previous was 1.53. BNP is 6590. Previous was 19,100. On reevaluation, patient states that she is feeling much better. She denies feeling lightheaded or having any shortness of breath. She denies any chest pain. Patient was given a meal while in the emergency department. She states that this did help with her symptoms. I instructed the patient to follow-up with her primary care physician this week, to continue taking her medications as directed, and to return to the emergency department if she begins having any worsening symptoms. Patient feels agreeable with plan of care. 12/08/18 11:12 12/08/18 11:13 - Vital Signs Vital signs: Temp Pulse Resp BP Pulse Ox 15 153/74 H 100 12/08/18 09:12 12/08/18 09:12 12/08/18 09:12 - Laboratory Result Diagrams: 12/08/18 08:15 12/08/18 08:15 Laboratory results interpreted by me: 12/08/18 12/08/18 12/08/18 08:15 08:15 08:15 RBC 3.37 L Hgb 9.9 L Hct 29.9 L RDW 16.6 H PT APTT Chloride 109 H BUN 45 H Creatinine 1.47 H Est GFR ( Amer) 42 L Est GFR (Non-Af Amer) 35 L Glucose 63 L NT-Pro-B Natriuret Pep 6590 H 12/08/18 08:15 RBC Hgb Hct RDW PT 29.7 H APTT 41.8 H Chloride BUN Creatinine Est GFR ( Amer) Est GFR (Non-Af Amer) Glucose NT-Pro-B Natriuret Pep Discharge - Discharge Clinical Impression: Lightheadedness, Shortness of breath Condition: Good Disposition: HOME, SELF-CARE Instructions: Dyspnea, Nonspecific ([facility]), Near Syncopal Episode ([facility]) Additional Instructions: Continue taking medications prescribed as directed, follow-up with your primary care physician this week, return to the emergency department if you begin having any worsening symptoms Referrals: YANNICK CLARK MD [Primary Care Provider] - Follow up as needed
[2018-12-08 08:40] LABS: ABSOLUTE EOSINOPHILS # (AUTO) 0.3 10^3/uL (0.0-0.6); ABSOLUTE LYMPHOCYTES (AUTO) 1.1 10^3/uL (0.5-4.7); ABSOLUTE MONOCYTES (AUTO) 0.3 10^3/uL (0.1-1.4); ABSOLUTE NEUT (AUTO) 4.9 10^3/uL (1.7-8.2); BASOPHILS % (AUTO) 0.6 % (0-2); EOSINOPHILS % (AUTO) 4.1 % (0-6); HEMATOCRIT 29.9 % (36.0-47.0); HEMOGLOBIN 9.9 g/dL (12.0-15.5); LYMPHOCYTES % (AUTO) 16.7 % (13-45); MEAN CORPUSCULAR HEMOGLOBIN 29.4 pg (27.0-33.4); MEAN CORPUSCULAR HGB CONC 33.1 g/dL (32.0-36.0); MEAN CORPUSCULAR VOLUME 89 fl (80-97); MONOCYTES % (AUTO) 5.1 % (3-13); PLATELET COUNT 273 10^3/uL (150-450); RED BLOOD COUNT 3.37 10^6/uL (3.72-5.28); RED CELL DISTRIBUTION WIDTH 16.6 % (11.5-14.0); SEGMENTED NEUTROPHILS % (AUTO) 73.5 % (42-78); TOTAL CELLS COUNTED % (AUTO) 100 %; WHITE BLOOD COUNT 6.7 10^3/uL (4.0-10.5)
[2018-12-08 08:48] LABS: INTERNATIONAL RATION (INR) 2.67; PROTHROMBIN TIME 29.7 SEC (11.4-15.4)
[2018-12-08 08:49] LABS: PARTIAL THROMBOPLASTIN TIME 41.8 SEC (23.5-35.8)
[2018-12-08 09:03] LABS: ALANINE AMINOTRANSFERASE 28 U/L (9-52); ALBUMIN 4.2 g/dL (3.5-5.0); ALKALINE PHOSPHATASE 99 U/L (38-126); ANION GAP 9 (5-19); ASPARTATE AMINO TRANSFERASE 22 U/L (14-36); BILIRUBIN,DIRECT 0.4 mg/dL (0.0-0.4); BILIRUBIN,TOTAL 0.7 mg/dL (0.2-1.3); BLOOD UREA NITROGEN 45 mg/dL (7-20); CALCIUM 8.9 mg/dL (8.4-10.2); CARBON DIOXIDE 26 mmol/L (22-30); CHLORIDE 109 mmol/L (98-107); POTASSIUM 4.4 mmol/L (3.6-5.0); SODIUM 144.2 mmol/L (137-145); TOTAL PROTEIN 7.4 g/dL (6.3-8.2)
[2018-12-08 09:07] LABS: GLUCOSE 63 mg/dL (75-110)
[2018-12-08 09:14] LABS: NT PRO BNP 6590 pg/mL (5-900)
[2018-12-08 09:15] LABS: TROPONIN I < 0.012 ng/mL
--- NOTE | 2018-12-08 09:18 | RADIOLOGY REPORT (SQ) ---
EXAM DESCRIPTION: CHEST SINGLE VIEW COMPLETED DATE/TIME: 12/08/2018 8:41 am REASON FOR STUDY: shortness of breath COMPARISON: 10/11/2016 NUMBER OF VIEWS: One view. TECHNIQUE: Single frontal radiographic view of the chest acquired. LIMITATIONS: AP portable. FINDINGS: LUNGS AND PLEURA: Chronic interstitial changes. No effusions. MEDIASTINUM AND HILAR STRUCTURES: No masses or contour abnormality. HEART AND VASCULATURE: Cardiac enlargement. Vascular congestion. BONES: No acute findings. HARDWARE: None in the chest. OTHER: No other significant finding. IMPRESSION: CARDIAC ENLARGEMENT. VASCULAR CONGESTION. TECHNICAL DOCUMENTATION: JOB ID: [id number] [employer]- All Rights Reserved Reading location - IP/workstation name: [email or web address]
[2018-12-08 10:43] LABS: APPEARANCE,URINE CLEAR; BILIRUBIN,URINE NEGATIVE (NEGATIVE); COLOR,URINE STRAW; GLUCOSE, URINE NEGATIVE (NEGATIVE); KETONES,URINE NEGATIVE (NEGATIVE); LEUKOCYTE ESTERASE,URINE NEGATIVE (NEGATIVE); NITRITE,URINE NEGATIVE (NEGATIVE); PROTEIN,URINE NEGATIVE (NEGATIVE); URINE SPECIFIC GRAVITY 1.005; UROBILINOGEN,URINE NEGATIVE mg/dL (<2.0)
[2018-12-08 11:36] VITALS: BP 142/78
--- NOTE | 2018-12-11 11:11 | EKG REPORT ---
SEVERITY:- ABNORMAL ECG - PROBABLE SINUS RHYTHM LEFT BUNDLE BRANCH BLOCK REC REPEAT EKG : Confirmed by: Maine Hernandez 11-Dec-2018 11:09:55
== END 2018-12-08 11:36 | disposition home or self-care (01) ==
LOC: ER 07:55
DX: R42 Dizziness and giddiness (principal); R06.02 Shortness of breath; R68.83 Chills (without fever); I44.7 Left bundle-branch block, unspecified; I48.91 Unspecified atrial fibrillation; Z79.01 Long term (current) use of anticoagulants; E11.9 Type 2 diabetes mellitus without complications; Z79.4 Long term (current) use of insulin; I11.0 Hypertensive heart disease with heart failure; I50.9 Heart failure, unspecified; Z79.899 Other long term (current) drug therapy; R61 Generalized hyperhidrosis; Z95.0 Presence of cardiac pacemaker; I25.10 Atherosclerotic heart disease of native coronary artery without angina pectoris; G47.30 Sleep apnea, unspecified; Z99.89 Dependence on other enabling machines and devices; Z87.891 Personal history of nicotine dependence; Z86.73 Personal history of transient ischemic attack (TIA), and cerebral infarction without residual deficits
CPT/HCPCS: 99284; 36415; 87086; 85025; 85610; 85730; 80053; 81001; 84484; 83880; 71045; A9270; 93005; 93010

== ENCOUNTER → 2018-12-09 | Outpatient (CLI) | payer MEDICARE, BC ==
[2018-12-09 09:29] LABS: APPEARANCE,URINE CLEAR; BILIRUBIN,URINE NEGATIVE (NEGATIVE); COLOR,URINE YELLOW; GLUCOSE, URINE NEGATIVE (NEGATIVE); KETONES,URINE NEGATIVE (NEGATIVE); LEUKOCYTE ESTERASE,URINE TRACE (NEGATIVE); NITRITE,URINE NEGATIVE (NEGATIVE); PROTEIN,URINE 30 mg/dL (NEGATIVE)
[2018-12-09 09:40] LABS: HEMOGLOBIN 9.9 g/dL (12.0-15.5); MEAN CORPUSCULAR HEMOGLOBIN 29.8 pg (27.0-33.4); MEAN CORPUSCULAR HGB CONC 34.1 g/dL (32.0-36.0); MEAN CORPUSCULAR VOLUME 88 fl (80-97); PLATELET COUNT 262 10^3/uL (150-450); RED BLOOD COUNT 3.31 10^6/uL (3.72-5.28); RED CELL DISTRIBUTION WIDTH 16.8 % (11.5-14.0); WHITE BLOOD COUNT 7.7 10^3/uL (4.0-10.5)
[2018-12-09 09:44] LABS: ANION GAP 10 (5-19); BLOOD UREA NITROGEN 36 mg/dL (7-20); CALCIUM 9.3 mg/dL (8.4-10.2); CARBON DIOXIDE 27 mmol/L (22-30); CHLORIDE 109 mmol/L (98-107); GLUCOSE 115 mg/dL (75-110); SODIUM 145.8 mmol/L (137-145)
== END ==
LOC: OD 08:53
PROVIDERS: ATTEND Internal Medicine Nephrology
DX: E11.22 Type 2 diabetes mellitus with diabetic chronic kidney disease (principal); N18.3 Chronic kidney disease, stage 3 (moderate); D64.9 Anemia, unspecified; I50.9 Heart failure, unspecified
CPT/HCPCS: 36415; 80048; 81001; 83735; 85027